=== PATIENT | male | born 1945 | race Hispanic/Latino ===

== ENCOUNTER 2017-10-02 08:19 | Emergency (ER) | payer BC, OTHER ==
[2017-10-02] MEDS ORDERED: Ketorolac Tromethamine 30 MG/ML VIAL ONE (09:09)
[2017-10-02] MEDS ORDERED: Diazepam 5 MG TAB ONE (09:09)
--- NOTE | 2017-10-02 10:47 | RAD ---
CERVICAL SPINE 4 VIEWS: Date: 10/02/17 PROVIDED CLINICAL HISTORY: Neck pain for 1 month. FINDINGS: There is slight anterolisthesis of C3 on C4 and C4 on C5. Disc space narrowing and end plate degenera tive changes are seen at C5-6 and C6-7. No evidence for fracture. No prevertebral soft tissue swellin g apparent. The visualized lung apices appear clear. IMPRESSION: Cervical degenerative change. POS: [facility]
== END 2017-10-02 10:30 | disposition home or self-care (01) ==
LOC: ERS 08:19
DX: M50.30 Other cervical disc degeneration, unspecified cervical region (principal); E78.00 Pure hypercholesterolemia, unspecified; E11.9 Type 2 diabetes mellitus without complications
CPT/HCPCS: 72040; 96372; J1885

== ENCOUNTER 2018-03-20 10:55 | Emergency (ER) | payer MEDICARE, OTHER ==
[2018-03-20] MEDS ORDERED: Meclizine HCl 25 MG TAB ONE (11:30)
[2018-03-20 11:46] LABS: #Eosinphils 0.1 thou/uL (0.0-0.7); #Lymphocytes 1.6 thou/uL (1.20-3.40); #Monocytes 0.6 thou/uL (0.11-0.59); #Neutrophils 4.3 thou/uL (1.40-6.50); %Basophils 0.7 % (0.0-1.0); %Eosinophils 1.8 % (0.0-10.0); %Lymphocytes 24.3 % (21.0-51.0); %Monocytes 8.6 % (0.0-10.0); %Neutrophils 64.5 % (42.0-75.0); Mean Corpuscular HGB CONC 31.5 g/dL (32.0-36.0); Mean Corpuscular Hemoglobin 25.4 pg (27.0-31.0); Mean Corpuscular Volume 80.7 fL (78.0-98.0); Platelet Count 218 thou/uL (130-400); RBC Distribution Width 16.5 % (11.5-14.5); Red Blood Cell (RBC) Count 5.52 mill/uL (4.70-6.10); White Blood Cell (WBC) Count 6.6 thou/uL (4.8-10.8)
[2018-03-20 11:57] LABS: ALT (SGPT) 15 U/L (8-55); AST (SGOT) 21 U/L (5-34); Albumin 4.4 g/dL (3.4-4.8); Alkaline Phosphatase 134 U/L (40-150); Anion Gap 15 mmol/L (10-20); BUN (Urea Nitrogen) 21 mg/dL (8.4-25.7); Bilirubin, Total 0.4 mg/dL (0.2-1.2); CK (CPK) 53 U/L (30-200); Calc. Creatinine Clearance 0 mL/min (70-130); Calcium 10.1 mg/dL (7.8-10.44); Carbon Dioxide 22 mmol/L (23-31); Chloride 103 mmol/L (98-107); Estimated GFR-MDRD 50; Globulin 4.6 g/dL (2.4-3.5); Glucose 87 mg/dL (80-115); Lipase 52 U/L (8-78); Potassium 4.2 mmol/L (3.5-5.1); Sodium 136 mmol/L (136-145)
[2018-03-20 12:43] LABS: Bilirubin Negative (Negative); Blood, Urine Small (Negative); Clarity CLEAR (Clear); Glucose, Urine (Dipstick) Negative (Negative); Leukocyte Negative (Negative); Nitrite Negative (Negative); Protein, Urine (Dipstick) 100 mg/dL (Neg-Trace); Specific Gravity, Urine 1.017 (1.002-1.036)
[2018-03-20 12:45] LABS: Bacteria/HPF None Seen HPF (None Seen); Pathc Cast-AUWi Flag 1.59 (0-2.49); Squamous Epithelial 0-3 HPF (0-3); WBC/HPF 0-3 HPF (0-3)
[2018-03-20 12:59] LABS: Hyaline Casts/LPF 0-3 HYALINE CAST LPF (0-3 Hyaline)
--- NOTE | 2018-03-20 13:17 | RAD ---
CHEST 1 VIEW: HISTORY: Altered mental status. COMPARISON: 03/11/2016. FINDINGS: Cardiac silhouette is magnified by projection. Pulmonary vasculature is unremarkable. Mediastinum i s midline. No confluent airspace consolidation or evidence of pneumothorax. IMPRESSION: No active cardiopulmonary abnormalities are demonstrated. POS: [facility]
--- NOTE | 2018-03-20 13:22 | CT ---
NONCONTRAST CT HEAD: DATE: 03/20/2018. HISTORY: Altered mental status. COMPARISON: 03/11/2009. FINDINGS: There is no evidence of an acute cortical infarction, hemorrhage, mass effect, or midline shift. A f ew subtle low-density areas are seen in the periventricular white matter which are nonspecific but li oliverio reflective of mild chronic small-vessel ischemic changes. There is mild cerebral volume loss. The ventricular system is normal in size, shape, and position. Visualized paranasal sinuses and mast oid air cells are clear. No other interval change from the prior exam. IMPRESSION: No acute intracranial abnormalities demonstrated. POS: [facility]
== END 2018-03-20 13:25 | disposition home or self-care (01) ==
LOC: ERS 10:55
DX: E86.0 Dehydration (principal); E78.00 Pure hypercholesterolemia, unspecified; E11.9 Type 2 diabetes mellitus without complications; Z79.899 Other long term (current) drug therapy
CPT/HCPCS: 36415; 70450; 71045; 80053; 81003; 81015; 82140; 82550; 83690; 83880; 84484; 85025; 87040; 93005; 96360

== ENCOUNTER 2018-09-05 19:06 | Inpatient (IN) | payer MEDICARE, OTHER ==
[2018-09-05] MEDS ORDERED: Fentanyl 100 MCG/2 ML VIAL ONE ×2 (19:23→20:43)
[2018-09-05] MEDS ORDERED: Ondansetron PF 4 MG/2 ML Vial ONE ×2 (19:23→20:43)
[2018-09-05 19:39] LABS: #Basophils 0.1 thou/uL (0.0-0.2); #Eosinphils 0.1 thou/uL (0.0-0.7); #Lymphocytes 2.4 thou/uL (1.20-3.40); #Neutrophils 11.4 thou/uL (1.40-6.50); %Basophils 0.5 % (0.0-1.0); %Eosinophils 0.9 % (0.0-10.0); %Monocytes 6.6 % (0.0-10.0); Hemoglobin 15.1 g/dL (14.0-18.0); Mean Corpuscular Hemoglobin 28.6 pg (27.0-31.0); Mean Corpuscular Volume 86.5 fL (78.0-98.0); Mean Platelet Volume 7.1 fL (7.4-10.4); Platelet Count 314 thou/uL (130-400); RBC Distribution Width 12.8 % (11.5-14.5); Red Blood Cell (RBC) Count 5.28 mill/uL (4.70-6.10)
[2018-09-05 19:44] LABS: INR-International Normal Ratio 1.1; PTT 32.5 SEC (22.9-36.1); Prothrombin Time 14.2 SEC (12.0-14.7)
[2018-09-05 20:01] LABS: ALT (SGPT) 40 U/L (8-55); AST (SGOT) 56 U/L (5-34); Albumin 4.6 g/dL (3.4-4.8); Alkaline Phosphatase 105 U/L (40-150); Anion Gap 19 mmol/L (10-20); BUN (Urea Nitrogen) 39 mg/dL (8.4-25.7); Bilirubin, Total 2.3 mg/dL (0.2-1.2); Calc. Creatinine Clearance 0 mL/min (70-130); Calcium 10.2 mg/dL (7.8-10.44); Carbon Dioxide 18 mmol/L (23-31); Chloride 99 mmol/L (98-107); Estimated GFR-MDRD 26; Globulin 4.1 g/dL (2.4-3.5); Glucose 251 mg/dL (83-110); Magnesium 2.1 mg/dL (1.6-2.6); Potassium 3.7 mmol/L (3.5-5.1); Protein, Total 8.7 g/dL (5.8-8.1); Sodium 132 mmol/L (136-145)
[2018-09-05 21:00] LABS: Bilirubin Negative (Negative); Blood, Urine Negative (Negative); Clarity CLEAR (Clear); Glucose, Urine (Dipstick) 250 mg/dL (Negative); Leukocyte Negative (Negative); Nitrite Negative (Negative); Protein, Urine (Dipstick) 30 mg/dL (Neg-Trace); Specific Gravity, Urine 1.012 (1.002-1.036)
[2018-09-05 21:02] LABS: Bacteria/HPF None Seen HPF (None Seen); Hyaline Casts/LPF 4-6 HYALINE CAST LPF (0-3 Hyaline); Pathc Cast-AUWi Flag 0.81 (0-2.49); RBC/HPF 0-3 HPF (0-3); Squamous Epithelial None Seen HPF (0-3); WBC/HPF 0-3 HPF (0-3)
[2018-09-05 21:05] LABS: Lipase Greater than 8000 U/L (8-78)
[2018-09-05] MEDS ORDERED: Promethazine HCl 25 MG/ML VIAL ONE (22:21)
--- NOTE | 2018-09-05 22:25 | ULT ---
GALLBLADDER ULTRASOUND: HISTORY: Right upper quadrant pain. FINDINGS: Real-time imaging of the right upper quadrant shows some echogenic material that does not shadow with in the gallbladder consistent with some sludge. It is equivocal as to whether there may be some tiny stones associated with the sludge. The common duct is 6 mm. Visualized liver parenchyma shows no f ocal abnormalities. It measures 18.3 cm in length. Pancreas is obscured. The right kidney is normal in size and not obstructed. IMPRESSION: Sludge within the gallbladder. On some of the images, there appears to be some shadowing associated with some smaller echogenic foci within the gallbladder potentially tiny stones, although not definit mark. The common duct is upper limits of normal at 6 mm. POS: [facility]
[2018-09-05] MEDS ORDERED: Ondansetron ODT 4 MG TAB SL PRN (23:20)
[2018-09-05] MEDS ORDERED: Ondansetron PF 4 MG/2 ML Vial IVP PRN (23:20)
[2018-09-05] MEDS ORDERED: Acetaminophen 325 MG TAB PO PRN (23:36)
[2018-09-05] MEDS ORDERED: Senokot S 8.6-50 MG TAB PO PRN (23:36)
[2018-09-05] MEDS ORDERED: Dextrose 5% in Water 1,000 ML IV PRN (23:39)
[2018-09-05] MEDS ORDERED: Dextrose 50% Abboject 50 ML SYRINGE SLOW IVP PRN (23:39)
[2018-09-05] MEDS ORDERED: oxyCODONE 5 MG TAB PO PRN (23:44)
[2018-09-05] MEDS: Sodium Chloride 0.9% 1,000 ML IV SCH (23:59)
[2018-09-06] MEDS ORDERED: Promethazine HCl 25 MG/ML VIAL IVPB PRN (00:37)
[2018-09-06] MEDS ORDERED: hydrALAZINE 20 MG/ML VIAL SLOW IVP PRN (00:57)
[2018-09-06] MEDS: Ondansetron PF 4 MG/2 ML Vial IVP PRN ×3 (01:16→14:59)
[2018-09-06] MEDS ORDERED: Fentanyl 100 MCG/2 ML VIAL SLOW IVP PRN (01:17)
[2018-09-06] MEDS ORDERED: Fentanyl 100 MCG/2 ML VIAL SLOW IVP SCH (03:00)
--- NOTE | 2018-09-06 03:36 | HP ---
CHIEF COMPLAINT: Nausea, vomiting, abdominal pain. HISTORY OF PRESENT ILLNESS: The patient is a 73-year-old male with a past medical history of diabetes, recent diagnosis of metastatic renal carcinoma, currently on therapy and hypertension, who presents to the hospital with complaints of nausea, vomiting, abdominal pain x1 day. The patient's family states that they went to [facility] today for imaging and also some blood work since his renal function has been worsening. The patient's family stated that while on the way back from the [facility], the patient started having significant amounts of nausea, vomiting, and abdominal pain. Denies any diarrhea. Denies any fevers or chills. At this time, the patient was brought into the hospital for further evaluation. The patient's family stated that no new medications have been started except for the Opdivo that was started about 2 or 3 months ago. The patient normally takes Tylenol for p.r.n. pain. PAST MEDICAL HISTORY: As of the following; 1. History of diabetes. 2. High cholesterol. 3. Hypertension. 4. Renal carcinoma with metastatic tumor to the bone. PAST SURGICAL HISTORY: 1. Right knee surgery. 2. Colon surgery. 3. Appendectomy. FAMILY HISTORY: No history of heart disease, cancers, or strokes. SOCIAL HISTORY: The patient drinks socially. Denies any drug use, any cigarette smoking. He is a full code. Lives with his family. ALLERGIES: HE IS ALLERGIC TO HYDROCODONE AND TRAMADOL, STATES THAT HE GETS A STRANGE REACTION IN WHICH HE HAS GENERALIZED WEAKNESS. MEDICATIONS: 1. He takes Tylenol 500 mg every 8 hours p.r.n. 2. Glimepiride 5 mg b.i.d. 3. Lisinopril-hydrochlorothiazide 20-12.5 one daily. 4. Meclizine 25 mg q.6 hours p.r.n. 5. Zofran 4 mg q.6 hours p.r.n. PHYSICAL EXAMINATION: VITAL SIGNS: Are as of the following; temperature of 98.3, pulse 97, respirations 20, oxygen saturation 98% on room air, blood pressure 186/100. GENERAL: He is awake, alert, and oriented x3. Does not appear in distress. HEENT: Normocephalic, atraumatic. No lymphadenopathy noted. Pupils are equal and reactive to light. CV: S1 and S2 present. No murmurs, rubs, or gallops. LUNGS: Clear to auscultation. No rhonchi or wheezes noted. ABDOMEN: Obese. Bowel sounds are present x2. Significant pain upon palpation around epigastric area. The patient's abdomen appears to have some edema around his abdominal area. EXTREMITIES: Mild +1 pitting edema to bilateral lower extremities. Pedal pulses are present x2. NEUROVASCULAR: No focal deficits noted. SKIN: No cuts, lesions, or bruises noted. MUSCULOSKELETAL: He does have pain on his left shoulder. LABORATORY RESULTS: WBCs of 15.0, hemoglobin of 15.1, hematocrit of 45.6, platelets of 314. Chemistry; sodium of 132, potassium of 3.7, BUN of 13, creatinine of 2.47, his glucose is 251. His total bilirubin is 2.3, and AST is 56. His lipase was greater than 8000. The patient did have a right upper quadrant abdominal ultrasound which indicated sludge within the gallbladder and also some potential tiny stones. The common bile duct was normal at 6 mm. ASSESSMENT AND PLAN: The patient is a very pleasant 73-year-old male who presents to the hospital with complaints of abdominal pain, nausea and vomiting. 1. Acute pancreatitis. We will start the patient on some gentle hydration. We will also keep the patient n.p.o. GI has been consulted. The patient does have significant sludge in the gallbladder. There is a possibility that, that could be causing the patient to have acute pancreatitis. Not sure if Opdivo has a possible potential of causing pancreatitis also. It does, however, do elevate the serum lipase level. I will consider getting a CT of abdomen and pelvis in the morning for further evaluation. 2. Acute kidney injury on chronic kidney disease. The patient's family did mention that his creatinine has been worsening and there was some concern that the Opdivo could be causing this and if so, the patient was supposed to start prednisone and that has been indicated up to date. However, I will consult Oncology for further evaluation on that. I will hold his hydrochlorothiazide and I will hold his lisinopril. However, I believe this patient might require some diuretics since he does have some significant swelling in his lower extremities and also his abdominal area. 3. Elevated total bilirubin. This could be secondary to his underlying acute processes. We will continue to monitor and if required, the patient may require surgical evaluation. 4. Diabetes. We will continue to check before meals and at bedtime blood sugars and also we will put the patient on sliding scale. 5. Deep venous thrombosis prophylaxis. We will put the patient on some Lovenox or heparin subcu. Job ID: [id number]
[2018-09-06] MEDS: Promethazine HCl 12.5 MG in Sodium Chloride 0.9% 50 ML IVPB PRN ×2 (04:15→12:12)
[2018-09-06] MEDS: Levothyroxine Sodium 125 MCG TAB PO SCH ×2 (04:19→07:39)
[2018-09-06] MEDS: Fentanyl 100 MCG/2 ML VIAL SLOW IVP PRN ×8 (05:23→22:50)
[2018-09-06 05:50] LABS: #Lymphocytes 0.7 thou/uL (1.20-3.40); #Monocytes 0.5 thou/uL (0.11-0.59); #Neutrophils 7.2 thou/uL (1.40-6.50); %Basophils 0.2 % (0.0-1.0); %Eosinophils 0.1 % (0.0-10.0); %Lymphocytes 8.3 % (21.0-51.0); %Monocytes 6.2 % (0.0-10.0); %Neutrophils 85.3 % (42.0-75.0); Hemoglobin 15.4 g/dL (14.0-18.0); Mean Corpuscular HGB CONC 32.4 g/dL (32.0-36.0); Mean Corpuscular Hemoglobin 28.2 pg (27.0-31.0); Mean Corpuscular Volume 87.2 fL (78.0-98.0); Mean Platelet Volume 7.6 fL (7.4-10.4); Platelet Count 252 thou/uL (130-400); Red Blood Cell (RBC) Count 5.45 mill/uL (4.70-6.10); White Blood Cell (WBC) Count 8.5 thou/uL (4.8-10.8)
[2018-09-06] MEDS: HumaLOG 300 UNITS/3 ML VIAL SC PRN (05:55)
[2018-09-06 06:13] LABS: ALT (SGPT) 63 U/L (8-55); AST (SGOT) 74 U/L (5-34); Alkaline Phosphatase 110 U/L (40-150); Anion Gap 13 mmol/L (10-20); BUN (Urea Nitrogen) 39 mg/dL (8.4-25.7); Bilirubin, Total 3.3 mg/dL (0.2-1.2); Calc. Creatinine Clearance 42 mL/min (70-130); Calcium 9.2 mg/dL (7.8-10.44); Carbon Dioxide 19 mmol/L (23-31); Cardiac Risk 8.5 (Less than 4.5); Chloride 105 mmol/L (98-107); Cholesterol 281 mg/dl (< 200 Desired); Estimated GFR-MDRD 29; Globulin 3.7 g/dL (2.4-3.5); Glucose 270 mg/dL (83-110); HDL Cholesterol 33 mg/dL (>60 Neg Risk); LDL Cholesterol, Calculated 215 mg/dL; Potassium 4.4 mmol/L (3.5-5.1); Protein, Total 7.7 g/dL (5.8-8.1); Sodium 133 mmol/L (136-145); Triglycerides 163 mg/dL (Less than 150)
[2018-09-06] MEDS ORDERED: Artificial Tears 18 DROP/0.9 ML EA EYE PRN (07:25)
[2018-09-06] MEDS ORDERED: Sodium Chloride 0.65% Nasal 44 ML BOT EA NARE PRN (07:25)
[2018-09-06] MEDS ORDERED: Cepastat Lozenges 1 LOZ PO PRN (07:25)
[2018-09-06] MEDS: Heparin 5,000 UNITS/ML VIAL SC SCH ×3 (07:37→19:55)
[2018-09-06] MEDS: Sodium Chloride 0.9% 1,000 ML IV SCH ×3 (07:38→21:05)
--- NOTE | 2018-09-06 10:39 | PDOC.PN ---
- Subjective Encounter Start Date: 09/06/18 Encounter Start Time: 10:00 -: old records requested/rev Patient seen and examined. No new complaints. No overnight events last night he was not bale to rest well due to abdominal pain, this morning he is resting - Objective Resuscitation Status - Order Detail: 09/05/18 23:36 Resuscitation Status Routine Resuscitation Status: FULL: Full Resuscitation MAR Reviewed: Yes Vital Signs & Weight: Vital Signs (12 hours) Temp Pulse Resp BP BP Pulse Ox 09/06/18 07:54 98.2 F 98 20 163/84 H 93 L 09/06/18 05:55 109 H 168/100 H 09/06/18 05:00 98.1 F 108 H 18 177/102 H 95 09/06/18 02:00 185/92 H 09/06/18 01:25 97 185/92 H 09/05/18 23:15 98 09/05/18 23:10 98.3 F 97 20 186/100 H 98 Weight Weight 211 lb 4.8 oz I&O: 09/05/18 09/06/18 09/07/18 06:59 06:59 06:59 Intake Total 886.75 Output Total 550 Balance 336.75 Result Diagrams: 09/06/18 05:05 09/06/18 05:05 Additional Labs: Accuchecks 09/06/18 09/06/18 05:07 01:21 POC Glucose 237 H 252 H Radiology Reviewed by me: Yes Phys Exam - Physical Examination Constitutional: NAD HEENT: PERRLA, moist MMs, sclera anicteric Neck: no JVD, supple Respiratory: no wheezing, no rales, no rhonchi Cardiovascular: RRR, no significant murmur, no rub Gastrointestinal: soft, no distention, positive bowel sounds tenderness Musculoskeletal: no edema, pulses present Neurological: non-focal, normal sensation, moves all 4 limbs Lymphatic: no nodes Psychiatric: normal affect, A&O x 3 Skin: no rash, normal turgor Dx/Plan (1) Abnormal LFTs Code(s): R94.5 - ABNORMAL RESULTS OF LIVER FUNCTION STUDIES Status: Acute (2) Acute pancreatitis Code(s): K85.90 - ACUTE PANCREATITIS WITHOUT NECROSIS OR INFECTION, UNSP Status: Acute (3) Acute worsening of stage 3 chronic kidney disease Code(s): N18.3 - CHRONIC KIDNEY DISEASE, STAGE 3 (MODERATE) Status: Acute (4) Dyslipidemia Code(s): E78.5 - HYPERLIPIDEMIA, UNSPECIFIED Status: Chronic (5) Hypertension Code(s): I10 - ESSENTIAL (PRIMARY) HYPERTENSION Status: Chronic (6) Hypothyroidism Code(s): E03.9 - HYPOTHYROIDISM, UNSPECIFIED Status: Chronic (7) Metastatic renal cell carcinoma to bone Code(s): C79.51 - SECONDARY MALIGNANT NEOPLASM OF BONE; C64.9 - MALIGNANT NEOPLASM OF UNSP KIDNEY, EXCEPT RENAL PELVIS Status: Chronic (8) Obesity (BMI 30.0-34.9) Code(s): E66.9 - OBESITY, UNSPECIFIED Status: Chronic - Plan cont current plan of care, plan discussed w/ family, incentive spirometry * oncology and GI consulted * US abdomen report noted, unsure gall bladder sludge responsible for pancreatitis, will ask GI * medication reviewed as below * symptomatic treatment * discussed with family bedside. * currently NPO, pain control with fentanyl, will monitor daily labs Review of Systems - Review of Systems Eyes: negative: Pain, Vision Change, Conjunctivae Inflammation, Eyelid Inflammation, Redness, Other ENT: negative: Ear Pain, Ear Discharge, Nose Pain, Nose Discharge, Nose Congestion, Mouth Pain, Mouth Swelling, Throat Pain, Throat Swelling, Other Respiratory: negative: Cough, Dry, Shortness of Breath, Hemoptysis, SOB with Excertion, Pleuritic Pain, Sputum, Wheezing Cardiovascular: negative: chest pain, palpitations, orthopnea, paroxysmal nocturnal dyspnea, edema, light headedness, other Gastrointestinal: Nausea, Vomiting, Abdominal Pain. negative: Diarrhea, Constipation, Melena, Hematochezia, Other Genitourinary: negative: Dysuria, Frequency, Incontinence, Hematuria, Retention , Other Musculoskeletal: negative: Neck Pain, Shoulder Pain, Arm Pain, Back Pain, Hand Pain, Leg Pain, Foot Pain, Other Skin: negative: Rash, Lesions, Rancho, Bruising, Other - Medications/Allergies Allergies/Adverse Reactions: Allergies Allergy/AdvReac Type Severity Reaction Status Date / Time hydrocodone AdvReac Severe Verified 09/05/18 23:19 morphine AdvReac Severe Verified 09/05/18 23:19 tramadol AdvReac Intermediate Verified 09/05/18 23:19 Medications: Current Medications Acetaminophen (Tylenol) 650 mg PO Q4H PRN PRN Reason: Headache/Fever/Mild Pain (1-3) Artificial Tears (Tears Naturale) 2 drop EA EYE PRN PRN PRN Reason: Dry Eyes Dextrose/Water (Dextrose 50%) 25 gm SLOW IVP PRN PRN PRN Reason: Hypoglycemia Fentanyl (Sublimaze) 75 mcg SLOW IVP Q2H PRN PRN Reason: Moderate Pain (4-6) Last Admin: 09/06/18 09:51 Dose: 75 mcg Glucagon (Glucagon) 1 mg IM PRN PRN PRN Reason: Hypoglycemia Heparin Sodium (Porcine) (Heparin) 5,000 units SC TID [facility] Last Admin: 09/06/18 07:37 Dose: 5,000 units Hydralazine HCl (Apresoline) 5 mg SLOW IVP Q6H PRN PRN Reason: SBP Greater Than 170 Last Admin: 09/06/18 01:25 Dose: 5 mg Sodium Chloride (Normal Saline 0.9%) 1,000 mls @ 150 mls/hr IV .Q6H40M [facility] Last Admin: 09/06/18 07:38 Dose: 1,000 mls Dextrose/Water (D5w) 1,000 mls @ 0 mls/hr IV .Q0M PRN PRN Reason: Hypoglycemia Promethazine HCl 12.5 mg/ (Sodium Chloride) 50.5 mls @ 202 mls/hr IVPB Q6H PRN PRN Reason: Nausea Last Admin: 09/06/18 04:15 Dose: 50.5 mls Insulin Human Lispro (Humalog) 0 units SC .MILD SLIDING SCALE PRN PRN Reason: Mild Correctional Scale Last Admin: 09/06/18 05:55 Dose: 3 unit Labetalol HCl (Normodyne) 10 mg SLOW IVP Q4H PRN PRN Reason: SBP GREATER THAN 160 Levothyroxine Sodium (Synthroid) 125 mcg PO 0600 [facility] Last Admin: 09/06/18 07:39 Dose: 125 mcg Ondansetron HCl (Zofran) 4 mg IVP Q6H PRN PRN Reason: Nausea/Vomiting Last Admin: 09/06/18 07:35 Dose: 4 mg Senna/Docusate Sodium (Senokot S) 2 tab PO BID PRN PRN Reason: Constipation Sodium Chloride (Flush - Normal Saline) 10 ml IVF Q12HR [facility] Last Admin: 09/06/18 07:39 Dose: 10 ml Sodium Chloride (Flush - Normal Saline) 10 ml IVF PRN PRN PRN Reason: Saline Flush Last Admin: 09/05/18 23:59 Dose: 10 ml Sodium Chloride (Weber Nasal [place] 0.65%) 0 ml EA NARE QIDPRN PRN PRN Reason: Nasal Congestion Throat Lozenges (Cepastat Lozenges) 1 andrzej PO Q2H PRN PRN Reason: Sore Throat
[2018-09-06] MEDS ORDERED: Acetaminophen 1,000 MG in Premix Bag 1 BAG IVPB SCH (17:15)
--- NOTE | 2018-09-06 17:35 | CON ---
DATE OF CONSULTATION: REASON FOR CONSULT: Renal cell carcinoma. HISTORY OF PRESENT ILLNESS: Mr. 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 He has metastasis to the bones including his left shoulder. He also has chronic renal insufficiency. He has been getting Opdivo for several months. His creatinine prior to initiation of immunotherapy was 1.3. Over the course of several months, it was gradually increased to 1.9. He has seen Dr. Patrick and was referred back to the commodities requirements analyst at [facility] [place]. He was seen yesterday in [place] by the commodities requirements analyst and some blood pressure medication changes were made. The patient was to begin high-dose steroids for immunosuppression. 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 On the way home, the patient began to have significant nausea, right upper quadrant pain, and vomiting. He went directly to the emergency room yesterday and lab showed a lipase greater than 8000. His bilirubin was 2.3 and AST was 56. His creatinine was 2.47. He was admitted for acute pancreatitis. He underwent an abdominal ultrasound, which showed some sludge in the gallbladder. The common bile duct was 6 mm. GI and Oncology were consulted for assistance. The patient has been receiving IV fluids and fentanyl pain medications. He denies any pain at this time. He is mildly sedated and sleepy. No further vomiting. No diarrhea or constipation. PAST MEDICAL HISTORY: 1. Stage 4 renal cell carcinoma. 2. Diabetes mellitus 2. 3. Hypertension. 4. History of colon cancer in 1998. PAST SURGICAL HISTORY: 1. Colon resection. 2. Appendectomy. 3. Knee replacement. 4. Colonoscopy in 2007. ALLERGIES: TO HYDROCODONE AND TRAMADOL. HOME MEDICATIONS: 1. Glimepiride 4 mg b.i.d. 2. Levothyroxine 125 mcg daily. 3. Oxycodone p.r.n. 4. Amlodipine 10 mg daily. FAMILY HISTORY: Mother had breast cancer. Father had lung cancer with history of smoking and sister had breast cancer. SOCIAL HISTORY: , one child. Lives with his mother, who is present with his sisters. No alcohol, tobacco, or illicit drug use. REVIEW OF SYSTEMS: A 10-point review of systems is negative except for noted in HPI. PHYSICAL EXAMINATION: VITAL SIGNS: Temperature is 98.4, pulse is 102, respiratory rate is 18, BP is 179/83, and he is 95% on room air. GENERAL: This is a well-developed, well-nourished male, in mild distress. HEENT: Normocephalic and atraumatic. Pupils are equal and reactive to light. NECK: Supple. CV: Regular rate and rhythm. He has tachycardia. LUNGS: Clear anterior. ABDOMEN: Distended, mildly tender to palpation. Bowel sounds are positive. EXTREMITIES: No clubbing, cyanosis, or edema. SKIN: No rash. HEMATOLOGIC: No petechiae or purpura. NEUROLOGIC: Nonfocal. PERTINENT LABS AND X-RAYS: Current WBCs are 8.5, hemoglobin 15.4, hematocrit 47.5, platelet count is 252,000, 85% neutrophils, and 8% lymphocytes. PT is 14.2, INR is 1.1, and PTT is 32.5. Sodium is 133, potassium is 4.4, chloride is 105, CO2 is 19, BUN is 39, creatinine is 2.21, calcium is 9.2, total bilirubin is 3.3, AST is 74 , ALT is 63, alkaline phosphatase is 110, serum total protein is 7.7, albumin is 4.0, globulin is 8.5, and lipase is greater than 8000. TSH is 1.4264. Urine is negative for bacteria. Radiology per HPI. ASSESSMENT: 1. Stage 4 renal cell carcinoma on immunotherapy. 2. Acute pancreatitis. 3. Acute on chronic kidney disease. 4. Gallbladder sludge. 5. Diabetes. 6. Hyperbilirubinemia. DISCUSSION: The patient was felt to have immune-mediated acute kidney injury and was to start prednisone 1 mg/kg. However, he now has acute pancreatitis. It is unclear if this is immune-mediated versus the gallbladder sludge. I did discuss the patient with Dr. Collazo, who is planning an MRCP to closely look at the common bile duct. Will start solumedrol and Protonix. MRCP tomorrow and further recommendations will be based on those results. Thank you for the consult. We will follow along. Job ID: [id number] [facility]
[2018-09-06] MEDS: Labetalol HCl 100 MG/20 ML VIAL SLOW IVP PRN (17:44)
--- NOTE | 2018-09-06 17:52 | RAD ---
EXAM: CHEST ONE VIEW HISTORY: Shortness of breath COMPARISON: 03/20/2018 FINDINGS: Cardiac silhouette and bronchovascular markings are accentuated by the shallow depth of inspiration a nd portable technique of the study. The lungs are clear. The osseous structures are intact. IMPRESSION: No acute cardiopulmonary process.
--- NOTE | 2018-09-06 18:04 | CON ---
DATE OF CONSULTATION: 09/06/2018 REASON FOR CONSULTATION: Pancreatitis. HISTORY OF PRESENT ILLNESS: Andrea Loo is a 73-year-old man with a history of metastatic renal cell carcinoma to the bone. He has been undergoing chemotherapy with Opdivo. He has no prior history of pancreatic or gallbladder disease. Yesterday, he had a normal followup at [facility], had a renal ultrasound. Evidently, plans were made to discontinue the Opdivo due to tenuous renal function and get him started on steroids. On the way back from [place] yesterday, he had a very acute onset of epigastric pain and nausea and then multiple episodes of emesis. The epigastric pain became quite severe and prompted his presentation here last night. He was found to have lipase elevation of over 8000 as well as mild LFT elevation with total bilirubin 2.3. He had an ultrasound and this demonstrates sludge and small stones in the gallbladder with a common bile duct measuring 6 mm, which is the upper limit of normal. He was admitted and has been receiving good supportive care for pancreatitis with IV fluids and n.p.o. status as well as pain control. His creatinine trended down slightly yesterday. Today, LFTs bumped a little with total bilirubin going up to 3.3. He has some mild tachycardia, but has been otherwise hemodynamically stable. REVIEW OF SYSTEMS: Full review of systems including constitutional; head, eyes, ears, nose, throat; GI; ; cardiovascular; respiratory; musculoskeletal; neurologic systems is negative except as noted in the HPI. PAST MEDICAL HISTORY: 1. Renal cell carcinoma, metastatic to bone. 2. Diabetes. 3. Hypertension. 4. Hyperlipidemia. 5. Knee surgery. 6. Appendectomy. ALLERGIES: HYDROCODONE AND TRAMADOL. OUTPATIENT MEDICATIONS: Opdivo, glimepiride, lisinopril/hydrochlorothiazide, Tylenol p.r.n., meclizine, Zofran p.r.n. FAMILY HISTORY: Negative for malignancy. SOCIAL HISTORY: Alcohol use is social. No smoking. No drug use. PHYSICAL EXAMINATION: VITAL SIGNS: Temperature 98.4, pulse 102, blood pressure 179/83, 95% oxygen saturation on room air. GENERAL: A 73-year-old man appearing chronically ill, lying in bed, in mild to moderate distress from ongoing abdominal pain. MENTAL: He is alert and oriented. He can answer directed questions, but is not real forthcoming with details of his history, secondary to pain. SKIN: No jaundice. No rashes were palpable. EYES: No scleral icterus. Extraocular movements intact. ENT: Mucous membranes moist. No oral lesions. LYMPH: No submandibular or supraclavicular lymphadenopathy. Thyroid nontender to palpation. HEART: Regular. Borderline tachycardia. LUNGS: Clear to auscultation bilaterally. ABDOMEN: Obese, nondistended. Bowel sounds are hypoactive, but present. The abdomen is soft, tender to palpation in the epigastrium. No guarding or rebound tenderness. EXTREMITIES: No peripheral edema. VESSELS: Radial pulses 2+ bilaterally. NEURO: Cranial nerves 2 through 12 intact bilaterally. No focal deficits. LABORATORY STUDIES: WBC 8.5, hemoglobin 15.4, hematocrit 47.5, platelets 252. BUN 39, creatinine 2.21. INR 1.1. Total bilirubin up to 3.3 from 2.3 yesterday, alkaline phosphatase 110, AST 74, ALT 63, albumin 4.0, lipase greater than 8000. IMAGING STUDIES: Abdominal ultrasound performed yesterday demonstrated sludge in the gallbladder and some possible small stones. The common bile duct is 6 mm, which is upper limit of normal range. ASSESSMENT/PLAN: 1. Acute pancreatitis, first episode. 2. Elevated LFTs. 3. Biliary sludge in the gallbladder. 4. Metastatic renal cell carcinoma. The acuity of the patient's presentation in association with an acute bump in the LFTs, is all most suggestive of acute biliary pancreatitis. He has sludge and small stones within the gallbladder. I do feel this probably represents biliary pancreatitis rather than being directly related to his malignancy or medications, none of which are particularly new. What is more doubtful as is whether the patient has choledocholithiasis or retained sludge or stone in the common bile duct. This measures only 6 mm on ultrasound. He does have some up-trend in the total bilirubin from yesterday until today. At this point, I would consider him to be at intermediate probability of choledocholithiasis. I would not perform ERCP without further noninvasive imaging. I will order MRCP for better assessment of the common bile duct. Trend the LFTs tomorrow. If LFTs continue to rise and the MRCP is unable to rule out choledocholithiasis, then we would consider ERCP at that point. If the common bile duct is demonstrably clear and LFTs trending down, then that would signify that he likely passed a stone or sludge already. 5. In the meantime, continue with supportive measures for pancreatitis. The downtrending creatinine from admission until today is reassuring. Continue with IV fluids and n.p.o. status and pain control. Await Oncology recommendations as well. 6. GI will follow along. We will follow MRCP report and laboratory studies tomorrow. Job ID: [id number]
[2018-09-06] MEDS ORDERED: Diltiazem 125 MG in Sodium Chloride 0.9% 100 ML IVPB SCH (22:30)
--- NOTE | 2018-09-06 22:40 | PDOC.EVN ---
Event Note - Event Note Event Note: Called by nursing; patient went into a flutter in the 130s; given tachypnea and risk factors, would also consider PE. Will repeat CXR, and obtain a d dimer; consider VQ scan in am. Cardizem gtt for rate control. Procalcitonin and Mg++ level also ordered.
--- NOTE | 2018-09-06 23:00 | RAD ---
XR Chest 1 View Portable HISTORY: Shortness of breath COMPARISON: None. FINDINGS: Heart size appears slightly enlarged. Subsegmental atelectasis is seen in the left base. No signs of failure. IMPRESSION: Subsegmental atelectatic change within the left lung base
[2018-09-07 01:08] LABS: Lactic Acid 2.2 mmol/L (0.5-2.2)
[2018-09-07] MEDS: Fentanyl 100 MCG/2 ML VIAL SLOW IVP PRN ×5 (03:54→17:30)
[2018-09-07] MEDS: Sodium Chloride 0.9% 1,000 ML IV SCH ×3 (03:54→14:53)
[2018-09-07] MEDS: Piperacillin/Tazobactam 4.5 GM in Sodium Chloride 0.9% 100 ML IVPB SCH ×2 (03:55→14:51)
[2018-09-07 05:45] LABS: ALT (SGPT) 61 U/L (8-55); AST (SGOT) 53 U/L (5-34); Albumin 3.5 g/dL (3.4-4.8); Alkaline Phosphatase 105 U/L (40-150); Anion Gap 18 mmol/L (10-20); BUN (Urea Nitrogen) 37 mg/dL (8.4-25.7); Bilirubin, Total 5.7 mg/dL (0.2-1.2); Calc. Creatinine Clearance 40 mL/min (70-130); Calcium 8.1 mg/dL (7.8-10.44); Carbon Dioxide 16 mmol/L (23-31); Chloride 109 mmol/L (98-107); Estimated GFR-MDRD 28; Globulin 3.5 g/dL (2.4-3.5); Glucose 83 mg/dL (83-110); Lipase 976 U/L (8-78); Potassium 4.6 mmol/L (3.5-5.1); Sodium 138 mmol/L (136-145)
[2018-09-07 05:54] LABS: Band 15 % (5-11); Hemoglobin 16.1 g/dL (14.0-18.0); Lymphocytes 8 % (21-51); MDiff Complete? YES; Mean Corpuscular HGB CONC 32.4 g/dL (32.0-36.0); Mean Corpuscular Hemoglobin 28.5 pg (27.0-31.0); Monocytes 6 % (0-10); Neutrophil 71 % (42-75); Platelet Count 250 thou/uL (130-400); Platelet Morphology Comment Appears Adequate; RBC Distribution Width 13.3 % (11.5-14.5); Red Blood Cell (RBC) Count 5.64 mill/uL (4.70-6.10); White Blood Cell (WBC) Count 18.4 thou/uL (4.8-10.8)
[2018-09-07] MEDS ORDERED: methylPREDNISolone Sod Succ 40 MG VIAL IVP SCH ×2 (09:00→14:00)
[2018-09-07] MEDS: Heparin 5,000 UNITS/ML VIAL SC SCH ×2 (09:46→14:51)
[2018-09-07] MEDS: Pantoprazole 40 MG VIAL IVP SCH (09:47)
--- NOTE | 2018-09-07 10:35 | MRI ---
MRI ABDOMEN WITH AND WITHOUT CONTRAST: HISTORY: Elevated LFTs, pancreatitis. Evaluate for common bile duct stone or sludge COMPARISON: Ultrasound 09/05/2018. TECHNIQUE: Multiplanar, multisequence MRI of the abdomen performed without intravenous contrast. Three-D render ing provided for MRCP. FINDINGS: There is a small left pleural effusion. Trace right pleural fluid. Mild ascites. There is peripanc reatic edema. Evaluation for necrosis is limited. There is perihepatic ascites. Mild third spacing of fluid. Gallbladder is mildly distended. There is cholelithiasis. No intrahepatic or extrahepatic biliary d ilatation. Likely interosseous hemangioma T1 vertebra. IMPRESSION: 1. Evidence of pancreatitis with peripancreatic edema as well as extensive third spacing of fluid an d perihepatic ascites. 2. Reactive pleural effusions. 3. Cholelithiasis without choledocholithiasis. No intrahepatic or extrahepatic biliary dilatation. POS: [facility]
[2018-09-07 10:49] LABS: Actual Bicarbonate (HCO3a) 15.4 mEq/L (22-28); Base Excess (BEa) -8.4 mEq/L (-2.0 to +3.0); CO2 Tension 28.3 mmHg (35.0-45.0); Calcium, Ionized 1.02 mmol/L (1.12-1.30); Carboxyhemoglobin (COHb) 1.6 gm% (0.0-3.0); O2 Tension (PaO2) 78.9 mmHg (> 70.0); Potassium - ABG Lab 4.07 mmol/L (3.70-5.30); pH, Arterial 7.36 (7.35-7.45)
[2018-09-07 10:51] LABS: ALV-art Gradient 85.365 (0-20); Puncture Site RRA
--- NOTE | 2018-09-07 11:22 | PDOC.PN ---
- Subjective Encounter Start Date: 09/07/18 Encounter Start Time: 07:15 -: old records requested/rev this morning pt has tachypnea, he is saturating OK, he does not have pleuritic chest pain or cough, yesterday evening he was tachycardic so we transferred to [facility], his chest xray was fine and EKG showed tachycardia last night he became more short of breath, so antibiotics started and for atrial flutter/tachycardia, cardizem drip started this morning he had MRCP family bedside - Objective Resuscitation Status - Order Detail: 09/05/18 23:36 Resuscitation Status Routine Resuscitation Status: FULL: Full Resuscitation MAR Reviewed: Yes Vital Signs & Weight: Vital Signs (12 hours) Temp Pulse Resp BP Pulse Ox 09/07/18 09:46 97 09/07/18 07:33 98.2 F 104 H 32 H 146/75 H 97 09/07/18 04:12 98.8 F 124 H 23 H 151/86 H 93 L Weight Weight 212 lb 6.4 oz I&O: 09/06/18 09/07/18 09/08/18 06:59 06:59 06:59 Intake Total 886.75 1638 Output Total 550 550 Balance 336.75 1088 Result Diagrams: 09/07/18 04:45 09/07/18 04:45 Additional Labs: Accuchecks 09/07/18 09/07/18 09/06/18 10:57 05:50 21:00 POC Glucose 130 H 128 H 112 H 09/06/18 09/06/18 16:44 11:47 POC Glucose 141 H 175 H Radiology Reviewed by me: Yes (MRCP and chest xray reviewed) EKG Reviewed by me: Yes (tachycardia) Phys Exam - Physical Examination Constitutional: NAD mild respi distress HEENT: PERRLA, sclera anicteric Neck: no JVD, supple Respiratory: no wheezing, no rhonchi reduced air entry at base Cardiovascular: RRR, no significant murmur, no rub tachycardia Gastrointestinal: soft, positive bowel sounds epigastric tenderness, mild distension Musculoskeletal: no edema, pulses present Neurological: non-focal, normal sensation Lymphatic: no nodes Psychiatric: normal affect, A&O x 3 Skin: no rash, normal turgor Dx/Plan (1) Acute pancreatitis Code(s): K85.90 - ACUTE PANCREATITIS WITHOUT NECROSIS OR INFECTION, UNSP Status: Acute (2) Acute worsening of stage 3 chronic kidney disease Code(s): N18.3 - CHRONIC KIDNEY DISEASE, STAGE 3 (MODERATE) Status: Acute (3) Abnormal LFTs Code(s): R94.5 - ABNORMAL RESULTS OF LIVER FUNCTION STUDIES Status: Acute (4) Dyslipidemia Code(s): E78.5 - HYPERLIPIDEMIA, UNSPECIFIED Status: Chronic (5) Hypertension Code(s): I10 - ESSENTIAL (PRIMARY) HYPERTENSION Status: Chronic (6) Hypothyroidism Code(s): E03.9 - HYPOTHYROIDISM, UNSPECIFIED Status: Chronic (7) Metastatic renal cell carcinoma to bone Code(s): C79.51 - SECONDARY MALIGNANT NEOPLASM OF BONE; C64.9 - MALIGNANT NEOPLASM OF UNSP KIDNEY, EXCEPT RENAL PELVIS Status: Chronic (8) Obesity (BMI 30.0-34.9) Code(s): E66.9 - OBESITY, UNSPECIFIED Status: Chronic (9) Atrial flutter Code(s): I48.92 - UNSPECIFIED ATRIAL FLUTTER Status: Acute Comment: vs atrial tachycardia - Plan cont current plan of care, plan discussed w/ family, continue antibiotics, respiratory therapy * GI recommendation noted and appreciated, based on MRCP will decide if ERCP needed or not * Oncology recommendation noted and started on solumedrol * for his respi distress and elevated D-dimer, will get VQ scan to rule out PE but clinically less likely, his dyspnea most likey related with inflammatory process. his chest xray is OK. * will get ABG * will closely monitor him * I spoke with patient's family and informed about condition and plan * will keep NPO for now Review of Systems - Review of Systems ENT: negative: Ear Pain, Ear Discharge, Nose Pain, Nose Discharge, Nose Congestion, Mouth Pain, Mouth Swelling, Throat Pain, Throat Swelling, Other Respiratory: Shortness of Breath. negative: Cough, Dry, Hemoptysis, SOB with Excertion, Pleuritic Pain, Sputum, Wheezing Cardiovascular: negative: chest pain, palpitations, orthopnea, paroxysmal nocturnal dyspnea, edema, light headedness, other Gastrointestinal: Abdominal Pain. negative: Nausea, Vomiting, Diarrhea, Constipation, Melena, Hematochezia, Other Genitourinary: negative: Dysuria, Frequency, Incontinence, Hematuria, Retention , Other Musculoskeletal: negative: Neck Pain, Shoulder Pain, Arm Pain, Back Pain, Hand Pain, Leg Pain, Foot Pain, Other Skin: negative: Rash, Lesions, [place], Bruising, Other - Medications/Allergies Allergies/Adverse Reactions: Allergies Allergy/AdvReac Type Severity Reaction Status Date / Time hydrocodone AdvReac Severe Verified 09/05/18 23:19 morphine AdvReac Severe Verified 09/05/18 23:19 tramadol AdvReac Intermediate Verified 09/05/18 23:19 Medications: Current Medications Acetaminophen (Tylenol) 650 mg PO Q4H PRN PRN Reason: Headache/Fever/Mild Pain (1-3) Artificial Tears (Tears Naturale) 2 drop EA EYE PRN PRN PRN Reason: Dry Eyes Dextrose/Water (Dextrose 50%) 25 gm SLOW IVP PRN PRN PRN Reason: Hypoglycemia Fentanyl (Sublimaze) 75 mcg SLOW IVP Q2H PRN PRN Reason: Moderate Pain (4-6) Last Admin: 09/07/18 08:29 Dose: 75 mcg Glucagon (Glucagon) 1 mg IM PRN PRN PRN Reason: Hypoglycemia Heparin Sodium (Porcine) (Heparin) 5,000 units SC TID [facility] Last Admin: 09/07/18 09:46 Dose: 5,000 units Sodium Chloride (Normal Saline 0.9%) 1,000 mls @ 150 mls/hr IV .Q6H40M [facility] Last Admin: 09/07/18 09:46 Dose: Not Given Dextrose/Water (D5w) 1,000 mls @ 0 mls/hr IV .Q0M PRN PRN Reason: Hypoglycemia Promethazine HCl 12.5 mg/ (Sodium Chloride) 50.5 mls @ 202 mls/hr IVPB Q6H PRN PRN Reason: Nausea Last Admin: 09/06/18 12:12 Dose: 50.5 mls Diltiazem HCl 125 mg/ Sodium (Chloride) 125 mls @ 5 mls/hr IVPB INF [facility]; Protocol Last Admin: 09/06/18 22:52 Dose: 125 mls Piperacillin Sod/Tazobactam (Sod 4.5 gm/ Sodium Chloride) 100 mls @ 200 mls/hr IVPB Q8HR [facility] Last Admin: 09/07/18 03:55 Dose: 100 mls Insulin Human Lispro (Humalog) 0 units SC .MILD SLIDING SCALE PRN PRN Reason: Mild Correctional Scale Last Admin: 09/06/18 05:55 Dose: 3 unit Labetalol HCl (Normodyne) 10 mg SLOW IVP Q4H PRN PRN Reason: SBP GREATER THAN 160 Last Admin: 09/06/18 17:44 Dose: 10 mg Levothyroxine Sodium (Synthroid) 125 mcg PO 0600 [facility] Last Admin: 09/06/18 07:39 Dose: 125 mcg Methylprednisolone Sodium Succinate (Solu-Medrol) 40 mg IVP BID [facility] Last Admin: 09/07/18 09:47 Dose: 40 mg Ondansetron HCl (Zofran) 4 mg IVP Q6H PRN PRN Reason: Nausea/Vomiting Last Admin: 09/06/18 14:59 Dose: 4 mg Pantoprazole Sodium (Protonix) 40 mg IVP DAILY [facility] Last Admin: 09/07/18 09:47 Dose: 40 mg Senna/Docusate Sodium (Senokot S) 2 tab PO BID PRN PRN Reason: Constipation Sodium Chloride (Flush - Normal Saline) 10 ml IVF Q12HR [facility] Last Admin: 09/07/18 09:47 Dose: 10 ml Sodium Chloride (Flush - Normal Saline) 10 ml IVF PRN PRN PRN Reason: Saline Flush Last Admin: 09/05/18 23:59 Dose: 10 ml Sodium Chloride ([place] Nasal [place] 0.65%) 0 ml EA NARE QIDPRN PRN PRN Reason: Nasal Congestion Throat Lozenges (Cepastat Lozenges) 1 andrzej PO Q2H PRN PRN Reason: Sore Throat
--- NOTE | 2018-09-07 13:23 | NM ---
VQ SCAN: HISTORY: Shortness of breath TECHNIQUE: A ventilation/perfusion scan was performed using 18.6 mCi xenon-133 by inhalation for the ventilation study followed by the intravenous administration of 5.7 mCi technetium 99m-MAA for the perfusion scan. CORRELATION: Chest radiograph from previous evening. FINDINGS: Fairly homogeneous is noted in the tracer distribution to the lung solares bilaterally on ventilation and perfusion scans. No mismatched pleural-based, wedge-shaped, segmental or subsegmental perfusion defects are identified . IMPRESSION: Very low probability for pulmonary embolism.
--- NOTE | 2018-09-07 14:06 | PDOC.EVN ---
Event Note - Event Note Event Note: patient re evaluated bedside, pt still breathing in 30-35,he is tachycardic, subjectively pt feels OK, he has less abdominal pain, spoke with GI and per him no plan for any procedure but will need to continue conservative treatment, ABG and V/Q scan result adn MRI result conveyed to patient and family bedside. Examined patient bedside. patient will need close monitoring in CCU, Dr. Narayan is already aware of patient, I have addressed code status with patient and he is full code. will monitor labs and re evaluate.
--- NOTE | 2018-09-07 14:16 | PRG ---
DATE OF SERVICE: 09/07/2018 SUBJECTIVE: Mr. Loo became tachycardic and tachypneic overnight. He had essentially clear chest x-ray and EKG. He went down for V/Q scan earlier today and the result is pending on that. Currently, he feels less short of breath. He says his abdominal pain has improved somewhat, though he is still requiring pain medications. He has not passed any gas, no vomiting. MRCP demonstrated no evidence of choledocholithiasis, but he has significant peripancreatic edema. OBJECTIVE: VITAL SIGNS: Temperature 98.2, pulse 103, blood pressure 144/73, and 97% oxygen saturation on 2 L nasal cannula. GENERAL: Ill-appearing, 73-year-old man, tachypneic. No wheezing. HEART: Regular, tachycardia. LUNGS: Bibasilar crackles. Mild tachypnea. No wheezing. ABDOMEN: Bowel sounds are hypoactive. The abdomen is nondistended, soft. Some tenderness to palpation in the epigastrium and midabdomen. No guarding or rebound tenderness. EXTREMITIES: No peripheral edema. LABORATORY STUDIES: WBC went up to 18.4, hemoglobin to 16.1, hematocrit trended up slightly to 49.7, and platelets 250. D-dimer was elevated at 6.27. Sodium 138; potassium 4.6; BUN 37; creatinine 2.29, essentially stable from yesterday; glucose 130. Total bilirubin continued to climb, now up to 5.7 today. AST 53, ALT 61, alkaline phosphatase 105. Lipase declined down to 976. IMAGING STUDIES: MRCP was performed earlier today. This demonstrates peripancreatic edema and third spacing of fluid with perihepatic ascites, reactive pleural effusions. There is cholelithiasis in the gallbladder and mild gallbladder distention, but there is no intrahepatic or extrahepatic biliary dilation. No evidence of choledocholithiasis. ASSESSMENT AND PLAN: 1. Acute pancreatitis, severe, first episode. 2. Cholelithiasis without choledocholithiasis. 3. Elevated LFTs, with bilirubin trending up. I had a long discussion with Dr. Higginbotham and the patient's family today with regard to the etiology of his pancreatitis, I still feel that biliary pancreatitis is probably most likely. The MRCP shows no evidence of any current common bile duct stone or sludge, and so I will not be planning on any ERCP. I would like to see the bilirubin start trending down, so this obviously needs to continue to be monitored daily. There is a possibility that the pancreatitis maybe a side effect of the Opdivo, and so Dr. Higginbotham has discontinued that medication and started him on steroids, with which I agree. I would consider this pancreatitis episode to be severe, given the development of peripancreatic edema as well as the interval slight increase in hematocrit over the past couple of days. Recommend being as aggressive with the IV fluids as is possible, though obviously with his tenuous renal function and possibility for development of pulmonary edema, finding a good balance maybe difficult. GI will continue to follow along. Trend liver tests tomorrow. Please call anytime with questions or concerns. Job ID: [id number]
[2018-09-07] MEDS ORDERED: Sodium Bicarb 50 MEQ/50 ML VIAL ONE ×3 (17:52→22:53)
--- NOTE | 2018-09-07 17:53 | CON ---
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 This gentleman has been in the hospital after he developed pancreatitis, yesterday evening, he had a rapid heart rate, it was felt to be atrial flutter. However, my opinion appears to be sinus tachycardia, most likely associated with his pain and some volume overload due to the fluid he has been given for his pancreatitis and I do not see indication of atrial flutter, but we were consulted for possible atrial flutter, I do not see any. At this time, the cardiac status otherwise appears to be relatively stable. He does have some tachypnea. He has been transferred to the CCU and his respiratory rate is anywhere between 35 to 44 breaths per minute, blood pressure is 150/80, heart rate is 96 and shows a sinus rhythm, and O2 saturations 99% to 100%. He denies any chest pain. He continues to have some abdominal pain, but is somewhat improved of what he had when he arrived. His renal function is abnormal with a creatinine of 2.47. Bilirubin also elevated at 2.3 and AST was 56. He has been treated by chemotherapy here at the oncologist's office and has been seen also at [facility]. He has been given OPDIVO, he has been on this for several months, but from a cardiac standpoint, he has had no acute problems that I am aware of. He has been seen in our office back in July of 2017 prior to undergoing surgical procedure; at that time, he did complain of some claudication of the lower extremities, but was not found to have any significant stenosis except in the down and below the knee and the tibioperoneal trunk. He has a history of hypertension and this is under relatively good control. At times, it is somewhat high, but this most likely is associated with his pain. He also has some diabetes. He had a stress test, I believe, which was unremarkable. This was performed in the office. We will try to find those results, but I do believe it was within normal limits. At this time, he is denying any chest pain. He is somewhat short of breath. PAST MEDICAL HISTORY: Significant for type 2 diabetes, hypertension, stage IV renal cell carcinoma. He has had colon cancer in 1998. He has had a colon resection. He has had knee replacements and appendectomy. He has had a colonoscopy. ALLERGIES: HE IS ALLERGIC TO TRAMADOL AND HYDROCODONE. MEDICATIONS: At home included; levothyroxine, oxycodone, amlodipine, and glimepiride. FAMILY HISTORY: Positive for cancer in both of his parents. Father had lung cancer and mother had breast cancer. Also, had a sister with breast cancer. SOCIAL HISTORY: He has one child, who is alive and lives with his mother. He has no alcohol or tobacco abuse. He is apparently. REVIEW OF SYSTEMS: Mainly complains of abdominal pain and some shortness of breath. PHYSICAL EXAMINATION: GENERAL: Reveals a middle-aged gentleman, who appears to be in some mild distress due to abdominal discomfort and some shortness of breath. His blood pressure is noted 150/80, heart rate 96 and regular, respiratory rate is about 40 at this time, and O2 saturation 100%, and he is afebrile. HEENT: Shows head to be normocephalic and atraumatic. Carotid pulses are present. I did not hear any bruits. CHEST: His chest is actually clear to auscultation, did not hear any rales, rhonchi, or wheezing. CARDIOVASCULAR: Reveals a regular rate and rhythm at this time. There were no gross murmurs, heaves, thrills, bruits, or rubs. ABDOMEN: Slightly distended; did not hear any bowel sounds. He does have tenderness. Cannot palpate masses due to tenderness. EXTREMITIES: Showed no clubbing, cyanosis, or edema at this time. Pedal pulses are somewhat decreased, but are present. NEUROLOGIC: The patient appears to be intact. SKIN: Warm and dry at this time. LABORATORY DATA: WBC is 18.4, hemoglobin is 16.1, and platelet count 250,000. He does have a somewhat left shift, 15 bands were noted. Chemistry shows sodium of 138, chloride was 109, potassium was 4.6, BUN was 37 with a creatinine of 2.29. Blood sugar was 130. AST was 53 and ALT 61. His lipase was 976, previously when he arrived on admission it was greater than 8000. He has been seen by the oncologist as well as by GI and at this time, he appears to be otherwise stable. Chest x-ray did show some small pleural effusions. There is no evidence of pulmonary embolus, but it was felt to be a low probability for PE. His CT of the abdomen did show what appears to be pancreatitis with peripancreatic edema and some third spacing. IMPRESSION: 1. Renal cell carcinoma. He has been on chemotherapy. Now, he has developed perhaps even the metastasis, but is uncertain. 2. History of pancreatitis which is acute. He has been followed by GI. This will be dealt by the carbonation equipment tender, hope he will have improvement, but this obviously is a great situation with this patient if he does not have significant improvement over short period of time. 3. Tachycardia, most likely associated with his pain and the pancreatitis. I do not see any flutter at this time. He has tachycardia, which appears to be sinus. I would suggest we stop the diltiazem at this time. Should he develop flutter, then we can be able to begin at that time, but at this time, he appears to be stable from a cardiac standpoint. 4. His tachypnea which is most likely associated with the volume associated with the third spacing. 5. Hypertension, this is under relatively good control at this time. We will continue his medications. If necessary, can start low dose of beta ismael which would help the tachycardia as well as hypertension if necessary. We will be more than happy to continue to follow the patient with you, but at this time, he from a cardiac standpoint appears to be relatively stable. His other problems include diabetes which will be dealt by the primary care service as well as the hypercholesterolemia, which will be dealt by the primary care service. Job ID: [id number]
[2018-09-07] MEDS ORDERED: Sodium Bicarb 50 MEQ/50 ML Abboject 8.4% SYRINGE IVP SCH (18:00)
[2018-09-07] MEDS ORDERED: Sodium Bicarbonate 150 MEQ in Dextrose 5% in Water 1,000 ML IV SCH (18:00)
[2018-09-07] MEDS ORDERED: Sodium Bicarb 50 MEQ/50 ML VIAL IVP SCH (18:00)
[2018-09-07] MEDS ORDERED: Dextrose 5% in Water 1,000 ML IV SCH (18:00)
[2018-09-07] MEDS ORDERED: Lorazepam 2 MG/ML VIAL ONE ×2 (20:32→22:40)
[2018-09-07] MEDS ORDERED: Haloperidol Lactate 5 MG/ML VIAL ONE ×2 (20:33→22:40)
[2018-09-07] MEDS ORDERED: Haloperidol Lactate 5 MG/ML VIAL SLOW IVP SCH (20:45)
[2018-09-07] MEDS ORDERED: Lorazepam 2 MG/ML VIAL SLOW IVP SCH (20:45)
[2018-09-07] MEDS ORDERED: HumaLOG 300 UNITS/3 ML VIAL ONE (23:34)
[2018-09-08] MEDS ORDERED: Fentanyl 100 MCG/2 ML VIAL ONE (04:10)
[2018-09-08] MEDS ORDERED: Lorazepam 2 MG/ML VIAL ONE (06:10)
[2018-09-08] MEDS ORDERED: Piperacillin/Tazobactam 4.5 GM VIAL ONE (06:56)
[2018-09-08] MEDS ORDERED: Sodium Chloride 0.9% 100 ML ONE (06:56)
[2018-09-08] MEDS: Piperacillin/Tazobactam 4.5 GM in Sodium Chloride 0.9% 100 ML IVPB SCH ×3 (08:38→20:59)
[2018-09-08] MEDS: methylPREDNISolone Sod Succ/PF 125 MG/2 ML VIAL IVP SCH ×3 (08:39→20:57)
[2018-09-08] MEDS: Heparin 5,000 UNITS/ML VIAL SC SCH ×4 (08:39→20:58)
[2018-09-08] MEDS: Sodium Chloride 0.9% 1,000 ML IV SCH (08:40)
[2018-09-08] MEDS ORDERED: Haloperidol Lactate 5 MG/ML VIAL SLOW IVP PRN (09:09)
[2018-09-08] MEDS: Pantoprazole 40 MG VIAL IVP SCH (09:26)
[2018-09-08] MEDS: Sodium Bicarbonate 150 MEQ in Dextrose 5% in Water 1,000 ML IV SCH ×2 (10:02→19:24)
[2018-09-08] MEDS: HumaLOG 300 UNITS/3 ML VIAL SC PRN ×3 (10:02→21:11)
[2018-09-08 10:05] LABS: Hemoglobin 13.4 g/dL (14.0-18.0); Mean Corpuscular HGB CONC 33.5 g/dL (32.0-36.0); Mean Corpuscular Hemoglobin 29.4 pg (27.0-31.0); Mean Corpuscular Volume 87.7 fL (78.0-98.0); Red Blood Cell (RBC) Count 4.56 mill/uL (4.70-6.10); White Blood Cell (WBC) Count 13.3 thou/uL (4.8-10.8)
[2018-09-08 10:06] LABS: #Lymphocytes 0.9 thou/uL (1.20-3.40); #Monocytes 0.7 thou/uL (0.11-0.59); #Neutrophils 11.7 thou/uL (1.40-6.50); %Basophils 0.1 % (0.0-1.0); %Eosinophils 0.1 % (0.0-10.0); %Lymphocytes 6.4 % (21.0-51.0); %Monocytes 5.1 % (0.0-10.0); %Neutrophils 88.3 % (42.0-75.0); Mean Platelet Volume 7.8 fL (7.4-10.4); Platelet Count 204 thou/uL (130-400); RBC Distribution Width 13.1 % (11.5-14.5)
[2018-09-08] MEDS ORDERED: Potassium Phosphate 15 MMOL in Sodium Chloride 0.9% 250 ML 250 ML IVPB SCH (11:00)
--- NOTE | 2018-09-08 11:16 | RAD ---
CHEST ONE VIEW: HISTORY: Respiratory distress. COMPARISON: Radiograph from two days prior. FINDINGS: The lungs are hypoinflated with vascular crowding. No pneumothorax. No definite focal air space con solidation. There is atelectasis in the left lung base. IMPRESSION: Similar examination of the chest. POS: [facility]
--- NOTE | 2018-09-08 11:51 | PDOC.CTH ---
Cardiology Progress Note - Subjective The pt seen and examined. No overnight events. No cardiac complaints. He is on Bipap now. - Objective Vital Signs Temp Pulse Ox 09/08/18 08:00 98.5 F 100 Weight 212 lb 6.4 oz 09/07/18 09/08/18 09/09/18 06:59 06:59 06:59 Intake Total 1638 1514 Output Total 550 305 320 Balance 1088 1209 -320 - Physical Examination General/Neuro: alert & oriented x3 Neck: no JVD present Lungs: other: (diminished at bases) Heart: RRR Abdomen: soft Extremities: other: (No edema) - Telemetry Telemetry Rhythm: SR - Labs Result Diagrams: 09/08/18 04:15 09/08/18 09:46 - Assessment/Plan 1. Atrial Tachycardia - remains in SR; cont. to monitor on tele 2. Elevated D-dimer - the pt will have VQ scan 3. Acute pancreatitis - 4. Stage IV renal cell carcinoma - 5. HTN - stable 6. DM type 2 - 7. DERRICK on CKD stage 3 - 8. Dyslipidemia - 9. Hypothyroidism - MAR reviewed Pt. seen and eval. by me.i agree with the a/P by the PHOTO TUBE ASSEMBLER. He is feeling better. Chest clear anteriorly. RRR. He is on BiPAP. No edema. Tender abd. No arrhythmias noted. Cardiac status is stable. I will sign off. If any cardiac issues please consult again. I will be out next week but one of my partners carlie be available. [email or web address] Review of Systems - Review of Systems Constitutional: reports: no symptoms reported EENTM: reports: no symptoms reported Respiratory: reports: no symptoms reported Cardiac (ROS): reports: no symptoms reported ABD/GI: reports: no symptoms reported : reports: no symptoms reported Musculoskeletal: reports: no symptoms reported
--- NOTE | 2018-09-08 13:38 | PDOC.PN ---
- Subjective Encounter Start Date: 09/08/18 Encounter Start Time: 10:00 -: old records requested/rev last night pt was combative, required restraint, he is on bipap, he is calm this morning, he feels better today - Objective Resuscitation Status - Order Detail: 09/05/18 23:36 Resuscitation Status Routine Resuscitation Status: FULL: Full Resuscitation MAR Reviewed: Yes Vital Signs & Weight: Vital Signs (12 hours) Temp Pulse Resp Pulse Ox 09/08/18 12:32 81 26 H 99 09/08/18 12:00 98.8 F 09/08/18 08:00 98.5 F 100 Weight Weight 212 lb 6.4 oz Most Recent Monitor Data Heart Rate from ECG 81 NIBP 145/78 NIBP BP-Mean 91 Respiration from ECG 25 SpO2 98 I&O: 09/07/18 09/08/18 09/09/18 06:59 06:59 06:59 Intake Total 1638 1514 Output Total 550 305 580 Balance 1088 1209 -580 Result Diagrams: 09/08/18 04:15 09/07/18 04:45 Additional Labs: Accuchecks 09/08/18 09/08/18 09/07/18 10:03 04:03 21:43 POC Glucose 237 H 269 H 207 H 09/07/18 18:43 POC Glucose 151 H Radiology Reviewed by me: Yes EKG Reviewed by me: Yes (nsr) Phys Exam - Physical Examination Constitutional: NAD HEENT: PERRLA, moist MMs, sclera anicteric Neck: no JVD, supple Respiratory: no wheezing, no rales, no rhonchi Cardiovascular: RRR, no significant murmur, no rub Gastrointestinal: soft, no distention, positive bowel sounds mild tenderness Musculoskeletal: no edema, pulses present Neurological: non-focal, normal sensation, moves all 4 limbs Lymphatic: no nodes Psychiatric: normal affect, A&O x 3 Skin: no rash, normal turgor Dx/Plan (1) Acute pancreatitis Code(s): K85.90 - ACUTE PANCREATITIS WITHOUT NECROSIS OR INFECTION, UNSP Status: Acute Comment: suspecting from immunotherapy (2) Acute worsening of stage 3 chronic kidney disease Code(s): N18.3 - CHRONIC KIDNEY DISEASE, STAGE 3 (MODERATE) Status: Acute (3) Abnormal LFTs Code(s): R94.5 - ABNORMAL RESULTS OF LIVER FUNCTION STUDIES Status: Acute (4) Dyslipidemia Code(s): E78.5 - HYPERLIPIDEMIA, UNSPECIFIED Status: Chronic (5) Hypertension Code(s): I10 - ESSENTIAL (PRIMARY) HYPERTENSION Status: Chronic (6) Hypothyroidism Code(s): E03.9 - HYPOTHYROIDISM, UNSPECIFIED Status: Chronic (7) Metastatic renal cell carcinoma to bone Code(s): C79.51 - SECONDARY MALIGNANT NEOPLASM OF BONE; C64.9 - MALIGNANT NEOPLASM OF UNSP KIDNEY, EXCEPT RENAL PELVIS Status: Chronic (8) Obesity (BMI 30.0-34.9) Code(s): E66.9 - OBESITY, UNSPECIFIED Status: Chronic (9) Hypophosphatemia Code(s): E83.39 - OTHER DISORDERS OF PHOSPHORUS METABOLISM Status: Acute (10) Acute metabolic encephalopathy Code(s): G93.41 - METABOLIC ENCEPHALOPATHY Status: Acute (11) Acute respiratory distress Code(s): R06.03 - ACUTE RESPIRATORY DISTRESS Status: Acute (12) SIRS (systemic inflammatory response syndrome) Code(s): R65.10 - SIRS OF NON-INFECTIOUS ORIGIN W/O ACUTE ORGAN DYSFUNCTION Status: Acute - Plan cont current plan of care, plan discussed w/ family, continue antibiotics, respiratory therapy * seems like with IV solumderol pt is improving * bipap as needed * will start clear liquid when GI OK * continue conservative treatment * replace potassium phosphate * spoke with family and updated condition and plan * medication reviewed as below * symptomatic treatment. Review of Systems - Review of Systems Constitutional: negative: fever, chills, sweats, weakness, malaise, other Respiratory: Shortness of Breath, SOB with Excertion. negative: Cough, Dry, Hemoptysis, Pleuritic Pain, Sputum, Wheezing Cardiovascular: negative: chest pain, palpitations, orthopnea, paroxysmal nocturnal dyspnea, edema, light headedness, other Gastrointestinal: Nausea, Abdominal Pain. negative: Vomiting, Diarrhea, Constipation, Melena, Hematochezia, Other Genitourinary: negative: Dysuria, Frequency, Incontinence, Hematuria, Retention , Other Musculoskeletal: negative: Neck Pain, Shoulder Pain, Arm Pain, Back Pain, Hand Pain, Leg Pain, Foot Pain, Other Skin: negative: Rash, Lesions, Rancho, Bruising, Other - Medications/Allergies Allergies/Adverse Reactions: Allergies Allergy/AdvReac Type Severity Reaction Status Date / Time hydrocodone AdvReac Severe Verified 09/05/18 23:19 morphine AdvReac Severe Verified 09/05/18 23:19 tramadol AdvReac Intermediate Verified 09/05/18 23:19 Medications: Current Medications Acetaminophen (Tylenol) 650 mg PO Q4H PRN PRN Reason: Headache/Fever/Mild Pain (1-3) Artificial Tears (Tears Naturale) 2 drop EA EYE PRN PRN PRN Reason: Dry Eyes Dextrose/Water (Dextrose 50%) 25 gm SLOW IVP PRN PRN PRN Reason: Hypoglycemia Fentanyl (Sublimaze) 75 mcg SLOW IVP Q2H PRN PRN Reason: Moderate Pain (4-6) Last Admin: 09/07/18 17:30 Dose: 75 mcg Glucagon (Glucagon) 1 mg IM PRN PRN PRN Reason: Hypoglycemia Haloperidol Lactate (Haldol) 10 mg SLOW IVP Q2H PRN PRN Reason: Agitation Heparin Sodium (Porcine) (Heparin) 5,000 units SC TID [facility] Last Admin: 09/08/18 09:26 Dose: 5,000 units Dextrose/Water (D5w) 1,000 mls @ 0 mls/hr IV .Q0M PRN PRN Reason: Hypoglycemia Promethazine HCl 12.5 mg/ (Sodium Chloride) 50.5 mls @ 202 mls/hr IVPB Q6H PRN PRN Reason: Nausea Last Admin: 09/06/18 12:12 Dose: 50.5 mls Diltiazem HCl 125 mg/ Sodium (Chloride) 125 mls @ 5 mls/hr IVPB INF [facility]; Protocol Last Admin: 09/06/18 22:52 Dose: 125 mls Piperacillin Sod/Tazobactam (Sod 4.5 gm/ Sodium Chloride) 100 mls @ 200 mls/hr IVPB Q8HR [facility] Last Admin: 09/08/18 08:38 Dose: Not Given Sodium Bicarbonate 150 meq/ (Dextrose/Water) 1,150 mls @ 150 mls/hr IV .Q7H40M [facility] Last Admin: 09/08/18 10:02 Dose: 1,150 mls Potassium Phosphate 15 mmol/ (Sodium Chloride) 255 mls @ 63.75 mls/hr IVPB ONE [facility] Stop: 09/08/18 15:00 Last Admin: 09/08/18 11:55 Dose: 255 mls Insulin Human Lispro (Humalog) 0 units SC .MILD SLIDING SCALE PRN PRN Reason: Mild Correctional Scale Last Admin: 09/08/18 10:02 Dose: 3 unit Labetalol HCl (Normodyne) 10 mg SLOW IVP Q4H PRN PRN Reason: SBP GREATER THAN 160 Last Admin: 09/06/18 17:44 Dose: 10 mg Levothyroxine Sodium (Synthroid) 125 mcg PO 0600 [facility] Last Admin: 09/06/18 07:39 Dose: 125 mcg Lorazepam (Ativan) 0.5 mg SLOW IVP Q2H PRN PRN Reason: Anxiety/Agitation Methylprednisolone Sodium Succinate (Solu-Medrol) 80 mg IVP BID [facility] Last Admin: 09/08/18 09:26 Dose: 80 mg Ondansetron HCl (Zofran) 4 mg IVP Q6H PRN PRN Reason: Nausea/Vomiting Last Admin: 09/06/18 14:59 Dose: 4 mg Pantoprazole Sodium (Protonix) 40 mg IVP DAILY [facility] Last Admin: 09/08/18 09:26 Dose: 40 mg Senna/Docusate Sodium (Senokot S) 2 tab PO BID PRN PRN Reason: Constipation Sodium Chloride (Flush - Normal Saline) 10 ml IVF Q12HR [facility] Last Admin: 09/08/18 09:29 Dose: 10 ml Sodium Chloride (Flush - Normal Saline) 10 ml IVF PRN PRN PRN Reason: Saline Flush Last Admin: 09/05/18 23:59 Dose: 10 ml Sodium Chloride ([place] Nasal [place] 0.65%) 0 ml EA NARE QIDPRN PRN PRN Reason: Nasal Congestion Throat Lozenges (Cepastat Lozenges) 1 andrzej PO Q2H PRN PRN Reason: Sore Throat
[2018-09-08 14:33] LABS: ALT (SGPT) 32 U/L (8-55); AST (SGOT) 15 U/L (5-34); Albumin 3.1 g/dL (3.4-4.8); Alkaline Phosphatase 64 U/L (40-150); Anion Gap 15 mmol/L (10-20); BUN (Urea Nitrogen) 41 mg/dL (8.4-25.7); Bilirubin, Total 2.6 mg/dL (0.2-1.2); CRP (Inflammatory) 29.25 mg/dL (= or < 0.5); Calc. Creatinine Clearance 43 mL/min (70-130); Calcium 7.1 mg/dL (7.8-10.44); Carbon Dioxide 25 mmol/L (23-31); Chloride 107 mmol/L (98-107); Estimated GFR-MDRD 31; Globulin 3.3 g/dL (2.4-3.5); Glucose 288 mg/dL (83-110); Lipase 168 U/L (8-78); Magnesium 1.7 mg/dL (1.6-2.6); Potassium 3.6 mmol/L (3.5-5.1); Protein, Total 6.4 g/dL (5.8-8.1); Sodium 143 mmol/L (136-145)
[2018-09-08 14:37] LABS: Phosphorus 1.4 mg/dL (2.3-4.7)
--- NOTE | 2018-09-08 15:50 | PRG ---
DATE OF SERVICE: 09/08/2018 SUBJECTIVE: Andrea Loo says he is feeling better today. He had BiPAP on this morning. He is less encephalopathic. He did receive more Ativan and some fentanyl last night after I left the hospital. This calmed him down considerably. OBJECTIVE: VITAL SIGNS: Blood pressure this morning is 155/88, heart rate 86, respiratory rate is 26, oximetry is 100%. LUNGS: Clear. HEART: Regular rhythm. ABDOMEN: Soft. Still distended. EXTREMITIES: Without clubbing, cyanosis, or edema. LABORATORY DATA: Lipase has not been repeated. It was 976 yesterday. White count 13.3, hemoglobin 13.4, platelets 204. Electrolytes are not repeated. IMPRESSION: 1. Pancreatitis. ? mediated by immunotherapy. 2. Respiratory muscle insufficiency, significantly improved with BiPAP. 3. Deconditioning. 4. Obesity. 5. Diabetes. 6. Metastatic renal cell carcinoma. 7. Metabolic acidosis secondary to pancreatitis. 8. [id number] kidney disease with intravascular volume depletion on presentation. We will follow the other physicians caring for him. The patient appears to be stabilizing. Job ID: [id number]
--- NOTE | 2018-09-08 16:13 | PQF ---
OPAL DEJESUS JR, WAI CONNOR MD [id number] CLINICAL DOCUMENTATION IMPROVEMENT CLARIFICATION FORM: ICD-10 Updated PLEASE DO AN ADDENDUM TO THE PROGRESS NOTE WITH ANY DOCUMENTATION UPDATES OR ADDITIONS AND CARRY THROUGH TO DC SUMMARY. THANK YOU. DATE: 09/08/18 ATTN: DR. LEÓN Please exercise your independent, professional judgment in responding to the clarification form. Clinical indicators are provided on the bottom of this form for your review. Please check appropriate box(es): [ ] Sepsis due to: (Pna, UTI, gangrenous gall bladder, etc.) [ ] Severe sepsis with acute organ dysfunction of: (Examples: respiratory failure, encephalopathy, acute kidney failure, other) [ ] Septic Shock [ ] Localized infection without sepsis [ x ] Other diagnosis _SIRS criteria due to acute pancreatitis with acute organ dysfunction, no evidence of sepsis [ ] Unable to determine In addition, please specify: Present on Admission (POA): [ x ] Yes [ ] No [ ] Unable to determine For continuity of documentation, please document condition throughout progress notes and discharge summary. Thank You. CLINICAL INDICATORS - SIGNS / SYMPTOMS / LABS 09/07 PN (MIKA) THIS MORNING PT HAS TACHYPNEA YESTERDAY EVENING HE WAS TACHYCARDIC SO WE TRANSFERRED TO [facility], LAST NIGHT HE BECAME MORE SHORT OF BREATH , SO ANTIBIOTICS STARTED AND FOR ATRIAL FLUTTER/TACHYCARDIA, CARDIZEM DRIP STARTED. 09/07 WBC 18.4, RESP RATE 23,32, 26, 34, 31, PULSE 124, 104, 103, 138 09/08 PN (MIKA) LAST NIGHT PT WAS COMBATIVE, REQUIRED RESTRAINT, HE IS ON BIPAP. DX/PLAN: SYSTEMIC INFLAMMATORY RESPONSE SYNDROME, ACUTE RISK: [facility] METASTATIC RENAL CARCINOMA ([facility]) IMMUNOCOMPROMISED PATIENT ([facility] CONSULT) CKD 3 ([facility] CONSULT) TREATMENTS: TRANSFER TO ICU (09/07-PRESENT) ZOSYN IV STARTED (09/07-PRESENT) SERIAL LABS THANK YOU! JACKELYN (This form is maintained as a part of the permanent medical record) 2014 [employer] All Rights Reserved [email or web address] [email or web address] [phone] MTDD
[2018-09-08] MEDS: Fentanyl 100 MCG/2 ML VIAL SLOW IVP PRN ×2 (16:30→20:49)
--- NOTE | 2018-09-08 17:11 | CON ---
DATE OF CONSULTATION: 09/07/2018 HISTORY OF PRESENT ILLNESS: Mr. Loo is a pleasant gentleman, who has moved in the critical care unit for tachypnea. He has been diagnosed with pancreatitis, which is felt to be possibly related to his immunotherapy. He had a ventilation perfusion study showing no embolic disease earlier in the day. He had no infiltrates on his chest x-ray. PAST MEDICAL HISTORY: Remarkable for; 1. Diabetes. 2. Lipid disorder. 3. Hypertension. 4. Metastatic renal cell carcinoma. 5. History of knee surgery. 6. Colon surgery. 7. Appendectomy. SOCIAL HISTORY: He is nonsmoker, nondrinker, and nondrug user. FAMILY HISTORY: Negative for lung disease in early age. ALLERGIES: HE REPORTS HYDROCODONE AND TRAMADOL INTOLERANCE. MEDICATIONS: Prior to admission, he is on; 1. Glimepiride. 2. Lisinopril/hydrochlorothiazide. 3. Meclizine. 4. Zofran. PHYSICAL EXAMINATION: VITAL SIGNS: When he arrived in the unit; heart rate was 138, respiratory rate is in the 30s, and blood pressures in the 120s. GENERAL: He is able to converse in short sentences. HEENT: Pupils are equal. Sclerae are anicteric. NECK: Supple. LUNGS: Clear. HEART: Regular rhythm. Distant S1 and S2. No murmurs heard. ABDOMEN: Soft. It was distended. It was tender in his epigastrium. LABORATORY DATA: White count 18.4, hemoglobin 16.1, and platelets 250. Sodium 138, potassium 4.6, chloride 109, bicarb 16, BUN 37, and creatinine 2.29. Blood gas, 10:30 in the morning; pH of 7.36, CO2 of 28, and pO2 of 78. Chest x-ray is clear. V/Q scan is unremarkable. IMPRESSION AND PLAN: Tachypnea secondary to an acid-base disorder associated with his pancreatitis, recommended bilevel positive airway pressure. I met with family and answered all their questions. He was checked on again multiple times into the early evening. He was comfortable on bilevel positive airway pressure. Later in the evening, he became encephalopathic and required Haldol plus a 0.5 mg of Ativan to calm him down. TIME SPENT: Critical care time total of 90 minutes involved with multiple exams associated with his BiPAP. Job ID: [id number]
--- NOTE | 2018-09-08 21:06 | PRG ---
DATE OF SERVICE: 09/08/2018 SUBJECTIVE: Mr. Loo was transferred to the ICU for BiPAP last night. He had some transient confusion and sundowning last night as well, that is better today. He tells me that he is feeling a bit better. His abdominal pain is lessened. No nausea or vomiting. He has been tolerating some ice chips. Lipase and LFTs have all declined after steroids were started yesterday. OBJECTIVE: VITAL SIGNS: Temperature 98.3, blood pressure 161/80, pulse 81, 100% oxygen saturation on BiPAP. GENERAL: Critically ill, on BiPAP, but alert and oriented. HEART: Regular rate and rhythm. LUNGS: Bibasilar crackles. ABDOMEN: Bowel sounds are hypoactive, but present. The abdomen is soft with some mild tenderness to palpation in the epigastrium. EXTREMITIES: No peripheral edema. LABORATORY STUDIES: WBC down to 13.3, hemoglobin 13.4, platelets 204. Sodium 143, potassium 3.6, BUN 41, creatinine 2.13, which is stable from yesterday. Total bilirubin is down to 2.6, alkaline phosphatase 64, AST down to 15, ALT 32, CRP is elevated to 29.25, albumin 3.1, lipase fell down to 168. ASSESSMENT AND PLAN: 1. Acute pancreatitis, severe, first episode. 2. Elevated LFTs, now declining. I am pleased with the clinical improvement in the patient's pancreatitis over the past day along with drop in the LFTs and lipase levels. Still unclear whether this represented biliary pancreatitis or possibly medication-induced pancreatitis secondary to the Opdivo. Continue with the steroids per Oncology recommendations. No plan for any endoscopic retrograde cholangiopancreatography. If the patient is continuing to improve tomorrow, consider advancing diet to clear liquid diet. Continue to trend the LFTs. 3. Respiratory acidosis. The patient has had improvement on BiPAP. Job ID: [id number]
[2018-09-08] MEDS: Levothyroxine Sodium 125 MCG TAB PO SCH (21:52)
[2018-09-08] MEDS: Lorazepam 2 MG/ML VIAL SLOW IVP PRN (23:04)
[2018-09-09] MEDS: HumaLOG 300 UNITS/3 ML VIAL SC PRN ×3 (00:52→13:55)
[2018-09-09] MEDS: Labetalol HCl 100 MG/20 ML VIAL SLOW IVP PRN ×3 (01:14→20:14)
[2018-09-09] MEDS: Sodium Bicarbonate 150 MEQ in Dextrose 5% in Water 1,000 ML IV SCH ×2 (02:50→19:36)
[2018-09-09] MEDS: Piperacillin/Tazobactam 4.5 GM in Sodium Chloride 0.9% 100 ML IVPB SCH ×3 (06:08→22:10)
[2018-09-09] MEDS: Levothyroxine Sodium 125 MCG TAB PO SCH (06:08)
[2018-09-09 06:44] LABS: Hemoglobin 12.3 g/dL (14.0-18.0); Mean Corpuscular HGB CONC 31.3 g/dL (32.0-36.0); Mean Corpuscular Hemoglobin 27.8 pg (27.0-31.0); Mean Corpuscular Volume 88.9 fL (78.0-98.0); Mean Platelet Volume 7.9 fL (7.4-10.4); Platelet Count 208 thou/uL (130-400); RBC Distribution Width 12.9 % (11.5-14.5); Red Blood Cell (RBC) Count 4.41 mill/uL (4.70-6.10); White Blood Cell (WBC) Count 9.9 thou/uL (4.8-10.8)
[2018-09-09 07:05] LABS: Anion Gap 15 mmol/L (10-20); BUN (Urea Nitrogen) 40 mg/dL (8.4-25.7); Calc. Creatinine Clearance 47 mL/min (70-130); Calcium 6.7 mg/dL (7.8-10.44); Carbon Dioxide 30 mmol/L (23-31); Chloride 104 mmol/L (98-107); Estimated GFR-MDRD 34; Glucose 273 mg/dL (83-110); Phosphorus 2.1 mg/dL (2.3-4.7); Potassium 3.5 mmol/L (3.5-5.1); Sodium 145 mmol/L (136-145)
[2018-09-09 07:06] LABS: Band 7 % (5-11); Lymphocytes 7 % (21-51); MDiff Complete? YES; Monocytes 6 % (0-10); Neutrophil 80 % (42-75)
[2018-09-09] MEDS ORDERED: Calcium Gluconate 4.6 MEQ in Sodium Chloride 0.9% 100 ML IVPB ONE (09:00)
[2018-09-09] MEDS: Heparin 5,000 UNITS/ML VIAL SC SCH ×3 (09:44→20:16)
[2018-09-09] MEDS: methylPREDNISolone Sod Succ/PF 125 MG/2 ML VIAL IVP SCH ×2 (09:44→20:16)
[2018-09-09] MEDS: Pantoprazole 40 MG VIAL IVP SCH (09:45)
[2018-09-09] MEDS: Lorazepam 2 MG/ML VIAL SLOW IVP PRN (10:08)
[2018-09-09 10:55] LABS: Actual Bicarbonate (HCO3a) 31.3 mEq/L (22-28); Base Excess (BEa) 7.7 mEq/L (-2.0 to +3.0); CO2 Tension 40.1 mmHg (35.0-45.0); Calcium, Ionized 0.86 mmol/L (1.12-1.30); Carboxyhemoglobin (COHb) 0.8 gm% (0.0-3.0); Hemoglobin (Hb) 12.8 g/dL (14.0-18.0); O2 Tension (PaO2) 75.2 mmHg (> 70.0); Potassium - ABG Lab 3.26 mmol/L (3.70-5.30); pH, Arterial 7.51 (7.35-7.45)
[2018-09-09 10:56] LABS: ALV-art Gradient 159.875 (0-20); Puncture Site LRA
--- NOTE | 2018-09-09 10:58 | RAD ---
CHEST 1 VIEW PORTABLE: HISTORY: Wheezing, pancreatitis. COMPARISON: 09/08/2018. FINDINGS: Poor inspiratory effort with bilateral vascular congestion and some interstitial changes. Minimal pl eural and parenchymal opacity changes in the left base, stable. No new process. IMPRESSION: Stable vascular congestion and pleural and parenchymal opacity changes in the left base. POS: C
--- NOTE | 2018-09-09 11:33 | PRG ---
DATE OF SERVICE: 09/09/2018 SUBJECTIVE: Mr. Loo was wheezing this morning when BiPAP was taken off, so he was put back on BiPAP. Chest radiograph does not show pulmonary edema as I expected. He has never had asthma or history of obstructive lung disease. OBJECTIVE: VITAL SIGNS: His heart rate in the 60s, respiratory rate in the 20s , and blood pressure 160/97. HEENT: He is no longer encephalopathic. LUNGS: Clear. HEART: Regular rhythm. ABDOMEN: Distended. LABORATORY DATA: White count 9.9, hemoglobin 12.3, and platelets 208. Sodium 145, potassium 3.5, chloride 104, bicarb 30, BUN 40, and creatinine 1.97. Creatinine was 2.47 on admission. IMPRESSION: 1. Pancreatitis. 2. Bronchospasm? Secondary to extravascular fluid. I have recommended a dose of Lasix and continue with BiPAP until his symptoms improve. 3. Acute on chronic kidney disease, improving. His intake and output coming in today were positive 1292. He is up 4 L approximately since he is admitted to the hospital. 4. Diabetes, probably can decrease his steroid dosing tomorrow. 5. History of hypertension. 6. Metastatic renal cell carcinoma, currently receiving immunotherapy. 7. Pancreatitis is believed to possibly be related to the immunotherapy. We will continue supportive care. Critical care time is 35 minutes. Job ID: [id number] MTDD
--- NOTE | 2018-09-09 12:34 | PDOC.PN ---
- Subjective Encounter Start Date: 09/09/18 Encounter Start Time: 10:45 pt is wheezing, he is off bipap, intermittently drops saturation, his pain is better, - Objective Resuscitation Status - Order Detail: 09/05/18 23:36 Resuscitation Status Routine Resuscitation Status: FULL: Full Resuscitation MAR Reviewed: Yes Vital Signs & Weight: Vital Signs (12 hours) Temp Pulse Resp BP Pulse Ox 09/09/18 10:31 69 31 H 100 09/09/18 10:29 78 37 H 09/09/18 07:38 98 09/09/18 06:28 92 L 09/09/18 04:50 78 09/09/18 03:00 98.4 F 09/09/18 01:58 78 32 H 98 09/09/18 01:14 79 162/79 H Weight Admit Weight 212 lb Weight 212 lb 6.4 oz Most Recent Monitor Data Heart Rate from ECG 78 NIBP 160/97 NIBP BP-Mean 118 Respiration from ECG 38 SpO2 100 I&O: 09/08/18 09/09/18 09/10/18 06:59 06:59 06:59 Intake Total 1514 3752 Output Total 305 2460 120 Balance 1209 1292 -120 Result Diagrams: 09/09/18 06:16 09/09/18 06:16 Additional Labs: Accuchecks 09/09/18 09/09/18 09/08/18 06:09 00:48 21:10 POC Glucose 239 H 273 H 269 H 09/08/18 16:11 POC Glucose 257 H Radiology Reviewed by me: Yes (chest xray reviewed) EKG Reviewed by me: Yes (nsr) Phys Exam - Physical Examination Constitutional: NAD HEENT: PERRLA, moist MMs, sclera anicteric Neck: no JVD, supple Respiratory: no rales, wheezing present Cardiovascular: RRR, no significant murmur, no rub Gastrointestinal: soft, no distention, positive bowel sounds Musculoskeletal: no edema, pulses present Neurological: non-focal, normal sensation Lymphatic: no nodes Psychiatric: normal affect, A&O x 3 Skin: no rash, normal turgor Dx/Plan (1) Acute pancreatitis Code(s): K85.90 - ACUTE PANCREATITIS WITHOUT NECROSIS OR INFECTION, UNSP Status: Acute Comment: suspecting from immunotherapy (2) Acute worsening of stage 3 chronic kidney disease Code(s): N18.3 - CHRONIC KIDNEY DISEASE, STAGE 3 (MODERATE) Status: Acute (3) Abnormal LFTs Code(s): R94.5 - ABNORMAL RESULTS OF LIVER FUNCTION STUDIES Status: Acute (4) Dyslipidemia Code(s): E78.5 - HYPERLIPIDEMIA, UNSPECIFIED Status: Chronic (5) Hypertension Code(s): I10 - ESSENTIAL (PRIMARY) HYPERTENSION Status: Chronic (6) Hypothyroidism Code(s): E03.9 - HYPOTHYROIDISM, UNSPECIFIED Status: Chronic (7) Metastatic renal cell carcinoma to bone Code(s): C79.51 - SECONDARY MALIGNANT NEOPLASM OF BONE; C64.9 - MALIGNANT NEOPLASM OF UNSP KIDNEY, EXCEPT RENAL PELVIS Status: Chronic (8) Obesity (BMI 30.0-34.9) Code(s): E66.9 - OBESITY, UNSPECIFIED Status: Chronic (9) Hypophosphatemia Code(s): E83.39 - OTHER DISORDERS OF PHOSPHORUS METABOLISM Status: Acute (10) Acute metabolic encephalopathy Code(s): G93.41 - METABOLIC ENCEPHALOPATHY Status: Acute (11) Acute respiratory distress Code(s): R06.03 - ACUTE RESPIRATORY DISTRESS Status: Acute (12) SIRS (systemic inflammatory response syndrome) Code(s): R65.10 - SIRS OF NON-INFECTIOUS ORIGIN W/O ACUTE ORGAN DYSFUNCTION Status: Acute Comment: due to pancreatitis, no sepsis (13) Acute respiratory failure with hypoxia Code(s): J96.01 - ACUTE RESPIRATORY FAILURE WITH HYPOXIA Status: Acute (14) Hypocalcemia Code(s): E83.51 - HYPOCALCEMIA Status: Acute - Plan cont current plan of care, plan discussed w/ family, respiratory therapy * replace calcium gluconate * lasix given for positive fluid balance * bipap as needed * medication reviewed as below * symptomatic treatment * will closely monitor * updated plan of care with family. Review of Systems - Review of Systems ENT: negative: Ear Pain, Ear Discharge, Nose Pain, Nose Discharge, Nose Congestion, Mouth Pain, Mouth Swelling, Throat Pain, Throat Swelling, Other Respiratory: Shortness of Breath, Wheezing. negative: Cough, Dry, Hemoptysis, SOB with Excertion, Pleuritic Pain, Sputum Cardiovascular: negative: chest pain, palpitations, orthopnea, paroxysmal nocturnal dyspnea, edema, light headedness, other Gastrointestinal: Abdominal Pain. negative: Nausea, Vomiting, Diarrhea, Constipation, Melena, Hematochezia, Other Genitourinary: negative: Dysuria, Frequency, Incontinence, Hematuria, Retention , Other Musculoskeletal: negative: Neck Pain, Shoulder Pain, Arm Pain, Back Pain, Hand Pain, Leg Pain, Foot Pain, Other Skin: negative: Rash, Lesions, Rancho, Bruising, Other - Medications/Allergies Allergies/Adverse Reactions: Allergies Allergy/AdvReac Type Severity Reaction Status Date / Time hydrocodone AdvReac Severe Verified 09/05/18 23:19 morphine AdvReac Severe Verified 09/05/18 23:19 tramadol AdvReac Intermediate Verified 09/05/18 23:19 Medications: Current Medications Acetaminophen (Tylenol) 650 mg PO Q4H PRN PRN Reason: Headache/Fever/Mild Pain (1-3) Albuterol/Ipratropium (Duoneb) 3 ml NEB [id number] PRN PRN Reason: Dyspnea Last Admin: 09/09/18 10:29 Dose: 3 ml Artificial Tears (Tears Naturale) 2 drop EA EYE PRN PRN PRN Reason: Dry Eyes Dextrose/Water (Dextrose 50%) 25 gm SLOW IVP PRN PRN PRN Reason: Hypoglycemia Fentanyl (Sublimaze) 75 mcg SLOW IVP Q2H PRN PRN Reason: Moderate Pain (4-6) Last Admin: 09/08/18 20:49 Dose: 75 mcg Furosemide (Lasix) 80 mg SLOW IVP DAILY [facility] Glucagon (Glucagon) 1 mg IM PRN PRN PRN Reason: Hypoglycemia Haloperidol Lactate (Haldol) 10 mg SLOW IVP Q2H PRN PRN Reason: Agitation Last Admin: 09/09/18 10:08 Dose: 10 mg Heparin Sodium (Porcine) (Heparin) 5,000 units SC TID [facility] Last Admin: 09/09/18 09:44 Dose: 5,000 units Promethazine HCl 12.5 mg/ (Sodium Chloride) 50.5 mls @ 202 mls/hr IVPB Q6H PRN PRN Reason: Nausea Last Admin: 09/06/18 12:12 Dose: 50.5 mls Diltiazem HCl 125 mg/ Sodium (Chloride) 125 mls @ 5 mls/hr IVPB INF [facility]; Protocol Last Admin: 09/06/18 22:52 Dose: 125 mls Piperacillin Sod/Tazobactam (Sod 4.5 gm/ Sodium Chloride) 100 mls @ 200 mls/hr IVPB Q8HR [facility] Last Admin: 09/09/18 06:08 Dose: 100 mls Sodium Bicarbonate 150 meq/ (Dextrose/Water) 1,150 mls @ 150 mls/hr IV .Q7H40M [facility] Last Admin: 09/09/18 02:50 Dose: 1,150 mls Sodium Chloride (1/2 Normal Saline) 1,000 mls @ 50 mls/hr IV .Q20H [facility] Insulin Human Lispro (Humalog) 0 units SC .MILD SLIDING SCALE PRN PRN Reason: Mild Correctional Scale Last Admin: 09/09/18 06:10 Dose: 3 unit Labetalol HCl (Normodyne) 10 mg SLOW IVP Q4H PRN PRN Reason: SBP GREATER THAN 160 Last Admin: 09/09/18 04:50 Dose: 10 mg Levothyroxine Sodium (Synthroid) 125 mcg PO 0600 [facility] Last Admin: 09/09/18 06:08 Dose: 125 mcg Lorazepam (Ativan) 0.5 mg SLOW IVP Q2H PRN PRN Reason: Anxiety/Agitation Last Admin: 09/09/18 10:08 Dose: 0.5 mg Methylprednisolone Sodium Succinate (Solu-Medrol) 80 mg IVP BID [facility] Last Admin: 09/09/18 09:44 Dose: 80 mg Ondansetron HCl (Zofran) 4 mg IVP Q6H PRN PRN Reason: Nausea/Vomiting Last Admin: 09/06/18 14:59 Dose: 4 mg Pantoprazole Sodium (Protonix) 40 mg IVP DAILY [facility] Last Admin: 09/09/18 09:45 Dose: 40 mg Senna/Docusate Sodium (Senokot S) 2 tab PO BID PRN PRN Reason: Constipation Sodium Chloride (Flush - Normal Saline) 10 ml IVF Q12HR [facility] Last Admin: 09/09/18 09:45 Dose: 10 ml Sodium Chloride (Flush - Normal Saline) 10 ml IVF PRN PRN PRN Reason: Saline Flush Last Admin: 09/05/18 23:59 Dose: 10 ml Sodium Chloride ([place] Nasal [place] 0.65%) 0 ml EA NARE QIDPRN PRN PRN Reason: Nasal Congestion Throat Lozenges (Cepastat Lozenges) 1 andrzej PO Q2H PRN PRN Reason: Sore Throat
[2018-09-09] MEDS ORDERED: Furosemide 100 MG/10 ML VIAL SLOW IVP SCH (13:00)
[2018-09-09] MEDS: Sodium Chloride 0.45% 1,000 ML IV SCH (13:14)
[2018-09-09] MEDS ORDERED: Potassium Phosphate 15 MMOL in Sodium Chloride 0.9% 250 ML 250 ML IVPB ONE (14:45)
[2018-09-09] MEDS ORDERED: Potassium Phosphate 15 MMOL in Sodium Chloride 0.9% 250 ML 250 ML IVPB SCH (14:45)
--- NOTE | 2018-09-09 15:31 | PRG ---
DATE OF SERVICE: 09/09/2018 SUBJECTIVE: Mr. Loo has had to remain on BiPAP due to continued wheezing when he is taken off it. He says that his abdominal discomfort is much improved. He is not having any nausea. He has had no vomiting. OBJECTIVE: VITAL SIGNS: Blood pressure 176/89, pulse 70, 98% oxygen saturation on BiPAP, temperature 98.4. GENERAL: Critically ill, on BiPAP, but alert and oriented. HEART: Regular rate and rhythm. LUNGS: Bilateral BiPAP sounds. ABDOMEN: Bowel sounds are present. Soft. Minimal tenderness to palpation throughout. No guarding or rebound tenderness. EXTREMITIES: No peripheral edema. LABORATORY STUDIES: Sodium 145, potassium 3.5, BUN 40, creatinine down to 1.97, glucose 229. WBC down to 9.9, hemoglobin 12.3, platelets 208. ASSESSMENT/PLAN: 1. Acute pancreatitis, clinically improving. 2. Elevated liver function tests, on the decline now. The patient has had significant improvement clinically in his pancreatitis. We will try to advance cautiously to a clear liquid diet this evening and see how he does. He continues on steroids due to suspicion of medication-induced pancreatitis from the Opdivo. Check LFTs with morning labs. GI can continue to follow along. Please call anytime with questions or concerns. Dr. Joshi is covering for GI this weekend. Job ID: [id number]
[2018-09-09] MEDS: Fentanyl 100 MCG/2 ML VIAL SLOW IVP PRN (21:12)
[2018-09-10] MEDS: HumaLOG 300 UNITS/3 ML VIAL SC PRN ×5 (00:01→21:33)
[2018-09-10] MEDS: Lorazepam 2 MG/ML VIAL SLOW IVP PRN (00:28)
[2018-09-10] MEDS: Labetalol HCl 100 MG/20 ML VIAL SLOW IVP PRN (00:28)
[2018-09-10] MEDS: Fentanyl 100 MCG/2 ML VIAL SLOW IVP PRN ×2 (02:18→21:27)
[2018-09-10] MEDS: Piperacillin/Tazobactam 4.5 GM in Sodium Chloride 0.9% 100 ML IVPB SCH ×3 (05:09→21:31)
[2018-09-10] MEDS: Levothyroxine Sodium 125 MCG TAB PO SCH (05:09)
[2018-09-10 07:15] LABS: ALT (SGPT) 23 U/L (8-55); AST (SGOT) 17 U/L (5-34); Albumin 3.1 g/dL (3.4-4.8); Alkaline Phosphatase 87 U/L (40-150); Anion Gap 16 mmol/L (10-20); BUN (Urea Nitrogen) 49 mg/dL (8.4-25.7); Bilirubin, Total 1.5 mg/dL (0.2-1.2); Calc. Creatinine Clearance 42 mL/min (70-130); Calcium 6.8 mg/dL (7.8-10.44); Carbon Dioxide 28 mmol/L (23-31); Chloride 104 mmol/L (98-107); Estimated GFR-MDRD 30; Globulin 3.8 g/dL (2.4-3.5); Glucose 209 mg/dL (83-110); Potassium 3.7 mmol/L (3.5-5.1); Protein, Total 6.9 g/dL (5.8-8.1); Sodium 144 mmol/L (136-145)
[2018-09-10] MEDS ORDERED: Calcium Gluc 4.6 MEQ/10 ML (100 MG/ML) SLOW IVP ONE (08:38)
[2018-09-10] MEDS: methylPREDNISolone Sod Succ/PF 125 MG/2 ML VIAL IVP SCH ×2 (09:11→21:32)
[2018-09-10] MEDS: Heparin 5,000 UNITS/ML VIAL SC SCH ×3 (09:12→21:31)
[2018-09-10] MEDS: Pantoprazole 40 MG VIAL IVP SCH (09:12)
[2018-09-10] MEDS: Furosemide 100 MG/10 ML VIAL SLOW IVP SCH (09:13)
--- NOTE | 2018-09-10 09:34 | PRG ---
DATE OF SERVICE: 09/10/2018 SERVICE: Pulmonary Medicine. INTERVAL HISTORY: The patient is doing really well from respiratory standpoint. He is breathing much more comfortably. He continues to remain a little bit labored. He is wheezing, but it is improved. Denies any current fevers, chills, cough, or sputum production. PHYSICAL EXAMINATION: VITAL SIGNS: Afebrile, pulse 65, blood pressure 172/83, respirations 28, and saturation 94% on 3 L nasal cannula. GENERAL: The patient is awake and alert, in no apparent distress. LUNGS: Decent air entry. Crackles and wheezing are both present. No prolonged expiratory phase is appreciated. HEART: Normal rate. Regular. ABDOMEN: Soft. Tender to palpation throughout. It is a little bit distended. Bowel sounds are hypoactive. : Rivero catheter in place. NEUROLOGIC: Grossly nonfocal. LABORATORY DATA: WBC 9.9, hemoglobin 12.3, and platelets 208,000. Neutrophil count is 80% on top of 7% bands. Creatinine 2.2 and gently uptrending and BUN 49. Basic metabolic profile is otherwise unremarkable. Calcium 6.8. Total bilirubin 1.5, and downtrending. IMAGING: Chest x-ray demonstrates stable vascular congestion, pleural-parenchymal opacities in the left base. ASSESSMENT: 1. Acute hypoxic respiratory failure. 2. Acute pancreatitis. 3. Acute kidney injury on chronic kidney disease. 4. Type 2 diabetes mellitus. 5. Metastatic renal cell carcinoma. DISCUSSION AND PLAN: I will continue to diurese the patient through time. I will continue nebulized medications, antibiotics, and steroids. My suspicion is that his respiratory failure is volume-mediated. He will need to remain in the ICU. We will continue to intermittently give him BiPAP. Calcium will be replaced, and we will mobilize the patient through time. Job ID: [id number]
[2018-09-10] MEDS ORDERED: Calcium Gluconate 4.6 MEQ in Sodium Chloride 0.9% 100 ML IVPB SCH (10:00)
--- NOTE | 2018-09-10 11:39 | PDOC.PN ---
- Subjective Encounter Start Date: 09/10/18 Encounter Start Time: 10:00 this morning pt is off bipap, he has wheezing, no fever, no abdominal pain or vomiting, on clear liquid diet tolerated well, - Objective Resuscitation Status - Order Detail: 09/05/18 23:36 Resuscitation Status Routine Resuscitation Status: FULL: Full Resuscitation MAR Reviewed: Yes Vital Signs & Weight: Vital Signs (12 hours) Temp Pulse Resp BP Pulse Ox 09/10/18 08:00 98.6 F 09/10/18 07:12 90 L 09/10/18 04:00 96 09/10/18 03:13 66 19 97 09/10/18 03:12 97 09/10/18 03:00 98.5 F 09/10/18 00:28 72 167/89 H 09/10/18 00:00 98.1 F 96 Weight Admit Weight 212 lb Weight 212 lb 6.4 oz Most Recent Monitor Data Heart Rate from ECG 65 NIBP 172/83 NIBP BP-Mean 112 Respiration from ECG 28 SpO2 94 I&O: 09/09/18 09/10/18 09/11/18 06:59 06:59 06:59 Intake Total 3752 2903 Output Total 2460 3990 260 Balance 1292 -1087 -260 Result Diagrams: 09/09/18 06:16 09/10/18 06:26 Additional Labs: Accuchecks 09/10/18 09/10/18 09/09/18 05:16 00:02 17:52 POC Glucose 196 H 175 H 209 H 09/09/18 13:46 POC Glucose 229 H EKG Reviewed by me: Yes (nsr) Phys Exam - Physical Examination Constitutional: NAD HEENT: PERRLA, moist MMs, sclera anicteric Neck: no JVD, supple Respiratory: no rales, wheezing present Cardiovascular: RRR, no significant murmur, no rub Gastrointestinal: soft, no distention, positive bowel sounds Musculoskeletal: no edema, pulses present Neurological: non-focal, normal sensation Lymphatic: no nodes Psychiatric: normal affect, A&O x 3 Skin: no rash, normal turgor Dx/Plan (1) Acute pancreatitis Code(s): K85.90 - ACUTE PANCREATITIS WITHOUT NECROSIS OR INFECTION, UNSP Status: Acute Comment: suspecting from immunotherapy (2) Acute metabolic encephalopathy Code(s): G93.41 - METABOLIC ENCEPHALOPATHY Status: Acute (3) Acute respiratory failure with hypoxia Code(s): J96.01 - ACUTE RESPIRATORY FAILURE WITH HYPOXIA Status: Acute (4) SIRS (systemic inflammatory response syndrome) Code(s): R65.10 - SIRS OF NON-INFECTIOUS ORIGIN W/O ACUTE ORGAN DYSFUNCTION Status: Acute Comment: due to pancreatitis, no sepsis (5) Hypocalcemia Code(s): E83.51 - HYPOCALCEMIA Status: Acute (6) Acute worsening of stage 3 chronic kidney disease Code(s): N18.3 - CHRONIC KIDNEY DISEASE, STAGE 3 (MODERATE) Status: Acute (7) Abnormal LFTs Code(s): R94.5 - ABNORMAL RESULTS OF LIVER FUNCTION STUDIES Status: Acute (8) Dyslipidemia Code(s): E78.5 - HYPERLIPIDEMIA, UNSPECIFIED Status: Chronic (9) Hypertension Code(s): I10 - ESSENTIAL (PRIMARY) HYPERTENSION Status: Chronic (10) Hypothyroidism Code(s): E03.9 - HYPOTHYROIDISM, UNSPECIFIED Status: Chronic (11) Metastatic renal cell carcinoma to bone Code(s): C79.51 - SECONDARY MALIGNANT NEOPLASM OF BONE; C64.9 - MALIGNANT NEOPLASM OF UNSP KIDNEY, EXCEPT RENAL PELVIS Status: Chronic (12) Obesity (BMI 30.0-34.9) Code(s): E66.9 - OBESITY, UNSPECIFIED Status: Chronic (13) Hypophosphatemia Code(s): E83.39 - OTHER DISORDERS OF PHOSPHORUS METABOLISM Status: Acute - Plan cont current plan of care, plan discussed w/ family, continue antibiotics, respiratory therapy, incentive spirometry * today will reduce solumderol 40 mg iv bid * continue bipap as tolerated * medication reviewed as below * symptomatic treatment * discussed with family bedside * will monitor in CCU. * continue zosyn empirically Review of Systems - Review of Systems Constitutional: weakness, malaise. negative: fever, chills, sweats, other Respiratory: Shortness of Breath, SOB with Excertion. negative: Cough, Dry, Hemoptysis, Pleuritic Pain, Sputum, Wheezing Cardiovascular: negative: chest pain, palpitations, orthopnea, paroxysmal nocturnal dyspnea, edema, light headedness, other Gastrointestinal: negative: Nausea, Vomiting, Abdominal Pain, Diarrhea, Constipation, Melena, Hematochezia, Other Genitourinary: negative: Dysuria, Frequency, Incontinence, Hematuria, Retention , Other Musculoskeletal: negative: Neck Pain, Shoulder Pain, Arm Pain, Back Pain, Hand Pain, Leg Pain, Foot Pain, Other Skin: negative: Rash, Lesions, Rancho, Bruising, Other - Medications/Allergies Allergies/Adverse Reactions: Allergies Allergy/AdvReac Type Severity Reaction Status Date / Time hydrocodone AdvReac Severe Verified 09/05/18 23:19 morphine AdvReac Severe Verified 09/05/18 23:19 tramadol AdvReac Intermediate Verified 09/05/18 23:19 Medications: Current Medications Acetaminophen (Tylenol) 650 mg PO Q4H PRN PRN Reason: Headache/Fever/Mild Pain (1-3) Last Admin: 09/10/18 09:27 Dose: 650 mg Albuterol/Ipratropium (Duoneb) 3 ml NEB [id number] PRN PRN Reason: Dyspnea Last Admin: 09/09/18 10:29 Dose: 3 ml Albuterol/Ipratropium (Duoneb) 3 ml NEB [id number] CARLA Artificial Tears (Tears Naturale) 2 drop EA EYE PRN PRN PRN Reason: Dry Eyes Dextrose/Water (Dextrose 50%) 25 gm SLOW IVP PRN PRN PRN Reason: Hypoglycemia Fentanyl (Sublimaze) 75 mcg SLOW IVP Q2H PRN PRN Reason: Moderate Pain (4-6) Last Admin: 09/10/18 02:18 Dose: 75 mcg Furosemide (Lasix) 80 mg SLOW IVP DAILY [facility] Last Admin: 09/10/18 09:13 Dose: 80 mg Glucagon (Glucagon) 1 mg IM PRN PRN PRN Reason: Hypoglycemia Haloperidol Lactate (Haldol) 10 mg SLOW IVP Q2H PRN PRN Reason: Agitation Last Admin: 09/09/18 10:08 Dose: 10 mg Heparin Sodium (Porcine) (Heparin) 5,000 units SC TID CARLA Last Admin: 09/10/18 09:12 Dose: 5,000 units Hydralazine HCl (Apresoline) 20 mg SLOW IVP Q15M PRN PRN Reason: SBP Greater Than 180 Promethazine HCl 12.5 mg/ (Sodium Chloride) 50.5 mls @ 202 mls/hr IVPB Q6H PRN PRN Reason: Nausea Last Admin: 09/06/18 12:12 Dose: 50.5 mls Piperacillin Sod/Tazobactam (Sod 4.5 gm/ Sodium Chloride) 100 mls @ 200 mls/hr IVPB Q8HR [facility] Last Admin: 09/10/18 05:09 Dose: 100 mls Calcium Gluconate 4.6 meq/ (Sodium Chloride) 110 mls @ 220 mls/hr IVPB NOW [facility] Stop: 09/10/18 12:00 Last Admin: 09/10/18 11:00 Dose: 110 mls Insulin Human Lispro (Humalog) 0 units SC .MILD SLIDING SCALE PRN PRN Reason: Mild Correctional Scale Last Admin: 09/10/18 05:14 Dose: 2 unit Labetalol HCl (Normodyne) 10 mg SLOW IVP Q4H PRN PRN Reason: SBP GREATER THAN 160 Last Admin: 09/10/18 00:28 Dose: 10 mg Levothyroxine Sodium (Synthroid) 125 mcg PO 0600 [facility] Last Admin: 09/10/18 05:09 Dose: 125 mcg Lorazepam (Ativan) 0.5 mg SLOW IVP Q2H PRN PRN Reason: Anxiety/Agitation Last Admin: 09/10/18 00:28 Dose: 0.5 mg Methylprednisolone Sodium Succinate (Solu-Medrol) 40 mg IVP BID [facility] Ondansetron HCl (Zofran) 4 mg IVP Q6H PRN PRN Reason: Nausea/Vomiting Last Admin: 09/06/18 14:59 Dose: 4 mg Pantoprazole Sodium (Protonix) 40 mg IVP DAILY [facility] Last Admin: 09/10/18 09:12 Dose: 40 mg Senna/Docusate Sodium (Senokot S) 2 tab PO BID PRN PRN Reason: Constipation Sodium Chloride (Flush - Normal Saline) 10 ml IVF Q12HR [facility] Last Admin: 09/10/18 09:13 Dose: 10 ml Sodium Chloride (Flush - Normal Saline) 10 ml IVF PRN PRN PRN Reason: Saline Flush Last Admin: 09/05/18 23:59 Dose: 10 ml Sodium Chloride ([place] Nasal [place] 0.65%) 0 ml EA NARE QIDPRN PRN PRN Reason: Nasal Congestion Throat Lozenges (Cepastat Lozenges) 1 andrzej PO Q2H PRN PRN Reason: Sore Throat
[2018-09-10] MEDS: hydrALAZINE 20 MG/ML VIAL SLOW IVP PRN (14:13)
[2018-09-10] MEDS: Sodium Chloride 0.45% 1,000 ML IV SCH (19:26)
[2018-09-11] MEDS: hydrALAZINE 20 MG/ML VIAL SLOW IVP PRN ×3 (00:03→11:51)
[2018-09-11] MEDS: Labetalol HCl 100 MG/20 ML VIAL SLOW IVP PRN (00:56)
[2018-09-11 04:11] LABS: ALT (SGPT) 24 U/L (8-55); AST (SGOT) 16 U/L (5-34); Albumin 3.4 g/dL (3.4-4.8); Alkaline Phosphatase 100 U/L (40-150); Anion Gap 19 mmol/L (10-20); BUN (Urea Nitrogen) 55 mg/dL (8.4-25.7); Bilirubin, Direct 1.1 mg/dL (0.1-0.3); Bilirubin, Total 1.8 mg/dL (0.2-1.2); Calc. Creatinine Clearance 42 mL/min (70-130); Calcium 7.2 mg/dL (7.8-10.44); Carbon Dioxide 25 mmol/L (23-31); Chloride 102 mmol/L (98-107); Estimated GFR-MDRD 30; Glucose 236 mg/dL (83-110); Magnesium 1.8 mg/dL (1.6-2.6); Potassium 3.4 mmol/L (3.5-5.1); Protein, Total 6.9 g/dL (5.8-8.1); Sodium 143 mmol/L (136-145)
[2018-09-11 04:20] LABS: Lipase 24 U/L (8-78); Phosphorus 3.1 mg/dL (2.3-4.7)
[2018-09-11] MEDS: HumaLOG 300 UNITS/3 ML VIAL SC PRN ×3 (05:55→21:05)
[2018-09-11] MEDS: Piperacillin/Tazobactam 4.5 GM in Sodium Chloride 0.9% 100 ML IVPB SCH (05:56)
[2018-09-11] MEDS: Levothyroxine Sodium 125 MCG TAB PO SCH (05:56)
[2018-09-11] MEDS: Furosemide 100 MG/10 ML VIAL SLOW IVP SCH ×2 (08:58→10:24)
[2018-09-11] MEDS: Pantoprazole 40 MG VIAL IVP SCH (09:00)
[2018-09-11] MEDS: methylPREDNISolone Sod Succ/PF 125 MG/2 ML VIAL IVP SCH ×2 (09:00→20:39)
[2018-09-11] MEDS ORDERED: Calcium Gluc 4.6 MEQ/10 ML (100 MG/ML) SLOW IVP ONE (09:07)
[2018-09-11] MEDS: Heparin 5,000 UNITS/ML VIAL SC SCH ×3 (09:27→20:35)
--- NOTE | 2018-09-11 09:31 | PRG ---
DATE OF SERVICE: SERVICE: Pulmonary Medicine. INTERVAL HISTORY: The patient is doing fine from respiratory standpoint. Breathing comfortably. There has been no change to his condition. His breathing is much improved however. He refused using BiPAP last night, because he felt like he just simply did not need it. There were no significant overnight events. PHYSICAL EXAMINATION: VITAL SIGNS: Currently afebrile with a T-max 99.1. Pulse 85, blood pressure 153/82, respirations 28, saturation 93% on 3 L nasal cannula. GENERAL: The patient is awake and alert, in no apparent distress. LUNGS: Decent air entry. There is a little bit of a prolonged expiratory phase and minimal wheezing. No crackles or rhonchi appreciated. There are some dependent crackles present. HEART: Normal rate, regular. ABDOMEN: Soft, nontender, nondistended. Bowel sounds are positive. MUSCULOSKELETAL: No cyanosis or clubbing. There is trace to 1+ pitting in the bilateral lower extremities. NEUROLOGIC: Grossly nonfocal. LABORATORY DATA: WBC 9.9 and downtrending, hemoglobin 12.3, platelets 208,000. INR 1.1. Creatinine 2.2 and stable, BUN is gently up trending to 55. Potassium 3.4, calcium 7.2. Total bilirubin 1.8 and gently up-trending. Lipase 24. Blood sugar ranges from 208 to 236. ASSESSMENT: 1. Acute hypoxic respiratory failure. 2. Acute pancreatitis, possibly drug-induced. 3. Acute kidney injury on chronic kidney disease. 4. Type 2 diabetes mellitus. 5. Metastatic renal cell carcinoma. DISCUSSION AND PLAN: We will continue diuresing the patient gently. He is out of respiratory failure and so we can back off on how aggressive we are being. Potassium will be replaced cautiously. We will give additional dose of calcium. Lipase has returned to normal and so I am doubtful there is ongoing inflammatory changes of the pancreas. We will continue our efforts at mobilizing the patient with physical therapy as well as walking program. I have encouraged the patient to get out of bed with breakfast, lunch, and dinner. I will advance his diet cautiously. Job ID: [id number]
[2018-09-11] MEDS ORDERED: Potassium Chloride 20 MEQ TAB PO SCH (10:00)
--- NOTE | 2018-09-11 11:30 | PDOC.PN ---
- Subjective Encounter Start Date: 09/11/18 Encounter Start Time: 09:20 Patient seen and examined. No new complaints. No overnight events pt is doing better today, he did not require bipap, he is seated in chair - Objective Resuscitation Status - Order Detail: 09/05/18 23:36 Resuscitation Status Routine Resuscitation Status: FULL: Full Resuscitation MAR Reviewed: Yes Vital Signs & Weight: Vital Signs (12 hours) Temp Pulse Resp BP Pulse Ox 09/11/18 08:00 99.1 F 09/11/18 07:35 93 L 09/11/18 07:34 87 16 09/11/18 04:00 98.7 F 93 L 09/11/18 02:32 66 180/88 H 09/11/18 01:00 83 33 H 99 09/11/18 00:56 66 185/86 H 09/11/18 00:03 66 185/86 H 09/11/18 00:00 98.4 F 95 09/10/18 23:55 93 L Weight Admit Weight 212 lb Weight 3.407 oz Most Recent Monitor Data Heart Rate from ECG 79 NIBP 163/85 NIBP BP-Mean 111 Respiration from ECG 32 SpO2 96 I&O: 09/10/18 09/11/18 09/12/18 06:59 06:59 06:59 Intake Total 2903 930 Output Total 2799 4855 675 [facility]1087 -3925 -675 Result Diagrams: 09/09/18 06:16 09/11/18 03:12 Additional Labs: Accuchecks 09/11/18 09/10/18 09/10/18 05:56 21:28 18:40 POC Glucose 216 H 208 H 236 H 09/10/18 13:09 POC Glucose 187 H EKG Reviewed by me: Yes (nsr) Phys Exam - Physical Examination Constitutional: NAD HEENT: PERRLA, moist MMs, sclera anicteric Neck: no JVD, supple Respiratory: no wheezing, no rales, no rhonchi Cardiovascular: RRR, no significant murmur, no rub Gastrointestinal: soft, non-tender, no distention, positive bowel sounds Musculoskeletal: no edema, pulses present Neurological: non-focal, normal sensation Lymphatic: no nodes Psychiatric: normal affect, A&O x 3 Skin: no rash, normal turgor Dx/Plan (1) Acute pancreatitis Code(s): K85.90 - ACUTE PANCREATITIS WITHOUT NECROSIS OR INFECTION, UNSP Status: Acute Comment: suspecting from immunotherapy (2) Acute metabolic encephalopathy Code(s): G93.41 - METABOLIC ENCEPHALOPATHY Status: Acute (3) Acute respiratory failure with hypoxia Code(s): J96.01 - ACUTE RESPIRATORY FAILURE WITH HYPOXIA Status: Acute (4) SIRS (systemic inflammatory response syndrome) Code(s): R65.10 - SIRS OF NON-INFECTIOUS ORIGIN W/O ACUTE ORGAN DYSFUNCTION Status: Acute Comment: due to pancreatitis, no sepsis (5) Hypocalcemia Code(s): E83.51 - HYPOCALCEMIA Status: Acute (6) Acute worsening of stage 3 chronic kidney disease Code(s): N18.3 - CHRONIC KIDNEY DISEASE, STAGE 3 (MODERATE) Status: Acute (7) Abnormal LFTs Code(s): R94.5 - ABNORMAL RESULTS OF LIVER FUNCTION STUDIES Status: Acute (8) Dyslipidemia Code(s): E78.5 - HYPERLIPIDEMIA, UNSPECIFIED Status: Chronic (9) Hypertension Code(s): I10 - ESSENTIAL (PRIMARY) HYPERTENSION Status: Chronic (10) Hypothyroidism Code(s): E03.9 - HYPOTHYROIDISM, UNSPECIFIED Status: Chronic (11) Metastatic renal cell carcinoma to bone Code(s): C79.51 - SECONDARY MALIGNANT NEOPLASM OF BONE; C64.9 - MALIGNANT NEOPLASM OF UNSP KIDNEY, EXCEPT RENAL PELVIS Status: Chronic (12) Obesity (BMI 30.0-34.9) Code(s): E66.9 - OBESITY, UNSPECIFIED Status: Chronic (13) Hypophosphatemia Code(s): E83.39 - OTHER DISORDERS OF PHOSPHORUS METABOLISM Status: Acute - Plan cont current plan of care, plan discussed w/ family, PT/OT, sr. social media & mobile manager, incentive spirometry * medication reviewed as below * symptomatic treatment * discussed with family * pt is doing well * now if pulmonary ok, then will transfer out of ccu * advance diet as tolerated * pain controlled * DC zosyn * dc IVF. Review of Systems - Review of Systems ENT: negative: Ear Pain, Ear Discharge, Nose Pain, Nose Discharge, Nose Congestion, Mouth Pain, Mouth Swelling, Throat Pain, Throat Swelling, Other Respiratory: Shortness of Breath, SOB with Excertion. negative: Cough, Dry, Hemoptysis, Pleuritic Pain, Sputum, Wheezing Cardiovascular: negative: chest pain, palpitations, orthopnea, paroxysmal nocturnal dyspnea, edema, light headedness, other Gastrointestinal: negative: Nausea, Vomiting, Abdominal Pain, Diarrhea, Constipation, Melena, Hematochezia, Other Genitourinary: negative: Dysuria, Frequency, Incontinence, Hematuria, Retention , Other Musculoskeletal: negative: Neck Pain, Shoulder Pain, Arm Pain, Back Pain, Hand Pain, Leg Pain, Foot Pain, Other Skin: negative: Rash, Lesions, Rancho, Bruising, Other - Medications/Allergies Allergies/Adverse Reactions: Allergies Allergy/AdvReac Type Severity Reaction Status Date / Time hydrocodone AdvReac Severe Verified 09/05/18 23:19 morphine AdvReac Severe Verified 09/05/18 23:19 tramadol AdvReac Intermediate Verified 09/05/18 23:19 Medications: Current Medications Acetaminophen (Tylenol) 650 mg PO Q4H PRN PRN Reason: Headache/Fever/Mild Pain (1-3) Last Admin: 09/10/18 09:27 Dose: 650 mg Albuterol/Ipratropium (Duoneb) 3 ml NEB [id number] PRN PRN Reason: Dyspnea Last Admin: 09/09/18 10:29 Dose: 3 ml Albuterol/Ipratropium (Duoneb) 3 ml NEB [id number] CARLA Last Admin: 09/11/18 07:34 Dose: 3 ml Artificial Tears (Tears Naturale) 2 drop EA EYE PRN PRN PRN Reason: Dry Eyes Dextrose/Water (Dextrose 50%) 25 gm SLOW IVP PRN PRN PRN Reason: Hypoglycemia Furosemide (Lasix) 60 mg SLOW IVP DAILY [facility] Last Admin: 09/11/18 10:24 Dose: Not Given Glucagon (Glucagon) 1 mg IM PRN PRN PRN Reason: Hypoglycemia Heparin Sodium (Porcine) (Heparin) 5,000 units SC TID [facility] Last Admin: 09/11/18 09:27 Dose: 5,000 units Hydralazine HCl (Apresoline) 20 mg SLOW IVP Q15M PRN PRN Reason: SBP Greater Than 180 Last Admin: 09/11/18 02:32 Dose: 20 mg Promethazine HCl 12.5 mg/ (Sodium Chloride) 50.5 mls @ 202 mls/hr IVPB Q6H PRN PRN Reason: Nausea Last Admin: 09/06/18 12:12 Dose: 50.5 mls Magnesium Sulfate 1 gm/ Sodium (Chloride) 102 mls @ 100 mls/hr IVPB 1000 [facility] Stop: 09/11/18 12:00 Last Admin: 09/11/18 10:23 Dose: 102 mls Calcium Gluconate 4.6 meq/ (Sodium Chloride) 60 mls @ 240 mls/hr IVPB 1000 [facility] Stop: 09/11/18 12:00 Last Admin: 09/11/18 10:23 Dose: 60 mls Insulin Human Lispro (Humalog) 0 units SC .MILD SLIDING SCALE PRN PRN Reason: Mild Correctional Scale Last Admin: 09/11/18 05:55 Dose: 3 unit Labetalol HCl (Normodyne) 10 mg SLOW IVP Q4H PRN PRN Reason: SBP GREATER THAN 160 Last Admin: 09/11/18 00:56 Dose: 10 mg Levothyroxine Sodium (Synthroid) 125 mcg PO 0600 [facility] Last Admin: 09/11/18 05:56 Dose: 125 mcg Methylprednisolone Sodium Succinate (Solu-Medrol) 40 mg IVP BID [facility] Last Admin: 09/11/18 09:00 Dose: 40 mg Ondansetron HCl (Zofran) 4 mg IVP Q6H PRN PRN Reason: Nausea/Vomiting Last Admin: 09/06/18 14:59 Dose: 4 mg Pantoprazole Sodium (Protonix) 40 mg IVP DAILY [facility] Last Admin: 09/11/18 09:00 Dose: 40 mg Potassium Chloride (K-Dur) 20 meq PO 1000 [facility] Stop: 09/11/18 12:00 Senna/Docusate Sodium (Senokot S) 2 tab PO BID PRN PRN Reason: Constipation Sodium Chloride (Flush - Normal Saline) 10 ml IVF Q12HR [facility] Last Admin: 09/11/18 09:28 Dose: 10 ml Sodium Chloride (Flush - Normal Saline) 10 ml IVF PRN PRN PRN Reason: Saline Flush Last Admin: 09/05/18 23:59 Dose: 10 ml Sodium Chloride ([place] Nasal [place] 0.65%) 0 ml EA NARE QIDPRN PRN PRN Reason: Nasal Congestion Throat Lozenges (Cepastat Lozenges) 1 andrzej PO Q2H PRN PRN Reason: Sore Throat
--- NOTE | 2018-09-11 16:24 | PRG ---
DATE OF SERVICE: 09/10/2018 SUBJECTIVE: Mr. Loo is in the ICU. He states his abdominal pain is better. He has been started on liquid diet. He is short of breath and that has been the main issue we kept him in the ICU. MEDICATIONS: Reviewed. Continued on, 1. Lasix 80 mg daily. 2. Heparin subcu t.i.d. 3. Ativan. 4. Solu-Medrol 80 mg IV b.i.d. 5. Zofran . 6. Zosyn. 7. Phenergan p.r.n. OBJECTIVE: VITAL SIGNS: on 3 L nasal cannula, blood pressure 171/92. GENERAL: Upper airway breath sounds, little bit short of breath. LUNGS: Decreased breath sounds at bases. HEART: Regular rate and rhythm. ABDOMEN: Soft, protuberant, but nontender. Bowel sounds are scant. EXTREMITIES: Reveal trace edema. LABORATORY DATA: White count 9, hemoglobin 12.3, and platelets 208. Creatinine is 2.2, up from 1.97 yesterday, it was 2.47 on admission; BUN is 49; bilirubin is 1.5, down from 2.3 on admission; 2.6 on the . AST and ALT are normal, down from 63 and 75 respectively. Alkaline phosphatase is normal. Lipase was down to 168 on 09/08. ASSESSMENT: 1. Pancreatitis on admission, resolving he did have gallstones, but has never had any symptoms of biliary colic in the past. It was felt that possibly this is all related to Opdivo. He has had marked improvement in that. 2. History of renal cell carcinoma, on immunotherapy as noted above, recently followed at [facility] just before this admission appointment. 3. Acute hypoxic respiratory failure, possibly related to volume resuscitation or possibly even the Opdivo. He is diuresing slowly and is going to remain in the ICU, which I think is reasonable based on his respiratory status and body habitus. 4. Metastatic renal cell carcinoma. 5. Type 2 diabetes. PLAN: 1. Respiratory plan per Pulmonary. 2. Continue moderate diuresis. 3. Agree with full liquid diet. We will recheck labs tomorrow. Job ID: [id number]
--- NOTE | 2018-09-11 16:50 | PRG ---
DATE OF SERVICE: 09/11/2018 SUBJECTIVE: Mr. Loo is moved out of the ICU. He is feeling better. He is breathing better. He has been tolerating a clear liquid diet. His appetite is coming around but is back to normal. Dr. Sheikh advance him to full liquids today. MEDICATIONS: His Lasix has been continued at 60 once daily, continues to be on steroids, and Protonix 40 mg once a day. OBJECTIVE: VITAL SIGNS: Temperature is 98.7, blood pressure 150/82, and pulse 80s. GENERAL: He looks much better. He looks more comfortable. He is breathing more comfortably. LUNGS: Clear. HEART: Regular rate and rhythm. ABDOMEN: Soft and nontender. EXTREMITIES: Reveal trace edema. LABORATORY DATA: CBC not repeated. Lipase today is 23. Bilirubin 1.8. AST and ALT of 16 and 24, and alkaline phosphatase 100. ASSESSMENT: 1. Recent pancreatitis. There was question whether this was biliary related or related to the Opdivo. I think it is related to the Opdivo. He expressed he never had any symptoms of biliary colic in the past and he had associated respiratory issues and hepatitis. In any event, he is improving, any kind of recurrent abdominal pain, would have low threshold to consider cholecystectomy. 2. Metastatic renal cell carcinoma. 3. Acute hypoxic respiratory failure, improved. 4. Acute on chronic kidney disease, improved. PLAN: Agree with advancing diet to full liquids today and if tolerates that low-fat tomorrow. Job ID: [id number]
[2018-09-12] MEDS: Levothyroxine Sodium 125 MCG TAB PO SCH (06:31)
[2018-09-12] MEDS: HumaLOG 300 UNITS/3 ML VIAL SC PRN ×4 (06:31→20:17)
[2018-09-12 06:58] LABS: Anion Gap 17 mmol/L (10-20); BUN (Urea Nitrogen) 55 mg/dL (8.4-25.7); Calc. Creatinine Clearance 0 mL/min (70-130); Calcium 7.1 mg/dL (7.8-10.44); Carbon Dioxide 27 mmol/L (23-31); Chloride 99 mmol/L (98-107); Estimated GFR-MDRD 30; Glucose 283 mg/dL (83-110); Potassium 3.3 mmol/L (3.5-5.1); Sodium 140 mmol/L (136-145)
[2018-09-12 07:25] LABS: Hemoglobin 14.6 g/dL (14.0-18.0); Mean Corpuscular HGB CONC 31.2 g/dL (32.0-36.0); Mean Corpuscular Hemoglobin 27.5 pg (27.0-31.0); Mean Corpuscular Volume 88.3 fL (78.0-98.0); Platelet Count 227 thou/uL (130-400); Red Blood Cell (RBC) Count 5.31 mill/uL (4.70-6.10); White Blood Cell (WBC) Count 12.4 thou/uL (4.8-10.8)
[2018-09-12 07:31] LABS: ALT (SGPT) 22 U/L (8-55); AST (SGOT) 15 U/L (5-34); Albumin 3.4 g/dL (3.4-4.8); Alkaline Phosphatase 92 U/L (40-150); Anion Gap 17 mmol/L (10-20); BUN (Urea Nitrogen) 55 mg/dL (8.4-25.7); Bilirubin, Total 1.9 mg/dL (0.2-1.2); CRP (Inflammatory) 5.33 mg/dL (= or < 0.5); Calc. Creatinine Clearance 0 mL/min (70-130); Calcium 7.2 mg/dL (7.8-10.44); Carbon Dioxide 27 mmol/L (23-31); Chloride 98 mmol/L (98-107); Estimated GFR-MDRD 30; Globulin 3.3 g/dL (2.4-3.5); Glucose 279 mg/dL (83-110); Lipase 39 U/L (8-78); Potassium 3.2 mmol/L (3.5-5.1); Protein, Total 6.7 g/dL (5.8-8.1); Sodium 139 mmol/L (136-145)
[2018-09-12 07:44] LABS: #Monocytes 0.4 thou/uL (0.11-0.59); #Neutrophils 10.9 thou/uL (1.40-6.50); %Basophils 0.1 % (0.0-1.0); %Eosinophils 0.1 % (0.0-10.0); %Lymphocytes 8.4 % (21.0-51.0); %Monocytes 3.6 % (0.0-10.0); %Neutrophils 87.9 % (42.0-75.0); MDiff Complete? YES; Platelet Morphology Comment Appears Adequate; Polychromasia SLIGHT = 2-3 cells (100X) (0-2/hpf)
[2018-09-12] MEDS ORDERED: methylPREDNISolone Sod Succ 40 MG VIAL IVP SCH (09:00)
[2018-09-12] MEDS: Glimepiride 4 MG TAB PO SCH ×2 (09:23→16:38)
[2018-09-12] MEDS: Furosemide 100 MG/10 ML VIAL SLOW IVP SCH (09:24)
[2018-09-12] MEDS: Heparin 5,000 UNITS/ML VIAL SC SCH ×3 (09:25→20:16)
[2018-09-12] MEDS: Amlodipine 10 MG TAB PO SCH (09:25)
[2018-09-12] MEDS: Pantoprazole 40 MG VIAL IVP SCH (09:25)
[2018-09-12] MEDS: Carvedilol 6.25 MG TAB PO SCH ×2 (09:25→16:38)
[2018-09-12] MEDS ORDERED: Potassium Chloride 20 MEQ TAB PO SCH (09:30)
--- NOTE | 2018-09-12 12:51 | PRG ---
DATE OF SERVICE: 09/12/2018 SUBJECTIVE: No complaints. He is oriented x3. He is in no distress. OBJECTIVE: VITAL SIGNS: He is afebrile. Heart rate in the 80s to low 90s, blood pressure 165/84, oximetry high 90s on 2 L cannula. LUNGS: Clear. HEART: Regular rhythm. ABDOMEN: Soft. IMPRESSION: 1. Pancreatitis?, related to immunotherapy. 2. Bronchospasm associated with volume overload, improved after Lasix was given. 3. Metastatic renal cell carcinoma. 4. Acute hypoxic respiratory failure, requiring BiPAP, clinically stable. PLAN: We will continue supportive care. Job ID: [id number]
--- NOTE | 2018-09-12 14:08 | PRG ---
DATE OF SERVICE: 09/12/2018 SUBJECTIVE: Mr. Loo is feeling well. He is eating. He has no pain. His shortness of breath is markedly improved. OBJECTIVE: VITAL SIGNS: Temperature 97.5, pulse 85, and blood pressure 96/67. LUNGS: Clear. HEART: Regular rate and rhythm without clicks or murmurs. ABDOMEN: Soft and nontender. EXTREMITIES: Reveal less edema. LABORATORY DATA: White count is 12.5, hemoglobin 14.6, and platelet count 227. Sodium 139, potassium 3.2, BUN and creatinine are 55 and 2.18. Bilirubin is 1.9. AST and ALT are 15 and 22. ASSESSMENT: 1. Gallstones, asymptomatic in the past. No history of biliary colic. 2. Pancreatitis. This is in conjunction with some respiratory issues and some renal issues. I think, most likely it was a reaction to his. 3. Opdivo. 4. Bronchospasm and acute hypoxic respiratory failure, improved. 5. Metastatic renal cell cancer. PLAN: At this point in time, with no prior biliary colic, I would not recommend a cholecystectomy. We will talk with Dr. Narayan and his oncologist. Job ID: [id number]
[2018-09-12] MEDS: predniSONE 20 MG TAB PO SCH (17:28)
--- NOTE | 2018-09-12 21:49 | PDOC.PN ---
- Subjective Encounter Start Date: 09/12/18 Encounter Start Time: 09:45 pt is on room air, he is doing well, he has no abdominal pain, tolerating current diet - Objective Resuscitation Status - Order Detail: 09/05/18 23:36 Resuscitation Status Routine Resuscitation Status: FULL: Full Resuscitation MAR Reviewed: Yes Vital Signs & Weight: Vital Signs (12 hours) Temp Pulse Resp BP BP BP Pulse Ox 09/12/18 20:00 97.4 F L 80 18 108/70 96 09/12/18 18:21 86 16 97 09/12/18 16:38 113/71 09/12/18 16:30 98.5 F 89 16 113/71 94 L 09/12/18 13:18 85 16 98 09/12/18 11:30 97.5 F L 82 16 96/67 Weight Admit Weight 212 lb Weight 3.407 oz Most Recent Monitor Data Heart Rate from ECG 69 NIBP 164/84 NIBP BP-Mean 110 Respiration from ECG 20 SpO2 93 I&O: 09/11/18 09/12/18 09/13/18 06:59 06:59 06:59 Intake Total 790 493 0208 Output Total 4855 1825 Balance -3925 -1585 1570 Result Diagrams: 09/12/18 06:58 09/12/18 06:58 Additional Labs: Accuchecks 09/12/18 09/12/18 09/12/18 20:02 16:44 11:37 POC Glucose 220 H 268 H 247 H 09/12/18 04:43 POC Glucose 260 H Phys Exam - Physical Examination Constitutional: NAD HEENT: PERRLA, moist MMs, sclera anicteric Neck: no JVD, supple Respiratory: no wheezing, no rales, no rhonchi Cardiovascular: RRR, no significant murmur Gastrointestinal: soft, non-tender, no distention Musculoskeletal: no edema, pulses present Neurological: non-focal, normal sensation, moves all 4 limbs Lymphatic: no nodes Psychiatric: normal affect, A&O x 3 Skin: no rash, normal turgor Dx/Plan (1) Acute pancreatitis Code(s): K85.90 - ACUTE PANCREATITIS WITHOUT NECROSIS OR INFECTION, UNSP Status: Acute Comment: suspecting from immunotherapy (2) Acute metabolic encephalopathy Code(s): G93.41 - METABOLIC ENCEPHALOPATHY Status: Acute (3) Acute respiratory failure with hypoxia Code(s): J96.01 - ACUTE RESPIRATORY FAILURE WITH HYPOXIA Status: Acute (4) SIRS (systemic inflammatory response syndrome) Code(s): R65.10 - SIRS OF NON-INFECTIOUS ORIGIN W/O ACUTE ORGAN DYSFUNCTION Status: Acute Comment: due to pancreatitis, no sepsis (5) Hypocalcemia Code(s): E83.51 - HYPOCALCEMIA Status: Acute (6) Acute worsening of stage 3 chronic kidney disease Code(s): N18.3 - CHRONIC KIDNEY DISEASE, STAGE 3 (MODERATE) Status: Acute (7) Abnormal LFTs Code(s): R94.5 - ABNORMAL RESULTS OF LIVER FUNCTION STUDIES Status: Acute (8) Dyslipidemia Code(s): E78.5 - HYPERLIPIDEMIA, UNSPECIFIED Status: Chronic (9) Hypertension Code(s): I10 - ESSENTIAL (PRIMARY) HYPERTENSION Status: Chronic (10) Hypothyroidism Code(s): E03.9 - HYPOTHYROIDISM, UNSPECIFIED Status: Chronic (11) Metastatic renal cell carcinoma to bone Code(s): C79.51 - SECONDARY MALIGNANT NEOPLASM OF BONE; C64.9 - MALIGNANT NEOPLASM OF UNSP KIDNEY, EXCEPT RENAL PELVIS Status: Chronic (12) Obesity (BMI 30.0-34.9) Code(s): E66.9 - OBESITY, UNSPECIFIED Status: Chronic (13) Hypophosphatemia Code(s): E83.39 - OTHER DISORDERS OF PHOSPHORUS METABOLISM Status: Acute - Plan cont current plan of care, PT/OT, case management social worker * today solumedrol changed to po prednisone * today will advance to low fat diet * continue PT and decide if he will need rehab placement * medication reviewed as below * symptomatic treatment. * start his diabetic meds * amlodipine and coreg started for hypertension Review of Systems - Review of Systems ENT: negative: Ear Pain, Ear Discharge, Nose Pain, Nose Discharge, Nose Congestion, Mouth Pain, Mouth Swelling, Throat Pain, Throat Swelling, Other Respiratory: negative: Cough, Dry, Shortness of Breath, Hemoptysis, SOB with Excertion, Pleuritic Pain, Sputum, Wheezing Cardiovascular: negative: chest pain, palpitations, orthopnea, paroxysmal nocturnal dyspnea, edema, light headedness, other Gastrointestinal: negative: Nausea, Vomiting, Abdominal Pain, Diarrhea, Constipation, Melena, Hematochezia, Other Genitourinary: negative: Dysuria, Frequency, Incontinence, Hematuria, Retention , Other Musculoskeletal: negative: Neck Pain, Shoulder Pain, Arm Pain, Back Pain, Hand Pain, Leg Pain, Foot Pain, Other - Medications/Allergies Allergies/Adverse Reactions: Allergies Allergy/AdvReac Type Severity Reaction Status Date / Time hydrocodone AdvReac Severe Verified 09/05/18 23:19 morphine AdvReac Severe Verified 09/05/18 23:19 tramadol AdvReac Intermediate Verified 09/05/18 23:19 Medications: Current Medications Acetaminophen (Tylenol) 650 mg PO Q4H PRN PRN Reason: Headache/Fever/Mild Pain (1-3) Last Admin: 09/10/18 09:27 Dose: 650 mg Albuterol/Ipratropium (Duoneb) 3 ml NEB [id number] PRN PRN Reason: Dyspnea Last Admin: 09/09/18 10:29 Dose: 3 ml Albuterol/Ipratropium (Duoneb) 3 ml NEB [id number] [facility] Last Admin: 09/12/18 18:21 Dose: 3 ml Amlodipine Besylate (Norvasc) 10 mg PO DAILY [facility] Last Admin: 09/12/18 09:25 Dose: 10 mg Artificial Tears (Tears Naturale) 2 drop EA EYE PRN PRN PRN Reason: Dry Eyes Carvedilol (Coreg) 6.25 mg PO BID-[facility] Last Admin: 09/12/18 16:38 Dose: 6.25 mg Dextrose/Water (Dextrose 50%) 25 gm SLOW IVP PRN PRN PRN Reason: Hypoglycemia Furosemide (Lasix) 60 mg SLOW IVP DAILY [facility] Last Admin: 09/12/18 09:24 Dose: 60 mg Glimepiride (Amaryl) 4 mg PO BID-[facility] Last Admin: 09/12/18 16:38 Dose: 4 mg Glucagon (Glucagon) 1 mg IM PRN PRN PRN Reason: Hypoglycemia Heparin Sodium (Porcine) (Heparin) 5,000 units SC TID [facility] Last Admin: 09/12/18 20:16 Dose: 5,000 units Hydralazine HCl (Apresoline) 20 mg SLOW IVP Q15M PRN PRN Reason: SBP Greater Than 180 Last Admin: 09/11/18 11:51 Dose: 20 mg Promethazine HCl 12.5 mg/ (Sodium Chloride) 50.5 mls @ 202 mls/hr IVPB Q6H PRN PRN Reason: Nausea Last Admin: 09/06/18 12:12 Dose: 50.5 mls Insulin Human Lispro (Humalog) 0 units SC .MILD SLIDING SCALE PRN PRN Reason: Mild Correctional Scale Last Admin: 09/12/18 20:17 Dose: 3 unit Labetalol HCl (Normodyne) 10 mg SLOW IVP Q4H PRN PRN Reason: SBP GREATER THAN 160 Last Admin: 09/11/18 00:56 Dose: 10 mg Levothyroxine Sodium (Synthroid) 125 mcg PO 0600 [facility] Last Admin: 09/12/18 06:31 Dose: 125 mcg Ondansetron HCl (Zofran) 4 mg IVP Q6H PRN PRN Reason: Nausea/Vomiting Last Admin: 09/06/18 14:59 Dose: 4 mg Pantoprazole Sodium (Protonix) 40 mg IVP DAILY [facility] Last Admin: 09/12/18 09:25 Dose: 40 mg Prednisone (Prednisone) 40 mg PO BID-[facility] Last Admin: 09/12/18 17:28 Dose: 40 mg Senna/Docusate Sodium (Senokot S) 2 tab PO BID PRN PRN Reason: Constipation Sodium Chloride (Flush - Normal Saline) 10 ml IVF Q12HR [facility] Last Admin: 09/12/18 20:20 Dose: 10 ml Sodium Chloride (Flush - Normal Saline) 10 ml IVF PRN PRN PRN Reason: Saline Flush Last Admin: 09/05/18 23:59 Dose: 10 ml Sodium Chloride ([place] Nasal [place] 0.65%) 0 ml EA NARE QIDPRN PRN PRN Reason: Nasal Congestion Throat Lozenges (Cepastat Lozenges) 1 andrzej PO Q2H PRN PRN Reason: Sore Throat
[2018-09-13] MEDS: Levothyroxine Sodium 125 MCG TAB PO SCH (05:16)
[2018-09-13] MEDS: HumaLOG 300 UNITS/3 ML VIAL SC PRN ×4 (05:17→20:23)
[2018-09-13] MEDS: predniSONE 20 MG TAB PO SCH ×2 (08:18→16:17)
[2018-09-13] MEDS: Amlodipine 10 MG TAB PO SCH (08:18)
[2018-09-13] MEDS: Carvedilol 6.25 MG TAB PO SCH ×2 (08:19→16:17)
[2018-09-13] MEDS: Heparin 5,000 UNITS/ML VIAL SC SCH ×3 (08:19→20:24)
[2018-09-13] MEDS: Pantoprazole 40 MG VIAL IVP SCH (08:19)
[2018-09-13] MEDS: Glimepiride 4 MG TAB PO SCH ×2 (08:19→16:17)
[2018-09-13] MEDS: Furosemide 100 MG/10 ML VIAL SLOW IVP SCH (09:25)
--- NOTE | 2018-09-13 11:19 | DIS ---
DATE OF ADMISSION: 09/05/2018 DATE OF DISCHARGE: 09/13/2018 PRIMARY CARE PHYSICIAN: Dr. Madison Yates. DISCHARGE DISPOSITION: Rehab. PRIMARY DISCHARGE DIAGNOSES: 1. Acute pancreatitis due to immunotherapy. 2. Abnormal liver function test due to pancreatitis. 3. Acute metabolic encephalopathy. 4. Acute respiratory failure with hypoxia. 5. Acute on chronic kidney failure, baseline chronic kidney disease, stage 3. 6. Hypocalcemia. 7. Hypophosphatemia. 8. Systemic inflammatory response syndrome criteria due to noninfectious etiology secondary to acute pancreatitis without sepsis. SECONDARY DISCHARGE DIAGNOSES: 1. Metastatic renal cell carcinoma. 2. Obesity. 3. Hypothyroidism. 4. Hypertension. 5. Dyslipidemia. 6. Diabetes, type 2. 7. Chronic kidney disease, stage 3. PRIMARY PROCEDURE/OPERATION: None. RADIOLOGICAL INVESTIGATION: Abdomen ultrasound on admission showed sludge within the gallbladder. MRI abdomen showed cholelithiasis without any biliary dilatation. Ventilation perfusion scan negative for any pulmonary embolism. Chest x-ray showed atelectasis. DIAGNOSTIC STUDIES: Significant labs; WBC 12.4, hemoglobin 14.6, and platelets 227. INR 1.1. D-dimer 6.27. Sodium 139, potassium 3.2, BUN 55, creatinine 2.18, calcium 7.2, AST 15, ALT 22, alkaline phosphatase 92, CRP 5.33, albumin 3.4, and lipase 39. Urinalysis unremarkable. DISCHARGE MEDICATIONS: 1. Amlodipine 10 mg p.o. daily. 2. Coreg 6.25 mg p.o. b.i.d. 3. Lasix 40 mg p.o. daily. 4. Glimepiride 4 mg p.o. b.i.d. 5. Synthroid 125 mcg p.o. daily. 6. Protonix 40 mg p.o. daily. 7. Prednisone 40 mg p.o. b.i.d. for 3 days, then 20 mg p.o. b.i.d. for 3 days, then 20 mg daily for 3 days, and then stop. 8. The patient will continue oxycodone 5 mg q.4 hourly p.r.n. for pain. 9. Tylenol 500 mg q.4 hourly p.r.n. for pain. CONTRAINDICATION: None. CODE STATUS: Full code. INPATIENT SWEATBAND SHAPER: Pulmonary group was consulted for respiratory failure. Oncology group was following for metastatic renal cell carcinoma. Quality Control Analyst team was following for acute pancreatitis. Cardiology group was consulted for suspected atrial flutter. CODE STATUS: Full code. DISCHARGE PLAN: Posthospital, the patient is planned for discharge to inpatient rehabilitation, and subsequently, the patient will follow up with Dr. Higginbotham, his oncologist, and primary care physician. HOSPITAL COURSE: This is a 73-year-old male, who has underlying history of metastatic renal cell carcinoma and he was receiving immunotherapy with Opdivo. The patient was admitted for acute pancreatitis. He was having acute abdominal pain, abdominal distention, nausea, and vomiting. Initially, he was admitted to medical floor and he was treated conservatively with n.p.o., pain control with narcotics, IV fluid. Gastroenterology team was consulted. We did abdominal ultrasound, which showed gallbladder sludge. There was no biliary dilatation. GI recommended to do MRCP, which was done, which was consistent with cholelithiasis, but without biliary dilatation. This patient did not require an ERCP. We suspected his pancreatitis was related with immunotherapy for metastatic renal cell carcinoma, that medication was discontinued, and we treated that medication side effects with steroid. With steroid therapy, the patient had gradual improvement. The patient was tachypneic and tachycardic and that is why we transferred him to tele, and subsequently, the patient required transfer to ICU for his respiratory distress. His respiratory distress was treated with BiPAP. He also had acute on chronic kidney failure that required fluid. With fluid resuscitation, the patient developed low volume overload status and that required Lasix therapy. We also ruled out thromboembolic disorder with ventilation perfusion scan. During the entire hospital course, the patient was followed by Gastroenterology team, Cardiology team, Oncology team, and Pulmonary group. Cardiology team was consulted because the patient had tachycardia and there was concern of atrial flutter, but Cardiology recommended that it was sinus tachycardia. The patient was also given a few days of empiric antibiotic therapy, which was discontinued upon improvement. The patient's pancreatitis was significantly improving. His tachycardia resolved. His tachypnea resolved. He was on room air. He was transferred to medical floor, where we continued physical therapy. He has physical deconditioning and that is why family members requesting rehab placement. With the help of continuous pillowcase cutter, we are trying to arrange rehabilitation. We are waiting for bed availability. At this point, the patient is medically stable for discharge to rehab. He will continue above-mentioned medication. While in hospital, we discontinued lisinopril with hydrochlorothiazide, and instead, we started amlodipine and Coreg. He was given tapering doses of prednisone upon discharge. I have seen and examined the patient at bedside today. Plan of care discussed with the family member. REVIEW OF SYSTEMS: All review of systems reviewed with him and negative. PHYSICAL EXAMINATION: VITAL SIGNS: Currently, temperature 98.0, pulse 81, blood pressure 148/94, and saturation 93% on room air. GENERAL: The patient is currently alert, awake, no acute distress. HEENT: Head, normocephalic and atraumatic. LUNGS: Clear to auscultation without any rhonchi or rales. CARDIAC: S1 and S2 regular without any murmur. ABDOMEN: Soft and benign. EXTREMITIES: No edema. NEUROLOGIC: Nonfocal examination. Overall, the patient is medically stable for discharge. Paperwork for discharge done and discharge medication reconciliation done. Job ID: [id number]
--- NOTE | 2018-09-13 11:35 | PDOC.PN ---
- Subjective Encounter Start Date: 09/13/18 Encounter Start Time: 07:30 Patient seen and examined. No new complaints. No overnight events - Objective Resuscitation Status - Order Detail: 09/05/18 23:36 Resuscitation Status Routine Resuscitation Status: FULL: Full Resuscitation MAR Reviewed: Yes Vital Signs & Weight: Vital Signs (12 hours) Temp Pulse Resp BP BP BP Pulse Ox 09/13/18 11:20 98.2 F 93 16 122/74 09/13/18 08:19 148/94 H 09/13/18 08:18 81 148/94 H 09/13/18 08:15 18 93 L 09/13/18 07:46 98.0 F 81 16 148/94 H 09/13/18 07:22 71 16 94 L 09/13/18 04:01 97.9 F 71 18 149/75 H 94 L 09/13/18 00:34 79 16 96 09/13/18 00:00 97.7 F 74 18 139/75 93 L Weight Admit Weight 212 lb Weight 3.407 oz Most Recent Monitor Data Heart Rate from ECG 69 NIBP 164/84 NIBP BP-Mean 110 Respiration from ECG 20 SpO2 93 I&O: 09/12/18 09/13/18 09/14/18 06:59 06:59 06:59 Intake Total 240 1570 Output Total 1825 Balance -1585 1570 Result Diagrams: 09/12/18 06:58 09/12/18 06:58 Additional Labs: Accuchecks 09/13/18 09/12/18 09/12/18 04:15 20:02 16:44 POC Glucose 205 H 220 H 268 H 09/12/18 11:37 POC Glucose 247 H Phys Exam - Physical Examination Constitutional: NAD HEENT: PERRLA, moist MMs, sclera anicteric Neck: no JVD, supple Respiratory: no wheezing, no rales, no rhonchi Cardiovascular: RRR, no significant murmur, no rub Gastrointestinal: soft, non-tender, no distention, positive bowel sounds Musculoskeletal: no edema, pulses present Neurological: non-focal, normal sensation, moves all 4 limbs Lymphatic: no nodes Psychiatric: normal affect, A&O x 3 Skin: no rash, normal turgor Dx/Plan (1) Acute pancreatitis Code(s): K85.90 - ACUTE PANCREATITIS WITHOUT NECROSIS OR INFECTION, UNSP Status: Acute Comment: suspecting from immunotherapy (2) Acute metabolic encephalopathy Code(s): G93.41 - METABOLIC ENCEPHALOPATHY Status: Acute (3) Acute respiratory failure with hypoxia Code(s): J96.01 - ACUTE RESPIRATORY FAILURE WITH HYPOXIA Status: Acute (4) SIRS (systemic inflammatory response syndrome) Code(s): R65.10 - SIRS OF NON-INFECTIOUS ORIGIN W/O ACUTE ORGAN DYSFUNCTION Status: Acute Comment: due to pancreatitis, no sepsis (5) Hypocalcemia Code(s): E83.51 - HYPOCALCEMIA Status: Acute (6) Acute worsening of stage 3 chronic kidney disease Code(s): N18.3 - CHRONIC KIDNEY DISEASE, STAGE 3 (MODERATE) Status: Acute (7) Abnormal LFTs Code(s): R94.5 - ABNORMAL RESULTS OF LIVER FUNCTION STUDIES Status: Acute (8) Dyslipidemia Code(s): E78.5 - HYPERLIPIDEMIA, UNSPECIFIED Status: Chronic (9) Hypertension Code(s): I10 - ESSENTIAL (PRIMARY) HYPERTENSION Status: Chronic (10) Hypothyroidism Code(s): E03.9 - HYPOTHYROIDISM, UNSPECIFIED Status: Chronic (11) Metastatic renal cell carcinoma to bone Code(s): C79.51 - SECONDARY MALIGNANT NEOPLASM OF BONE; C64.9 - MALIGNANT NEOPLASM OF UNSP KIDNEY, EXCEPT RENAL PELVIS Status: Chronic (12) Obesity (BMI 30.0-34.9) Code(s): E66.9 - OBESITY, UNSPECIFIED Status: Chronic (13) Hypophosphatemia Code(s): E83.39 - OTHER DISORDERS OF PHOSPHORUS METABOLISM Status: Acute - Plan cont current plan of care, plan discussed w/ family, PT/OT, manager social media * medication reviewed as below * symptomatic treatment * see discharge leola. Review of Systems - Review of Systems ENT: negative: Ear Pain, Ear Discharge, Nose Pain, Nose Discharge, Nose Congestion, Mouth Pain, Mouth Swelling, Throat Pain, Throat Swelling, Other Respiratory: negative: Cough, Dry, Shortness of Breath, Hemoptysis, SOB with Excertion, Pleuritic Pain, Sputum, Wheezing Cardiovascular: negative: chest pain, palpitations, orthopnea, paroxysmal nocturnal dyspnea, edema, light headedness, other Gastrointestinal: negative: Nausea, Vomiting, Abdominal Pain, Diarrhea, Constipation, Melena, Hematochezia, Other Genitourinary: negative: Dysuria, Frequency, Incontinence, Hematuria, Retention , Other Musculoskeletal: negative: Neck Pain, Shoulder Pain, Arm Pain, Back Pain, Hand Pain, Leg Pain, Foot Pain, Other - Medications/Allergies Allergies/Adverse Reactions: Allergies Allergy/AdvReac Type Severity Reaction Status Date / Time hydrocodone AdvReac Severe Verified 09/05/18 23:19 morphine AdvReac Severe Verified 09/05/18 23:19 tramadol AdvReac Intermediate Verified 09/05/18 23:19 Medications: Current Medications Acetaminophen (Tylenol) 650 mg PO Q4H PRN PRN Reason: Headache/Fever/Mild Pain (1-3) Last Admin: 09/10/18 09:27 Dose: 650 mg Albuterol/Ipratropium (Duoneb) 3 ml NEB [id number] PRN PRN Reason: Dyspnea Last Admin: 09/09/18 10:29 Dose: 3 ml Albuterol/Ipratropium (Duoneb) 3 ml NEB [id number] [facility] Last Admin: 09/13/18 07:22 Dose: 3 ml Amlodipine Besylate (Norvasc) 10 mg PO DAILY [facility] Last Admin: 09/13/18 08:18 Dose: 10 mg Artificial Tears (Tears Naturale) 2 drop EA EYE PRN PRN PRN Reason: Dry Eyes Carvedilol (Coreg) 6.25 mg PO BID-[facility] Last Admin: 09/13/18 08:19 Dose: 6.25 mg Dextrose/Water (Dextrose 50%) 25 gm SLOW IVP PRN PRN PRN Reason: Hypoglycemia Furosemide (Lasix) 60 mg SLOW IVP DAILY [facility] Last Admin: 09/13/18 09:25 Dose: 60 mg Glimepiride (Amaryl) 4 mg PO BID-[facility] Last Admin: 09/13/18 08:19 Dose: 4 mg Glucagon (Glucagon) 1 mg IM PRN PRN PRN Reason: Hypoglycemia Heparin Sodium (Porcine) (Heparin) 5,000 units SC TID [facility] Last Admin: 09/13/18 08:19 Dose: 5,000 units Hydralazine HCl (Apresoline) 20 mg SLOW IVP Q15M PRN PRN Reason: SBP Greater Than 180 Last Admin: 09/11/18 11:51 Dose: 20 mg Promethazine HCl 12.5 mg/ (Sodium Chloride) 50.5 mls @ 202 mls/hr IVPB Q6H PRN PRN Reason: Nausea Last Admin: 09/06/18 12:12 Dose: 50.5 mls Insulin Human Lispro (Humalog) 0 units SC .MILD SLIDING SCALE PRN PRN Reason: Mild Correctional Scale Last Admin: 09/13/18 05:17 Dose: 3 unit Labetalol HCl (Normodyne) 10 mg SLOW IVP Q4H PRN PRN Reason: SBP GREATER THAN 160 Last Admin: 09/11/18 00:56 Dose: 10 mg Levothyroxine Sodium (Synthroid) 125 mcg PO 0600 [facility] Last Admin: 09/13/18 05:16 Dose: 125 mcg Ondansetron HCl (Zofran) 4 mg IVP Q6H PRN PRN Reason: Nausea/Vomiting Last Admin: 09/06/18 14:59 Dose: 4 mg Pantoprazole Sodium (Protonix) 40 mg IVP DAILY [facility] Last Admin: 09/13/18 08:19 Dose: 40 mg Prednisone (Prednisone) 40 mg PO BID-[facility] Last Admin: 09/13/18 08:18 Dose: 40 mg Senna/Docusate Sodium (Senokot S) 2 tab PO BID PRN PRN Reason: Constipation Sodium Chloride (Flush - Normal Saline) 10 ml IVF Q12HR [facility] Last Admin: 09/13/18 08:19 Dose: 10 ml Sodium Chloride (Flush - Normal Saline) 10 ml IVF PRN PRN PRN Reason: Saline Flush Last Admin: 09/05/18 23:59 Dose: 10 ml Sodium Chloride ([place] Nasal [place] 0.65%) 0 ml EA NARE QIDPRN PRN PRN Reason: Nasal Congestion Throat Lozenges (Cepastat Lozenges) 1 andrzej PO Q2H PRN PRN Reason: Sore Throat
--- NOTE | 2018-09-13 14:19 | PRG ---
DATE OF SERVICE: 09/13/2018 SUBJECTIVE: Andrea Loo is sitting up in a chair. He says he felt good. I have emphasized the importance of him increasing his exercise once he gets home and builds up his strength for future treatment possibilities. OBJECTIVE: GENERAL: He is in no distress. VITAL SIGNS: Stable. LUNGS: Clear. HEART: Regular rhythm. ABDOMEN: Soft and nontender. He has had a bowel movement. EXTREMITIES: Without edema. IMPRESSION: Pancreatitis, felt to be secondary to immunotherapy. PLAN: Discharge for followup by the oncologist. Job ID: [id number]
[2018-09-13 16:35] VITALS: BMI 32.0
[2018-09-14] MEDS: Levothyroxine Sodium 125 MCG TAB PO SCH (05:19)
[2018-09-14] MEDS: HumaLOG 300 UNITS/3 ML VIAL SC PRN ×2 (06:06→12:17)
[2018-09-14] MEDS ORDERED: Clopidogrel Bisulfate 75 MG TAB ONE (08:23)
[2018-09-14] MEDS: Furosemide 100 MG/10 ML VIAL SLOW IVP SCH (08:47)
[2018-09-14] MEDS: Carvedilol 6.25 MG TAB PO SCH (08:47)
[2018-09-14] MEDS: Glimepiride 4 MG TAB PO SCH (08:47)
[2018-09-14] MEDS: Amlodipine 10 MG TAB PO SCH (08:47)
[2018-09-14] MEDS: predniSONE 20 MG TAB PO SCH (08:47)
[2018-09-14] MEDS: Pantoprazole 40 MG VIAL IVP SCH (08:48)
[2018-09-14] MEDS: Heparin 5,000 UNITS/ML VIAL SC SCH (08:48)
--- NOTE | 2018-09-14 11:04 | PDOC.PN ---
- Subjective Encounter Start Date: 09/14/18 Encounter Start Time: 09:20 Patient seen and examined. No new complaints. No overnight events - Objective Resuscitation Status - Order Detail: 09/05/18 23:36 Resuscitation Status Routine Resuscitation Status: FULL: Full Resuscitation MAR Reviewed: Yes Vital Signs & Weight: Vital Signs (12 hours) Temp Pulse Resp BP BP BP Pulse Ox 09/14/18 08:47 68 163/80 H 09/14/18 08:45 14 94 L 09/14/18 07:15 98 F 64 18 163/80 H 100 09/14/18 07:10 68 16 92 L 09/14/18 05:42 97.8 F 67 18 157/79 H 93 L 09/14/18 01:14 97.8 F 67 18 122/65 93 L 09/14/18 01:01 67 12 93 L Weight Admit Weight 212 lb Weight 211 lb 4.8 oz Most Recent Monitor Data Heart Rate from ECG 69 NIBP 164/84 NIBP BP-Mean 110 Respiration from ECG 20 SpO2 93 I&O: 09/13/18 09/14/18 09/15/18 06:59 06:59 06:59 Intake Total 1570 720 Balance 1570 720 Result Diagrams: 09/12/18 06:58 09/12/18 06:58 Additional Labs: Accuchecks 09/14/18 09/13/18 09/13/18 05:43 19:54 16:00 POC Glucose 231 H 226 H 266 H 09/13/18 11:21 POC Glucose 220 H Phys Exam - Physical Examination Constitutional: NAD HEENT: PERRLA, moist MMs, sclera anicteric Neck: no JVD, supple Respiratory: no wheezing, no rales, no rhonchi Cardiovascular: RRR, no significant murmur, no rub Gastrointestinal: soft, non-tender, no distention, positive bowel sounds Musculoskeletal: no edema, pulses present Neurological: non-focal, normal sensation, moves all 4 limbs Lymphatic: no nodes Psychiatric: normal affect, A&O x 3 Skin: no rash, normal turgor Dx/Plan (1) Acute pancreatitis Code(s): K85.90 - ACUTE PANCREATITIS WITHOUT NECROSIS OR INFECTION, UNSP Status: Acute Comment: suspecting from immunotherapy (2) Acute metabolic encephalopathy Code(s): G93.41 - METABOLIC ENCEPHALOPATHY Status: Acute (3) Acute respiratory failure with hypoxia Code(s): J96.01 - ACUTE RESPIRATORY FAILURE WITH HYPOXIA Status: Acute (4) SIRS (systemic inflammatory response syndrome) Code(s): R65.10 - SIRS OF NON-INFECTIOUS ORIGIN W/O ACUTE ORGAN DYSFUNCTION Status: Acute Comment: due to pancreatitis, no sepsis (5) Hypocalcemia Code(s): E83.51 - HYPOCALCEMIA Status: Acute (6) Acute worsening of stage 3 chronic kidney disease Code(s): N18.3 - CHRONIC KIDNEY DISEASE, STAGE 3 (MODERATE) Status: Acute (7) Abnormal LFTs Code(s): R94.5 - ABNORMAL RESULTS OF LIVER FUNCTION STUDIES Status: Acute (8) Dyslipidemia Code(s): E78.5 - HYPERLIPIDEMIA, UNSPECIFIED Status: Chronic (9) Hypertension Code(s): I10 - ESSENTIAL (PRIMARY) HYPERTENSION Status: Chronic (10) Hypothyroidism Code(s): E03.9 - HYPOTHYROIDISM, UNSPECIFIED Status: Chronic (11) Metastatic 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 Review of Systems - Review of Systems ENT: negative: Ear Pain, Ear Discharge, Nose Pain, Nose Discharge, Nose Congestion, Mouth Pain, Mouth Swelling, Throat Pain, Throat Swelling, Other Respiratory: negative: Cough, Dry, Shortness of Breath, Hemoptysis, SOB with Excertion, Pleuritic Pain, Sputum, Wheezing Cardiovascular: negative: chest pain, palpitations, orthopnea, paroxysmal nocturnal dyspnea, edema, light headedness, other Gastrointestinal: negative: Nausea, Vomiting, Abdominal Pain, Diarrhea, Constipation, Melena, Hematochezia, Other Genitourinary: negative: Dysuria, Frequency, Incontinence, Hematuria, Retention , Other Musculoskeletal: negative: Neck Pain, Shoulder Pain, Arm Pain, Back Pain, Hand Pain, Leg Pain, Foot Pain, Other - Medications/Allergies Allergies/Adverse Reactions: Allergies Allergy/AdvReac Type Severity Reaction Status Date / Time hydrocodone AdvReac Severe Verified 09/05/18 23:19 morphine AdvReac Severe Verified 09/05/18 23:19 tramadol AdvReac Intermediate Verified 09/05/18 23:19 Medications: Current Medications Acetaminophen (Tylenol) 650 mg PO Q4H PRN PRN Reason: Headache/Fever/Mild Pain (1-3) Last Admin: 09/10/18 09:27 Dose: 650 mg Albuterol/Ipratropium (Duoneb) 3 ml NEB [id number] PRN PRN Reason: Dyspnea Last Admin: 09/09/18 10:29 Dose: 3 ml Albuterol/Ipratropium (Duoneb) 3 ml NEB [id number] [facility] Last Admin: 09/14/18 07:10 Dose: 3 ml Amlodipine Besylate (Norvasc) 10 mg PO DAILY [facility] Last Admin: 09/14/18 08:47 Dose: 10 mg Artificial Tears (Tears Naturale) 2 drop EA EYE PRN PRN PRN Reason: Dry Eyes Carvedilol (Coreg) 6.25 mg PO BID-[facility] Last Admin: 09/14/18 08:47 Dose: 6.25 mg Dextrose/Water (Dextrose 50%) 25 gm SLOW IVP PRN PRN PRN Reason: Hypoglycemia Furosemide (Lasix) 60 mg SLOW IVP DAILY [facility] Last Admin: 09/14/18 08:47 Dose: 60 mg Glimepiride (Amaryl) 4 mg PO BID-[facility] Last Admin: 09/14/18 08:47 Dose: 4 mg Glucagon (Glucagon) 1 mg IM PRN PRN PRN Reason: Hypoglycemia Heparin Sodium (Porcine) (Heparin) 5,000 units SC TID [facility] Last Admin: 09/14/18 08:48 Dose: 5,000 units Hydralazine HCl (Apresoline) 20 mg SLOW IVP Q15M PRN PRN Reason: SBP Greater Than 180 Last Admin: 09/11/18 11:51 Dose: 20 mg Promethazine HCl 12.5 mg/ (Sodium Chloride) 50.5 mls @ 202 mls/hr IVPB Q6H PRN PRN Reason: Nausea Last Admin: 09/06/18 12:12 Dose: 50.5 mls Insulin Human Lispro (Humalog) 0 units SC .MILD SLIDING SCALE PRN PRN Reason: Mild Correctional Scale Last Admin: 09/14/18 06:06 Dose: 3 unit Labetalol HCl (Normodyne) 10 mg SLOW IVP Q4H PRN PRN Reason: SBP GREATER THAN 160 Last Admin: 09/11/18 00:56 Dose: 10 mg Levothyroxine Sodium (Synthroid) 125 mcg PO 0600 [facility] Last Admin: 09/14/18 05:19 Dose: 125 mcg Ondansetron HCl (Zofran) 4 mg IVP Q6H PRN PRN Reason: Nausea/Vomiting Last Admin: 09/06/18 14:59 Dose: 4 mg Pantoprazole Sodium (Protonix) 40 mg IVP DAILY [facility] Last Admin: 09/14/18 08:48 Dose: 40 mg Prednisone (Prednisone) 40 mg PO BID-WM [facility] Last Admin: 09/14/18 08:47 Dose: 40 mg Senna/Docusate Sodium (Senokot S) 2 tab PO BID PRN PRN Reason: Constipation Sodium Chloride (Flush - Normal Saline) 10 ml IVF Q12HR [facility] Last Admin: 09/14/18 08:48 Dose: 10 ml Sodium Chloride (Flush - Normal Saline) 10 ml IVF PRN PRN PRN Reason: Saline Flush Last Admin: 09/05/18 23:59 Dose: 10 ml Sodium Chloride ([place] Nasal [place] 0.65%) 0 ml EA NARE QIDPRN PRN PRN Reason: Nasal Congestion Throat Lozenges (Cepastat Lozenges) 1 andrzej PO Q2H PRN PRN Reason: Sore Throat
--- NOTE | 2018-09-14 12:55 | DIS ---
DATE OF ADMISSION: 09/05/2018 DATE OF DISCHARGE: 09/14/2018 ADDENDUM: Please see my discharge summary dictated yesterday. This patient was waiting for rehab bed availability, there was no bed available yesterday and that is why, he stayed in hospital. Today, rehab has bed available and the patient will be discharged to rehab. Please see my progress note from today for further details. The patient is medically stable. Job ID: [id number]
[2018-09-14 13:24] VITALS: BP 143/75; TEMP 97.9
--- NOTE | 2018-09-14 15:27 | PRG ---
DATE OF SERVICE: 09/14/2018 SUBJECTIVE: Mr. Loo has no complaints today. He is doing well. OBJECTIVE: VITAL SIGNS: His vital signs are stable overnight. LUNGS: Clear. HEART: Regular rhythm. ABDOMEN: Nontender. IMPRESSION AND PLAN: Pancreatitis likely immunotherapy mediated. He is tentatively scheduled to go to rehab today and will follow up with the oncologist. Job ID: [id number]
== END 2018-09-14 13:44 | DRG 438 ==
LOC: ERS 19:06 → T4-B 23:12 → 2NO 09-06 18:46 → CCU 09-07 14:27 → T4-B 09-11 15:38
PROVIDERS: ADMIT Internal Medicine; ATTEND Internal Medicine
PROC: 5A09457 Assistance with Respiratory Ventilation, 24-96 Consecutive Hours, Continuous Positive Airway Pressure (ICD-10-PCS; principal; 2018-09-08)
DX: K85.30 Drug induced acute pancreatitis without necrosis or infection (principal); R65.11 Systemic inflammatory response syndrome (SIRS) of non-infectious origin with acute organ dysfunction; G93.41 Metabolic encephalopathy; J96.01 Acute respiratory failure with hypoxia; C64.9 Malignant neoplasm of unspecified kidney, except renal pelvis; C79.51 Secondary malignant neoplasm of bone; N17.9 Acute kidney failure, unspecified; E87.2 Acidosis; E78.00 Pure hypercholesterolemia, unspecified; E11.22 Type 2 diabetes mellitus with diabetic chronic kidney disease; I12.9 Hypertensive chronic kidney disease with stage 1 through stage 4 chronic kidney disease, or unspecified chronic kidney disease; N18.3 Chronic kidney disease, stage 3 (moderate); E03.9 Hypothyroidism, unspecified; E66.9 Obesity, unspecified; T45.1X5A Adverse effect of antineoplastic and immunosuppressive drugs, initial encounter; E86.9 Volume depletion, unspecified; E83.39 Other disorders of phosphorus metabolism; K80.20 Calculus of gallbladder without cholecystitis without obstruction; Z90.49 Acquired absence of other specified parts of digestive tract; Z88.5 Allergy status to narcotic agent; Z79.899 Other long term (current) drug therapy; Z79.4 Long term (current) use of insulin; Z85.038 Personal history of other malignant neoplasm of large intestine; Z68.32 Body mass index [BMI] 32.0-32.9, adult; E83.51 Hypocalcemia; R00.0 Tachycardia, unspecified; J98.01 Acute bronchospasm
CPT/HCPCS: 36415; 36416; 71045; 74181; 76705; 78582; 80048; 80053; 80061; 80076; 81003; 81015; 82805; 83605; 83690; 83735; 84100; 84145; 84443; 85025; 85379; 85610; 85730; 86140; 93005; 93010; 94640; 94660; 96361; 96365; 96375; 96376; A9540; A9558; C9113; J0131; J0360; J1610; J1630; J1644; J1940; J2060; J2405; J2543; J2550; J2920; J2930; J3010; J3475; J3490; J7050; J7070; J7512; J7620

== ENCOUNTER 2018-09-22 11:43 | Inpatient (IN) | payer MEDICARE, OTHER ==
[~2018-09-22 11:43] MED LIST: Heparin 1,000 UNITS/ML VIAL ONE
[2018-09-22 14:42] VITALS: BMI 32.2
[2018-09-22] MEDS: Sodium Chloride 0.9% 1,000 ML IV SCH (14:57)
[2018-09-22] MEDS: Acetaminophen 1,000 MG in Premix Bag 1 BAG IVPB PRN (14:58)
[2018-09-22] MEDS ORDERED: Dextrose 50% Abboject 50 ML SYRINGE IVP PRN (15:41)
[2018-09-22] MEDS ORDERED: Insulin Regular 300 UNITS/3 ML VIAL SC PRN (15:41)
[2018-09-22] MEDS ORDERED: Dextrose 5% in Water 1,000 ML IV PRN (15:41)
[2018-09-22] MEDS ORDERED: Polyethylene Glycol 3350 17 GM Packet PO PRN (15:44)
[2018-09-22] MEDS: Carvedilol 6.25 MG TAB PO SCH (17:53)
[2018-09-22] MEDS: Pantoprazole 40 MG VIAL IVP SCH (21:40)
--- NOTE | 2018-09-22 22:04 | CON ---
DATE OF CONSULTATION: 09/22/2018 CONSULTING PHYSICIAN: Magdy Joshi MD REASON FOR CONSULTATION: Abdominal pain, cholelithiasis, recent pancreatitis. HISTORY OF PRESENT ILLNESS: The patient is a pleasant 73-year-old male. He was admitted to the hospital on September 05 with an episode of pancreatitis. He has a history of metastatic renal cell carcinoma diagnosed in December 2018. He has been treated for this with Opdivo. When he was admitted in mid August, he had developed an episode of severe abdominal pain and was found to have pancreatitis. His initial lipase level was greater than 8000. His pancreatitis resolved in a typical appropriate fashion. He was also noted to have hyperbilirubinemia with a bilirubin level of 5.7 that also normalized spontaneously. Imaging studies revealed gallbladder sludge and small gallstones. His duct was felt to be of normal caliber. There was concern that perhaps his pancreatitis was related to his Opdivo and given his recent oncologic issues, it was decided against attempting to treat his gallbladder is the source of his pancreatitis. He was hospitalized here until September 14, at which point, he was transferred to the rehabilitation facility. Unfortunately, he continued to have some abdominal pain. Recent laboratory studies revealed that his lipase had gone back up from 39 on September 12 to 110 on September 19. Over the past three days, it has normalized once again. His bilirubin level did not elevate with this episode of pancreatic inflammation. The patient does note continued intermittent epigastric and right upper quadrant abdominal pain. Gallbladder ultrasound was obtained yesterday, revealed a distended gallbladder with gallstones, bile duct was felt to be of normal size at 3 mm. There was an indeterminate hypoechoic region in the left abdomen that was difficult to discern on the ultrasound and CT scan was recommended. PAST MEDICAL HISTORY: 1. Renal cell carcinoma, metastatic to bone. 2. Diabetes. 3. Hypertension. 4. Hyperlipidemia. PAST SURGICAL HISTORY: 1. History of surgery for colon cancer. 2. Knee replacement surgery. 3. Appendectomy. 4. Cataract surgery. OUTPATIENT MEDICATIONS: 1. Opdivo. 2. Glimepiride. 3. Lisinopril hydrochlorothiazide. ALLERGIES: HYDROCODONE AND TRAMADOL (WHICH MAKE HIM CRAZY). PRIMARY CARE PHYSICIAN: Madison Yates MD ONCOLOGIST: Ansley Higginbotham MD PERSONAL AND SOCIAL HISTORY: He is (after 50 years of marriage). He has one son. He lives in [place]. He is retired from the [employer]. He does not smoke. Drinks alcohol rarely. Two of his sisters are present at bedside. REVIEW OF SYSTEMS: Ten system review is otherwise negative. FAMILY HISTORY: Noncontributory. PHYSICAL EXAMINATION: VITAL SIGNS: Temperature 97.4, pulse 57, blood pressure 114/70. GENERAL: He is a well-developed, well-nourished, pleasant male, resting in bed, in no acute distress. He is alert and oriented x3. HEAD, EYES, EARS, NOSE, AND THROAT: Unremarkable. NECK: Supple without mass or tenderness. LUNGS: Clear to auscultation throughout. CARDIAC: Regular rate and rhythm without murmur. ABDOMEN: Protuberant. It is soft and nontender. There is currently no right upper quadrant epigastric tenderness. He has a fullness within his abdomen that may be consistent with ascites. EXTREMITIES: Unremarkable. LABORATORY DATA: Laboratory studies currently show mild electrolyte abnormalities with chloride being a little high at 114. His BUN and creatinine were slightly elevated at 41 and 1.6. Glucose is elevated at 191. Bilirubin is normal at 0.7. All liver function tests are normal. His albumin is low at 2.6 and his lipase is normal at 40. ASSESSMENT: The patient has some degree of continued pain. Whether this is related to ongoing pancreatitis or post pancreatic inflammatory change or perhaps related to his gallbladder. Either way, there is a reasonable chance that his gallbladder and gallstones contributing to his pancreatitis or he may simply have pain related to his gallbladder. Either way, cholecystectomy is an appropriate operation and this is what I would recommend for him. I would like to get a CT scan of his abdomen to evaluate for ascites and make sure there are no unexpected intraabdominal findings. This will be ordered this evening. Since his creatinine is a little elevated, I will obtain his CT scan without IV contrast, but I would like oral contrast and then we will tentatively plan for laparoscopic cholecystectomy and intraoperative cholangiogram for tomorrow. I have discussed this in detail with the patient and his sisters. They understand and agree to proceed in this fashion. Job ID: [id number]
--- NOTE | 2018-09-22 23:54 | CT ---
Exam: Abdomen CT without contrast Pelvic CT without contrast HISTORY: metastatic renal cancer. Evaluate for cholecystitis versus pancreatitis. COMPARISON: none FINDINGS: Abdomen CT: Bilateral pleural effusions. Consolidation in both lower lobes, left greater than right m ay be due to atelectasis, pneumonia or aspiration. Heart is enlarged. No significant pericardial fluid. Nonaneurysmal aorta Hyperdensity in the gallbladder may represent sludge and stones. Small amount of pericholecystic flui d, along with fluid in Morison's pouch. Limited evaluation of the solid organs by the lack of IV contrast. Grossly the liver, spleen and adrenal glands are unremarkable There is peripancreatic fluid with subtle stranding of the peripancreatic mesentery. Fluid tracks irene ng the lesser curvature the stomach. Fluid may be reactive to pancreatitis versus post pancreatic pseudocyst. Gastric mucosa, duodenum and multiple normal caliber small bowel loops are identified. Proximal small bowel loops are slightly prominent. Distal small bowel loops are decompressed. Ileocecal junction is normal. Scattered fecal material in a nondistended, nondilated colon. Symmetric perinephric fat stranding, nonspecific. Bilaterally no hydronephrosis or lithiasis. Bilater al ureters have normal caliber. No hydroureter, periureteral fat stranding or fibrosis Pelvis CT: There is anastomosis involving the sigmoid colon. Bilateral fat-containing inguinal hernia s are noted. Unremarkable urinary bladder. No pelvic mass, nephropathy free air or fluid Focal defect involving the central portion of the L2 vertebral body with attenuation coefficient of 7 7 Hounsfield units. Possibility of a metastatic lesion measuring 1.9 x 1.9 cm. IMPRESSION: 1. Inflammatory changes around the pancreas, worrisome for pancreatitis. Loculated fluid may be secon demetria to pancreatitis. Pseudocysts cannot be excluded. 2. Hyperdensity within the lumen of the gallbladder suggesting small stones and sludge. 3. Slightly prominent proximal small bowel loops. Findings are nonspecific. Correlate clinically for ileus versus a developing bowel obstruction. 4. Bilateral pleural effusions with lower lobe consolidation. 5. Lesion involving the L2 vertebral body as described above. The possibility of metastatic deposit c annot be excluded. Further evaluation with lumbar spine MRI is recommended.
--- NOTE | 2018-09-23 00:37 | HP ---
HISTORY OF PRESENT ILLNESS: Mr. Loo is admitted from [facility] for abdominal pain and abnormal gallbladder on ultrasound, suspected biliary colic, possible cholecystitis. I was called by Dr. Sethi, his rehab doctor today as over the past several days, Mr. Loo has had upper abdominal pain requiring Dilaudid for pain control. He had nausea and then had an ultrasound that showed thickened gallbladder wall and distention concerning for cholecystitis. He had recently been at this hospital for pancreatitis that was possibly biliary versus related to his Oncology medicine, Opdivo. During that admission, he was found to have gallstones and a mildly elevated liver enzymes, which probably went back to normal. He had no evidence of choledocholithiasis at that time. Ultimately, he was discharged to rehab on 09/14 after coming in on the with a diagnosis of acute pancreatitis due to immunotherapy, abnormal liver enzymes due to immunotherapy, acute respiratory failure related to hydration versus immunotherapy. However, in all of this there is a possibility that this was a biliary pancreatitis as well. He did go to rehab at that time with a white count of 12, hemoglobin 14, platelet count is 220. AST and ALT were 15 and 22. Lipase was 39 and CRP was still elevated at 3.55. He went on a prednisone taper 40 b.i.d. for 3 days, 20 b.i.d. for 3 days, and then 20 mg daily for 3 days and will stop. He is on the last phase of that taper. On his initial presentation, he did have elevated bilirubin of 2.3 as high as 5.7 and it came down. Over the past couple of days, the patient relates to me that after he began eating more, he began to have attacks of pain very similar to the pancreatitis he had when he was first admitted here. It was bandlike in the upper abdomen. We made him n.p.o., started him on IV fluids. His liver function tests stayed within normal limits, it did not bump. His lipase went to 110 on the first and it was 88 on the second, 48 yesterday, and 40 today. It was as high as 8000 on his initial admission and it had been 39 and was discharged on 09/12. Likewise, his white count went up to 22,000 from 15,000 on the 1st, 22,000 on the 2nd, and then today it was 13,600. He had been given Dilaudid there and IV fluids, but today they were starting him back on some clear liquids. An ultrasound was obtained while he was there at the rehab yesterday that showed cholelithiasis, gallbladder distention, and gallbladder wall thickening, also some abdominal ascites is present and a hypoechoic region in the left abdomen; next, adjacent to the liver, traversing the pancreas, it was felt to be possible developing pseudocyst. Presently, the patient is without pain, without nausea. MEDICATIONS: Prior to transfer; 1. Prednisone 20 mg a day. 2. Protonix. 3. Oxycodone. 4. Levothyroxine. 5. Glimepiride. 6. Carvedilol. 7. Amlodipine. 8. Acetaminophen. 9. Insulin. PAST MEDICAL HISTORY: Metastatic renal cell cancer for which he is on Opdivo, diabetes, hypertension, hyperlipidemia, knee surgery, appendectomy, obstructive sleep apnea. PAST SURGICAL HISTORY: Colon resection, appendectomy, knee replacement, colonoscopy 2007, history of colon cancer in 1998. SOCIAL HISTORY: The patient drinks socially alcohol, but not very much and does not smoke. Lives with family. His and daughter are at the bedside today. FAMILY HISTORY: Negative for lung disease or strokes. ALLERGIES: HYDROCODONE, TRAMADOL, WHICH GIVES HIM A STRANGE REACTION WHICH HE HAS WEAKNESS FROM. REVIEW OF SYSTEMS: Negative for shortness of breath or dyspnea on exertion. He feels his breathing has actually been better since discharge. No diarrhea, melena, or hematochezia. PHYSICAL EXAMINATION: VITAL SIGNS: Temperature is 97.2, pulse 57, blood pressure 127/70. GENERAL: He is nonicteric. LUNGS: Clear. HEART: Regular rate and rhythm without clicks or murmurs. ABDOMEN: Soft and nontender. No palpable hepatosplenomegaly. ABDOMEN: Protuberant, slightly tight, but there is no rebound or guarding. EXTREMITIES: Revealed trace edema in the left leg. He has PlexiPulses on. LUNGS: Clear. SKIN: Without rash or lesions. LABORATORY STUDIES: As per HPI. ASSESSMENT: 1. Recurrent upper abdominal pain. This could be on the basis of [id number] cholecystitis with a distended gallbladder and thickened gallbladder wall and no gallstones or it could be related to development of pancreatic ascites or complications of pseudocyst development in his pancreas with severe pancreatitis recently. 2. Recent pancreatitis. It is unclear if it was related to his Opdivo or 2 gallstones with his recurrent pain with eating when he was at rehab and the way the gallbladder looks there may be a biliary component to this. 3. Metastatic renal cell cancer. RECOMMENDATIONS: Judicious hydration, clear liquids, n.p.o. after midnight. We will consult General Surgery for possible cholecystectomy. We will talk with Dr. Lawson about possibly imaging and he will decide when he sees about doing that. His creatinine is up a bit, but we could get a noncontrast CT, just to get a lay of the land as it appears he may have some ascites on his ultrasound. We will start him on insulin sliding scale, levothyroxine, Levaquin, amlodipine, carvedilol, Tylenol p.r.n. for pain, Protonix, normal saline at 75 an hour. Job ID: [id number]
[2018-09-23] MEDS: Acetaminophen 1,000 MG in Premix Bag 1 BAG IVPB PRN (02:16)
[2018-09-23] MEDS: Fentanyl 100 MCG/2 ML VIAL SLOW IVP PRN ×6 (03:30→22:13)
[2018-09-23] MEDS: Sodium Chloride 0.9% 1,000 ML IV SCH ×3 (04:16→19:05)
[2018-09-23 05:24] LABS: #Eosinphils 0.1 thou/uL (0.0-0.7); #Lymphocytes 1.5 thou/uL (1.20-3.40); #Monocytes 0.3 thou/uL (0.11-0.59); #Neutrophils 9.4 thou/uL (1.40-6.50); %Basophils 0.3 % (0.0-1.0); %Eosinophils 0.9 % (0.0-10.0); %Lymphocytes 13.2 % (21.0-51.0); %Monocytes 2.8 % (0.0-10.0); %Neutrophils 82.8 % (42.0-75.0); Mean Corpuscular HGB CONC 31.2 g/dL (32.0-36.0); Mean Corpuscular Hemoglobin 28.4 pg (27.0-31.0); Mean Corpuscular Volume 91.1 fL (78.0-98.0); Mean Platelet Volume 7.6 fL (7.4-10.4); Platelet Count 236 thou/uL (130-400); Red Blood Cell (RBC) Count 4.22 mill/uL (4.70-6.10); White Blood Cell (WBC) Count 11.3 thou/uL (4.8-10.8)
[2018-09-23] MEDS: Levothyroxine Sodium 125 MCG TAB PO SCH (05:36)
[2018-09-23 05:52] LABS: ALT (SGPT) 10 U/L (8-55); AST (SGOT) 9 U/L (5-34); Albumin 2.4 g/dL (3.4-4.8); Alkaline Phosphatase 78 U/L (40-150); Anion Gap 9 mmol/L (10-20); BUN (Urea Nitrogen) 35 mg/dL (8.4-25.7); Bilirubin, Total 0.6 mg/dL (0.2-1.2); Calc. Creatinine Clearance 70 mL/min (70-130); Calcium 7.5 mg/dL (7.8-10.44); Carbon Dioxide 22 mmol/L (23-31); Chloride 111 mmol/L (98-107); Estimated GFR-MDRD 53; Globulin 2.2 g/dL (2.4-3.5); Glucose 151 mg/dL (83-110); Lipase 55 U/L (8-78); Potassium 4.3 mmol/L (3.5-5.1); Protein, Total 4.6 g/dL (5.8-8.1); Sodium 138 mmol/L (136-145)
[2018-09-23] MEDS: Pantoprazole 40 MG VIAL IVP SCH ×2 (08:16→21:06)
[2018-09-23] MEDS: Carvedilol 6.25 MG TAB PO SCH ×2 (08:17→16:55)
[2018-09-23] MEDS: Amlodipine 10 MG TAB PO SCH (08:28)
[2018-09-23] MEDS ORDERED: hydrALAZINE 20 MG/ML VIAL SLOW IVP PRN (12:01)
--- NOTE | 2018-09-23 12:35 | CON ---
DATE OF CONSULTATION: PRIMARY CARE PHYSICIAN: Dr. Yates. ATTENDING PHYSICIAN: Dr. Joshi. REASON FOR ADMISSION: Recurrent abdominal pain. REASON FOR CONSULTATION: Aid in medical management. HISTORY OF PRESENT ILLNESS: Mr. Loo is a very pleasant 73-year-old gentleman, who has a history of metastatic renal cell carcinoma, who is currently undergoing treatment. He also has a history of diabetes mellitus and hypertension. He was recently admitted to our facility on September 05, 2018. He was admitted with acute pancreatitis as well as metabolic encephalopathy with confusion. At that time, it was felt that the pancreatitis was the result of the immunotherapy for the renal cell carcinoma. He also had acute respiratory failure and was on BiPAP and was seen by both Pulmonology and Cardiology as well. Since then, he is improved and was sent to inpatient rehab. While in rehab, he began having recurrence of abdominal pain, which was fairly severe. He said it was 8 to 9/10. He was also noted to have leukocytosis as well and an MRI demonstrated evidence of pancreatitis. For this reason, he was sent back to our facility under the care of Dr. Joshi for acute pancreatitis as well as gallbladder disease. We have been asked to see the patient in consultation with regard to his medical management. Currently, he does have some abdominal pain, but says it is controlled with the IV pain medication. He denies any chest pain or shortness of breath. No PND. No orthopnea, and his sister is at the bedside and says that his breathing "is much better now on this admission." REVIEW OF SYSTEMS: With regard to the review of systems, all systems were reviewed and are negative except for that mentioned in the history of present illness. PAST MEDICAL HISTORY: Significant for metastatic renal cell carcinoma, diabetes mellitus type 2, hypertension, hyperlipidemia, and chronic low back pain. PAST SURGICAL HISTORY: He has had an appendectomy and a right total knee replacement as well as colonoscopy. FAMILY HISTORY: Significant for lung disease. His father had lung cancer as well as heart disease. ALLERGIES: MORE ACTUAL INTOLERANCE THAN ALLERGIES. HYDROCODONE CAUSES HIM TO HAVE VISUAL HALLUCINATIONS WELL TRAMADOL, BUT HE SAYS HE IS ABLE TO TAKE OXYCODONE. SOCIAL HISTORY: He is and he has three children, both of his daughters can act as surrogate medical decision makers. His daughter, Liana Lozoya is currently at the bedside and then Jessy Martinez is also surrogate decision maker. MEDICATIONS: Include: 1. He is on a prednisone taper. 2. Protonix 40 mg daily. 3. Carvedilol 6.25 mg twice daily. 4. Norvasc 10 mg daily. 5. Oxycodone extended release 5 mg q.4 hours as needed. 6. Levothyroxine 125 mcg p.o. daily. 7. Amaryl 4 mg twice daily. PHYSICAL EXAMINATION: GENERAL: He is alert and oriented. He appears to be in no acute distress. VITAL SIGNS: Blood pressure was 118/76, heart rate 64, respiratory rate of 18, temperature is 97.8, and O2 saturation is 95% on room air. HEENT: Pupils are equal, round, and reactive to light. Extraocular muscles are intact. Sclerae are anicteric. Throat, there is no erythema. No exudates. NECK: No adenopathy. No bruits. LUNGS: Clear to auscultation. There is no wheezing. No rales. No rhonchi. CARDIOVASCULAR: He has a normal S1 and S2. I did not appreciate an S3 or S4. No murmurs, clicks, or rubs. ABDOMEN: Obese and soft. He does have some mid epigastric to upper abdominal tenderness across both sides of the abdomen. There was no rebound, no guarding. However, it was tympanic to percussion and slightly distended. EXTREMITIES: He has some calf edema, is 1+ and it is pitting. No calf tenderness however. No joint effusions. NEUROLOGIC: Cranial nerves are intact. Muscle strength is 5/5. SKIN AND INTEGUMENT: There is no significant skin changes or rash. LABORATORY DATA: White blood cell count 11.3, hemoglobin 12, hematocrit is 38.5, and platelet count is 236. Sodium 138, potassium 4.3, chloride is 111, CO2 is 22, BUN of 35, creatinine 1.32, glucose is 151. ASSESSMENT: 1. This is a pleasant 73-year-old gentleman, who is being admitted by Gastroenterology for recurrent pancreatitis as well as cholelithiasis. Currently, the patient is being evaluated by both GI as well as General Surgery for possible cholecystectomy. However, it is my understanding that they plan to hold off on surgery until the pancreatitis improves. Further management will be deferred to General Surgery as well as GI. In the interim, we will help to manage his diabetes. Currently, he is n.p.o. we will continue with the sliding scale as already been ordered and once he is allowed to eat, we may restart his home medications. 2. Hypertension. Currently, he is allowed to take his blood pressure medications with sips of water. We will continue this as well as p.r.n. hydralazine as needed. 3. He will be placed on DVT and GI prophylaxis. 4. Renal cell carcinoma. Treatment of this will be deferred until the acute illness has resolved and if and when that time becomes necessary, a consult could be placed to his oncologist. Otherwise, we will be happy to follow along with you with this very nice gentleman. Job ID: [id number]
--- NOTE | 2018-09-23 14:08 | PRG ---
DATE OF SERVICE: 09/23/2018 SUBJECTIVE: Mr. Loo is resting in bed. He still complains of intermittent upper abdominal pain. He believes the pain may be worse when he eats. I had a CT scan performed last night without IV contrast (because of his diminished renal function). He has substantial enlargement of the pancreas and surrounding tissues. They were fluid collections around the pancreas and perhaps extending from them. This may be an evolving pseudocyst. The stomach is pushed up against the anterior abdominal wall by the pancreas. The whole area appears to be encroaching over the area of the gallbladder. There is no ascites. OBJECTIVE: VITAL SIGNS: On examination, he is afebrile, pulse 65, blood pressure 150/84. LUNGS: Clear to auscultation. ABDOMEN: Obese and soft with tenderness superiorly. LABORATORY DATA: Lipase remains normal at 55. All liver function tests are normal. His albumin is a little low at 2.4. His creatinine is 1.3, which is down for him. ASSESSMENT: The patient with what appears to be fairly severe changes of pancreatic inflammation relative to his pancreatitis. I think this will make a cholecystectomy difficult to impossible to perform laparoscopically and could require conversion to an open surgery. Given the appearance of his pancreas, I suspect this is the source of all of his current discomfort and it is likely not related to his gallbladder. In order to allow this to resolve, it is possible that he will require intravenous nutrition to allow for ongoing pancreatic rest. I will speak with Dr. Joshi regarding his thoughts about this. For now, however, recommend against proceeding with his laparoscopic cholecystectomy. Job ID: [id number]
--- NOTE | 2018-09-23 17:29 | PRG ---
DATE OF SERVICE: 09/23/2018 SUBJECTIVE: Mr. Loo states he ate a little bit of Jell-O and did okay without abdominal pain. OBJECTIVE: VITAL SIGNS: Temperature is 97.8, pulse 60, and blood pressure 128/69. ABDOMEN: Soft, nontender. LABORATORY DATA: White count 11.3, hemoglobin 12, and platelet count 236. Liver function tests normal. Bilirubin 0.6, lipase 55. IMAGING: CT scan shows a significant fluid collection of the pancreas, some fat stranding of the pancreas still. Stones and sludge were noted. Slightly prominent small bowel loops noted. Metastatic bone lesions are noted. ASSESSMENT: 1. Metastatic renal cancer. 2. Recurrent abdominal pain, likely related to his pancreatitis. There is ongoing inflammation, but no elevation of lipase at this time. He also does have a distended gallbladder on ultrasound and thickened gallbladder wall, but this may be related to the peripancreatic fluid. He may ultimately need a cholecystectomy. I have talked to Dr. Lawson. After evaluating scan, he wanted to hold on and wait before proceeding with that. PLAN: We will see how he can do with liquid diet. If he continues to have pain, we are going to need to get a TPN. Job ID: [id number]
--- NOTE | 2018-09-23 18:15 | SPC ---
PICC placement Ultrasound-guided venous access: (Peripherally inserted central catheter) DATE: 09/23/2018 HISTORY: 73-year-old male with acute pancreatitis who requires total parenteral nutrition (TPN). TECHNIQUE: Catheter caliber: 5 [place] Catheter trim length:36 cm Catheter lumen number:double Catheter tip location:superior vena cava Vein accessed:right basilic Signed, informed consent was obtained. A tourniquet was applied at the proximal aspect of the arm. Th e arm was prepped and draped in the usual sterile fashion. A 25-gauge needle was used to applied buffered lidocaine superficially. The vein was punctured with a 21-gauge micropuncture needle under u ltrasound guidance. A 0.018 inch guidewire was advanced through the micropuncture needle and into the vein. Under fluoroscopic guidance, the guidewire was advanced to the superior vena cava. The PICC was flushed and trimmed to the appropriate length. The micropuncture needle was exchanged over the guidewire for a 5 [place] peel-away dilator sheath. The dilator was exchanged over the guidewire for t he PICC, which was then further advanced under fluoroscopy. The sheath and guidewire were removed. The PICC was flushed again and secured in place at the arm after adjustment of tip position. The mary ent tolerated the procedure well. There was no complication. IMPRESSION: Successful placement of PICC (peripherally inserted central catheter).
[2018-09-23] MEDS: Enoxaparin Sodium 40 MG/0.4 ML SYRINGE SC SCH (21:05)
[2018-09-24] MEDS: Fentanyl 100 MCG/2 ML VIAL SLOW IVP PRN ×8 (00:41→23:35)
[2018-09-24] MEDS: Levothyroxine Sodium 125 MCG TAB PO SCH (05:26)
[2018-09-24 05:53] LABS: #Eosinphils 0.1 thou/uL (0.0-0.7); #Lymphocytes 1.1 thou/uL (1.20-3.40); #Monocytes 0.3 thou/uL (0.11-0.59); %Basophils 0.3 % (0.0-1.0); %Eosinophils 1.6 % (0.0-10.0); %Lymphocytes 14.4 % (21.0-51.0); %Monocytes 4.1 % (0.0-10.0); %Neutrophils 79.7 % (42.0-75.0); Hemoglobin 11.7 g/dL (14.0-18.0); Mean Corpuscular HGB CONC 31.9 g/dL (32.0-36.0); Mean Corpuscular Volume 90.8 fL (78.0-98.0); Mean Platelet Volume 7.5 fL (7.4-10.4); Platelet Count 187 thou/uL (130-400); RBC Distribution Width 12.9 % (11.5-14.5); Red Blood Cell (RBC) Count 4.02 mill/uL (4.70-6.10); White Blood Cell (WBC) Count 7.5 thou/uL (4.8-10.8)
[2018-09-24 06:11] LABS: Anion Gap 9 mmol/L (10-20); BUN (Urea Nitrogen) 23 mg/dL (8.4-25.7); Calc. Creatinine Clearance 73 mL/min (70-130); Calcium 7.2 mg/dL (7.8-10.44); Carbon Dioxide 22 mmol/L (23-31); Chloride 110 mmol/L (98-107); Estimated GFR-MDRD 56; Glucose 98 mg/dL (83-110); Lipase 72 U/L (8-78); Potassium 4.3 mmol/L (3.5-5.1); Sodium 137 mmol/L (136-145)
[2018-09-24 06:12] LABS: ALT (SGPT) 11 U/L (8-55); AST (SGOT) 15 U/L (5-34); Albumin 2.4 g/dL (3.4-4.8); Alkaline Phosphatase 91 U/L (40-150); Bilirubin, Direct 0.4 mg/dL (0.1-0.3); Bilirubin, Total 0.8 mg/dL (0.2-1.2); Protein, Total 4.5 g/dL (5.8-8.1)
[2018-09-24] MEDS: Amlodipine 10 MG TAB PO SCH ×2 (08:33→08:34)
[2018-09-24] MEDS: Carvedilol 6.25 MG TAB PO SCH ×2 (08:34→16:48)
[2018-09-24] MEDS: Sodium Chloride 0.9% 1,000 ML IV SCH (08:34)
[2018-09-24] MEDS: Pantoprazole 40 MG VIAL IVP SCH ×2 (08:34→19:31)
[2018-09-24] MEDS: Insulin Regular 300 UNITS/3 ML VIAL SC PRN ×2 (11:21→16:48)
[2018-09-24] MEDS: Calcium Carbonate 500 MG ChewTAB PO PRN ×2 (11:21→23:35)
--- NOTE | 2018-09-24 12:43 | PRG ---
DATE OF SERVICE: 09/24/2018 This is a cross coverage note for Dr. Magdy Joshi. SUBJECTIVE: Mr. Andrea Loo is a 73-year-old Latin-F[place] male with pancreatitis, biliary sludge. He also has metastatic renal cell carcinoma. Apparently, he was on chemotherapy before and felt the medication cause pancreatitis. The patient had continued abdominal pain. On a scale of 1 to 10, the pain is 7 to 8. He is tolerating a clear liquid diet. The clear liquid diet does not make the pain worse. There is no nausea, no vomiting. He has stool yesterday. He has central line placement for possible TPN. The dietary input is very awaiting comfortable. PHYSICAL EXAMINATION: GENERAL: He appears comfortable. VITAL SIGNS: Afebrile, pulse is 63, and blood pressure 156/83. HEENT: Conjunctivae clear. CARDIOVASCULAR SYSTEM AND LUNGS: Within normal limits. ABDOMEN: Soft. Abdomen is minimally tender over right upper quadrant epigastric area. There is no rebound or guarding. Active bowel sounds. LABORATORY DATA: From today CBC; WBC 7500, hemoglobin 11.7, hematocrit 36.5, MCV 90.8, platelet count , polymorphs 79, lymphocytes 14. Chemistry panel; sodium 137, potassium 4.3, chloride 110, bicarb 22, BUN is 23, creatinine is 1.27, glucose is 98, calcium 7.2. Bilirubin 0.8. Liver function tests normal. Albumin 2.4. CLINICAL IMPRESSION: 1. Biliary pancreatitis. He is still symptomatic. Although, he has no nausea or vomiting. He still has abdominal pain. 2. Metastatic renal cell carcinoma. 3. History of colon cancer, more than 20 years of surgery. RECOMMENDATIONS: 1. Continue clear liquid diet. 2. Continue analgesics. 3. TPN as per dietary recommendations. Job ID: [id number]
[2018-09-24] MEDS ORDERED: Multivitamins, Adult 10 ML, Multitrace-5 5 ML in D15W-AA 5% with Lytes 2,000 ML, Fat Em... IV SCH (14:00)
--- NOTE | 2018-09-24 14:15 | PDOC.PN ---
- Subjective Encounter Start Date: 09/24/18 Encounter Start Time: 11:30 Subjective: pt up in bed complains of pain to his abdomen area - Objective Vital Signs & Weight: Vital Signs (12 hours) Temp Pulse Resp BP BP BP Pulse Ox 09/24/18 11:05 98.1 F 63 20 156/83 H 95 09/24/18 08:34 69 159/82 H 97 09/24/18 08:33 69 159/82 H 09/24/18 07:35 97.4 F L 69 22 H 159/82 H 97 09/24/18 04:00 98.0 F 61 18 162/82 H 96 Weight Weight 212 lb I&O: 09/23/18 09/24/18 09/25/18 06:59 06:59 06:59 Intake Total 1860 1275 Balance 1860 1275 Result Diagrams: 09/24/18 05:37 09/24/18 05:37 Additional Labs: Accuchecks 09/24/18 09/24/18 09/23/18 11:09 05:54 21:01 POC Glucose 158 H 79 127 H 09/23/18 15:38 POC Glucose 136 H Phys Exam - Physical Examination Neck: no nodes, no JVD, supple, full ROM Respiratory: no wheezing, no rales, no rhonchi, wheezing present, clear to auscultation bilateral Cardiovascular: RRR, no significant murmur, no rub, gallop, irregular Gastrointestinal: soft, positive bowel sounds mild tenderness on palpation Dx/Plan (1) Acute pancreatitis Code(s): K85.90 - ACUTE PANCREATITIS WITHOUT NECROSIS OR INFECTION, UNSP Status: Acute Comment: suspecting from immunotherapy (2) Hypertension Code(s): I10 - ESSENTIAL (PRIMARY) HYPERTENSION Status: Chronic (3) Hypothyroidism Code(s): E03.9 - HYPOTHYROIDISM, UNSPECIFIED Status: Chronic (4) Metastatic renal cell carcinoma to bone Code(s): C79.51 - SECONDARY MALIGNANT NEOPLASM OF BONE; C64.9 - MALIGNANT NEOPLASM OF UNSP KIDNEY, EXCEPT RENAL PELVIS Status: Chronic (5) Cholelithiasis Code(s): K80.20 - CALCULUS OF GALLBLADDER W/O CHOLECYSTITIS W/O OBSTRUCTION Status: Acute - Plan pt on cl liquid, is supppose to be started on TPN -: no surgery for now -: will continue his home bp meds -: he is on prednisone and states that it was for his pancreas -: will hold and monitor for no. will continue abx * . Review of Systems - Review of Systems Respiratory: negative: Cough, Dry, Shortness of Breath, Hemoptysis, SOB with Excertion, Pleuritic Pain, Sputum, Wheezing Cardiovascular: negative: chest pain, palpitations, orthopnea, paroxysmal nocturnal dyspnea, edema, light headedness, other Gastrointestinal: Abdominal Pain - Medications/Allergies Allergies/Adverse Reactions: Allergies Allergy/AdvReac Type Severity Reaction Status Date / Time hydrocodone AdvReac Severe Verified 09/05/18 23:19 morphine AdvReac Severe Verified 09/05/18 23:19 tramadol AdvReac Intermediate Verified 09/05/18 23:19 Medications: Current Medications Amlodipine Besylate (Norvasc) 10 mg PO DAILY [facility] Last Admin: 09/24/18 08:34 Dose: 10 mg Calcium Carbonate (Tums) 1,000 mg PO DAILYPRN PRN PRN Reason: Heartburn or Indigestion Last Admin: 09/24/18 11:21 Dose: 1,000 mg Carvedilol (Coreg) 6.25 mg PO 0800,1700 [facility] Last Admin: 09/24/18 08:34 Dose: 6.25 mg Dextrose/Water (Dextrose 50%) 25 gm IVP PRN PRN PRN Reason: HYPOGLYCEMIA PROTOCOL Enoxaparin Sodium (Lovenox) 40 mg SC 2100 [facility] Last Admin: 09/23/18 21:05 Dose: 40 mg Famotidine (Pepcid) 20 mg PO BID [facility] Fentanyl (Sublimaze) 25 mcg SLOW IVP Q2H PRN PRN Reason: Severe Pain (7-10) Last Admin: 09/24/18 11:30 Dose: 25 mcg Glucagon (Glucagon) 1 mg IM PRN PRN PRN Reason: HYPOGLYCEMIA PROTOCOL Hydralazine HCl (Apresoline) 10 mg SLOW IVP Q4H PRN PRN Reason: SBP > 180 and HR < 70 Levofloxacin 500 mg/ Device 100 mls @ 100 mls/hr IVPB Q24HR [facility] Last Admin: 09/24/18 13:17 Dose: 100 mls Dextrose/Water (D5w) 1,000 mls @ 0 mls/hr IV INF PRN PRN Reason: HYPOGLYCEMIA PROTOCOL Multivitamins 10 ml/ Chromium/Copper/Manganese/Seleni/Zn 5 ml/ Amino Acids/ Electrolytes/Fat Emulsion Intravenous 2,265 mls @ 94.375 mls/hr IV 1400 [facility] Stop: 09/25/18 13:59 Sodium Acetate 40 meq/Multivitamins 10 ml/ Chromium/Copper/Manganese/Seleni/Zn 5 ml/ Insulin Human Regular 20 units/ Amino Acids/Electrolytes/ Fat Emulsion Intravenous 2,285.2 mls @ 95.217 mls/hr IV 1400 [facility] Insulin Human Regular (Humulin R) 0 units SC .MILD SLIDING PRN; Protocol PRN Reason: MILD SLIDING SCALE Last Admin: 09/24/18 11:21 Dose: 2 unit Insulin Human Regular (Humulin R) 0 units SC .BEDTIME SLIDING SC PRN; Protocol PRN Reason: BEDTIME SLIDING SCALE Levothyroxine Sodium (Synthroid) 125 mcg PO 0600 [facility] Last Admin: 09/24/18 05:26 Dose: 125 mcg Ondansetron HCl (Zofran) 4 mg IVP Q6H PRN PRN Reason: Nausea/Vomiting Pantoprazole Sodium (Protonix) 40 mg IVP BID [facility] Last Admin: 09/24/18 08:34 Dose: 40 mg Polyethylene Glycol (Miralax) 17 gm PO PRN PRN PRN Reason: Constipation Sodium Chloride (Flush - Normal Saline) 10 ml IVF Q12HR [facility] Last Admin: 09/24/18 08:34 Dose: 10 ml Sodium Chloride (Flush - Normal Saline) 10 ml IVF PRN PRN PRN Reason: Saline Flush
--- NOTE | 2018-09-24 15:09 | PRG ---
DATE OF SERVICE: 09/24/2018 SUBJECTIVE: Mr. Loo remains in his bed on the surgical floor. He notes minimal discomfort. He is on a clear liquid diet. A PICC line was placed for initiation of TPN. On examination, his abdomen is soft. He has fullness in the upper abdomen. Bowel sounds are present and normoactive. LABORATORY DATA: His white blood cell count has dropped back down to normal at 7.5 with a hemoglobin of 11.7. Chemistry profile reveals minimal electrolyte irregularities. Liver function tests are entirely normal, and lipase is normal as well. ASSESSMENT: The patient with likely gallstone pancreatitis. Although, he is a good candidate for laparoscopic cholecystectomy, in regard to treatment of this, the extensive inflammatory response of the pancreas has made surgery difficult and potentially complicated, and I therefore recommended deferring the surgery. TPN will be initiated today with minimal oral intake to allow his pancreatic inflammation to resolve. Additionally, the patient was complaining of fairly severe abdominal pain associated with eating and is hopeful that eliminating significant oral intake will help control his pain better. Job ID: [id number]
[2018-09-24] MEDS: SODIUM ACETATE IV SCH (15:26)
[2018-09-24] MEDS: MULTITRACE IV SCH (15:26)
[2018-09-24] MEDS: [UNRECOGNIZED DRUG - OTHER] IV SCH (15:26)
[2018-09-24] MEDS: MULTIVITAMINS IV SCH (15:26)
[2018-09-24] MEDS ORDERED: Carvedilol 6.25 MG TAB PO SCH (17:00)
[2018-09-24] MEDS: Enoxaparin Sodium 40 MG/0.4 ML SYRINGE SC SCH (19:31)
[2018-09-24] MEDS: Famotidine 20 MG TAB PO SCH (19:31)
[2018-09-24] MEDS ORDERED: Acetaminophen 1,000 MG in Premix Bag 1 BAG IVPB SCH (22:30)
[2018-09-25] MEDS: Fentanyl 100 MCG/2 ML VIAL SLOW IVP PRN ×8 (01:35→23:24)
[2018-09-25] MEDS: Levothyroxine Sodium 125 MCG TAB PO SCH (05:38)
[2018-09-25] MEDS: Acetaminophen 1,000 MG in Premix Bag 1 BAG IVPB SCH ×3 (05:38→17:52)
[2018-09-25] MEDS: Insulin Regular 300 UNITS/3 ML VIAL SC PRN ×4 (05:45→20:48)
[2018-09-25 06:43] LABS: Anion Gap 6 mmol/L (10-20); BUN (Urea Nitrogen) 22 mg/dL (8.4-25.7); Calc. Creatinine Clearance 74 mL/min (70-130); Calcium 7.5 mg/dL (7.8-10.44); Carbon Dioxide 24 mmol/L (23-31); Chloride 108 mmol/L (98-107); Estimated GFR-MDRD 57; Glucose 152 mg/dL (83-110); Magnesium 1.7 mg/dL (1.6-2.6); Phosphorus 2.6 mg/dL (2.3-4.7); Potassium 4.1 mmol/L (3.5-5.1); Sodium 134 mmol/L (136-145)
[2018-09-25] MEDS: Amlodipine 10 MG TAB PO SCH (08:34)
[2018-09-25] MEDS: Carvedilol 6.25 MG TAB PO SCH ×2 (08:34→16:18)
[2018-09-25] MEDS: Famotidine 20 MG TAB PO SCH ×2 (08:35→19:33)
[2018-09-25] MEDS: Pantoprazole 40 MG VIAL IVP SCH ×2 (08:36→19:34)
[2018-09-25] MEDS ORDERED: Levothyroxine Sodium 125 MCG TAB PO SCH (09:00)
[2018-09-25] MEDS ORDERED: Amlodipine 10 MG TAB PO SCH (09:00)
[2018-09-25] MEDS: Ondansetron PF 4 MG/2 ML Vial IVP PRN (11:59)
--- NOTE | 2018-09-25 13:59 | PDOC.PN ---
- Subjective Encounter Start Date: 09/25/18 Encounter Start Time: 09:45 Subjective: pt up in bed no complains - Objective Vital Signs & Weight: Vital Signs (12 hours) Temp Pulse Resp BP BP Pulse Ox 09/25/18 11:36 97.8 F 62 18 128/72 97 09/25/18 08:34 67 129/70 09/25/18 07:50 97 09/25/18 07:49 97.9 F 62 18 137/70 97 09/25/18 03:58 98 F 63 18 124/66 96 Weight Admit Weight 212 lb Weight 212 lb I&O: 09/24/18 09/25/18 09/26/18 06:59 06:59 06:59 Intake Total 1275 1165 Balance 1275 1165 Result Diagrams: 09/24/18 05:37 09/25/18 06:11 Additional Labs: Accuchecks 09/25/18 09/25/18 09/24/18 11:56 05:47 20:56 POC Glucose 209 H 169 H 109 09/24/18 16:07 POC Glucose 156 H Phys Exam - Physical Examination Neck: no nodes, no JVD, supple, full ROM Respiratory: no wheezing, no rales, no rhonchi, wheezing present, clear to auscultation bilateral Cardiovascular: RRR, no significant murmur, no rub, gallop, irregular Gastrointestinal: soft, non-tender, no distention, positive bowel sounds Dx/Plan (1) Acute pancreatitis Code(s): K85.90 - ACUTE PANCREATITIS WITHOUT NECROSIS OR INFECTION, UNSP Status: Acute Comment: suspecting from immunotherapy (2) Hypertension Code(s): I10 - ESSENTIAL (PRIMARY) HYPERTENSION Status: Chronic (3) Hypothyroidism Code(s): E03.9 - HYPOTHYROIDISM, UNSPECIFIED Status: Chronic (4) Metastatic renal cell carcinoma to bone Code(s): C79.51 - SECONDARY MALIGNANT NEOPLASM OF BONE; C64.9 - MALIGNANT NEOPLASM OF UNSP KIDNEY, EXCEPT RENAL PELVIS Status: Chronic (5) Cholelithiasis Code(s): K80.20 - CALCULUS OF GALLBLADDER W/O CHOLECYSTITIS W/O OBSTRUCTION Status: Acute - Plan pt complains of some nausea and abdomen pain -: will continue tpn, for now. He is npo and needs to since he is -: having more abdomen pain when he eats. Normally in acute -: pancreatitis [place] tube is used instead of TPN. -: pt was on optivo which is stopped * . Review of Systems - Review of Systems Respiratory: negative: Cough, Dry, Shortness of Breath, Hemoptysis, SOB with Excertion, Pleuritic Pain, Sputum, Wheezing Cardiovascular: negative: chest pain, palpitations, orthopnea, paroxysmal nocturnal dyspnea, edema, light headedness, other Gastrointestinal: Nausea, Abdominal Pain. negative: Vomiting, Diarrhea, Constipation, Melena, Hematochezia, Other - Medications/Allergies Allergies/Adverse Reactions: Allergies Allergy/AdvReac Type Severity Reaction Status Date / Time hydrocodone AdvReac Severe Verified 09/05/18 23:19 morphine AdvReac Severe Verified 09/05/18 23:19 tramadol AdvReac Intermediate Verified 09/05/18 23:19 Medications: Current Medications Amlodipine Besylate (Norvasc) 10 mg PO DAILY [facility] Last Admin: 09/25/18 08:34 Dose: 10 mg Calcium Carbonate (Tums) 1,000 mg PO DAILYPRN PRN PRN Reason: Heartburn or Indigestion Last Admin: 09/24/18 23:35 Dose: 1,000 mg Carvedilol (Coreg) 6.25 mg PO 0800,1700 [facility] Last Admin: 09/25/18 08:34 Dose: 6.25 mg Dextrose/Water (Dextrose 50%) 25 gm IVP PRN PRN PRN Reason: HYPOGLYCEMIA PROTOCOL Enoxaparin Sodium (Lovenox) 40 mg SC 2100 [facility] Last Admin: 09/24/18 19:31 Dose: 40 mg Famotidine (Pepcid) 20 mg PO BID [facility] Last Admin: 09/25/18 08:35 Dose: 20 mg Fentanyl (Sublimaze) 25 mcg SLOW IVP Q2H PRN PRN Reason: Severe Pain (7-10) Last Admin: 09/25/18 09:28 Dose: 25 mcg Glucagon (Glucagon) 1 mg IM PRN PRN PRN Reason: HYPOGLYCEMIA PROTOCOL Hydralazine HCl (Apresoline) 10 mg SLOW IVP Q4H PRN PRN Reason: SBP > 180 and HR < 70 Levofloxacin 500 mg/ Device 100 mls @ 100 mls/hr IVPB Q24HR [facility] Last Admin: 09/25/18 13:16 Dose: 100 mls Dextrose/Water (D5w) 1,000 mls @ 0 mls/hr IV INF PRN PRN Reason: HYPOGLYCEMIA PROTOCOL Sodium Acetate 40 meq/Multivitamins 10 ml/ Chromium/Copper/Manganese/Seleni/Zn 5 ml/ Insulin Human Regular 20 units/ Amino Acids/Electrolytes/ Fat Emulsion Intravenous 2,285.2 mls @ 95.217 mls/hr IV 1400 [facility] Last Admin: 09/24/18 15:26 Dose: 2,285.2 mls Acetaminophen 1,000 mg/ Device 100 mls @ 400 mls/hr IVPB Q6HR [facility] Stop: 09/25/18 18:14 Last Admin: 09/25/18 11:59 Dose: 100 mls Insulin Human Regular (Humulin R) 0 units SC .MILD SLIDING PRN; Protocol PRN Reason: MILD SLIDING SCALE Last Admin: 09/25/18 12:29 Dose: 3 unit Insulin Human Regular (Humulin R) 0 units SC .BEDTIME SLIDING SC PRN; Protocol PRN Reason: BEDTIME SLIDING SCALE Levothyroxine Sodium (Synthroid) 125 mcg PO 0600 [facility] Last Admin: 09/25/18 05:38 Dose: 125 mcg Ondansetron HCl (Zofran) 4 mg IVP Q6H PRN PRN Reason: Nausea/Vomiting Last Admin: 09/25/18 11:59 Dose: 4 mg Pantoprazole Sodium (Protonix) 40 mg IVP BID [facility] Last Admin: 09/25/18 08:36 Dose: 40 mg Polyethylene Glycol (Miralax) 17 gm PO PRN PRN PRN Reason: Constipation Sodium Chloride (Flush - Normal Saline) 10 ml IVF Q12HR [facility] Last Admin: 09/25/18 08:37 Dose: 10 ml Sodium Chloride (Flush - Normal Saline) 10 ml IVF PRN PRN PRN Reason: Saline Flush
[2018-09-25] MEDS: MULTIVITAMINS IV SCH (14:21)
[2018-09-25] MEDS: MULTITRACE IV SCH (14:21)
[2018-09-25] MEDS: [UNRECOGNIZED DRUG - OTHER] IV SCH (14:21)
[2018-09-25] MEDS: SODIUM ACETATE IV SCH (14:21)
--- NOTE | 2018-09-25 17:42 | PRG ---
DATE OF SERVICE: 09/25/2018 SUBJECTIVE: Mr. Loo remains on the surgical floor. He was admitted on September 22 in regard to persistent upper abdominal pain. Imaging studies revealed an enlarged pancreas with substantial surrounding inflammation and fluid collections consistent with changes from pancreatitis. Mr. Loo continues to complain of some pain. He has continued to require fentanyl. He had been on clear liquids and TPN. Dr. Gonzalez changed him to n.p.o. diet, ostensibly to help with his ongoing pain. Mr. Loo tells me that he has been ambulating. He has been voiding well. PHYSICAL EXAMINATION: VITAL SIGNS: He is afebrile. Pulse is 64, blood pressure 127/66. LUNGS: Clear to auscultation. ABDOMEN: Soft, but obese. He has some tenderness to palpation in the upper abdomen. There is no definite palpable mass. LABORATORY DATA: His chemistry panel from today reveals that his electrolytes are more or less normal. A slight elevation of his blood sugar between 150 and 200. His phosphorus and magnesium are normal. ASSESSMENT: The patient with fairly severe pancreatitis as evidenced on his CT scan. This is the presumed cause of his ongoing abdominal pain. He was accordingly placed on TPN in order to avoid dietary irritation of his pancreas. Continue with current course for now. At some point in the future, he will still require laparoscopic cholecystectomy. Job ID: [id number]
[2018-09-25] MEDS: Enoxaparin Sodium 40 MG/0.4 ML SYRINGE SC SCH (19:33)
[2018-09-26] MEDS: Calcium Carbonate 500 MG ChewTAB PO PRN (01:07)
[2018-09-26] MEDS: Fentanyl 100 MCG/2 ML VIAL SLOW IVP PRN ×5 (01:08→10:55)
[2018-09-26] MEDS: Levothyroxine Sodium 125 MCG TAB PO SCH (05:06)
[2018-09-26] MEDS: Insulin Regular 300 UNITS/3 ML VIAL SC PRN ×3 (05:20→16:58)
[2018-09-26] MEDS: Pantoprazole 40 MG VIAL IVP SCH ×2 (08:10→21:02)
[2018-09-26] MEDS: Carvedilol 6.25 MG TAB PO SCH ×2 (08:10→16:58)
[2018-09-26] MEDS: Famotidine 20 MG TAB PO SCH ×2 (08:11→21:02)
[2018-09-26] MEDS: Amlodipine 10 MG TAB PO SCH (08:11)
[2018-09-26 09:11] LABS: ALT (SGPT) 12 U/L (8-55); AST (SGOT) 8 U/L (5-34); Albumin 2.6 g/dL (3.4-4.8); Alkaline Phosphatase 99 U/L (40-150); Bilirubin, Direct 0.3 mg/dL (0.1-0.3); Bilirubin, Total 0.5 mg/dL (0.2-1.2)
--- NOTE | 2018-09-26 11:12 | PRG ---
DATE OF SERVICE: 09/25/2018 SUBJECTIVE: Mr. Andrea Loo is a 73-year-old [place] male with pancreatitis, felt to be biliary in etiology. The patient has been on a clear liquid diet. Given the clear liquid diet, abdominal pain. No nausea or vomiting. He is passing flatus and also he is having small stools. He was started on TPN yesterday. The pain intensity has not much changed instead of being on clear liquid diet. PHYSICAL EXAMINATION: GENERAL: He appears very comfortable, in no distress. VITAL SIGNS: Afebrile. Pulse is 62, blood pressure 137/70. HEENT: Conjunctivae clear. CARDIOVASCULAR: First and second heart sounds heard. LUNGS: Clear to auscultation. ABDOMEN: Soft, firm. Abdomen is tender over the right upper quadrant epigastric area and periumbilical area. There is no rebound or guarding. He has more active bowel sounds. LABORATORY DATA: From today, sodium is 134, potassium 4.1, chloride 108, bicarb 24, BUN is 6, creatinine is 1.24, glucose 152, calcium 7.5, phosphorus 2.6, and magnesium 1.7. RECOMMENDATIONS: 1. Continue TPN. 2. Follow up labs. 3. Consider n.p.o. because of persistent abdominal pain. I did talk to the patient about the above and he is in agreement. how his clinical condition changes. Job ID: [id number]
[2018-09-26] MEDS ORDERED: Furosemide 40 MG/4 ML VIAL SLOW IVP SCH (12:30)
[2018-09-26] MEDS: Ondansetron PF 4 MG/2 ML Vial IVP PRN (14:24)
[2018-09-26] MEDS: MULTITRACE IV SCH (14:25)
[2018-09-26] MEDS: [UNRECOGNIZED DRUG - OTHER] IV SCH (14:25)
[2018-09-26] MEDS: MULTIVITAMINS IV SCH (14:25)
[2018-09-26] MEDS: SODIUM ACETATE IV SCH (14:25)
--- NOTE | 2018-09-26 14:28 | PDOC.PN ---
- Subjective Encounter Start Date: 09/26/18 Encounter Start Time: 14:45 Subjective: pt up in chair going for walk - Objective Vital Signs & Weight: Vital Signs (12 hours) Temp Pulse Resp BP BP Pulse Ox 09/26/18 12:19 98 F 65 18 142/67 H 99 09/26/18 08:11 74 159/74 H 09/26/18 08:10 159/74 H 09/26/18 08:00 98 09/26/18 07:37 97.9 F 74 20 159/74 H 98 09/26/18 04:13 97.7 F 65 16 123/71 96 Weight Admit Weight 212 lb Weight 212 lb I&O: 09/25/18 09/26/18 09/27/18 06:59 06:59 06:59 Intake Total 1165 1550 Balance 1165 1550 Result Diagrams: 09/24/18 05:37 09/25/18 06:11 Additional Labs: Accuchecks 09/26/18 09/26/18 09/26/18 12:21 11:46 05:17 POC Glucose 205 H 211 H 184 H 09/25/18 09/25/18 20:44 15:11 POC Glucose 171 H 166 H Phys Exam - Physical Examination Neck: no nodes, no JVD, supple, full ROM Respiratory: no wheezing, no rales, no rhonchi, wheezing present, clear to auscultation bilateral Cardiovascular: RRR, no significant murmur, no rub, gallop, irregular Gastrointestinal: soft, non-tender, no distention, positive bowel sounds Musculoskeletal: edema present Dx/Plan (1) Acute pancreatitis Code(s): K85.90 - ACUTE PANCREATITIS WITHOUT NECROSIS OR INFECTION, UNSP Status: Acute Comment: suspecting from immunotherapy (2) Hypertension Code(s): I10 - ESSENTIAL (PRIMARY) HYPERTENSION Status: Chronic (3) Hypothyroidism Code(s): E03.9 - HYPOTHYROIDISM, UNSPECIFIED Status: Chronic (4) Metastatic renal cell carcinoma to bone Code(s): C79.51 - SECONDARY MALIGNANT NEOPLASM OF BONE; C64.9 - MALIGNANT NEOPLASM OF UNSP KIDNEY, EXCEPT RENAL PELVIS Status: Chronic (5) Cholelithiasis Code(s): K80.20 - CALCULUS OF GALLBLADDER W/O CHOLECYSTITIS W/O OBSTRUCTION Status: Acute - Plan will give pt lasix -: lfts normal, pt still nauseated and has abd pain -: He has significant anasarca which could also be causing him -: to have abdomen pain. -: will continue to hold prednisone * . Review of Systems - Review of Systems Respiratory: negative: Cough, Dry, Shortness of Breath, Hemoptysis, SOB with Excertion, Pleuritic Pain, Sputum, Wheezing Cardiovascular: negative: chest pain, palpitations, orthopnea, paroxysmal nocturnal dyspnea, edema, light headedness, other Gastrointestinal: negative: Nausea, Vomiting, Abdominal Pain, Diarrhea, Constipation, Melena, Hematochezia, Other - Medications/Allergies Allergies/Adverse Reactions: Allergies Allergy/AdvReac Type Severity Reaction Status Date / Time hydrocodone AdvReac Severe Verified 09/05/18 23:19 morphine AdvReac Severe Verified 09/05/18 23:19 tramadol AdvReac Intermediate Verified 09/05/18 23:19 Medications: Current Medications Amlodipine Besylate (Norvasc) 10 mg PO DAILY [facility] Last Admin: 09/26/18 08:11 Dose: 10 mg Calcium Carbonate (Tums) 1,000 mg PO DAILYPRN PRN PRN Reason: Heartburn or Indigestion Last Admin: 09/26/18 01:07 Dose: 1,000 mg Carvedilol (Coreg) 6.25 mg PO 0800,1700 [facility] Last Admin: 09/26/18 08:10 Dose: 6.25 mg Dextrose/Water (Dextrose 50%) 25 gm IVP PRN PRN PRN Reason: HYPOGLYCEMIA PROTOCOL Enoxaparin Sodium (Lovenox) 40 mg SC 2100 [facility] Last Admin: 09/25/18 19:33 Dose: 40 mg Famotidine (Pepcid) 20 mg PO BID [facility] Last Admin: 09/26/18 08:11 Dose: 20 mg Fentanyl (Sublimaze) 25 mcg SLOW IVP Q2H PRN PRN Reason: Severe Pain (7-10) Last Admin: 09/26/18 10:55 Dose: 25 mcg Furosemide (Lasix) 40 mg SLOW IVP ONE [facility] Stop: 09/26/18 15:00 Last Admin: 09/26/18 13:03 Dose: 40 mg Glucagon (Glucagon) 1 mg IM PRN PRN PRN Reason: HYPOGLYCEMIA PROTOCOL Hydralazine HCl (Apresoline) 10 mg SLOW IVP Q4H PRN PRN Reason: SBP > 180 and HR < 70 Levofloxacin 500 mg/ Device 100 mls @ 100 mls/hr IVPB Q24HR [facility] Last Admin: 09/26/18 13:03 Dose: 100 mls Dextrose/Water (D5w) 1,000 mls @ 0 mls/hr IV INF PRN PRN Reason: HYPOGLYCEMIA PROTOCOL Sodium Acetate 40 meq/Multivitamins 10 ml/ Chromium/Copper/Manganese/Seleni/Zn 5 ml/ Insulin Human Regular 20 units/ Amino Acids/Electrolytes/ Fat Emulsion Intravenous 2,285.2 mls @ 95.217 mls/hr IV 1400 [facility] Last Admin: 09/26/18 14:25 Dose: 2,285.2 mls Insulin Human Regular (Humulin R) 0 units SC .MILD SLIDING PRN; Protocol PRN Reason: MILD SLIDING SCALE Last Admin: 09/26/18 11:49 Dose: 3 unit Insulin Human Regular (Humulin R) 0 units SC .BEDTIME SLIDING SC PRN; Protocol PRN Reason: BEDTIME SLIDING SCALE Levothyroxine Sodium (Synthroid) 125 mcg PO 0600 [facility] Last Admin: 09/26/18 05:06 Dose: 125 mcg Ondansetron HCl (Zofran) 4 mg IVP Q6H PRN PRN Reason: Nausea/Vomiting Last Admin: 09/26/18 14:24 Dose: 4 mg Pantoprazole Sodium (Protonix) 40 mg IVP BID [facility] Last Admin: 09/26/18 08:10 Dose: 40 mg Polyethylene Glycol (Miralax) 17 gm PO PRN PRN PRN Reason: Constipation Sodium Chloride (Flush - Normal Saline) 10 ml IVF Q12HR [facility] Last Admin: 09/26/18 08:12 Dose: 10 ml Sodium Chloride (Flush - Normal Saline) 10 ml IVF PRN PRN PRN Reason: Saline Flush Last Admin: 09/26/18 14:25 Dose: 10 ml
[2018-09-26] MEDS ORDERED: Ketorolac Tromethamine 30 MG/ML VIAL IVP PRN (14:47)
--- NOTE | 2018-09-26 15:36 | PRG ---
DATE OF SERVICE: 09/26/2018 SUBJECTIVE: Mr. Loo has been hospitalized over here since September 22. He has what I presume is gallstone pancreatitis, but he has significant pancreatic inflammation with peripancreatic fluid collections. He was transferred over here because of ongoing pain. Consideration was given to a cholecystectomy. I recommended against this due to the severity of the pancreatic inflammation that is ongoing. He described severe pain and was placed on fentanyl when he arrived over here. He continues taking this a lot of the time every 2 hours, stating that he has 8 to 9/10 for pain. He never actually looks like he is in any discomfort. He ambulates quite well in the halls. He is thirsty, although he has been n.p.o. for the past day or two. His vital signs are normal and his abdominal exam aside from distention does not seem to elicit any evidence of pancreatitis or significant tenderness. He is also not having bowel movements currently. OBJECTIVE: VITAL SIGNS: On examination, he is afebrile. Pulse is 65, blood pressure 142/67. LUNGS: Clear to auscultation. ABDOMEN: Distended. He appears edematous both in his abdomen, his arms, and his legs. LABORATORY DATA: He has not had a CBC performed in the last couple of days, but it was normal 2 days ago. His liver function tests are normal except his albumin is low at 2.6. ASSESSMENT: The patient has resolving pancreatitis. He does not appear to have any acute ongoing inflammation, but has residual effects of his episode of pancreatitis. I would still not recommend cholecystectomy at this time. I think that we are doing him a disservice by giving him access to regular narcotics. I will therefore discontinue his fentanyl. His creatinine level is almost normalized. I will start low-dose Toradol to use as necessary for perceived discomfort. I encouraged him to continue ambulating. I will resume his clear liquid diet. We will continue his TPN. I will check his labs tomorrow to see if there is TPN adjustment as necessary. Job ID: [id number]
[2018-09-26] MEDS: Mag-Al 1200 mg/1200 mg/30 ML UDCUP PO PRN ×2 (17:30→21:14)
--- NOTE | 2018-09-26 19:05 | PRG ---
DATE OF SERVICE: 09/26/2018 SUBJECTIVE: Mr. Loo is doing better. He has still been requiring fentanyl, but Dr. Lawson has recommended trying to taper this off quickly. He does not appear to be in any pain. Still states his abdominal pain is greater than 5/10 most of the time, but there has been no nausea or vomiting. He has been tolerating some clear liquids today. He has been passing gas. His last bowel movement was a couple of days ago. He has remained hemodynamically stable. OBJECTIVE: VITAL SIGNS: Temperature 97.4, blood pressure 153/74, pulse 74, and 99% oxygen saturation on room air. GENERAL: Sitting up, appearing comfortable in the chair. HEART: Regular rate and rhythm. LUNGS: Clear to auscultation bilaterally. ABDOMEN: Mild distention. Bowel sounds are hypoactive, but present. Soft. Some tenderness to palpation in the upper abdomen, but no guarding or rebound tenderness. EXTREMITIES: No peripheral edema. LABORATORY STUDIES: WBC 7.5, hemoglobin 11.7, platelets 187. Total bilirubin 0.5, alkaline phosphatase 99, AST 8, ALT 12, glucose 186. Lipase is down to 72 when last checked on 09/24/2018. ASSESSMENT AND PLAN: 1. Recent severe acute pancreatitis, now clinically resolving. 2. Peripancreatic fluid collection, sequela of recent episode of pancreatitis. 3. Biliary sludge. 4. Persistent upper abdominal pain. The patient has had normalization of lipase and LFTs as well as stabilization of hemodynamics status and other lab parameters. It would appear that his episode of pancreatitis is resolving, at least the active inflammation. I suspect he does continue to have peripancreatic fluid collections. I agree with Dr. Lawson that now is the time to try backing off the narcotics as much as possible. He continues on TPN for now, but is advanced to clear liquid diet today. Appreciate the assistance of Dr. Lawson as well as the primary team. 5. His episode of pancreatitis likely was biliary in origin. Dr. Lawson is not planning on any urgent cholecystectomy at this time given the degree of peripancreatic inflammation. Timing of surgery, if any, will be left to the discretion of the Surgical Service. Please call anytime with questions or concerns. Job ID: [id number]
[2018-09-26] MEDS ORDERED: predniSONE 50 MG TAB PO SCH (21:00)
[2018-09-26] MEDS: predniSONE 50 MG TAB PO SCH (21:02)
[2018-09-26] MEDS: Zolpidem Tartrate 5 MG TAB PO PRN ×2 (21:03→23:51)
[2018-09-26] MEDS: Enoxaparin Sodium 40 MG/0.4 ML SYRINGE SC SCH (21:03)
--- NOTE | 2018-09-26 23:48 | CON ---
DATE OF CONSULTATION: REASON FOR CONSULT: Renal cell carcinoma. HISTORY OF PRESENT ILLNESS: Mr. 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 He has been undergoing treatment with Opdivo immunotherapy. He was seen at [facility] on September 05 and diagnosed with immune-mediated nephritis. On his way home from [place] , he began to have severe right upper quadrant abdominal pain and presented to our emergency room. He had a lipase greater than 8000 and was admitted for pancreatitis. His creatinine was elevated at 2.47. He was started on high-dose steroids. He was eventually discharged to rehab on September 14. Unfortunately, his steroids were weaned abruptly over the next week. He began to eat early last week and have severe abdominal discomfort on September 22. He presented to the emergency room for further evaluation. His abdominal and pelvis CT showed once again inflammatory changes around the pancreas. There was loculated fluid and there was a hyperdensity within the gallbladder suggesting stones and sludge. He was seen by Dr. Lawson and surgery has been deferred secondary to pancreatic inflammation. He has been started on TPN. His pain has been controlled with IV medications. PAST MEDICAL HISTORY: 1. Stage IV renal cell carcinoma with bone mets. 2. Diabetes mellitus 2. 3. Hypertension. 4. History of colon cancer in 1998. 5. Acute pancreatitis in August 2018. 6. 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 PAST SURGICAL HISTORY: 1. Colon resection. 2. Appendectomy. 3. Knee replacement. 4. Colonoscopy. ALLERGIES: TO HYDROCODONE, MORPHINE, AND TRAMADOL. CURRENT MEDICATIONS: 1. Norvasc 10 mg daily. 2. Coreg 6.25 mg p.o. b.i.d. 3. Lovenox 40 mg daily. 4. Pepcid 20 mg b.i.d. 5. Lasix 20 mg daily. 6. Insulin. 7. Toradol 15 mg IV p.r.n. 8. Levaquin 500 mg daily. 9. Synthroid 125 mcg daily. 10. Protonix 40 mg IV b.i.d. 11. MiraLAX daily. 12. TPN. FAMILY HISTORY: Noncontributory. SOCIAL HISTORY: He is , one child. Lives with his sisters. REVIEW OF SYSTEMS: Positive for right upper quadrant abdominal pain and left shoulder pain and low back pain. PHYSICAL EXAMINATION: VITAL SIGNS: Temperature is 97.4, pulse is 74, respiratory rate 18, BP is 153/ 74, and saturating 99% on room air. GENERAL: Well-developed, well-nourished male, in no acute distress. HEENT: Normocephalic, atraumatic. Pupils are equal and reactive to light. NECK: Supple. CV: Regular rate and rhythm. LUNGS: Clear. ABDOMEN: Distended. Tender in his right upper quadrant. EXTREMITIES: 2+ bilateral lower extremity edema. SKIN: No rash. HEMATOLOGICAL: No petechiae or purpura. NEUROLOGICAL: Nonfocal. PSYCH: He is alert, oriented, and appropriate. PERTINENT LABS AND X-RAYS: Current WBCs are 7.5, hemoglobin 11.7, hematocrit 36.5, platelet count is 187, 80% neutrophils, and 14% lymphocytes. Sodium 134, potassium 4.1, chloride 108, CO2 is 24, BUN is 22, creatinine 1.24, calcium is 7.5, phosphorus 2.6, magnesium 1.7, bilirubin 0.5, AST 0.3, ALT is 12, and alk phos is 99. Serum total protein is 5, albumin 2.6, and lipase 72. ASSESSMENT: 1. Stage IV renal cell carcinoma. 2. Acute pancreatitis, immune-mediated versus gallstone. 3. Immune-mediated nephritis, improved with steroids. DISCUSSION: Patient's steroids will be resumed. Typical treatment for immune mediated side effects from Opdivo steroids for a duration of 4 to 6 weeks. He will begin steroids today. I agree with Dr. Lawson' recommendation to wait on surgery until his inflammation has improved. Case has been discussed with Dr. Higginbotham, who will follow and see the patient. Thank you for the consult. Job ID: [id number] [facility]
[2018-09-27] MEDS: Levothyroxine Sodium 125 MCG TAB PO SCH (06:02)
[2018-09-27] MEDS: Insulin Regular 300 UNITS/3 ML VIAL SC PRN ×3 (06:02→16:29)
[2018-09-27] MEDS: Mag-Al 1200 mg/1200 mg/30 ML UDCUP PO PRN ×3 (06:26→21:24)
[2018-09-27 07:01] LABS: ALT (SGPT) 10 U/L (8-55); AST (SGOT) 7 U/L (5-34); Albumin 2.5 g/dL (3.4-4.8); Alkaline Phosphatase 104 U/L (40-150); Anion Gap 12 mmol/L (10-20); BUN (Urea Nitrogen) 31 mg/dL (8.4-25.7); Bilirubin, Total 0.6 mg/dL (0.2-1.2); Calc. Creatinine Clearance 60 mL/min (70-130); Calcium 7.8 mg/dL (7.8-10.44); Carbon Dioxide 23 mmol/L (23-31); Chloride 103 mmol/L (98-107); Estimated GFR-MDRD 45; Globulin 2.3 g/dL (2.4-3.5); Glucose 332 mg/dL (83-110); Potassium 4.9 mmol/L (3.5-5.1); Protein, Total 4.8 g/dL (5.8-8.1); Sodium 133 mmol/L (136-145)
[2018-09-27] MEDS: Carvedilol 6.25 MG TAB PO SCH ×2 (08:55→17:00)
[2018-09-27] MEDS: Furosemide 20 MG TAB PO SCH (08:56)
[2018-09-27] MEDS: Amlodipine 10 MG TAB PO SCH (08:56)
[2018-09-27] MEDS: Famotidine 20 MG TAB PO SCH ×2 (08:56→21:24)
[2018-09-27] MEDS: Polyethylene Glycol 3350 17 GM Packet PO SCH (08:57)
[2018-09-27] MEDS: Pantoprazole 40 MG VIAL IVP SCH ×2 (08:57→21:24)
[2018-09-27] MEDS: predniSONE 50 MG TAB PO SCH ×2 (08:57→21:24)
[2018-09-27 09:21] LABS: #Lymphocytes 0.6 thou/uL (1.20-3.40); #Monocytes 0.1 thou/uL (0.11-0.59); %Basophils 0.3 % (0.0-1.0); %Eosinophils 0.2 % (0.0-10.0); %Lymphocytes 16.3 % (21.0-51.0); %Monocytes 3.1 % (0.0-10.0); %Neutrophils 80.1 % (42.0-75.0); Hemoglobin 11.4 g/dL (14.0-18.0); Mean Corpuscular HGB CONC 31.6 g/dL (32.0-36.0); Mean Corpuscular Hemoglobin 28.1 pg (27.0-31.0); Mean Corpuscular Volume 88.9 fL (78.0-98.0); Mean Platelet Volume 8.4 fL (7.4-10.4); Platelet Count 116 thou/uL (130-400); Platelet Morphology Comment Appears Decreased; RBC Distribution Width 12.7 % (11.5-14.5); Red Blood Cell (RBC) Count 4.05 mill/uL (4.70-6.10); White Blood Cell (WBC) Count 3.8 thou/uL (4.8-10.8)
--- NOTE | 2018-09-27 12:42 | PRG ---
DATE OF SERVICE: 09/27/2018 SUBJECTIVE: Mr. Loo remains in his bed on the surgical floor. He has no new complaints. I discontinued his fentanyl yesterday and he had what he describes as a better night. He is having some problems with sleeping and I believe sleeping pill has been ordered for him. Yesterday, he was started on prednisone by Dr. Higginbothma to hopefully treat the reactive pancreatitis that she believes is related to his chemotherapy. He is tolerating his clear liquid diet and ambulating regularly and remains on TPN. OBJECTIVE: VITAL SIGNS: On examination, he is afebrile. Vital signs entirely normal. LUNGS: Clear to auscultation. ABDOMEN: Obese and not really focally tender. LABORATORY DATA: His electrolytes were unremarkable. BUN and creatinine are slightly elevated at 31 and 1.5. His blood sugars remaining elevated over 300 today. His liver function tests are normal. Albumin is low at 2.5 and prealbumin is low at 11. ASSESSMENT AND PLAN: In summary, he is overall doing well. Hopefully, the prednisone will lead to improvement in regard to his pancreatitis and allow him to be able to resume a diet, at which time we can discontinue his TPN. I am not planning to do any surgery in regard to his gallbladder until all current problems are resolved (which I imagine will be weeks to maybe months). Job ID: [id number]
--- NOTE | 2018-09-27 13:43 | PRG ---
DATE OF SERVICE: 09/27/2018 SUBJECTIVE: Mr. Loo is feeling pretty well. His fentanyl was discontinued yesterday and he actually got pretty good sleep last night. He is on clear liquids today and tolerating them okay, though he does endorse some ongoing nausea, but no vomiting. He has been having bowel sounds and passing gas, though no bowel movement yet. He has remained hemodynamically stable. OBJECTIVE: VITAL SIGNS: Temperature 97.8, pulse 66, blood pressure 127/72, 97% oxygen saturation on room air. GENERAL: No acute distress. HEART: Regular rate and rhythm. LUNGS: Clear to auscultation bilaterally. ABDOMEN: Distended, tympanitic to percussion. Bowel sounds are present. Soft. Some tenderness to palpation in the epigastrium. No guarding or rebound tenderness. EXTREMITIES: No peripheral edema. LABORATORY STUDIES: WBC down to 3.8, hemoglobin 11.4, platelets 116. Sodium 133, potassium 4.9, BUN 31, creatinine 1.54, glucose 333. LFTs all remain normal with total bilirubin 0.6, alkaline phosphatase 104, AST 7, and ALT 10, pre-albumin 11.0. ASSESSMENT/PLAN: 1. Recent severe acute pancreatitis, now clinically improved. 2. Jennie-pancreatic fluid collection, sequela of recent episode of pancreatitis. 3. Biliary sludge. 4. Metastatic renal cell cancer, recently on Opdivo. Dr. Higginbotham has recommended resuming steroids, which I think is reasonable. Dr. Lawson is not planning on any cholecystectomy anytime soon. That being said, the patient has had good clinical improvement from his pancreatitis. He is tolerating clear liquids today. I would stick with clear liquids today. Hopefully in the next few days, diet can be further advanced. No other recommendations from a GI perspective at this time. Job ID: [id number]
[2018-09-27] MEDS ORDERED: MULTIVITAMINS IV SCH (14:00)
[2018-09-27] MEDS ORDERED: [UNRECOGNIZED DRUG - OTHER] IV SCH (14:00)
[2018-09-27] MEDS ORDERED: MULTITRACE IV SCH (14:00)
[2018-09-27] MEDS ORDERED: SODIUM ACETATE IV SCH (14:00)
--- NOTE | 2018-09-27 14:39 | PDOC.PN ---
- Subjective Encounter Start Date: 09/27/18 Encounter Start Time: 11:30 Subjective: pt up in chair feels better - Objective Vital Signs & Weight: Vital Signs (12 hours) Temp Pulse Resp BP BP Pulse Ox 09/27/18 11:09 97.8 F 66 16 127/72 97 09/27/18 08:56 71 139/76 09/27/18 08:55 139/76 09/27/18 08:00 95 09/27/18 07:58 98.3 F 71 18 139/76 95 09/27/18 03:35 98.1 F 72 16 129/72 96 Weight Admit Weight 212 lb Weight 212 lb I&O: 09/26/18 09/27/18 09/28/18 06:59 06:59 06:59 Intake Total 1550 2532.4 Output Total 750 Balance 1550 1782.4 Result Diagrams: 09/27/18 05:15 09/27/18 05:15 Additional Labs: Accuchecks 09/27/18 09/27/18 09/26/18 10:42 05:26 20:38 POC Glucose 333 H 337 H 178 H 09/26/18 16:20 POC Glucose 186 H Phys Exam - Physical Examination Respiratory: no wheezing, no rales, no rhonchi, clear to auscultation bilateral Cardiovascular: RRR, no significant murmur, no rub, gallop, irregular Gastrointestinal: soft, no distention, positive bowel sounds Musculoskeletal: edema present Dx/Plan (1) Acute pancreatitis Code(s): K85.90 - ACUTE PANCREATITIS WITHOUT NECROSIS OR INFECTION, UNSP Status: Acute Comment: suspecting from immunotherapy (2) Hypertension Code(s): I10 - ESSENTIAL (PRIMARY) HYPERTENSION Status: Chronic (3) Hypothyroidism Code(s): E03.9 - HYPOTHYROIDISM, UNSPECIFIED Status: Chronic (4) Metastatic renal cell carcinoma to bone Code(s): C79.51 - SECONDARY MALIGNANT NEOPLASM OF BONE; C64.9 - MALIGNANT NEOPLASM OF UNSP KIDNEY, EXCEPT RENAL PELVIS Status: Chronic (5) Cholelithiasis Code(s): K80.20 - CALCULUS OF GALLBLADDER W/O CHOLECYSTITIS W/O OBSTRUCTION Status: Acute - Plan will check labs in am. pt feels better today -: will add lantus and humalog. elevatd blood sugar due to steroids * . Review of Systems - Review of Systems Respiratory: negative: Cough, Dry, Shortness of Breath, Hemoptysis, SOB with Excertion, Pleuritic Pain, Sputum, Wheezing Cardiovascular: negative: chest pain, palpitations, orthopnea, paroxysmal nocturnal dyspnea, edema, light headedness, other - Medications/Allergies Allergies/Adverse Reactions: Allergies Allergy/AdvReac Type Severity Reaction Status Date / Time hydrocodone AdvReac Severe Verified 09/05/18 23:19 morphine AdvReac Severe Verified 09/05/18 23:19 tramadol AdvReac Intermediate Verified 09/05/18 23:19 Medications: Current Medications Al Hydroxide/Mg Hydroxide (Maalox) 30 ml PO Q4H PRN PRN Reason: Heartburn or Indigestion Last Admin: 09/27/18 13:16 Dose: 30 ml Amlodipine Besylate (Norvasc) 10 mg PO DAILY [facility] Last Admin: 09/27/18 08:56 Dose: 10 mg Calcium Carbonate (Tums) 1,000 mg PO DAILYPRN PRN PRN Reason: Heartburn or Indigestion Last Admin: 09/26/18 01:07 Dose: 1,000 mg Carvedilol (Coreg) 6.25 mg PO 0800,1700 [facility] Last Admin: 09/27/18 08:55 Dose: 6.25 mg Dextrose/Water (Dextrose 50%) 25 gm IVP PRN PRN PRN Reason: HYPOGLYCEMIA PROTOCOL Enoxaparin Sodium (Lovenox) 40 mg SC 2100 [facility] Last Admin: 09/26/18 21:03 Dose: 40 mg Famotidine (Pepcid) 20 mg PO BID [facility] Last Admin: 09/27/18 08:56 Dose: 20 mg Furosemide (Lasix) 20 mg PO DAILY [facility] Last Admin: 09/27/18 08:56 Dose: 20 mg Glucagon (Glucagon) 1 mg IM PRN PRN PRN Reason: HYPOGLYCEMIA PROTOCOL Hydralazine HCl (Apresoline) 10 mg SLOW IVP Q4H PRN PRN Reason: SBP > 180 and HR < 70 Levofloxacin 500 mg/ Device 100 mls @ 100 mls/hr IVPB Q24HR [facility] Last Admin: 09/27/18 13:06 Dose: 100 mls Dextrose/Water (D5w) 1,000 mls @ 0 mls/hr IV INF PRN PRN Reason: HYPOGLYCEMIA PROTOCOL Sodium Acetate 40 meq/Multivitamins 10 ml/ Chromium/Copper/Manganese/Seleni/Zn 5 ml/ Insulin Human Regular 30 units/ Amino Acids/Electrolytes/ Fat Emulsion Intravenous 2,285.3 mls @ 95.217 mls/hr IV 1400 [facility] Insulin Glargine 8 units/ (Miscellaneous Medication) 0.08 mls @ 0 mls/hr SC HS CARLA Insulin Human Lispro (Humalog) 8 units SC TID-WM [facility] Insulin Human Regular (Humulin R) 0 units SC .MILD SLIDING PRN; Protocol PRN Reason: MILD SLIDING SCALE Last Admin: 09/27/18 11:08 Dose: 5 unit Insulin Human Regular (Humulin R) 0 units SC .BEDTIME SLIDING SC PRN; Protocol PRN Reason: BEDTIME SLIDING SCALE Levothyroxine Sodium (Synthroid) 125 mcg PO 0600 [facility] Last Admin: 09/27/18 06:02 Dose: 125 mcg Lorazepam (Ativan) 0.5 mg PO Q6H PRN PRN Reason: Anxiety Ondansetron HCl (Zofran) 4 mg IVP Q6H PRN PRN Reason: Nausea/Vomiting Last Admin: 09/26/18 14:24 Dose: 4 mg Pantoprazole Sodium (Protonix) 40 mg IVP BID [facility] Last Admin: 09/27/18 08:57 Dose: 40 mg Polyethylene Glycol (Miralax) 17 gm PO DAILY [facility] Last Admin: 09/27/18 08:57 Dose: 17 gm Prednisone (Prednisone) 50 mg PO BID [facility] Last Admin: 09/27/18 08:57 Dose: 50 mg Sodium Chloride (Flush - Normal Saline) 10 ml IVF Q12HR [facility] Last Admin: 09/27/18 08:57 Dose: 10 ml Sodium Chloride (Flush - Normal Saline) 10 ml IVF PRN PRN PRN Reason: Saline Flush Last Admin: 09/27/18 13:07 Dose: 10 ml Zolpidem Tartrate (Ambien) 5 mg PO HS PRN PRN Reason: Insomnia Last Admin: 09/26/18 23:51 Dose: 5 mg
[2018-09-27] MEDS ORDERED: HumaLOG 300 UNITS/3 ML VIAL SC SCH (17:00)
[2018-09-27] MEDS: Enoxaparin Sodium 40 MG/0.4 ML SYRINGE SC SCH (21:24)
[2018-09-27] MEDS: Zolpidem Tartrate 5 MG TAB PO PRN (21:24)
[2018-09-27] MEDS: Insulin Glargine 8 UNITS in Pre-Filled Syringe SC SCH (21:25)
[2018-09-28] MEDS: Mag-Al 1200 mg/1200 mg/30 ML UDCUP PO PRN ×5 (03:05→23:55)
[2018-09-28] MEDS: Levothyroxine Sodium 125 MCG TAB PO SCH (05:37)
[2018-09-28] MEDS: Lorazepam 1 MG TAB PO PRN ×2 (05:53→17:12)
[2018-09-28] MEDS: Insulin Regular 300 UNITS/3 ML VIAL SC PRN (06:13)
[2018-09-28 06:24] LABS: Anion Gap 10 mmol/L (10-20); BUN (Urea Nitrogen) 36 mg/dL (8.4-25.7); Calc. Creatinine Clearance 62 mL/min (70-130); Calcium 8.4 mg/dL (7.8-10.44); Carbon Dioxide 25 mmol/L (23-31); Chloride 104 mmol/L (98-107); Estimated GFR-MDRD 46; Glucose 314 mg/dL (83-110); Potassium 4.9 mmol/L (3.5-5.1); Sodium 134 mmol/L (136-145)
[2018-09-28] MEDS ORDERED: Insulin Glargine 10 UNITS in Pre-Filled Syringe 1 EACH SC SCH (09:00)
[2018-09-28] MEDS ORDERED: Furosemide 40 MG/4 ML VIAL SLOW IVP SCH ×2 (09:00→13:00)
[2018-09-28] MEDS: Furosemide 20 MG TAB PO SCH (09:29)
[2018-09-28] MEDS: Famotidine 20 MG TAB PO SCH ×2 (09:29→20:32)
[2018-09-28] MEDS: Carvedilol 6.25 MG TAB PO SCH ×2 (09:29→17:13)
[2018-09-28] MEDS: Amlodipine 10 MG TAB PO SCH (09:29)
[2018-09-28] MEDS: Pantoprazole 40 MG VIAL IVP SCH ×2 (09:31→20:33)
[2018-09-28] MEDS: Polyethylene Glycol 3350 17 GM Packet PO SCH (09:32)
[2018-09-28] MEDS: predniSONE 50 MG TAB PO SCH ×2 (09:36→20:33)
--- NOTE | 2018-09-28 12:07 | PRG ---
DATE OF SERVICE: 09/28/2018 SUBJECTIVE: Mr. Loo says he is feeling a bit better. He has been tolerating his clear liquid diet. Minimal nausea. No vomiting. He has been passing gas. He will take some Mylanta p.r.n. and this seems to help with indigestion. He is eager to advance to a full liquid diet later today. OBJECTIVE: VITAL SIGNS: Temperature is 97.8, pulse 68, blood pressure 120/69, 97% oxygen saturation on room air. GENERAL: No acute distress. HEART: Regular rate and rhythm. LUNGS: Clear to auscultation bilaterally. ABDOMEN: Bowel sounds present. Soft and nontender to palpation. EXTREMITIES: No peripheral edema. ASSESSMENT: 1. Recent severe acute pancreatitis, now clinically resolving. 2. Peripancreatic fluid collection, sequela of recent episode of pancreatitis. 3. Biliary sludge. PLAN: Agree with the plan to advance his diet to full liquid diet this afternoon and see how he does with this. He remains on TPN in the meantime until it is clear that diet can be advanced. No further recommendations from a GI perspective at this time. Job ID: [id number]
[2018-09-28] MEDS: HumaLOG 300 UNITS/3 ML VIAL SC SCH ×2 (12:45→17:36)
[2018-09-28] MEDS ORDERED: [UNRECOGNIZED DRUG - OTHER] IV SCH (14:00)
[2018-09-28] MEDS ORDERED: SODIUM ACETATE IV SCH (14:00)
[2018-09-28] MEDS ORDERED: SODIUM CHLORIDE IV SCH (14:00)
[2018-09-28] MEDS ORDERED: MULTIVITAMINS IV SCH (14:00)
[2018-09-28] MEDS: Zolpidem Tartrate 5 MG TAB PO PRN ×2 (20:32→23:47)
[2018-09-28] MEDS: Enoxaparin Sodium 40 MG/0.4 ML SYRINGE SC SCH (20:32)
[2018-09-28] MEDS: Insulin Glargine 8 UNITS in Pre-Filled Syringe SC SCH (20:58)
--- NOTE | 2018-09-28 23:41 | PRG ---
DATE OF SERVICE: 09/28/2018 SUBJECTIVE: Mr. Loo is hospital day #7 following his readmission for pancreatitis. His pancreatitis is suspected to be related to his previous chemotherapy regimen. He has accordingly been restarted on steroids per his oncologist. His narcotics were stopped a couple of days ago. He tells me he feels a little better each day and is sleeping better at night. He notes diminished abdominal pain. OBJECTIVE: VITAL SIGNS: On examination, he is afebrile. Vital signs are within normal limits. LUNGS: Clear to auscultation. ABDOMEN: Benign. LABORATORY DATA: Basic metabolic panel was obtained revealing mild elevation of BUN and creatinine. His glucose levels have been quite high since his steroids have been restarted and were in the 300s to 400s today. ASSESSMENT: The patient appears to be improving in regard to the resolution of his pancreatic inflammation. I will try to reinitiate a full liquid diet and see if he tolerates this. He will be left on TPN in the interim until we can be sure he is taking adequate calories. I will increase the insulin in his TPN in light of his elevated blood sugars. Job ID: [id number]
[2018-09-29] MEDS: Levothyroxine Sodium 125 MCG TAB PO SCH (05:30)
[2018-09-29] MEDS: HumaLOG 300 UNITS/3 ML VIAL SC PRN ×3 (05:32→21:39)
[2018-09-29] MEDS: Mag-Al 1200 mg/1200 mg/30 ML UDCUP PO PRN ×4 (05:47→19:50)
--- NOTE | 2018-09-29 07:47 | PDOC.PN ---
- Subjective Encounter Start Date: 09/28/18 Encounter Start Time: 14:00 Subjective: pt up in chair feels well - Objective Vital Signs & Weight: Vital Signs (12 hours) Temp Pulse Resp BP BP Pulse Ox 09/29/18 04:00 98.1 F 65 16 105/59 L 96 09/28/18 23:51 97.4 F L 64 20 123/64 95 09/28/18 20:50 97.3 F L 68 16 113/67 96 Weight Admit Weight 212 lb Weight 212 lb I&O: 09/28/18 09/29/18 09/30/18 06:59 06:59 06:59 Intake Total 2660 Output Total 550 Balance 2110 Result Diagrams: 09/27/18 05:15 09/28/18 05:41 Additional Labs: Accuchecks 09/29/18 09/28/18 09/28/18 05:34 23:57 20:33 POC Glucose 310 H 275 H 242 H 09/28/18 09/28/18 16:12 11:21 POC Glucose 312 H 353 H Phys Exam - Physical Examination Neck: no nodes, no JVD, supple, full ROM Respiratory: no wheezing, no rales, no rhonchi, wheezing present, clear to auscultation bilateral Cardiovascular: RRR, no significant murmur, no rub, gallop, irregular Gastrointestinal: soft, non-tender, no distention, positive bowel sounds Musculoskeletal: edema present Dx/Plan (1) Acute pancreatitis Code(s): K85.90 - ACUTE PANCREATITIS WITHOUT NECROSIS OR INFECTION, UNSP Status: Acute Comment: suspecting from immunotherapy vs gallbladder. on steroids (2) Hypertension Code(s): I10 - ESSENTIAL (PRIMARY) HYPERTENSION Status: Chronic (3) Hypothyroidism Code(s): E03.9 - HYPOTHYROIDISM, UNSPECIFIED Status: Chronic (4) Metastatic renal cell carcinoma to bone Code(s): C79.51 - SECONDARY MALIGNANT NEOPLASM OF BONE; C64.9 - MALIGNANT NEOPLASM OF UNSP KIDNEY, EXCEPT RENAL PELVIS Status: Chronic (5) Cholelithiasis Code(s): K80.20 - CALCULUS OF GALLBLADDER W/O CHOLECYSTITIS W/O OBSTRUCTION Status: Acute - Plan tpn insulin increased, will continue aggressive tx with insulin -: he is on steroids. will also give him one dose of iv lasix -: He is improving. vitals stable. will check cmp in am * . Review of Systems - Review of Systems Respiratory: negative: Cough, Dry, Shortness of Breath, Hemoptysis, SOB with Excertion, Pleuritic Pain, Sputum, Wheezing Cardiovascular: negative: chest pain, palpitations, orthopnea, paroxysmal nocturnal dyspnea, edema, light headedness, other - Medications/Allergies Allergies/Adverse Reactions: Allergies Allergy/AdvReac Type Severity Reaction Status Date / Time hydrocodone AdvReac Severe Verified 09/05/18 23:19 morphine AdvReac Severe Verified 09/05/18 23:19 tramadol AdvReac Intermediate Verified 09/05/18 23:19 Medications: Current Medications Al Hydroxide/Mg Hydroxide (Maalox) 30 ml PO Q4H PRN PRN Reason: Heartburn or Indigestion Last Admin: 09/29/18 05:47 Dose: 30 ml Amlodipine Besylate (Norvasc) 10 mg PO DAILY [facility] Last Admin: 09/28/18 09:29 Dose: 10 mg Calcium Carbonate (Tums) 1,000 mg PO DAILYPRN PRN PRN Reason: Heartburn or Indigestion Last Admin: 09/26/18 01:07 Dose: 1,000 mg Carvedilol (Coreg) 6.25 mg PO 0800,1700 [facility] Last Admin: 09/28/18 17:13 Dose: 6.25 mg Dextrose/Water (Dextrose 50%) 25 gm IVP PRN PRN PRN Reason: HYPOGLYCEMIA PROTOCOL Enoxaparin Sodium (Lovenox) 40 mg SC 2100 [facility] Last Admin: 09/28/18 20:32 Dose: 40 mg Famotidine (Pepcid) 20 mg PO BID [facility] Last Admin: 09/28/18 20:32 Dose: 20 mg Furosemide (Lasix) 20 mg PO DAILY [facility] Last Admin: 09/28/18 09:29 Dose: 20 mg Glucagon (Glucagon) 1 mg IM PRN PRN PRN Reason: HYPOGLYCEMIA PROTOCOL Hydralazine HCl (Apresoline) 10 mg SLOW IVP Q4H PRN PRN Reason: SBP > 180 and HR < 70 Levofloxacin 500 mg/ Device 100 mls @ 100 mls/hr IVPB Q24HR [facility] Last Admin: 09/28/18 14:40 Dose: 100 mls Dextrose/Water (D5w) 1,000 mls @ 0 mls/hr IV INF PRN PRN Reason: HYPOGLYCEMIA PROTOCOL Insulin Glargine 8 units/ (Miscellaneous Medication) 0.08 mls @ 0 mls/hr SC HS [facility] Last Admin: 09/28/18 20:58 Dose: 0.08 mls Sodium Acetate 40 meq/ Sodium Chloride 20 meq/ Multivitamins 10 ml/ Chromium/ Copper/Manganese/Seleni/Zn 5 ml/Insulin Human Regular 50 units / Amino Acids/ Electrolytes/Fat Emulsion Intravenous 2,290.5 mls @ 95.438 mls/hr IV 1400 [facility] Last Admin: 09/28/18 14:33 Dose: 2,290.5 mls Insulin Human Lispro (Humalog) 10 units SC TID-WM [facility] Last Admin: 09/28/18 17:36 Dose: 10 unit Insulin Human Lispro (Humalog) 0 units SC .AGGRESSIVE SLIDING PRN PRN Reason: Aggressive Correctional Scale Last Admin: 09/29/18 05:32 Dose: 11 unit Insulin Human Lispro (Humalog) 0 units SC .BEDTIME SLIDING SC PRN PRN Reason: Bedtime Correctional Scale Last Admin: 09/29/18 00:00 Dose: 3 unit Insulin Human Lispro (Humalog) 8 units SC TID-[facility] Levothyroxine Sodium (Synthroid) 125 mcg PO 0600 [facility] Last Admin: 09/29/18 05:30 Dose: 125 mcg Lorazepam (Ativan) 0.5 mg PO Q6H PRN PRN Reason: Anxiety Last Admin: 09/28/18 17:12 Dose: 0.5 mg Ondansetron HCl (Zofran) 4 mg IVP Q6H PRN PRN Reason: Nausea/Vomiting Last Admin: 09/26/18 14:24 Dose: 4 mg Pantoprazole Sodium (Protonix) 40 mg IVP BID [facility] Last Admin: 09/28/18 20:33 Dose: 40 mg Polyethylene Glycol (Miralax) 17 gm PO DAILY [facility] Last Admin: 09/28/18 09:32 Dose: 17 gm Prednisone (Prednisone) 50 mg PO BID [facility] Last Admin: 09/28/18 20:33 Dose: 50 mg Sodium Chloride (Flush - Normal Saline) 10 ml IVF Q12HR [facility] Last Admin: 09/28/18 21:11 Dose: 10 ml Sodium Chloride (Flush - Normal Saline) 10 ml IVF PRN PRN PRN Reason: Saline Flush Last Admin: 09/27/18 13:07 Dose: 10 ml Zolpidem Tartrate (Ambien) 5 mg PO HS PRN PRN Reason: Insomnia Last Admin: 09/28/18 23:47 Dose: 5 mg
[2018-09-29] MEDS ORDERED: MULTIVITAMINS IV SCH (09:23)
[2018-09-29] MEDS ORDERED: SODIUM CHLORIDE IV SCH (09:23)
[2018-09-29] MEDS ORDERED: [UNRECOGNIZED DRUG - OTHER] IV SCH (09:23)
[2018-09-29] MEDS ORDERED: SODIUM ACETATE IV SCH (09:23)
[2018-09-29] MEDS: Amlodipine 10 MG TAB PO SCH (09:24)
[2018-09-29] MEDS: Famotidine 20 MG TAB PO SCH ×2 (09:24→20:41)
[2018-09-29] MEDS: Furosemide 20 MG TAB PO SCH (09:24)
[2018-09-29] MEDS: Carvedilol 6.25 MG TAB PO SCH ×2 (09:24→17:27)
[2018-09-29] MEDS: Pantoprazole 40 MG VIAL IVP SCH ×2 (09:25→20:37)
[2018-09-29] MEDS: predniSONE 50 MG TAB PO SCH (09:25)
[2018-09-29] MEDS: Polyethylene Glycol 3350 17 GM Packet PO SCH (09:25)
[2018-09-29 09:31] LABS: ALT (SGPT) 13 U/L (8-55); AST (SGOT) 8 U/L (5-34); Albumin 2.5 g/dL (3.4-4.8); Alkaline Phosphatase 92 U/L (40-150); Anion Gap 8 mmol/L (10-20); BUN (Urea Nitrogen) 38 mg/dL (8.4-25.7); Bilirubin, Total 0.4 mg/dL (0.2-1.2); Calc. Creatinine Clearance 58 mL/min (70-130); Calcium 8.3 mg/dL (7.8-10.44); Carbon Dioxide 27 mmol/L (23-31); Chloride 102 mmol/L (98-107); Estimated GFR-MDRD 43; Globulin 2.4 g/dL (2.4-3.5); Glucose 320 mg/dL (83-110); Potassium 4.4 mmol/L (3.5-5.1); Protein, Total 4.9 g/dL (5.8-8.1); Sodium 133 mmol/L (136-145)
--- NOTE | 2018-09-29 10:52 | PRG ---
DATE OF SERVICE: 09/29/2018 SUBJECTIVE: Mr. Loo is hospital day #8 following his readmission for aggravation of his pancreatitis. He has been on TPN for the past few days. He was advanced to full liquid diet yesterday. He tells me tolerated this well. He has had no increase in pain, no vomiting. He believes that his "puffiness" maybe improved. He is still feeling better day by day. PHYSICAL EXAMINATION: VITAL SIGNS: He is afebrile. Pulse is 63, blood pressure is 117/66. LUNGS: Clear to auscultation. ABDOMEN: Benign. LABORATORY DATA: His comprehensive metabolic panel reveals some minor electrolyte abnormalities. Glucose level is still high at 320. Liver function tests are normal. Albumin is low at 2.5. ASSESSMENT AND PLAN: He appears to be doing well. It does not seem to have any recurrence of his pancreatitis with advancing his diet. Today, I will therefore advance him up to a regular diabetic diet. I will wean his TPN down to 40 mL/h until this current bag expires, at which point I will discontinue his TPN. If he is tolerating his solid food and his laboratory studies tomorrow still continue to look normal, I think he will be fine for discharge home tomorrow. Job ID: [id number]
[2018-09-29] MEDS: HumaLOG 300 UNITS/3 ML VIAL SC SCH ×6 (11:13→18:20)
[2018-09-29] MEDS: Calcium Carbonate 500 MG ChewTAB PO PRN (14:29)
--- NOTE | 2018-09-29 17:16 | PRG ---
DATE OF SERVICE: 09/29/2018 SUBJECTIVE: Mr. Loo is doing quite well. He has advanced to a regular diet. He says he ate some meatloaf, potatoes, and green beans as well as fruit cocktail earlier today. He did not have any abdominal pain or nausea with this. He had a good bowel movement earlier today. He is feeling more energetic. He is hoping to be able to be discharged home. OBJECTIVE: VITAL SIGNS: Temperature 97.8, pulse 65, blood pressure 104/60, and 95% oxygen saturation on room air. GENERAL: No acute distress. HEART: Regular rate and rhythm. LUNGS: Clear to auscultation bilaterally. ABDOMEN: Bowel sounds are present. Soft. Nontender to palpation. No guarding or rebound tenderness. EXTREMITIES: No peripheral edema. LABORATORY STUDIES: Glucose 269, sodium 133, potassium 4.4, BUN 38, creatinine 1.60. LFTs all remain normal with total bilirubin 0.4, alkaline phosphatase 92, AST 8, ALT 13. ASSESSMENT AND PLAN: 1. Recent severe acute pancreatitis, now clinically resolved. 2. Peripancreatic fluid collection, sequela of recent episode of pancreatitis. 3. Biliary sludge. 4. Metastatic renal cell cancer, recently on Opdivo, now discontinued. Clinically, Mr. Loo's acute pancreatitis has resolved. He has been able to advance his diet back to a regular diabetic diet. TPN has been discontinued today. Anticipate he could probably be discharged home tomorrow if still tolerating solid food and otherwise stable. I will plan to see him back in the GI clinic in about a month, or sooner if needed. Oncology Disease Service has recommended continuing the steroids. Job ID: [id number]
[2018-09-29] MEDS: Lorazepam 1 MG TAB PO PRN (17:27)
[2018-09-29] MEDS: predniSONE 20 MG TAB PO SCH (17:27)
[2018-09-29] MEDS: Enoxaparin Sodium 40 MG/0.4 ML SYRINGE SC SCH (20:42)
[2018-09-29] MEDS: Zolpidem Tartrate 5 MG TAB PO PRN (20:50)
[2018-09-29] MEDS: Insulin Glargine 8 UNITS in Pre-Filled Syringe SC SCH (21:38)
[2018-09-30] MEDS: Mag-Al 1200 mg/1200 mg/30 ML UDCUP PO PRN ×2 (02:41→09:20)
[2018-09-30] MEDS: Levothyroxine Sodium 125 MCG TAB PO SCH (05:16)
[2018-09-30] MEDS: HumaLOG 300 UNITS/3 ML VIAL SC PRN (05:32)
[2018-09-30 05:36] LABS: #Lymphocytes 0.9 thou/uL (1.20-3.40); #Monocytes 0.3 thou/uL (0.11-0.59); #Neutrophils 3.5 thou/uL (1.40-6.50); %Basophils 0.6 % (0.0-1.0); %Eosinophils 0.2 % (0.0-10.0); %Lymphocytes 19.1 % (21.0-51.0); %Monocytes 5.6 % (0.0-10.0); %Neutrophils 74.6 % (42.0-75.0); Hemoglobin 10.4 g/dL (14.0-18.0); Mean Corpuscular HGB CONC 31.3 g/dL (32.0-36.0); Mean Corpuscular Volume 89.2 fL (78.0-98.0); Mean Platelet Volume 8.2 fL (7.4-10.4); Platelet Count 147 thou/uL (130-400); RBC Distribution Width 12.6 % (11.5-14.5); Red Blood Cell (RBC) Count 3.72 mill/uL (4.70-6.10); White Blood Cell (WBC) Count 4.7 thou/uL (4.8-10.8)
[2018-09-30 05:59] LABS: ALT (SGPT) 22 U/L (8-55); AST (SGOT) 16 U/L (5-34); Albumin 2.5 g/dL (3.4-4.8); Alkaline Phosphatase 102 U/L (40-150); Anion Gap 10 mmol/L (10-20); BUN (Urea Nitrogen) 40 mg/dL (8.4-25.7); Bilirubin, Total 0.6 mg/dL (0.2-1.2); Calc. Creatinine Clearance 58 mL/min (70-130); Calcium 8.1 mg/dL (7.8-10.44); Carbon Dioxide 27 mmol/L (23-31); Chloride 100 mmol/L (98-107); Estimated GFR-MDRD 43; Globulin 2.1 g/dL (2.4-3.5); Glucose 271 mg/dL (83-110); Lipase 13 U/L (8-78); Potassium 4.7 mmol/L (3.5-5.1); Protein, Total 4.6 g/dL (5.8-8.1); Sodium 132 mmol/L (136-145)
[2018-09-30] MEDS ORDERED: HumaLOG 300 UNITS/3 ML VIAL SC PRN (07:47)
[2018-09-30] MEDS: Pantoprazole 40 MG VIAL IVP SCH (08:54)
[2018-09-30] MEDS: Famotidine 20 MG TAB PO SCH (08:54)
[2018-09-30] MEDS: Polyethylene Glycol 3350 17 GM Packet PO SCH ×2 (08:54→09:08)
[2018-09-30] MEDS: predniSONE 20 MG TAB PO SCH (08:55)
[2018-09-30] MEDS: Carvedilol 6.25 MG TAB PO SCH (08:56)
[2018-09-30] MEDS: Amlodipine 10 MG TAB PO SCH (08:57)
[2018-09-30] MEDS: Furosemide 20 MG TAB PO SCH (08:58)
[2018-09-30] MEDS ORDERED: Insulin Glargine 20 UNITS in Pre-Filled Syringe 1 EACH SC SCH (09:00)
[2018-09-30 11:46] VITALS: BP 142/71; TEMP 97.8
--- NOTE | 2018-10-01 04:12 | PDOC.PN ---
- Subjective Encounter Start Date: 09/29/18 Encounter Start Time: 12:15 Subjective: pt's blood sugars are still very high - Objective Vital Signs & Weight: Weight Admit Weight 212 lb Weight 212 lb I&O: 09/29/18 09/30/18 10/01/18 06:59 06:59 06:59 Intake Total 480 Balance 480 Result Diagrams: 09/30/18 05:23 09/30/18 05:23 Additional Labs: Accuchecks 09/30/18 09/30/18 11:24 05:24 POC Glucose 219 H 254 H Phys Exam - Physical Examination Neck: no nodes, no JVD, supple, full ROM Respiratory: no wheezing, no rales, no rhonchi, wheezing present, clear to auscultation bilateral Cardiovascular: RRR, no significant murmur, no rub, gallop, irregular Dx/Plan (1) Acute pancreatitis Code(s): K85.90 - ACUTE PANCREATITIS WITHOUT NECROSIS OR INFECTION, UNSP Status: Acute Comment: suspecting from immunotherapy vs gallbladder. on steroids (2) Hypertension Code(s): I10 - ESSENTIAL (PRIMARY) HYPERTENSION Status: Chronic (3) Hypothyroidism Code(s): E03.9 - HYPOTHYROIDISM, UNSPECIFIED Status: Chronic (4) Metastatic renal cell carcinoma to bone Code(s): C79.51 - SECONDARY MALIGNANT NEOPLASM OF BONE; C64.9 - MALIGNANT NEOPLASM OF UNSP KIDNEY, EXCEPT RENAL PELVIS Status: Chronic (5) Cholelithiasis Code(s): K80.20 - CALCULUS OF GALLBLADDER W/O CHOLECYSTITIS W/O OBSTRUCTION Status: Acute - Plan will continue long acting and short acting insulin. -: pt on tPn and will be started on diet to see if her does well -: continue steroids * . Review of Systems - Review of Systems Respiratory: negative: Cough, Dry, Shortness of Breath, Hemoptysis, SOB with Excertion, Pleuritic Pain, Sputum, Wheezing Cardiovascular: negative: chest pain, palpitations, orthopnea, paroxysmal nocturnal dyspnea, edema, light headedness, other Gastrointestinal: negative: Nausea, Vomiting, Abdominal Pain, Diarrhea, Constipation, Melena, Hematochezia, Other - Medications/Allergies Allergies/Adverse Reactions: Allergies Allergy/AdvReac Type Severity Reaction Status Date / Time hydrocodone AdvReac Severe Verified 09/05/18 23:19 morphine AdvReac Severe Verified 09/05/18 23:19 tramadol AdvReac Intermediate Verified 09/05/18 23:19
--- NOTE | 2018-10-01 16:50 | DIS ---
DATE OF ADMISSION: 09/22/2018 DATE OF DISCHARGE: 09/30/2018 DISCHARGE DISPOSITION: Home. PRIMARY DISCHARGE DIAGNOSES: Severe pancreatitis with pseudocyst, resolving. 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 SECONDARY DISCHARGE DIAGNOSES: Diabetes mellitus type 2, chronic anemia, history of renal cancer with metastasis to bone, hypothyroidism, hypertension. PROCEDURES DONE DURING HOSPITALIZATION: CT of the abdomen and pelvis without contrast done on the day of admission showed inflammatory changes around the pancreas, worrisome for pancreatitis. There is loculated fluid, which may be secondary to pancreatitis. Pseudocyst could not be excluded. Hyperdensity within the lumen of the gallbladder suggesting small stones and sludge. Slightly prominent proximal small bowel loops. Findings were nonspecific, correlate for ileus versus a developing bowel obstruction. Bilateral pleural effusions with lower lobe consolidation lesion involving L2 vertebra. The possibility of metastatic deposit cannot be excluded. He had a PICC line placed on 09/23/2018 by Interventional Radiology. H and H on the day of discharge, 10 and 33, platelet count 147, MCV is 89, white count of 4.7. Discharge BUN creatinine is 40 and 1.5, serum bicarb 27, albumin is 2.5 on the day of discharge, had a lipase of 55 on the day of admission. INPATIENT CONSULT: Dr. Lawson for General surgery, Dr. Brendan Collazo for Gastroenterology. DISCHARGE MEDICATION: 1. Glimepiride 4 mg twice daily. 2. Glipizide 5 mg daily. 3. Oxycodone 5 mg p.o. q.4 hours hourly p.r.n. for pain. 4. Coreg 6.25 mg twice daily. 5. Lasix 40 mg daily. 6. Protonix 40 mg daily. 7. MiraLAX 17 g daily. 8. Prednisone as prescribed by Oncology for immune-mediated nephritis. DISCHARGE PLAN: The patient to follow up with Oncology as advised, Dr. Brendan Collazo in 2 weeks, Dr. Lawson in 2 to 3 weeks and primary care physician in 1 week. BRIEF COURSE DURING HOSPITALIZATION: The patient initially got admitted on the of this month with complaints of abdominal pain and abnormal gallbladder findings. He was admitted for acute pancreatitis with possible cholecystitis with stones. He was initially kept n.p.o. He was in fact started on TPN. He also has history of stage IV renal cancer and was on Opdivo. The patient developed DERRICK and was diagnosed with Opdivo-induced immune mediated nephritis and was placed on steroids for the same. He has had consultation with Dr. Lawson for General Surgery. The patient had anasarca and the plan is to wait for him to diuresis naturally with his kidney function, resolving. He was slowly weaned into solid food prior to discharge. He is on low-fat diet with 1800 kilocalorie. Due to prednisone the patient's diabetes is uncontrolled and he is on glimepiride and glipizide. The patient did not want to take any insulin and as he was scared of needles. Once the patient becomes euvolemic with resolving anasarca, he likely will need a cholecystectomy at some point. He has followup appointments to see Dr. Brendan Collazo in the clinic. Prior to discharge, he is ambulating and he is wanting to go home. He is planning to stay with his sister. He has been cleared by all the consultants for discharge. Please note, I have seen and examined the patient on the day of discharge. Job ID: [id number]
== END 2018-09-30 15:25 | disposition home or self-care (01) | DRG 439 ==
LOC: SURG A 12:40
PROVIDERS: ADMIT Internal Medicine Gastroenterology; ATTEND Internal Medicine Gastroenterology
PROC: 02HV33Z Insertion of Infusion Device into Superior Vena Cava, Percutaneous Approach (ICD-10-PCS; principal; 2018-09-23)
PROC: B518YZA Fluoroscopy of Superior Vena Cava using Other Contrast, Guidance (ICD-10-PCS; 2018-09-23)
DX: K85.10 Biliary acute pancreatitis without necrosis or infection (principal); C64.9 Malignant neoplasm of unspecified kidney, except renal pelvis; C79.51 Secondary malignant neoplasm of bone; K86.3 Pseudocyst of pancreas; N17.9 Acute kidney failure, unspecified; J90 Pleural effusion, not elsewhere classified; K81.1 Chronic cholecystitis; E11.9 Type 2 diabetes mellitus without complications; I10 Essential (primary) hypertension; E78.5 Hyperlipidemia, unspecified; G47.33 Obstructive sleep apnea (adult) (pediatric); Z96.659 Presence of unspecified artificial knee joint; T50.995A Adverse effect of other drugs, medicaments and biological substances, initial encounter; E03.9 Hypothyroidism, unspecified; K80.20 Calculus of gallbladder without cholecystitis without obstruction; N05.8 Unspecified nephritic syndrome with other morphologic changes; D64.9 Anemia, unspecified; R60.1 Generalized edema; Z85.038 Personal history of other malignant neoplasm of large intestine; Z90.49 Acquired absence of other specified parts of digestive tract; Z88.8 Allergy status to other drugs, medicaments and biological substances; Z92.21 Personal history of antineoplastic chemotherapy
CPT/HCPCS: 36415; 36416; 36569; 74176; 80048; 80053; 80076; 83690; 83735; 84100; 84134; 85025; C1751; C9113; J0131; J1644; J1650; J1815; J1940; J1956; J2405; J3010; J7512

== ENCOUNTER 2018-11-03 10:26 | Outpatient (CLI) | payer MEDICARE ==
--- NOTE | 2018-11-03 11:19 | ULT ---
ULTRASOUND DOPPLER DUPLEX VENOUS BILATERAL LOWER EXTREMITIES: DATE: 11/03/2018 HISTORY: Bilateral lower extremity edema in 73-year-old male with renal cell carcinoma with metastatic bone di sease. TECHNIQUE: Grayscale, color-flow, and spectral analysis, of major veins of bilateral lower extremities. FINDINGS: There is demonstration of blood flow with normal compressibility, of the bilateral common femoral, pr ofunda femoral, greater saphenous, femoral, and popliteal veins.. There is soft tissue edema throughout the bilateral lower extremities. Although blood flow is demonstrated in the bilateral post erior tibial veins, the severe soft tissue edema in the legs prevent compressibility. IMPRESSION: 1. No deep venous thrombosis of bilateral lower extremities identified. 2. Soft tissue edema throughout the bilateral lower extremities.
== END 2018-11-03 10:27 | disposition home or self-care (01) ==
LOC: ULT 10:26
PROVIDERS: ATTEND Internal Medicine Hematology & Oncology
DX: M79.605 Pain in left leg (principal); M79.604 Pain in right leg; R60.0 Localized edema
CPT/HCPCS: 93970

== ENCOUNTER 2018-12-27 08:00 | Outpatient (CLI) | payer MEDICARE ==
[2018-12-27] MEDS ORDERED: Iopamidol 370 76% 100 ML VIAL ONE (10:03)
[2018-12-27] MEDS ORDERED: Iopamidol 370 76% 50 ML VIAL FS ONE (10:03)
--- NOTE | 2018-12-27 12:18 | CT ---
CT ABDOMEN AND PELVIS WITH IV CONTRAST 12/27/2018 CLINICAL INFORMATION: Acute pancreatitis. Follow-up renal cancer. Patient is currently on chemotherapy. COMPARISON: Noncontrast CT abdomen and pelvis on 09/22/2018 Technique: Multiple contiguous axial CT images are obtained through the abdomen and pelvis with IV contrast. Cor onal reformatted images are provided. FINDINGS: Lower Chest: Mild dependent bibasilar atelectasis is present. No pleural effusion is identified. Vessels: Vascular calcifications are seen in the coronary arteries as well as involving the visualize d thoracic aorta, abdominal aorta, and iliac arteries with mild associated atherosclerotic plaque in the abdominal aorta. Abdomen: Portal vein:Patent Gallbladder: Within normal limits for CT imaging. Liver: within normal limits. Spleen: Increased in AP dimensions measuring 14 cm. Pancreas: Previously noted peripancreatic fluid on the prior study is more organized with 2 well-defi adam hypodense fluid attenuation collections seen involving the pancreas and peripancreatic region. Smaller collection in the region of the pancreatic head measures 7.4 cm x 5.5 cm with larger collecti on in the region of the body of the pancreas measuring 15.8 cm x 10.6 cm. An additional tiny collection is seen superior to this large collection. Findings are most likely related to pseudocyst formation, and the larger pseudocyst is multiloculated. The body the pancreas is not well delineated and is likely replaced by the large pseudocyst. Adrenals: within normal limits. Kidneys: A 1.5 cm hypodense lesion is seen in the superior pole of the right kidney which cannot be c haracterized as a simple cyst based on this exam. Bowel: There is mass effect on the stomach secondary to the very large pseudocyst which displaces the body and antrum of the stomach anteriorly. There is mild thickening of the posterior wall of the stomach. There is also mild mass effect on the duodenum secondary to the pseudocyst at the level of t he pancreatic head. Loops of small bowel are normal in caliber. Postsurgical changes rectosigmoid junction are noted with anastomosis seen in this region. Peritoneum: No ascites or free air. Mesentery and Retroperitoneum: No enlarged mesenteric or retroperitoneal lymph nodes. Abdominal Wall: Midline scarring is seen in an infraumbilical location. There is a very tiny fat-cont aining hernia in a supraumbilical location just to the right of midline. Pelvis: Reproductive Organs: No pelvic masses. Pelvis within normal limits. Bladder: Decompressed. Bones: Stable defect involving the central portion of the L2 vertebral body, but the exact etiology f or this finding is uncertain. Metastatic lesion as questioned on the prior study cannot be entirely excluded. There is adjacent sclerosis with the vertebral body. These findings are stable compared to the prior exam. No additional lytic or lytic osseous lesions are seen. Degenerative changes are seen in the lumbar spine as well as lower thoracic spine. IMPRESSION: 1. Findings which are thought to most likely be attributable to pseudocyst formation involving the pa ncreas with largest pseudocyst centered at the region of the body of the pancreas measuring 15.8 cm in maximal dimensions which does appear mildly loculated. This does result in anterior displacement o f the stomach with mild thickening involving the posterior wall of the stomach which may be related to inflammatory changes. 2. Difficult to characterize hypodense lesion superior pole right kidney. This cannot be characterize d as a simple cyst based on this exam. CT abdomen before and after IV contrast would be helpful for further evaluation and characterization. 3. Stable defect in the L2 vertebral body of uncertain etiology. This could be related to prior infec tion or a metastatic lesion or possibly treated metastatic lesion. This is unchanged compared to CT exam on 09/22/2018. MRI lumbar spine with and without IV contrast may be helpful for further evaluation .
== END 2018-12-27 08:01 | disposition home or self-care (01) ==
LOC: CT 08:00
PROVIDERS: ATTEND Specialist
DX: K85.10 Biliary acute pancreatitis without necrosis or infection (principal); N28.9 Disorder of kidney and ureter, unspecified
CPT/HCPCS: 36415; 74177; 80053; 85025; Q9967

== ENCOUNTER 2019-01-07 07:29 | Inpatient (IN) | payer MEDICARE ==
[2019-01-07 08:00] LABS: #Lymphocytes 0.4 thou/uL (1.20-3.40); #Monocytes 0.2 thou/uL (0.11-0.59); #Neutrophils 7.8 thou/uL (1.40-6.50); %Eosinophils 0.2 % (0.0-10.0); %Monocytes 2.7 % (0.0-10.0); %Neutrophils 92.2 % (42.0-75.0); Hemoglobin 13.1 g/dL (14.0-18.0); Mean Corpuscular HGB CONC 31.2 g/dL (32.0-36.0); Mean Corpuscular Hemoglobin 26.6 pg (27.0-31.0); Mean Corpuscular Volume 85.3 fL (78.0-98.0); Mean Platelet Volume 7.6 fL (7.4-10.4); Platelet Count 188 thou/uL (130-400); RBC Distribution Width 14.8 % (11.5-14.5); Red Blood Cell (RBC) Count 4.94 mill/uL (4.70-6.10); White Blood Cell (WBC) Count 8.5 thou/uL (4.8-10.8)
--- NOTE | 2019-01-07 08:08 | RAD ---
RADIOGRAPH CHEST 1 VIEW: DATE: 01/07/2019. HISTORY: 73-year-old male with cough. FINDINGS: The thoracic aorta is tortuous and ectatic. There is no evidence of airspace density, pulmonary edema , or pneumothorax. The lateral costophrenic angles are not effaced. IMPRESSION: 1) No acute pulmonary findings. 2) ectasia of thoracic aorta. Transcribed Date/Time: 01/07/2019 8:16 AM
[2019-01-07 08:21] LABS: ALT (SGPT) 31 U/L (8-55); AST (SGOT) 95 U/L (5-34); Albumin 3.6 g/dL (3.4-4.8); Alkaline Phosphatase 269 U/L (40-110); Anion Gap 16 mmol/L (10-20); BUN (Urea Nitrogen) 11 mg/dL (8.4-25.7); Bilirubin, Total 2.5 mg/dL (0.2-1.2); Calc. Creatinine Clearance 0 mL/min (70-130); Calcium 9.3 mg/dL (7.8-10.44); Carbon Dioxide 21 mmol/L (23-31); Chloride 102 mmol/L (98-107); Estimated GFR-MDRD 50; Globulin 3.5 g/dL (2.4-3.5); Glucose 236 mg/dL (83-110); Protein, Total 7.1 g/dL (5.8-8.1); Sodium 136 mmol/L (136-145)
[2019-01-07 08:24] LABS: Potassium 2.7 mmol/L (3.5-5.1)
[2019-01-07 08:40] LABS: Bacteria/HPF None Seen HPF (None Seen); Bilirubin Negative (Negative); Blood, Urine Trace (Negative); Clarity Clear (Clear); Glucose, Urine (Dipstick) >=1000 mg/dL (Negative); Leukocyte Negative Leu/uL (Negative); Nitrite Negative (Negative); Protein, Urine (Dipstick) 30 mg/dL (Neg-Trace); RBC/HPF 0-3 HPF (0-3); Squamous Epithelial 0-3 HPF (0-3); WBC/HPF 0-3 HPF (0-3)
[2019-01-07 08:50] LABS: Sperm/HPF 1+ HPF (None Seen)
--- NOTE | 2019-01-07 08:59 | CT ---
CT BRAIN NONCONTRAST: DATE: 01/07/2019 HISTORY: 73-year-old male with altered mental status. FINDINGS: There is no evidence of acute intra-axial or extra-axial hemorrhage. There is no midline shift or any other mass effect. There is no extra-axial fluid collection. There is no evidence of obstructive hydrocephalus. Calvarium is intact. There is diffuse brain parenchymal volume loss. IMPRESSION: 1) No acute intracranial findings. 2) involutional changes.
[2019-01-07] MEDS ORDERED: Heparin 1,000 UNITS/ML VIAL ONE (09:00)
--- NOTE | 2019-01-07 09:15 | CT ---
CT ANGIOGRAM THORAX WITH CONTRAST: (CTA pulmonary angiogram) DATE: 01/07/2019 HISTORY: 73-year-old male with hypoxia and tachycardia. TECHNIQUE: IV injection of iodinated contrast. Scan acquisition timing attempted to coincide with iodinated contrast bolus reaching maximal density in pulmonary arteries. 3-D MIP reconstructions. FINDINGS: No pulmonary thromboembolism identified in pulmonary trunk, left and right main pulmonary arteries, o r their proximal branches. Distal branches are more difficult to evaluate because of breathing motion artifact. Ectasia and tortuosity of thoracic aorta without aneurysm. No pleural effusion or pn eumothorax. Images somewhat degraded by patient breathing motion. No mediastinal or hilar lymphadenopathy. Lung volumes are low. Large pancreatic pseudocyst in upper abdomen. Splenomegaly. No pulmonary edema. No consolidation. No severe stenosis of trachea or bilateral mainstem bronchi. Heavy atherosclerotic calcification versus stent in LAD and LCx. No pericardial effusion. No moderate sized or large hiatal hernia.. IMPRESSION: 1) no central pulmonary thromboembolism. 2) large pancreatic pseudocyst. 3) ectasia and tortuosity of thoracic aorta with atherosclerosis. 4) coronary atherosclerosis due to calcified coronary lesion.
[2019-01-07] MEDS ORDERED: Vancomycin HCl 1.5 GM in Sodium Chloride 0.9% 250 ML 300 ML IVPB SCH (09:30)
--- NOTE | 2019-01-07 10:14 | ULT ---
ULTRASOUND ABDOMEN LIMITED: (RIGHT UPPER QUADRANT) DATE: 01/07/2019 HISTORY: 73-year-old male with nausea and vomiting. FINDINGS: At midline in the anterior superior peritoneal cavity, there is a large cystic mass. On today's CT, t he measurements are approximately 15.5 x 9 x 10 cm. It posteriorly displaces, distorts and obscures the pancreas, and anteriorly displaces and effaces the stomach. Common duct caliber is 2 mm. There are multiple tiny mobile gallstones a few millimeters in size each. Gallbladder has diffuse mur al thickening up to 7 mm, and intramural edema or pericholecystic small amount of fluid. However, the gallbladder is not distended, and there is no sonographic Valdez's sign. The mural edema and mura l thickening of the gallbladder could be due to acute cholecystitis, but could also be due to liver disease. Hepatic parenchymal echogenicity is normal. No intrahepatic biliary ductal dilation. No hydronephrosis of the right kidney. IMPRESSION: 1) large epigastric pancreatic pseudocyst. 2) cholelithiasis. 3) gallbladder mural thickening and mural edema, but no sonographic Valdez's sign and no excessive adis xiomara distention. If there is clinical concern for acute cholecystitis, consider nuclear medicine hepatobiliary scan.
--- NOTE | 2019-01-07 11:08 | CT ---
CT ABDOMEN AND PELVIS WITH IV CONTRAST: INDICATION: Abdominal pain. Recent diagnosis of pancreatitis and pancreatic pseudocyst. COMPARISON: Comparison is made to recent CT abdomen and pelvis 12/27/2018. FINDINGS: The liver and spleen appear stable. Mild intrahepatic biliary duct dilatation is again noted. Mild pericholecystic edema again seen, stable. Borderline splenomegaly was described previously. There are 2 large cystic lesions which appear to arise from the pancreas. These were described previ ously and are again seen. Both of these lesions are unchanged. The largest lesion measures up to 10 cm and the smaller lesion measures 5-7 cm. The indeterminate lesion in the right renal cortex was described previously and is stable. Mild britt nephric stranding is unchanged. Small bowel loops are normal caliber. The colon is unremarkable. Aorta is unremarkable with atheros clerotic change. No significant free fluid in the abdomen or pelvis, although there is mild mesenter ic edema. The lytic process involving the L2 vertebra has been previously described and is stable. IMPRESSION: The CT abdomen and pelvis findings are stable from 12/27/2018 exam. POS: [facility]
[2019-01-07 12:16] LABS: Lactic Acid 3.9 mmol/L (0.5-2.2)
[2019-01-07] MEDS ORDERED: ISOVUE-370 76%-LOCM 1 ML ONE (12:34)
[2019-01-07] MEDS ORDERED: Acetaminophen 325 MG TAB PO PRN (12:39)
[2019-01-07] MEDS ORDERED: Ondansetron PF 4 MG/2 ML Vial IVP PRN (12:44)
[2019-01-07] MEDS ORDERED: Dextrose 5% in Water 1,000 ML IV PRN (12:45)
[2019-01-07] MEDS ORDERED: HumaLOG 300 UNITS/3 ML VIAL SC PRN ×2 (12:45)
[2019-01-07] MEDS ORDERED: oxyCODONE 5 MG TAB PO PRN (12:50)
[2019-01-07] MEDS: Potassium Chloride 20 MEQ in Premix Bag 1 BAG IVPB SCH ×3 (14:03→16:36)
[2019-01-07] MEDS: Sodium Chloride 0.9% 1,000 ML IV SCH (14:23)
[2019-01-07] MEDS: Piperacillin/Tazobactam 3.375 GM in Sodium Chloride 0.9% 100 ML IVPB SCH (16:36)
[2019-01-07] MEDS: Vancomycin HCl 1 GM in Premix Bag 1 BAG IVPB SCH (20:34)
--- NOTE | 2019-01-07 20:42 | HP ---
CHIEF COMPLAINT: Abdominal pain. HISTORY OF PRESENT ILLNESS: This patient is a 73-year-old male with an unfortunately complicated history of pancreatitis. The patient was originally admitted here in August with pancreatitis. At that point, it was unclear if this was related to Opdivo or if it was related to some gallbladder disease. The patient was treated, sent home, and ended up coming back in early September again with similar issues that time the patient had a significant amount of peripancreatic inflammation. He required some TPN and bowel rest, and ultimately, was discharged again with the plan of getting some rehab, improving his general health and then coming back to consider having a cholecystectomy. The patient was supposed to follow up this week with Dr. Lawson to have that conversation; however, last night, he developed significant abdominal pain. He reports he ate a hamburger and a soft drink for dinner; about 2 a.m., developed significant abdominal pain. He got up, took some Mylanta and felt better, went back to bed. However, apparently around 5 a.m., he got up again having recurrence of abdominal pain, tried to go to the bathroom. He had significant diarrhea with incontinence. He had nausea and vomiting, and had some confusion, although this is according to his 2 sisters and son, who are present, and the patient does not seem to fully remember that episode. They also reported he was having some diaphoresis, chills, and some generalized weakness. He was brought to the emergency department where he was found to have a temperature of over 103 with rectal temp and now, he says he feels significantly improved. REVIEW OF SYSTEMS: The patient reports some peripheral edema and occasional vertigo and some intermittent shortness of breath as well. All other systems were reviewed, all pertinent positives and negatives noted in History of Present Illness. PAST MEDICAL HISTORY: Notable for metastatic renal cell carcinoma with a history of bone mets, reportedly in remission, but he continues on Opdivo; diabetes mellitus; hypertension; hyperlipidemia; history of colon cancer in 1998; hypothyroidism; and depression, medically treated. PAST SURGICAL HISTORY: Knee surgery, appendectomy, colon resection, and colonoscopy. FAMILY HISTORY: Father had lung cancer from smoking. Sister had breast cancer at 33 years of age. Mother had breast cancer at 20 years of age. SOCIAL HISTORY: The patient is a nonsmoker. Occasionally drinks a small amount socially. Denies drugs. He lives with his mother. He is a full code. His sister is his surrogate decision maker. ALLERGIES: HYDROCODONE AND TRAMADOL. HOME MEDICATIONS: 1. Tylenol p.r.n. 2. Glipizide 5 mg daily. 3. Protonix 40 mg daily. 4. Levothyroxine 125 mcg daily. 5. Escitalopram 20 mg daily. PHYSICAL EXAMINATION: VITAL SIGNS: Temperature currently 97.9, pulse 94, respirations 18, O2 saturation 96% on 2 L nasal cannula, and blood pressure was 156/79. In the ED, the patient 's initial vital signs were blood pressure of 171/77, pulse 110, temperature 103.5 rectal, and O2 saturation was 87% on room air. GENERAL APPEARANCE: The patient is awake and alert. He is pleasant and cooperative. He gives the early history pretty well, but again does not appear to remember the details of the late morning history. His speech is normal. HEENT: PERRL. He appears to have an extraocular lens implant in the left eye. He has no OP lesions. Dry oral mucosa. NECK: Supple and symmetric without lymphadenopathy, JVD, or bruits. HEART: Regular rate and rhythm without murmurs, gallops, or rubs. LUNGS: Clear to auscultation bilaterally with good chest wall expansion and air exchange. ABDOMEN: Soft, nontender, and nondistended. Normal bowel sounds. It is a bit hypertympanic to percussion over the central upper abdomen area. EXTREMITIES: Have 1+ pitting edema at the feet and ankles bilaterally. PSYCH: Again, the patient appears to be generally appropriate. Has normal conversation. His affect is generally normal. NEUROLOGIC: Moves all extremities spontaneously. Cognition is borderline, but appears to be generally normal. No major deficits. LABORATORY DATA: White count 8.5, hemoglobin 13.1, and platelets 188. Sodium 136, potassium 2.7, chloride 102, CO2 is 21, BUN 11, creatinine is 1.39, and glucose 236. Lactic acid 4.6, repeat 3.9; calcium 9.3; magnesium 1.7; total bilirubin is 2.5 ; AST is 95; ALT is 31; alkaline phosphatase 269; albumin 3.6; and lipase 220. Urinalysis shows significant glucose, trace ketones, trace blood, trace protein, urobilinogen is 2.0, red cells 0 to 3, white cells 0 to 3. Chest x-ray, ectatic aorta, otherwise negative. CT abdomen and pelvis shows being stable from 12/27/2018 with two large cystic lesions arising from the pancreas. The largest measures up to 10 cm and smaller is 5 to 7 cm lytic process involving L2 previously described as well. A CT brain that shows involutional changes, but nothing acute. CT chest, no central pulmonary embolism, large pancreatic pseudocyst, ectasia and tortuosity of the thoracic aorta with coronary atherosclerosis due to calcified coronary lesions. Abdominal ultrasound; large epigastric pancreatic pseudocyst with cholelithiasis. The gallbladder has mural wall thickening and mural edema, but no sonographic Valdez sign and no excessive luminal distention. IMPRESSION AND PLAN: 1. Abdominal pain associated with nausea, vomiting, diarrhea, and incontinence and 103.5 rectal temperature and some encephalopathy. The patient has a history of a questionable cholecystitis. He has not been well enough to have a cholecystectomy. At this point, he has received vancomycin and Zosyn today. We will continue with those. Surgery was consulted and we will follow. The patient has typically been followed by Dr. Lawson who told the family that he would consider cholecystectomy and potentially draining the pancreatic pseudocyst into the stomach as well. We will defer those decisions to Surgery. The patient does not have a significant white count. It is unclear if this is related to new issues with the pancreatic pseudocyst. 2. Pancreatic pseudocyst. This is an extremely large pseudocyst which appears to be putting some mass effect on the patient's stomach and the pancreatic area again as above, being followed by Dr. Lawson as an outpatient. We will defer to Surgery. 3. Possible cholecystitis as above, being followed by Surgery. We will continue to cover with antibiotics. 4. Acute metabolic encephalopathy, secondary to fever and systemic inflammatory response syndrome versus sepsis, appears to be resolved at this point. 5. Hypokalemia. The patient received IV repletion. We will continue to monitor. 6. Chronic kidney disease, stage 3. Creatinine appears to be at his stable baseline. 7. Lactic acidosis, again, due to the systemic inflammatory response syndrome, unclear if there truly is infection underlying this. We will continue to monitor. 8. Hypothyroidism. Continue with home levothyroxine. 9. Diabetes mellitus. Continue his p.o. glipizide with sliding scale insulin. 10. History of depression. Continue with escitalopram. 11. Disposition: The patient is full code. I had a long discussion with the patient's family regarding the complicated nature of this patient's disease. Unfortunately, his pancreatic pseudocyst can be very difficult to fully resolve and can be challenging from a surgical standpoint, but would defer those conversations to Surgery specifically. Job ID: [id number] MTDD
--- NOTE | 2019-01-07 22:58 | CON ---
DATE OF CONSULTATION: CHIEF COMPLAINT: Epigastric pain and nausea. HISTORY OF PRESENT ILLNESS: The patient is a 73-year-old male, who has a history of metastatic renal carcinoma, is undergoing immunotherapy and developed pancreatitis in August. He was in the ICU for at least 5 days. He got better, but then developed a pancreatic pseudocyst by September. This was measured over 10 cm. He was being followed by Dr. Lawson as an outpatient in anticipation of eventually doing a cyst gastrostomy and possible laparoscopic cholecystectomy as they also found small gallstones. He has been doing well until this morning at 2:00 a.m. He had sudden pain and indigestion associated with nausea and a small amount of vomiting. He has had diarrhea. He says now he feels fine. His pain is gone and he said that Mylanta made things better. PAST MEDICAL HISTORY: Hyperlipidemia, diabetes, renal cell carcinoma, and he also had a shoulder tumor. PAST SURGERIES: He has had knee surgery, colon surgery, and appendectomy. SOCIAL HISTORY: He is retired. Social alcohol. No tobacco. ALLERGIES: TO HYDROCODONE, MORPHINE AND TRAMADOL. PHYSICAL EXAMINATION: VITAL SIGNS: T-max was 100.3, is now afebrile; pulse 94; and blood pressure 156/71. GENERAL: Well-developed and well-nourished male, does not appear to be in any distress. HEENT: No obvious jaundice. LUNGS: Clear. HEART: Regular rate and rhythm. ABDOMEN: Soft. There is some distention, little bit of obesity. He is mildly tender across the epigastrium with some fullness in the left upper quadrant. EXTREMITIES: Unremarkable. LABORATORY DATA: His white count is 8.5, H and H are 13 and 42, and platelet count 188. Electrolytes; his potassium was low at 2.7. His glucose elevated at 236. His total bilirubin was 2.5, AST 95, alkaline phosphatase 269, lipase is 220. CT scan of the brain negative. Chest x-ray negative. CT angiogram, no pulmonary embolus. CT of the abdomen showed 2 large cystic areas in the pancreas 10 and 7 cm, stable in size since September. Ultrasound had a different measurements at 15.5 x 9 x 10 cm. Common bile duct was seen at 2 mm. There were several small gallstones, but no distention of the gallbladder. ASSESSMENT: Symptomatic cholelithiasis with symptomatic pancreatic pseudocyst, in no apparent distress at this time. PLAN: Bowel rest, IV fluids. We will also get GI to consult. We will need cystogastrostomy as well as laparoscopic cholecystectomy in the future. Job ID: [id number]
[2019-01-08] MEDS: Piperacillin/Tazobactam 3.375 GM in Sodium Chloride 0.9% 100 ML IVPB SCH ×5 (00:19→23:57)
--- NOTE | 2019-01-08 01:22 | CON ---
DATE OF CONSULTATION: 01/07/2019 REASON FOR CONSULTATION: Pancreatic pseudocyst, acute pancreatitis, possible choledocholithiasis. CONSULTING PROVIDERS: Dr. Trey Barnes and Dr. Brendan Cornejo. HISTORY OF PRESENT ILLNESS: The patient is a 73-year-old male with past medical history of renal cell carcinoma with metastatic disease, hyperlipidemia, diabetes, and pancreatitis in September 2018 presenting with complaints of abdominal pain. He states that he was in his usual state of health until yesterday after eating a hamburger from [employer]. That night he had an increase in right-sided abdominal pain characterized as a "indigestion" type pain, was nonradiating, lasted approximately 2 hours and spontaneously resolved. However, he did have recurrence of this of abdominal pain early the next morning that was associated with nausea and vomiting x1, a diarrhea episode x1, subjective chills and diaphoresis that was witnessed by both his sisters and his son. This was also associated with increased generalized weakness that concerned his relatives enough to bring him to the [facility] ER for further evaluation. While in the ER, he was evaluated and per chart review, found to have a temperature of over 103 (although a temperature of 100.3 is recorded in the chart). However, upon interview and evaluation today, the patient has had complete resolution of all the above symptoms and other than just feeling fatigued, is otherwise doing well. He currently denies any nausea, vomiting, fevers, chills, melena, hematemesis, hematochezia, dysphagia, odynophagia, abdominal pain, or constipation. Of note, the patient was diagnosed with pancreatitis in September 2018 with subsequent formation of 2 large pseudocysts. Upon evaluation during this admission, imaging shows that these pseudocysts are fairly stable in size. REVIEW OF SYSTEMS: A 10-category review of systems was obtained with all responses negative except for the pertinent positives as listed in HPI. PAST MEDICAL HISTORY: As per HPI. PAST SURGICAL HISTORY: Appendectomy, knee surgery, colonoscopy, and colon resection. FAMILY HISTORY: Denies any GI malignancies. SOCIAL HISTORY: Denies any tobacco or illicit drug use, but does drink approximately 1 to 2 beers every 2 to 3 weeks. OUTPATIENT MEDICATIONS: 1. Tylenol as needed. 2. Glipizide 5 mg daily. 3. Protonix 40 mg daily. 4. Levothyroxine 125 mcg daily. 5. Escitalopram 20 mg daily. ALLERGIES: HYDROCODONE. PHYSICAL EXAMINATION: VITAL SIGNS: Temperature 99.6, pulse 94, blood pressure 156/79, respiratory rate 18, saturating 97% on 2 L nasal cannula. GENERAL: The patient was lying in bed, in no acute distress. Alert and oriented x4, although thought processes were somewhat slowed. HEENT: Normocephalic, atraumatic. NECK: Supple. No JVD or scleral icterus noted. CARDIOVASCULAR: Regular rate and rhythm with no discernible murmurs, gallops, or rubs. RESPIRATORY: Clear to auscultation bilaterally with no discernible, wheezes or rales. ABDOMEN: Normoactive bowel sounds. Soft, nontender, nondistended. Despite deep palpation in the right upper quadrant. EXTREMITIES: Trace/1+ bilateral lower extremity edema extending to mid serrano. LABORATORY DATA: CBC with a white blood cell count of 8.5, hemoglobin 13.1, hematocrit 42.1, platelets 188. Chemistry with a sodium of 136, potassium 2.7, chloride 102, CO2 of 21, BUN 11, creatinine 1.39, glucose 236. AST 95, ALT 31, alkaline phosphatase 269, total bilirubin 2.5, lipase 220. IMAGING DATA: CT of the abdomen and pelvis obtained on January 07, 2019, showed mild intrahepatic dilatation as well as a mild amount of pericholecystic fluid. Two large cystic lesions arising from the pancreas measuring 10 cm and 5-7 cm were also seen. Mild perinephric stranding was unchanged as well as mild mesenteric edema. Abdominal ultrasound obtained on January 07, 2019, showed large cystic masses/pseudocyst displacing both the stomach and the pancreas. However, the common bile duct measured 2 mm and the gallbladder showed multiple tiny mobile gallstones with diffuse mural thickening of the gallbladder up to 7 mm in size with intramural edema and pericholecystic fluid. ASSESSMENT AND PLAN: The patient is a 73-year-old male with past medical history of renal cell carcinoma with metastatic disease, hyperlipidemia, diabetes, and prior bout of pancreatitis presenting with right-sided abdominal pain, diarrhea, and generalized weakness concerning for a biliary process. Right-sided abdominal pain. The patient is presenting with the acute onset of right upper quadrant and right flank abdominal pain characterized as a "indigestion" type pain that lasted for approximately 2 hours and resolved with the administration of Mylanta. It did recur and with the 2nd recurrence resulted in diarrhea, nausea, vomiting, and diaphoresis, but all these symptoms have not recurred. Upon evaluation in the ER, he does have a mild cholestatic type picture with predominance of alkaline phosphatase and total bilirubin as well as an elevated lipase of 220, which does technically meet criteria for acute pancreatitis. However, clinically the patient does not exhibit any pain at all both to light and deep palpation of the abdomen. His imaging is also somewhat confusing and that his right upper quadrant ultrasound shows findings more consistent with acute cholecystitis with normal common bile duct caliber of 2 mm. However, the CT scan shows mild intrahepatic dilatation, but does not specifically comment on the common bile duct itself. At this time, the clinical picture is confusing for the presence of a possible biliary pathology including choledocholithiasis. With the slightly elevated bilirubin and alkaline phosphatase as well as intrahepatic dilatation seen on CT, it is consistent with this diagnosis, but the right upper quadrant ultrasound shows a common bile duct caliber of 2 mm and is more consistent with acute cholecystitis, which could also generate a similar laboratory study profile. Given the fact that the patient is completely asymptomatic at this time, I am more inclined to monitor the patient with repeat labs in the morning. RECOMMENDATIONS: 1. We would repeat LFTs in the morning for further evaluation of possible choledocholithiasis or biliary pathology. 2. Continue to monitor the patient in the intermediate care bed for the time being for signs of worsening disease. 3. We would place the patient on a clear liquid diet for the time being in light of possible acute pancreatitis, which would be uncomplicated at this time. 4. Pain control per primary team. 5. We would continue with IV fluids as you are doing. 6. Pancreatic pseudocyst. The patient is presenting with a history of acute pancreatitis in September of 2018, with the formation of very large pancreatic pseudocyst at that time. The patient was being followed by Dr. Lawson as an outpatient with plans to do a laparoscopic cholecystectomy as well as what appears to be a cystogastrostomy of these larger pancreatic pseudocysts. Based on the imaging obtained during this admission, the pseudocysts are relatively unchanged in size with the likelihood of a malignant type process being extremely low, the propensity of pancreatic pseudocyst to be reabsorbed by the body is high, although with their unchanged size since September of this year, this may be less likely to do so in this case in which case either endoscopic drainage or surgical management is indicated, if generating symptoms or compressing critical structures. RECOMMENDATIONS: 1. We will continue to monitor the patient clinically for enlargement of these pancreatic pseudocysts. 2. We would defer to Dr. Lawson for drainage of these pancreatic pseudocysts. 3. We would recommend a low-fat diet to the patient in light of possible repeat occurrence of pancreatitis, which could then further contribute to pseudocyst formation. 4. We will continue to follow. Please call with any questions. Job ID: [id number]
[2019-01-08] MEDS: Sodium Chloride 0.9% 1,000 ML IV SCH ×2 (03:36→20:27)
[2019-01-08 04:27] LABS: #Basophils 0.1 thou/uL (0.0-0.2); #Eosinphils 0.1 thou/uL (0.0-0.7); #Lymphocytes 1.7 thou/uL (1.20-3.40); #Monocytes 0.7 thou/uL (0.11-0.59); #Neutrophils 9.1 thou/uL (1.40-6.50); %Basophils 0.5 % (0.0-1.0); %Eosinophils 0.7 % (0.0-10.0); %Lymphocytes 14.8 % (21.0-51.0); %Monocytes 5.6 % (0.0-10.0); %Neutrophils 78.3 % (42.0-75.0); Hemoglobin 11.4 g/dL (14.0-18.0); Mean Corpuscular HGB CONC 31.5 g/dL (32.0-36.0); Mean Corpuscular Hemoglobin 27.2 pg (27.0-31.0); Mean Corpuscular Volume 86.4 fL (78.0-98.0); Mean Platelet Volume 7.7 fL (7.4-10.4); Platelet Count 185 thou/uL (130-400); RBC Distribution Width 14.7 % (11.5-14.5); Red Blood Cell (RBC) Count 4.17 mill/uL (4.70-6.10); White Blood Cell (WBC) Count 11.6 thou/uL (4.8-10.8)
[2019-01-08 04:52] LABS: ALT (SGPT) 29 U/L (8-55); AST (SGOT) 49 U/L (5-34); Albumin 2.9 g/dL (3.4-4.8); Alkaline Phosphatase 194 U/L (40-110); Anion Gap 10 mmol/L (10-20); BUN (Urea Nitrogen) 14 mg/dL (8.4-25.7); Calc. Creatinine Clearance 63 mL/min (70-130); Calcium 8.1 mg/dL (7.8-10.44); Carbon Dioxide 22 mmol/L (23-31); Chloride 108 mmol/L (98-107); Estimated GFR-MDRD 58; Globulin 2.8 g/dL (2.4-3.5); Glucose 78 mg/dL (83-110); Potassium 3.3 mmol/L (3.5-5.1); Protein, Total 5.7 g/dL (5.8-8.1); Sodium 137 mmol/L (136-145)
[2019-01-08] MEDS: Levothyroxine Sodium 125 MCG TAB PO SCH (06:38)
[2019-01-08] MEDS: Pantoprazole 40 MG VIAL IVP SCH (09:30)
[2019-01-08] MEDS: Citalopram 20 MG TAB PO SCH (09:30)
[2019-01-08] MEDS: Vancomycin HCl 1 GM in Premix Bag 1 BAG IVPB SCH ×2 (09:31→20:23)
[2019-01-08] MEDS: Enoxaparin Sodium 40 MG/0.4 ML SYRINGE SC SCH (09:31)
--- NOTE | 2019-01-08 11:56 | PDOC.HOSPP ---
- Subjective Encounter Date: 01/08/19 Encounter Time: 11:54 Subjective: Doing well. No complaints. Tolerated clears well. - Objective Vital Signs & Weight: Vital Signs (12 hours) Temp Pulse Ox 01/08/19 11:11 98.0 F 01/08/19 07:49 97.6 F 01/08/19 07:48 97 01/08/19 03:49 97.6 F 01/08/19 00:00 98.4 F Weight Weight 178 lb 9.191 oz Most Recent Monitor Data Heart Rate from ECG 78 NIBP 118/68 NIBP BP-Mean 84 Respiration from ECG 27 SpO2 99 I&O: 01/07/19 01/08/19 01/09/19 06:59 06:59 06:59 Intake Total 1470 Output Total 850 Balance 620 Result Diagrams: 01/08/19 04:05 01/08/19 04:05 Additional Labs: Accuchecks 01/08/19 01/08/19 01/07/19 10:37 06:05 20:06 POC Glucose 122 H 76 103 01/07/19 16:03 POC Glucose 159 H Hospitalist ROS - Medication Medications: Active Medications Generic Name Dose Route Start Last Admin Trade Name Freq PRN Reason Stop Dose Admin Citalopram Hydrobromide 20 mg 01/08/19 09:00 01/08/19 09:30 Celexa PO 20 mg DAILY CARLA Administration Enoxaparin Sodium 40 mg 01/08/19 09:00 01/08/19 09:31 Lovenox SC 40 mg 0900 CARLA Administration Glipizide 5 mg 01/08/19 08:00 01/08/19 09:30 Glucotrol Xl PO 5 mg QAM-WM CARLA Administration Piperacillin Sod/Tazobactam 100 mls @ 200 mls/hr 01/07/19 18:00 01/08/19 06: 37 Sod 3.375 gm/ Sodium Chloride IVPB 100 mls Q6HR CARLA Administration Vancomycin HCl 1 gm/ Device 200 mls @ 200 mls/hr 01/07/19 21:00 01/08/19 09: 31 IVPB 200 mls Q12HR CARLA Administration Sodium Chloride 1,000 mls @ 75 mls/hr 01/07/19 12:45 01/08/19 03:36 Normal Saline 0.9% IV 1,000 mls .[id number] CARLA Administration Levothyroxine Sodium 125 mcg 01/08/19 06:00 01/08/19 06:38 Synthroid PO 125 mcg 0600 CARLA Administration Pantoprazole Sodium 40 mg 01/08/19 09:00 01/08/19 09:30 Protonix IVP 40 mg DAILY CARLA Administration Sodium Chloride 10 ml 01/07/19 21:00 01/08/19 09:31 Flush - Normal Saline IVF 10 ml Q12HR CARLA Administration - Exam General Appearance: NAD, awake alert ENT: normocephalic atraumatic, no oropharyngeal lesions, moist mucosa ENT - other findings: Significant dental plaque, but no inflammation Neck: supple, symmetric, no JVD, no thyromegaly, no lymphadenopathy, no carotid bruit Heart: RRR, no murmur, no gallops, no rubs, normal peripheral pulses Respiratory: CTAB, no wheezes, no rales, no ronchi, normal chest expansion, no tachypnea, normal percussion Gastrointestinal: soft, non-tender, non-distended, normal bowel sounds, no palpable masses, no hepatomegaly, no splenomegaly, no bruit Extremities: no cyanosis, no clubbing Extremities - other findings: Trace edema BLE Skin: normal turgor Skin - other findings: Superficial flaking skin of LE's. No inflam, lesions. Neurological: cranial nerve grossly intact, normal sensation to touch, no weakness, no focal deficits, no new deficit Musculoskeletal: normal tone Psychiatric: normal affect, normal behavior, A&O x 3 Hosp A/P (1) Sepsis Code(s): A41.9 - SEPSIS, UNSPECIFIED ORGANISM Status: Acute (2) Streptococcal bacteremia Code(s): R78.81 - BACTEREMIA; B95.5 - UNSP STREPTOCOCCUS THE CAUSE OF DISEASES CLASSD ELSWHR Status: Acute (3) Pancreatic pseudocyst Code(s): K86.3 - PSEUDOCYST OF PANCREAS Status: Acute (4) Cholecystitis Code(s): K81.9 - CHOLECYSTITIS, UNSPECIFIED Status: Acute (5) Acute metabolic encephalopathy Code(s): G93.41 - METABOLIC ENCEPHALOPATHY Status: Acute (6) Acute respiratory failure with hypoxia Code(s): J96.01 - ACUTE RESPIRATORY FAILURE WITH HYPOXIA Status: Acute (7) Dyslipidemia Code(s): E78.5 - HYPERLIPIDEMIA, UNSPECIFIED Status: Chronic (8) Hypertension Code(s): I10 - ESSENTIAL (PRIMARY) HYPERTENSION Status: Chronic (9) Hypothyroidism Code(s): E03.9 - HYPOTHYROIDISM, UNSPECIFIED Status: Chronic (10) Metastatic renal cell carcinoma to bone Code(s): C79.51 - SECONDARY MALIGNANT NEOPLASM OF BONE; C64.9 - MALIGNANT NEOPLASM OF UNSP KIDNEY, EXCEPT RENAL PELVIS Status: Chronic (11) Diabetes mellitus Code(s): E11.9 - TYPE 2 DIABETES MELLITUS WITHOUT COMPLICATIONS Status: Acute - Plan Doing much better overall. Now has strep bacteremia. May not be related to the pancreas, GB at all. Thorough exam reveals no source. Continue with V/Z IV. Consult ID. Echo. Clear liquids. GI, Gen Surg following. Blood sugars ok. PO potassium
[2019-01-08] MEDS ORDERED: Potassium Chloride 20 MEQ TAB PO SCH (12:00)
--- NOTE | 2019-01-08 13:44 | PRG ---
DATE OF SERVICE: 01/08/2019 SUBJECTIVE: The patient says he feels better. He is tolerating liquids. No nausea or vomiting. OBJECTIVE: VITAL SIGNS: His temperature is 98, pulse 78, and blood pressure 118/68. GENERAL: He looks better. ABDOMEN: Soft. Minimal tenderness. LABORATORY DATA: His white count is 11.6, H and H of 11 and 36, and platelet count 185. His total bili is 3. ASSESSMENT: Pancreatic pseudocyst with some elevation of his bilirubin. PLAN: GI evaluation. Evidently, he has some kind of a positive blood culture for Strep. The origin of which we are not clear of and so they are going to go ahead and continue treating with IV antibiotics. Dr. Lawson to see tomorrow. Job ID: [id number]
--- NOTE | 2019-01-08 15:19 | PRG ---
DATE OF SERVICE: 01/08/2019 REASON FOR CONSULTATION: Pancreatic pseudocyst, possible acute pancreatitis, and elevated LFTs. SUBJECTIVE: The patient states that he is doing well this morning with no acute events or problems overnight. He has been able to tolerate a clear liquid diet well with no episodes of nausea or vomiting. He states that he does have some mild right-sided abdominal pain, but otherwise states that it is getting better. Currently, denies any nausea, vomiting, fevers, chills, melena, hematemesis, or hematochezia. OBJECTIVE: VITAL SIGNS: Temperature 98, pulse 78, blood pressure 118/68, respiratory rate 27, and saturating 99% on room air. GENERAL: The patient is lying in bed, in no acute distress. Alert and oriented x4. CARDIOVASCULAR: Regular rate and rhythm. RESPIRATORY: Clear to auscultation bilaterally. ABDOMEN: Normoactive bowel sounds. Soft, nondistended, and mild tenderness to palpation in the right abdomen. EXTREMITIES: Trace/1+ bilateral lower extremity edema extending to mid serrano. LABORATORY DATA: CBC with a white blood cell count of 11.6, hemoglobin 11.4, hematocrit 36, and platelets 185. Chemistry with a sodium of 137, potassium 3.3, chloride 108, CO2 of 22, BUN 14, creatinine 1.23, glucose 78, AST 49, ALT 29, alkaline phosphatase 194, and total bilirubin 3. Microbiology, blood cultures x2 positive for gram-positive cocci with one blood culture showing a Streptococcus species. IMAGING DATA: No current GI imaging is available for review. ASSESSMENT AND PLAN: The patient is a 73-year-old male with past medical history of renal cell carcinoma with metastatic disease, hyperlipidemia, diabetes, and prior bout of pancreatitis, presenting with right-sided abdominal pain, diarrhea, and generalized weakness that has now resolved. Right-sided abdominal pain: The patient initially had a history of right upper quadrant and right flank abdominal pain characterized as an indigestion type pain, that lasted for 2 hours and resolve completely with Mylanta. He has since had mild recurrences, but otherwise has resolved upon my evaluation today. There was also some concern for possible choledocholithiasis, but given lack of abdominal pain and downtrending of his LFTs at this time, the likelihood of this is low rather if he is indeed growing out Streptococcus bacteremia, it could generate his abdominal pain and elevated LFTs. Currently, the patient is asymptomatic and while he does have an elevated lipase on admission, does not have any clinical symptoms associated with acute pancreatitis. Recommendations; 1. I would continue to monitor his LFTs to document downtrending of his bilirubin. 2. Agree with antibiotics for treatment of Streptococcus bacteremia. 3. Could advance the patient's diet as tolerated unless not indicated by other medical comorbidities. 4. Pain control per primary team. Pancreatic pseudocyst: The patient is presenting with a history of acute pancreatitis in September of 2018, with the formation of 2 very large pancreatic pseudocysts. However, at this time, these pseudocyst do not be compressing vital structures appeared to be contributing to his current clinical constellation of symptoms. The patient was seen by Dr. Lawson as an outpatient with plan is to do a laparoscopic cholecystectomy as well as what sounds like a cystogastrostomy for these larger pancreatic pseudocysts. Based on their stability in size, the likelihood of a malignant process is low with no current plans for intervention at this time. Recommendations; 1. We will continue to monitor the patient clinically for signs of worsening midepigastric abdominal pain consistent with acute pancreatitis. 2. When advancing the patient's diet, would not proceed no further than a low-fat diet given that a higher fat diet has a higher propensity to cause repeat inflammation. 3. Would defer to Dr. Lawson for drainage of these pancreatic pseudocyst at this time. We will continue to follow. Please call with any questions. Job ID: [id number]
--- NOTE | 2019-01-08 23:23 | CON ---
DATE OF CONSULTATION: 01/08/2019 REASON FOR CONSULTATION: Bacteremia. HISTORY OF PRESENT ILLNESS: A 73-year-old with history of metastatic renal cell cancer, which has been treated with combination of PD-1 checkpoint inhibitor for the past year up until August when he developed acute pancreatitis and it had to be discontinued. He also has type 2 diabetes and hypertension. When he developed pancreatitis, the etiology was felt to be either the PD-1 checkpoint inhibitor or gallbladder disease. The patient was noted to have a large pseudocyst in November of this year, but overall felt much better with remission having been documented in relationship to his renal cell cancer in all sites of previously noted involvement. Early Wednesday morning he developed chills, general malaise, some retching, but no vomiting. No headaches. No visual symptoms. Not much back pain. He did have some right upper quadrant abdominal pain, which has resolved. On arrival, he was found to have a temperature of 103 and initial findings included a BP of 170/70, pulse 110, temperature 103.5, and O2 saturation 87%. He was alert and oriented. Speech was normal. Lungs are clear. Abdomen is soft, nontender, distended and the heart exam showed no murmurs. Initial white cell count is 8.5, hemoglobin 13, and platelets 188 with 92% neutrophils. Sodium 136; creatinine 1.39, which is a bit higher than his baseline; and glucose 236. Lactic acid 4.6, AST 95, bilirubin 2.5, alkaline phosphatase 269, and lipase was 220. His previous lipase in August was 8000, had gone down to 13 and went up a bit to 237 in October, now is 220. Urinalysis was fairly unremarkable except for glycosuria. Two sets of blood cultures obtained on admission revealed gram-positive cocci identified as Streptococcus species. This sets were obtained about 30 minutes apart. The patient has received Zosyn and vancomycin. He is feeling better now. A 10-point review of systems now shows resolution of the abdominal pain, other areas are not remarkable. 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 Acute pancreatitis diagnosed in August, which was felt to be due to either the checkpoint inhibitor therapy or gallbladder disease. The gallbladder was not removed because of the pancreatitis. History of type 2 diabetes, hyperlipidemia, right knee replacement, and appendectomy. SOCIAL HISTORY: Drinks occasionally. No smoking history. ALLERGIES: HYDROCODONE, MORPHINE, AND TRAMADOL. FAMILY HISTORY: Noncontributory. CURRENT MEDICATIONS: Tylenol, Celexa, Lovenox, Glucotrol, glucagon, insulin, Synthroid, Zofran, and Protonix. PHYSICAL EXAMINATION: VITAL SIGNS: T-max 103 on arrival, now with the latest high temperature of 100.3 and now he has been afebrile since. Other vital signs are normal, slightly hypotensive. SKIN: Not remarkable. There is little bit hyperpigmentation in the left shoulder area. Peripheral IV access, right and left upper antecubital area and he is urinating in the urinal. No lymphadenopathy. Alopecia, male pattern. HEENT: Ocular movements conjugate. Pupils are equal. Conjunctivae are normal. Sclerae are normal. Oral cavity normal. Still numerous teeth in place with the expected gum disease. NECK: Supple. No jugular vein distention or carotid bruits. LUNGS: Symmetric. Clear breath sounds. S1 and S2. Diminished heart sounds. No obvious murmurs. No S3. ABDOMEN: Soft and distended. No ascites. No tenderness. No organomegaly. No question of bladder distention. EXTREMITIES: No joint inflammatory activity. Right TKR site appears normal. Pulses 1+ in dorsalis pedis. 1+ edema, lower extremities, symmetric. Moves extremities on command. NEUROLOGIC: Nonfocal. LABORATORY DATA: Followup labs; white cell count is up to 11.6, hemoglobin 11.4 , and platelets 185. IMAGING: CT angio with no PE, large pancreatic pseudocyst. There is an abdomen ultrasound from 01/07, multiple mobile gallstones, gallbladder diffuse mural thickening and intramural edema. A small amount of pericholecystic fluid. Brain CT was normal. ASSESSMENT: 1. Metastatic renal cell cancer, being previously treated with PD-1 checkpoint inhibitor therapy with apparent success thus far. 2. Acute pancreatitis diagnosed in August with a large pseudocyst. The pancreatitis has improved if not resolved, and the elevations in amylase now are quite marginal compared with what it was in August. He did have also gallbladder disease, which is still present and now he presents with some abdominal pain in the right side associated with a bacteremia with Streptococcus yet to be fully identified, susceptibility tested. DISCUSSION: Differential diagnosis includes cholecystitis with bacteremia from possible associated cholangitis or the acute cholecystitis process itself is more likely scenario. Endocarditis is not ruled out but less likely. His last echocardiogram done today showed minor findings. Other sites of involvement including lungs or other intraabdominal sites, bone and joint are not likely at this point in time. We will switch him to Rocephin 2 g daily and consider a HIDA scan. May need a FER depending on clinical progress. Liver abscess is not apparent. Job ID: [id number] MTDD
[2019-01-08] MEDS: Dextrose 50% Abboject 50 ML SYRINGE SLOW IVP PRN (23:53)
[2019-01-09] MEDS: Dextrose 50% Abboject 50 ML SYRINGE SLOW IVP PRN (03:44)
[2019-01-09] MEDS ORDERED: Dextrose 5 % And 0.9 % NaCl 1,000 ML IV SCH (03:45)
[2019-01-09] MEDS: Levothyroxine Sodium 125 MCG TAB PO SCH (05:24)
[2019-01-09] MEDS: Piperacillin/Tazobactam 3.375 GM in Sodium Chloride 0.9% 100 ML IVPB SCH ×3 (05:24→17:24)
[2019-01-09 06:26] LABS: #Basophils 0.1 thou/uL (0.0-0.2); #Eosinphils 0.3 thou/uL (0.0-0.7); #Lymphocytes 1.3 thou/uL (1.20-3.40); #Monocytes 0.3 thou/uL (0.11-0.59); #Neutrophils 4.2 thou/uL (1.40-6.50); %Basophils 0.8 % (0.0-1.0); %Eosinophils 4.9 % (0.0-10.0); %Lymphocytes 20.6 % (21.0-51.0); %Monocytes 4.9 % (0.0-10.0); %Neutrophils 68.8 % (42.0-75.0); Hemoglobin 11.1 g/dL (14.0-18.0); Mean Corpuscular HGB CONC 31.5 g/dL (32.0-36.0); Mean Corpuscular Hemoglobin 27.4 pg (27.0-31.0); Mean Platelet Volume 8.1 fL (7.4-10.4); Platelet Count 168 thou/uL (130-400); RBC Distribution Width 14.7 % (11.5-14.5); Red Blood Cell (RBC) Count 4.04 mill/uL (4.70-6.10); White Blood Cell (WBC) Count 6.1 thou/uL (4.8-10.8)
[2019-01-09 06:47] LABS: ALT (SGPT) 24 U/L (8-55); AST (SGOT) 29 U/L (5-34); Albumin 2.7 g/dL (3.4-4.8); Alkaline Phosphatase 164 U/L (40-110); Anion Gap 11 mmol/L (10-20); BUN (Urea Nitrogen) 12 mg/dL (8.4-25.7); Bilirubin, Total 1.2 mg/dL (0.2-1.2); Calc. Creatinine Clearance 61 mL/min (70-130); Calcium 7.8 mg/dL (7.8-10.44); Carbon Dioxide 20 mmol/L (23-31); Chloride 109 mmol/L (98-107); Estimated GFR-MDRD 54; Globulin 2.8 g/dL (2.4-3.5); Glucose 99 mg/dL (83-110); Potassium 3.5 mmol/L (3.5-5.1); Protein, Total 5.5 g/dL (5.8-8.1); Sodium 136 mmol/L (136-145)
[2019-01-09 08:25] LABS: Vancomycin, Trough 25.7 ug/mL
[2019-01-09] MEDS: Citalopram 20 MG TAB PO SCH (09:18)
[2019-01-09] MEDS: Enoxaparin Sodium 40 MG/0.4 ML SYRINGE SC SCH (09:18)
[2019-01-09] MEDS: Pantoprazole 40 MG VIAL IVP SCH (09:19)
[2019-01-09] MEDS: Vancomycin HCl 1 GM in Premix Bag 1 BAG IVPB SCH (09:19)
--- NOTE | 2019-01-09 09:26 | CON ---
DATE OF CONSULTATION: HISTORY OF PRESENT ILLNESS: Andrea Loo is a 73-year-old gentleman, who is admitted to the hospital with nausea and vomiting. He is found to have acute cholecystitis and pancreatic pseudocyst. Surgery was consulted for possible intervention. Pulmonary is seeing him because in the MICU. He has seen Dr. Narayan in office in the past. This morning, he denies any nausea, vomiting. Denies any shortness of breath. He is a nonsmoker. PAST MEDICAL HISTORY: Otherwise, pertinent for diabetes, hypertension, and metastatic renal cancer, being followed locally in [place]. PAST SURGICAL HISTORY: Knee surgery, appendix, and colon resection. ALLERGIES: HYDROCODONE. SOCIAL HISTORY: Tobacco, none. Alcohol, none. HOME MEDICATIONS: Include; 1. Glipizide 5. 2. Protonix 40. 3. Synthroid 125. 4. Celexa 20. 5. Tylenol. REVIEW OF SYSTEMS: Otherwise, 10-point negative. PHYSICAL EXAMINATION: VITAL SIGNS: On examination, saturations are 97% on 2 L, temperature is 97.6, blood pressure is 97/50, and respiratory rate is 18. CHEST: No wheezing or crackles. CARDIAC: Normal S1 and S2. ABDOMEN: Soft, without any masses. LABORATORY DATA: His creatinine is 1.23. Alkaline phosphatase is negative. Blood culture is growing gram-positive cocci, awaiting identification. cultures are positive. ASSESSMENT: 1. Acute cholecystitis. 2. Sepsis syndrome. 3. Renal cell carcinoma. 4. Hypothyroidism. 5. Diabetes. PLAN: He is on Zosyn and vancomycin, should cover his present sepsis syndrome. Await input from surgery. Pulmonary will follow while in the MICU. Consultation note, 70 minutes, 50% direct patient care. Job ID: [id number]
--- NOTE | 2019-01-09 14:00 | PRG ---
DATE OF SERVICE: 01/09/2019 SUBJECTIVE: Mr. Loo says he is doing pretty well today. He is not having any abdominal pain or vomiting. He is tolerating his clear liquid diet. He has been afebrile, on the IV antibiotics. OBJECTIVE: VITAL SIGNS: Temperature 97.2, pulse 68, blood pressure 134/68, 100% oxygen saturation on room air. GENERAL: In no acute distress. HEART: Regular rate and rhythm. LUNGS: Clear to auscultation bilaterally. ABDOMEN: Soft, nontender to palpation. EXTREMITIES: No peripheral edema. LABORATORY STUDIES: WBC is down to 6.1, hemoglobin 11.1, and platelets 168. Sodium 136, potassium 3.5, BUN 12, creatinine 1.31, total bilirubin is down to 1.2, alkaline phosphatase down to 164, AST is 29, ALT 24. Note, admission lipase is 220. Blood cultures demonstrating Streptococcus pasteurianus. ASSESSMENT AND PLAN: 1. Cholecystitis. 2. Pancreatic pseudocyst, stable. 3. Streptococcal bacteremia. The patient has been evaluated by Dr. Lawson. My understanding is that the plan is for cholecystectomy as well as pseudocyst drainage in the operating room later this admission. I agree with this plan. For now, the patient seems to be responding very well to the IV antibiotics, afebrile, and essentially asymptomatic again today. GI will sign off at this time, but please call back anytime with questions or concerns. Job ID: [id number]
--- NOTE | 2019-01-09 15:55 | PDOC.HOSPP ---
- Subjective Subjective: Doing very well overall. No complaints today. He spoke with Dr. Lawson today. Plan for surgery tomorrow. - Objective Vital Signs & Weight: Vital Signs (12 hours) Temp Pulse Resp BP Pulse Ox 01/09/19 15:32 97.7 F 01/09/19 11:24 97.2 F L 01/09/19 08:00 100 01/09/19 07:15 98.1 F 01/09/19 06:00 67 24 H 121/67 99 01/09/19 03:55 97.7 F Weight Weight 185 lb 1.6 oz Most Recent Monitor Data Heart Rate from ECG 64 NIBP 117/67 NIBP BP-Mean 83 Respiration from ECG 23 SpO2 100 I&O: 01/08/19 01/09/19 01/10/19 06:59 06:59 06:59 Intake Total 1470 1290 Output Total 850 380 Balance 620 910 Result Diagrams: 01/09/19 05:44 01/09/19 05:44 Additional Labs: Accuchecks 01/09/19 01/09/19 01/09/19 10:50 05:26 04:18 POC Glucose 144 H 101 134 H 01/09/19 01/09/19 01/08/19 03:31 00:33 23:54 POC Glucose 58 L* 138 H 65 L 01/08/19 01/08/19 01/08/19 23:36 19:57 16:38 POC Glucose 49 L* 72 61 L Hospitalist ROS - Medication Medications: Active Medications Generic Name Dose Route Start Last Admin Trade Name Freq PRN Reason Stop Dose Admin Citalopram Hydrobromide 20 mg 01/08/19 09:00 01/09/19 09:18 Celexa PO 20 mg DAILY CARLA Administration Dextrose/Water 25 gm 01/07/19 12:45 01/09/19 03:44 Dextrose 50% SLOW IVP 25 gm PRN PRN Administration Hypoglycemia Piperacillin Sod/Tazobactam 100 mls @ 200 mls/hr 01/07/19 18:00 01/09/19 12: 22 Sod 3.375 gm/ Sodium Chloride IVPB 100 mls Q6HR CARLA Administration Dextrose/Sodium Chloride 1,000 mls @ 75 mls/hr 01/09/19 03:45 01/09/19 04:00 D5 0.9% Ns IV 1,000 mls .[id number] CARLA Administration Levothyroxine Sodium 125 mcg 01/08/19 06:00 01/09/19 05:24 Synthroid PO 125 mcg 0600 CARLA Administration Pantoprazole Sodium 40 mg 01/08/19 09:00 01/09/19 09:19 Protonix IVP 40 mg DAILY CARLA Administration Sodium Chloride 10 ml 01/07/19 21:00 01/09/19 09:19 Flush - Normal Saline IVF 10 ml Q12HR CARLA Administration - Exam General Appearance: NAD, awake alert Heart: RRR, no murmur, no gallops, no rubs, normal peripheral pulses Respiratory: CTAB, no wheezes, no rales, no ronchi, normal chest expansion, no tachypnea, normal percussion Gastrointestinal: soft, non-tender, non-distended, normal bowel sounds, no palpable masses, no hepatomegaly, no splenomegaly, no bruit Skin: normal turgor, no lesions, no rashes Musculoskeletal: normal tone, normal strength, no muscle wasting Psychiatric: normal affect, normal behavior, A&O x 3 Hosp A/P (1) Sepsis Code(s): A41.9 - SEPSIS, UNSPECIFIED ORGANISM Status: Acute (2) Streptococcal bacteremia Code(s): R78.81 - BACTEREMIA; B95.5 - UNSP STREPTOCOCCUS THE CAUSE OF DISEASES CLASSD ELSWHR Status: Acute (3) Pancreatic pseudocyst Code(s): K86.3 - PSEUDOCYST OF PANCREAS Status: Acute (4) Cholecystitis Code(s): K81.9 - CHOLECYSTITIS, UNSPECIFIED Status: Acute (5) Acute metabolic encephalopathy Code(s): G93.41 - METABOLIC ENCEPHALOPATHY Status: Acute (6) Acute respiratory failure with hypoxia Code(s): J96.01 - ACUTE RESPIRATORY FAILURE WITH HYPOXIA Status: Acute (7) Dyslipidemia Code(s): E78.5 - HYPERLIPIDEMIA, UNSPECIFIED Status: Chronic (8) Hypertension Code(s): I10 - ESSENTIAL (PRIMARY) HYPERTENSION Status: Chronic (9) Hypothyroidism Code(s): E03.9 - HYPOTHYROIDISM, UNSPECIFIED Status: Chronic (10) Metastatic renal cell carcinoma to bone Code(s): C79.51 - SECONDARY MALIGNANT NEOPLASM OF BONE; C64.9 - MALIGNANT NEOPLASM OF UNSP KIDNEY, EXCEPT RENAL PELVIS Status: Chronic (11) Diabetes mellitus Code(s): E11.9 - TYPE 2 DIABETES MELLITUS WITHOUT COMPLICATIONS Status: Acute - Plan Doing much better overall. Thorough exam reveals no evident external source. Continue with V/Z IV. Consult ID. Echo ok. Clear liquids. GI, Gen Surg following. Blood sugars ok. Anticipate surg tomorrow.
[2019-01-09] MEDS: Potassium Chloride 20 MEQ in Lactated Ringer's 1,000 ML IV SCH (17:20)
--- NOTE | 2019-01-09 19:04 | PRG ---
DATE OF SERVICE: 01/09/2019 SUBJECTIVE: The patient denies any respiratory symptoms. No abdominal pain. He is able to drink without vomiting and is voiding without any difficulty. OBJECTIVE: VITAL SIGNS: T-max 99, blood pressure 140/70, pulse 69, respirations 22, O2 saturation 100. SKIN: Unchanged. GENERAL: Awake, alert, oriented, in no distress. LUNGS: Clear to auscultation and percussion. HEART: S1 and S2, regular rate. ABDOMEN: [id number] distended, soft, nontender to palpation. NEUROLOGIC: Nonfocal. LABORATORY DATA: White cell count 6.1, hemoglobin 11, platelets 168. Creatinine is down to 1.3. Bilirubin 1.2. Transaminases have normalized. Alkaline phosphatase is down to 164. The microbiology yielded Streptococcus pasteurianus gallolyticus. I believe the plan is for establishment of cystostomy with gastric area to relieve the pancreatic pseudocyst and also a cholecystectomy at the same time. ASSESSMENT AND DISCUSSION: Metastatic renal cell cancer, treated with PD-1 checkpoint inhibitor with success reported. Acute pancreatitis either due to the PD-1 checkpoint inhibitor or due to gallbladder disease with formation of a large pseudocyst with a planned surgical procedure for tomorrow reportedly. Now, he has Streptococcus pasteurianus, subspecies gallolyticus identified from blood cultures 2 out of 2 sets. This organism has been associated with endocarditis, so may consider a FER down the road. The transthoracic echo did show a vegetation, but those have less than optimal sensitivity for identification of endocarditis. The other possibility is the gallbladder disease causing the bacteremia and that is certainly within the realm of possibilities. Streptococcus pasteurianus is the new name for the old Streptococcus bovis and can be associated with gastrointestinal malignancy. Colonoscopy might be considered as well in the future. In the meantime, continue Tom. Again, consider FER after he has done his surgical procedures. Job ID: [id number]
[2019-01-09] MEDS ORDERED: Vancomycin HCl 750 MG in Sodium Chloride 0.9% 250 ML 250 ML IVPB SCH (21:00)
--- NOTE | 2019-01-09 21:22 | CON ---
DATE OF CONSULTATION: 01/09/2019 CONSULTING PHYSICIAN: Dr. Brendan Cornejo. REASON FOR CONSULTATION: Pancreatic pseudocyst. HISTORY OF PRESENT ILLNESS: The patient is a 73-year-old male. He is known to myself from prior inpatient evaluation of severe pancreatitis in August and September of this year. It was uncertain whether his pancreatitis was related to his chemotherapy that he was receiving for renal cell carcinoma (Opdivo) or gallbladder disease with finding of multiple gallstones. His pancreatitis resolved. In November, he had a followup CT scan performed at [facility] revealing a pancreatic pseudocyst, the largest of which measured at least 16 x 11 cm. I saw the patient on December 16 and follow up regarding this. He appeared to be entirely asymptomatic in spite of the large pseudocyst. He was eating well, and denied early satiety, nausea, or vomiting. I obtained a CT scan for further evaluation of this last week. This confirmed a large retrogastric pancreatic pseudocyst. There was an additional cyst somewhat to the right, which I could not determine whether it was incontinuity of the large pseudocyst or not. It appeared that these may have been by the superior mesenteric artery/vessels. Before he could return to my office for followup regarding this, he developed an episode of abdominal pain and presented to the emergency room. Evaluation in the emergency room included another CT scan obtained on January 07. This reveals a persistent very large pseudocyst measuring 16 x 9 cm. There is a second smaller pseudocyst inferior to the right (near the head of the pancreas that appears to measure about 6 cm in largest dimension. Additionally, at the time of his admission, laboratory studies were obtained revealing elevated liver function tests. His bilirubin was elevated at 2.5 and then natalie up to 3.0, but today, his bilirubin is 1.2. His alkaline phosphatase has likewise been elevated. Lipase is only mildly elevated to 120. Cultures obtained at the time of his admission reveal Streptococcus. This is penicillin sensitive and he has been treated with Zosyn since his admission. PAST MEDICAL HISTORY: 1. Diabetes. 2. Renal cell carcinoma, metastatic to bone. 3. Hypertension. 4. Hyperlipidemia. PAST SURGICAL HISTORY: 1. Colon cancer surgery in 1998. 2. Knee replacement. 3. Appendectomy. 4. Cataract surgery. MEDICATIONS: 1. Glimepiride. 2. Lisinopril/hydrochlorothiazide. 3. Opdivo (not currently taking). 4. Citalopram. 5. Furosemide. 6. Glipizide. 7. Levothyroxine. 8. Pantoprazole. ALLERGIES: HYDROCODONE (WHICH MAKING CRAZY) AND TRAMADOL (WHICH ALSO APPEARS TO MAKE HIM "CRAZY"). PERSONAL AND SOCIAL HISTORY: He is and has 1 child. His sisters have been present every time that I have seen him over the past few months. He drinks alcohol rarely and does not smoke. REVIEW OF SYSTEMS: Otherwise unremarkable. FAMILY HISTORY: Noncontributory. PHYSICAL EXAMINATION: VITAL SIGNS: He has been afebrile since his admission with the exception of a single temperature of 100.3 on the day of his admission. His heart rate is in the 60s and regular. Blood pressure is 117/67 and has been stable since admission. HEAD, EYES, EARS, NOSE, AND THROAT: Unremarkable. NECK: Supple without mass or tenderness. LUNGS: Clear to auscultation throughout. CARDIAC: Regular rate and rhythm without murmur. ABDOMEN: Soft, nontender, and nondistended. There is no dominant palpable mass. EXTREMITIES: Unremarkable. ASSESSMENT: The patient with a history of pancreatitis at least 3 months ago and a persistent quite large pancreatic pseudocyst. There appears to probably be a second cyst that is not communication with the first. He also has cholelithiasis. PLAN: Laparotomy with open pancreatic cystogastrostomy to drain the large retrogastric pseudocyst. I may have to drain the second cyst with a Ilia-en-Y pancreatic cyst-jejunostomy. I would also plan to perform a cholecystectomy during the same operation. I have discussed all this in detail with the patient as well as potential risks. He understands, agrees to proceed with surgery at this time. Job ID: [id number]
[2019-01-10] MEDS: Piperacillin/Tazobactam 3.375 GM in Sodium Chloride 0.9% 100 ML IVPB SCH ×2 (01:35→06:15)
[2019-01-10 04:14] LABS: #Basophils 0.1 thou/uL (0.0-0.2); #Eosinphils 0.3 thou/uL (0.0-0.7); #Lymphocytes 1.7 thou/uL (1.20-3.40); #Monocytes 0.3 thou/uL (0.11-0.59); #Neutrophils 2.9 thou/uL (1.40-6.50); %Basophils 1.4 % (0.0-1.0); %Eosinophils 5.3 % (0.0-10.0); %Lymphocytes 31.6 % (21.0-51.0); %Monocytes 5.8 % (0.0-10.0); %Neutrophils 55.9 % (42.0-75.0); Hemoglobin 11.4 g/dL (14.0-18.0); Mean Corpuscular HGB CONC 31.5 g/dL (32.0-36.0); Mean Corpuscular Volume 85.7 fL (78.0-98.0); Mean Platelet Volume 7.7 fL (7.4-10.4); Platelet Count 165 thou/uL (130-400); RBC Distribution Width 14.7 % (11.5-14.5); Red Blood Cell (RBC) Count 4.21 mill/uL (4.70-6.10); White Blood Cell (WBC) Count 5.3 thou/uL (4.8-10.8)
[2019-01-10 04:38] LABS: ALT (SGPT) 18 U/L (8-55); AST (SGOT) 16 U/L (5-34); Albumin 2.6 g/dL (3.4-4.8); Alkaline Phosphatase 165 U/L (40-110); Anion Gap 11 mmol/L (10-20); BUN (Urea Nitrogen) 6 mg/dL (8.4-25.7); Bilirubin, Total 0.9 mg/dL (0.2-1.2); Calc. Creatinine Clearance 67 mL/min (70-130); Calcium 7.9 mg/dL (7.8-10.44); Carbon Dioxide 20 mmol/L (23-31); Chloride 110 mmol/L (98-107); Estimated GFR-MDRD 60; Globulin 2.8 g/dL (2.4-3.5); Glucose 92 mg/dL (83-110); Potassium 3.6 mmol/L (3.5-5.1); Protein, Total 5.4 g/dL (5.8-8.1); Sodium 137 mmol/L (136-145)
[2019-01-10] MEDS: Levothyroxine Sodium 125 MCG TAB PO SCH (06:08)
--- NOTE | 2019-01-10 06:37 | PDOC.GSPN ---
Surgery Progress Note: Subj - Subjective Narrative: Mr. Loo reports no complaints this morning and had no overnight events. He was tolerating clear liquids until discontinuation at midnight in preparation for surgery today. He states that he had a normal BM yesterday morning. He denies abdominal pain, nausea, vomiting, and diarrhea. Surgery Progress Note: Obj - Vital signs Vital signs: Vital Signs - Most Recent Temp Pulse Resp BP Pulse Ox 97.7 F 67 24 H 121/67 100 01/10/19 03:42 01/09/19 06:00 01/09/19 06:00 01/09/19 06:00 01/09/19 20:00 - Physical Exam General: no distress, no pain Cardiovascular: regular rate and rhythm, no murmur Respiratory: clear to auscultation Abdomen: soft, nondistended, tender (mild tenderness to palpation in epigastric region), other (NABS) Surgery Progress Note: Results - Labs Result Diagrams: 01/10/19 04:01 01/10/19 04:01 Lab results: Laboratory Results - last 24 hr 01/10/19 04:01 Sodium 137 Potassium 3.6 Chloride 110 H Carbon Dioxide 20 L Anion Gap 11 BUN 6 L Creatinine 1.20 Estimated GFR (MDRD) 60 Glucose 92 POC Glucose Calcium 7.9 Total Bilirubin 0.9 AST 16 ALT 18 Alkaline Phosphatase 165 H Serum Total Protein 5.4 L Albumin 2.6 L Globulin 2.8 Albumin/Globulin Ratio 0.9 L Surgery Progress Note: A/P - Problem (1) Pancreatic pseudocyst Current Visit: Yes Code(s): K86.3 - PSEUDOCYST OF PANCREAS Status: Acute Assessment and Plan: Patient is a 73 y/o M with a history of multiple episodes of pancreatitis this year, who was found to have two pancreatic pseudocysts. He is currently stable and will undergo pancreatic cyst-gastrostomy today. Cholecystectomy will be done in the same operation as it is undetermined if cholelithiasis is the cause of his pancreatitis. He continues to be afebrile and has a normal WBC today. H& H are stable. Alkaline phosphatase continuing to trend down. Bili, AST, and ALT have normalized. Will continue Zosyn for Steptococcus bacteremia. Patient NPO currently in preparation for surgery. Dr. Lawson has discussed the risks and alternatives with patient and patient will continue with surgery this afternoon.
[2019-01-10 08:13] LABS: Vancomycin, Random 21.2 ug/mL (See Comment)
[2019-01-10] MEDS: cefTRIAXone\\ROCEPHIN 2 GM in Sodium Chloride 0.9% 100 ML IVPB SCH (09:40)
[2019-01-10] MEDS: Pantoprazole 40 MG VIAL IVP SCH (09:43)
[2019-01-10] MEDS: Potassium Chloride 20 MEQ in Lactated Ringer's 1,000 ML IV SCH ×2 (09:44→21:02)
[2019-01-10] MEDS: Citalopram 20 MG TAB PO SCH (09:56)
--- NOTE | 2019-01-10 10:39 | PDOC.HOSPP ---
- Subjective Subjective: Doing well. Hungry, but no other complaints. - Objective Vital Signs & Weight: Vital Signs (12 hours) Temp Pulse Ox 01/10/19 08:00 100 01/10/19 07:00 97.9 F 01/10/19 03:42 97.7 F 01/09/19 23:46 97.7 F Weight Weight 190 lb 4.8 oz Most Recent Monitor Data Heart Rate from ECG 67 NIBP 164/86 NIBP BP-Mean 112 Respiration from ECG 23 SpO2 100 I&O: 01/09/19 01/10/19 01/11/19 06:59 06:59 06:59 Intake Total 1290 2840 Output Total 380 1525 Balance 910 1315 Result Diagrams: 01/10/19 04:01 01/10/19 04:01 Additional Labs: Accuchecks 01/10/19 01/10/19 01/09/19 06:38 00:05 20:12 POC Glucose 87 101 115 H 01/09/19 01/09/19 16:47 10:50 POC Glucose 96 144 H Hospitalist ROS - Medication Medications: Active Medications Generic Name Dose Route Start Last Admin Trade Name Freq PRN Reason Stop Dose Admin Citalopram Hydrobromide 20 mg 01/08/19 09:00 01/10/19 09:56 Celexa PO Not Given DAILY CARLA Dextrose/Water 25 gm 01/07/19 12:45 01/09/19 03:44 Dextrose 50% SLOW IVP 25 gm PRN PRN Administration Hypoglycemia Glipizide 5 mg 01/10/19 08:00 01/10/19 08:42 Glucotrol Xl PO Not Given QAM-WM CARLA Potassium Chloride 20 meq/ 1,010 mls @ 50 mls/hr 01/09/19 15:30 01/10/19 09: 44 Lactated Ringer's IV 1,010 mls .[id number] CARLA Administration Ceftriaxone Sodium 2 gm/ 100 mls @ 200 mls/hr 01/10/19 09:00 01/10/19 09:40 Sodium Chloride IVPB 100 mls 0900 CARLA Administration Levothyroxine Sodium 125 mcg 01/08/19 06:00 01/10/19 06:08 Synthroid PO Not Given 0600 CARLA Pantoprazole Sodium 40 mg 01/08/19 09:00 01/10/19 09:43 Protonix IVP 40 mg DAILY CARLA Administration Sodium Chloride 10 ml 01/07/19 21:00 01/10/19 09:44 Flush - Normal Saline IVF 10 ml Q12HR CARLA Administration - Exam General Appearance: NAD, awake alert Heart: RRR, no murmur, no gallops, no rubs, normal peripheral pulses Respiratory: CTAB, no wheezes, no rales, no ronchi, normal chest expansion, no tachypnea, normal percussion Gastrointestinal: soft, non-tender, non-distended, normal bowel sounds, no palpable masses, no hepatomegaly, no splenomegaly, no bruit Extremities: no cyanosis, no clubbing, no edema Skin: normal turgor Musculoskeletal: normal tone, normal strength, no muscle wasting Psychiatric: normal affect, normal behavior, A&O x 3 Hosp A/P (1) Sepsis Code(s): A41.9 - SEPSIS, UNSPECIFIED ORGANISM Status: Acute (2) Streptococcal bacteremia Code(s): R78.81 - BACTEREMIA; B95.5 - UNSP STREPTOCOCCUS THE CAUSE OF DISEASES CLASSD ELSWHR Status: Acute (3) Pancreatic pseudocyst Code(s): K86.3 - PSEUDOCYST OF PANCREAS Status: Acute (4) Cholecystitis Code(s): K81.9 - CHOLECYSTITIS, UNSPECIFIED Status: Acute (5) Acute metabolic encephalopathy Code(s): G93.41 - METABOLIC ENCEPHALOPATHY Status: Resolved (6) Acute respiratory failure with hypoxia Code(s): J96.01 - ACUTE RESPIRATORY FAILURE WITH HYPOXIA Status: Resolved (7) Dyslipidemia Code(s): E78.5 - HYPERLIPIDEMIA, UNSPECIFIED Status: Chronic (8) Hypertension Code(s): I10 - ESSENTIAL (PRIMARY) HYPERTENSION Status: Chronic (9) Hypothyroidism Code(s): E03.9 - HYPOTHYROIDISM, UNSPECIFIED Status: Chronic (10) Metastatic renal cell carcinoma to bone Code(s): C79.51 - SECONDARY MALIGNANT NEOPLASM OF BONE; C64.9 - MALIGNANT NEOPLASM OF UNSP KIDNEY, EXCEPT RENAL PELVIS Status: Chronic (11) Diabetes mellitus Code(s): E11.9 - TYPE 2 DIABETES MELLITUS WITHOUT COMPLICATIONS Status: Chronic - Plan Doing much better overall. Continue with V/Z IV. ID following Transthoracic Echo ok. Growing Strep Bovis. May need FER and endoscopy in the future if he can stabilize adequately after today's surgery. Hx of colon ca 20 years ago. Surg today to drain the pseudocysts and likely cholecystectomy. Blood sugars ok.
[2019-01-10] MEDS ORDERED: Midazolam HCl 2 mg/2 ml Vial ONE (11:56)
[2019-01-10] MEDS ORDERED: Fentanyl 100 MCG/2 ML VIAL ONE ×4 (11:56→17:17)
[2019-01-10] MEDS ORDERED: Levofloxacin 500 mg/D5W 100 ml Premix Bag ONE (12:08)
[2019-01-10] MEDS ORDERED: Bupivacaine/Epinephrine 0.25% 30 ML VIAL ONE (12:09)
[2019-01-10] MEDS ORDERED: Bupivacaine 0.25% HCL 30 ML VIAL ONE (12:14)
[2019-01-10] MEDS ORDERED: fentaNYL Citrate/PF 500 MCG, Bupivacaine 10 ML in Sodium Chloride 0.9% 80 ML EPIDURAL SCH (12:15)
[2019-01-10] MEDS ORDERED: Hydrocerin (Eucerin) Cream 120 gm Jar TOP PRN (12:15)
[2019-01-10] MEDS ORDERED: diphenhydrAMINE 50 MG/ML VIAL IVP PRN (12:15)
[2019-01-10] MEDS ORDERED: Promethazine HCl 25 MG SUPP PR PRN (12:15)
[2019-01-10] MEDS ORDERED: Promethazine HCl 25 MG/ML VIAL IM PRN (12:15)
[2019-01-10] MEDS ORDERED: Naloxone HCl 0.4 mg/ml Vial IVP PRN (12:15)
[2019-01-10] MEDS ORDERED: Bupivacaine 0.25% 10 ML VIAL EPIDURAL PRN (12:15)
[2019-01-10] MEDS ORDERED: diphenhydrAMINE 50 MG/ML VIAL IM PRN (12:15)
[2019-01-10] MEDS ORDERED: diphenhydrAMINE 25 MG CAP PO PRN (12:15)
[2019-01-10] MEDS ORDERED: Naloxone HCl 0.4 mg/ml Vial IV PRN (12:15)
[2019-01-10] MEDS ORDERED: Ondansetron PF 4 MG/2 ML Vial IVP PRN (12:15)
[2019-01-10] MEDS ORDERED: Zolpidem Tartrate 5 MG TAB PO PRN (12:15)
[2019-01-10] MEDS ORDERED: Phenylephrine HCL 10 MG/ML VIAL ONE (13:27)
[2019-01-10] MEDS ORDERED: Albumin 5% 500 ML ONE (13:56)
[2019-01-10] MEDS ORDERED: Ondansetron PF 4 MG/2 ML Vial ONE ×2 (15:13→16:31)
[2019-01-10] MEDS ORDERED: Lidocaine 1% PF 5 ML VIAL ONE (15:13)
[2019-01-10] MEDS ORDERED: Glycopyrrolate 0.2 MG/ML 5 ML SYRINGE ONE (15:13)
[2019-01-10] MEDS ORDERED: ePHEDrine 50 MG/ML VIAL ONE (15:13)
[2019-01-10] MEDS ORDERED: Rocuronium Bromide 10 MG/ML (10ML VIAL) ONE (15:13)
[2019-01-10] MEDS ORDERED: PROPOFOL 200 MG/20 ML VIAL ONE (15:13)
[2019-01-10] MEDS ORDERED: Calcium Chloride 1 GM/10 ML Abboject SYRINGE ONE (15:13)
[2019-01-10] MEDS ORDERED: PHENYLEPHRINE-NS 100 MCG/ML 10 ML SYRINGE ONE (15:13)
--- NOTE | 2019-01-10 16:59 | RAD ---
FRONTAL VIEW CHEST: 01/10/19 COMPARISON: 01/07/19. CLINICAL HISTORY: Central line evaluation. FINDINGS: Partially obscured right subclavian venous line traverses cephalad via the right internal jugular vei n overlying the redundant neck soft tissues. There is accentuation of the cardiomediastinal silhouett e by technique of the exam which is otherwise grossly stable in volume to prior exam. Shallow depth o f inspiration limits evaluation at the lung bases. An enteric catheter traverses the midline of the c hest and upper abdomen. A component does demonstrate coiling and abnormal ascension to the level of t he mid esophagus with side port at the mid to distal esophageal region. There is an additional tubing that overlies the upper abdomen not further delineated. IMPRESSION: 1. Right central line traversing the expected confines of the right internal jugular vein overly ing the right neck, although not well assessed due to redundant overlying soft tissue. Recommend repo sitioning and follow-up imaging. 2. Indication of a coiling of an enteric catheter within the esophagus with ascension to the mid thoracic esophagus. Recommend interval repositioning with follow-up imaging. Additional tubing also overlies the upper abdomen, incompletely visualized on this exam. 3. No discrete pneumothorax identified within limitations of the portable, semiupright technique . POS: [facility]
[2019-01-10] MEDS: Ketorolac Tromethamine 30 MG/ML VIAL IVP SCH (21:02)
[2019-01-11] MEDS: Potassium Chloride 20 MEQ in Lactated Ringer's 1,000 ML IV SCH ×4 (00:47→23:23)
[2019-01-11] MEDS: Ketorolac Tromethamine 30 MG/ML VIAL IVP SCH ×5 (00:47→23:24)
--- NOTE | 2019-01-11 02:11 | OP ---
DATE OF PROCEDURE: 01/10/2019 PREOPERATIVE DIAGNOSIS: Large pancreatic pseudocysts x2, cholelithiasis. POSTOPERATIVE DIAGNOSIS: Large pancreatic pseudocysts x2, cholelithiasis with a 6-cm right-sided retroperitoneal pseudocyst and a retrogastric 15 cm pseudocyst. OPERATIONS PERFORMED: Placement of right subclavian 7-Chadian triple-lumen central line, exploratory laparotomy with pancreatic cyst gastrostomy, Ilia-en-Y pancreatic cyst jejunostomy, cholecystectomy. ANESTHESIA: General endotracheal. INDICATIONS: The patient is a 73-year-old male. He has a recent history of renal cancer for which he received chemotherapy. Three or four months ago, he had an episode of severe pancreatitis. It was uncertain whether this was secondary to his chemotherapy or cholelithiasis. His pancreatitis resolved, however, recent imaging studies have revealed that he has a very large pancreatic pseudocyst with what appears to be a 2nd pseudocyst that is not attached to the main lesion. He was recently hospitalized 3 days ago for abdominal pain. He had positive blood cultures for Streptococcus, but has had essentially no abdominal symptomatology since he was admitted. He has not been febrile nor has he had an elevated white blood cell count. I therefore recommended proceeding with surgery for his pseudocyst at this time. DESCRIPTION OF OPERATION: Informed consent was obtained, the patient was taken to the operating room where general endotracheal anesthesia was obtained with the patient in supine position. Abdomen was prepped with ChloraPrep and draped in sterile fashion. A midline abdominal incision was created and dissection was carried through the skin, subcutaneous tissue, and the fascia in the midline. There were substantial omental adhesions to the anterior abdominal wall throughout the length of his incision from his prior colectomy. The omental adhesions were completely lysed to the anterior abdominal wall. Several areas of the omentum continued to ooze and these were treated with electrocautery and/or ligation of bleeding areas. There was an easily visible and palpable bulging mass in his epigastrium posterior to the stomach. I performed an intraoperative ultrasound to confirm the location of the cyst. There was a 2nd cyst that was identified in the retroperitoneum on the right side of the abdomen consistent with what was seen on CT scan. Attention was turned first to the retrogastric mass. A transverse incision was created in the anterior stomach with electrocautery. Stay sutures were placed in the gastric wall and used to retract the stomach superiorly and inferiorly. Again, ultrasound was utilized to confirm the location of the cyst relative to the stomach. I passed an 18-gauge needle through the posterior stomach wall into the cyst and aspirated thin greenish brown fluid. I then created a longitudinal incision, oriented more or less transversely on the posterior stomach. This was carried directly through into the pseudocyst. Between 800 and 900 mL of fluid was aspirated. I then debrided devitalized material from within the lesion. This was either necrotic pancreatic tissue or saponified fatty tissue, but either way, was necrotic tissue and was bluntly debrided. I excised about a 2 x 2 cm segment of the posterior gastric wall in continuity with the wall of the pseudocyst and submitted this as pathology. I further opened the lesion until it was about 4 x 3 cm opening. I digitally inspected the wound and found no other loculations could be broken down. I could not communicate between this cyst and the right retroperitoneal cyst. I then placed a circumferential reefing suture between the full-thickness gastric wall and the full-thickness cystic wall using 2-0 PDS. This was placed with a running locking suture. The nasogastric tube was positioned appropriately within the stomach. The anterior gastrotomy was then closed with a running full-thickness suture of 3-0 Vicryl followed by interrupted Lembert sutures of 3-0 silk. Attention was then turned to the gallbladder. An open cholecystectomy was performed in a standard fashion, taking the gallbladder down from the liver in a retrograde fashion using electrocautery. At the apex of the gallbladder, identified the cystic duct and cystic artery. The artery was divided between clips leaving 2 on the side to remain within the abdomen. The duct was dissected circumferentially and divided between clips and the gallbladder was removed. I placed an additional suture of 2-0 silk on the cystic duct stump for security. Hemostasis was obtained within the gallbladder fossa. I placed a small piece of Avitene within the gallbladder fossa as well. Attention was then turned to the smaller pseudocyst. I utilized the ultrasound to identify the margins of the cyst as well as the location of overlying vascular structures. I was able to identify the location of the superior mesenteric artery and vein relative to the cyst. They were to the medial aspect. I then selected an area of optimum location of the cystotomy. I created a transverse 3.5 cm incision in the cyst. Milky appearing greenish fluid was returned. It did not appear to be purulent, but because of its consistency, I decided to submit it for culture. The contents were aspirated. There was a small amount of saponified material present within the cyst. Loculations were gently broken down digitally, but there were no significant compartments noted. The small bowel was identified as was the ligament of Treitz. About 40 cm from the ligament of Treitz, the small bowel was transected with a single firing of the EVITA stapler. The mesentery of the small bowel was taken down several cm to allow for appropriate mobility. I then traced the small bowel 60 cm distally and at that location created a jejunojejunostomy between the 2 segments of small bowel using another firing of the EVITA 75 stapler. The enterotomy was closed transversely with another firing of the same stapler. The anastomosis was buttressed with interrupted sutures of 3-0 silk and the mesenteric defect was closed with interrupted sutures of 3-0 silk. The Ilia limb of the small bowel was then positioned over the cystotomy in the right abdomen just inferior to the transverse mesocolon. The small bowel was anastomosed to the cyst to create a cyst jejunostomy with a 2-layer closure. I initially placed a series of interrupted sutures of 3-0 silk between the seromuscular layer of the small bowel and the peritoneum of the surface of the cyst. I then placed a full-thickness running circumferential suture of 3-0 Vicryl between the full-thickness wall of the small bowel and the full-thickness wall of the cyst, including some of the peritoneum as well. Locking sutures were placed posteriorly and Boyds sutures were placed anteriorly. Finally, the double-layer anastomosis was completed with a series of interrupted 3-0 silk sutures placed on the anterior aspect. The abdomen was then irrigated with 3 L of warm saline. All irrigant was aspirated. Hemostasis was intact in all areas. A #19 round fluted drain was brought out on the right lower abdomen and positioned near the retroperitoneal cyst drainage site, but also positioned up into the upper abdomen near the gastric closure. Two sheets of Seprafilm were placed below the fascia. The fascia was closed with a running suture of looped #1 PDS. The wound was copiously irrigated and the skin edges were approximated with skin reny. Dry gauze dress was placed. There were no complications. Blood loss was minimal, less than 50 mL. There were no complications. The patient tolerated the procedure well and was taken to the recovery room in stable condition. Job ID: [id number]
[2019-01-11] MEDS ORDERED: Albumin 25% 25 GM/100 ML BOT IVPB SCH (02:34)
[2019-01-11] MEDS ORDERED: Sodium Chloride 0.9% 500 ML IV SCH (02:45)
[2019-01-11 03:27] LABS: #Lymphocytes 1.5 thou/uL (1.20-3.40); #Monocytes 0.4 thou/uL (0.11-0.59); #Neutrophils 4.1 thou/uL (1.40-6.50); %Basophils 0.6 % (0.0-1.0); %Eosinophils 0.1 % (0.0-10.0); %Lymphocytes 25.1 % (21.0-51.0); %Monocytes 5.9 % (0.0-10.0); %Neutrophils 68.3 % (42.0-75.0); Hemoglobin 10.9 g/dL (14.0-18.0); Mean Corpuscular HGB CONC 31.4 g/dL (32.0-36.0); Mean Corpuscular Hemoglobin 26.9 pg (27.0-31.0); Mean Corpuscular Volume 85.8 fL (78.0-98.0); Mean Platelet Volume 7.6 fL (7.4-10.4); Platelet Count 172 thou/uL (130-400); RBC Distribution Width 14.8 % (11.5-14.5); Red Blood Cell (RBC) Count 4.04 mill/uL (4.70-6.10); White Blood Cell (WBC) Count 6.1 thou/uL (4.8-10.8)
[2019-01-11] MEDS ORDERED: MEROPENEM 1 GM/50 ML 1 GM in Premix Bag 1 BAG IVPB SCH (03:30)
[2019-01-11 03:46] LABS: Anion Gap 10 mmol/L (10-20); BUN (Urea Nitrogen) 7 mg/dL (8.4-25.7); Calc. Creatinine Clearance 67 mL/min (70-130); Calcium 7.9 mg/dL (7.8-10.44); Carbon Dioxide 22 mmol/L (23-31); Chloride 108 mmol/L (98-107); Estimated GFR-MDRD 57; Glucose 174 mg/dL (83-110); Potassium 4.3 mmol/L (3.5-5.1); Sodium 136 mmol/L (136-145)
[2019-01-11] MEDS ORDERED: Morphine 2 MG/ML SYRINGE SLOW IVP PRN (06:19)
[2019-01-11] MEDS ORDERED: Sodium Chloride 0.9% 500 ML IVPB SCH (06:30)
--- NOTE | 2019-01-11 06:52 | PDOC.GSPN ---
Surgery Progress Note: Subj - Subjective Narrative: Mr. Loo is currently in the IMCU and is POD #1 from open pancreatic cyst- gastrostomy and Ilia en Y pancreatic cyst-jejunostomy with cholecystectomy and central line placement. Overnight his pressures dropped down as low as 77/47. He was given 1L bolus of NS, 1 dose of albumin, and continued receiving maintenance LR at 125 mL/hr. His fentanyl was stopped in the epidural in order to help with his BP. The nurse overnight reports that he was not symptomatic with his hypotension and remained A&O. His BPs have since been up in the 120s/ 60s. Since his epidural was turned off he reports that he is in some pain, which he rates as an 8/10 in the epigastric region and describes the pain as sharp in nature. He denies any nausea or vomiting. He has not had a bowel movement today or yesterday. He has put out 175 mL from his SAMAN drain since surgery. Urine output from Rivero was 400 mL overnight. He has had only minimal output from his NG tube overnight. Surgery Progress Note: Obj - Vital signs Vital signs: Vital Signs - Most Recent Temp Pulse Resp BP Pulse Ox 98.6 F 67 24 H 121/67 95 01/11/19 03:34 01/09/19 06:00 01/09/19 06:00 01/09/19 06:00 01/11/19 01:53 - Physical Exam General: no distress, moderate pain, other (alert and oriented) Cardiovascular: regular rate and rhythm, no murmur Respiratory: clear to auscultation, normal respiratory effort Abdomen: soft, decreased bowel sounds, appropriately tender (diffusely), distended (mildly) Wound: drainage (Right SAMAN drain in place with 10 mL serosanguinous fluid), other (dressing intact over midline incision with some blood on lower portion of dressing, but otherwise clean) Surgery Progress Note: Results - Labs Result Diagrams: 01/11/19 03:16 01/11/19 03:16 Lab results: Laboratory Results - last 24 hr 01/11/19 03:16 Sodium 136 Potassium 4.3 Chloride 108 H Carbon Dioxide 22 L Anion Gap 10 BUN 7 L Creatinine 1.24 Estimated GFR (MDRD) 57 Glucose 174 H Lactic Acid 3.0 H Calcium 7.9 01/11/19 03:16 WBC 6.1 RBC 4.04 L Hgb 10.9 L Hct 34.6 L MCV 85.8 MCH 26.9 L MCHC 31.4 L RDW 14.8 H Plt Count 172 MPV 7.6 Neutrophils % 68.3 Lymphocytes % 25.1 Monocytes % 5.9 Eosinophils % 0.1 Basophils % 0.6 Neutrophils # 4.1 Lymphocytes # 1.5 Monocytes # 0.4 Eosinophils # 0.0 Basophils # 0.0 Surgery Progress Note: A/P - Problem (1) Pancreatic pseudocyst Current Visit: Yes Code(s): K86.3 - PSEUDOCYST OF PANCREAS Status: Acute Assessment and Plan: Patient is a 73 y/o M who is POD #1 from an open pancreatic cyst-gastrostomy and pancreatic cyst-jejunostomy with a cholecystectomy and central line placement. His pressures are currently stable and since patient is experiencing increased pain, we will plan to turn on his epidural pump later this morning and titrate to a lower dose in order to prevent subsequent episodes of hypotension. He will remain NPO at this time and we will consider starting clear liquid diet in a couple of days depending on his progression. His H&H are minimally decreased from his pre-operative values. Renal function is intact at this time, but will continue to monitor for DERRICK as a result of his overnight hypotensive episode. His WBC continues to be within normal limits and he remains afebrile, however will continue on Rocephin for his Streptococcus bacteremia. Will continue to monitor output from SAMAN drain and NG tube. Awaiting pathology report from pseudocyst wall and aspirate from pseudocyst content.
[2019-01-11] MEDS: Pantoprazole 40 MG VIAL IVP SCH (10:09)
[2019-01-11] MEDS: cefTRIAXone\\ROCEPHIN 2 GM in Sodium Chloride 0.9% 100 ML IVPB SCH (10:09)
--- NOTE | 2019-01-11 14:25 | PDOC.HOSPP ---
- Subjective Encounter Date: 01/11/19 Encounter Time: 11:30 Subjective: Patient seen and examined. last night his BP dropped, responded to IVF bolus and epidural was turned off this morning BP is fine and he has abdominal pain, so epidural started at low rate, his pain now controlled overall doing well post op - Objective Vital Signs & Weight: Vital Signs (12 hours) Temp Pulse Ox 01/11/19 11:37 98.0 F 01/11/19 08:00 95 01/11/19 07:24 98.8 F 01/11/19 03:34 98.6 F Weight Weight 195 lb Most Recent Monitor Data Heart Rate from ECG 68 NIBP 110/54 NIBP BP-Mean 72 Respiration from ECG 3 SpO2 95 I&O: 01/10/19 01/11/19 01/12/19 06:59 06:59 06:59 Intake Total 2840 2438 Output Total 1525 825 Balance 1315 1613 Result Diagrams: 01/11/19 03:16 01/11/19 03:16 Additional Labs: Accuchecks 01/11/19 01/11/19 01/10/19 10:54 05:36 19:14 POC Glucose 127 H 140 H 131 H EKG Reviewed by me: Yes Hospitalist ROS - Review of Systems Constitutional: denies: fever, chills, sweats, weakness, malaise, other ENT: denies: ear pain, ear discharge, nose pain, nose discharge, nose congestion , mouth pain, mouth swelling, throat pain, throat swelling, other Respiratory: denies: cough, dry, shortness of breath, hemoptysis, SOB with excertion, pleuritic pain, sputum, wheezing, other Cardiovascular: denies: chest pain, palpitations, orthopnea, paroxysmal noc. dyspnea, edema, light headedness, other Gastrointestinal: reports: abdominal pain. denies: nausea, vomiting, diarrhea, constipation, melena, hematochezia, other Genitourinary: denies: dysuria, frequency, incontinence, hematuria, retention, other Musculoskeletal: denies: neck pain, shoulder pain, arm pain, back pain, hand pain, leg pain, foot pain, other Skin: denies: rash, lesions, yared, bruising, other - Medication Medications: Active Medications Generic Name Dose Route Start Last Admin Trade Name Freq PRN Reason Stop Dose Admin Dextrose/Water 25 gm 01/07/19 12:45 01/09/19 03:44 Dextrose 50% SLOW IVP 25 gm PRN PRN Administration Hypoglycemia Ceftriaxone Sodium 2 gm/ 100 mls @ 200 mls/hr 01/10/19 09:00 01/11/19 10:09 Sodium Chloride IVPB 100 mls 0900 CARLA Administration Potassium Chloride 20 meq/ 1,010 mls @ 125 mls/hr 01/10/19 16:45 01/11/19 10: 08 Lactated Ringer's IV 1,010 mls .Q8H5M CARLA Administration Ketorolac Tromethamine 15 mg 01/10/19 18:00 01/11/19 13:53 Toradol IVP 01/12/19 12:01 15 mg Q6HR CARLA Administration Pantoprazole Sodium 40 mg 01/08/19 09:00 01/11/19 10:09 Protonix IVP 40 mg DAILY CARLA Administration Sodium Chloride 10 ml 01/07/19 21:00 01/11/19 10:10 Flush - Normal Saline IVF 10 ml Q12HR CARLA Administration - Exam General Appearance: NAD, awake alert Eye: PERRL, anicteric sclera ENT: normocephalic atraumatic, no oropharyngeal lesions ENT - other findings: NG tube+ Neck: supple, symmetric, no JVD, no thyromegaly Heart: RRR, no murmur, no gallops, no rubs Heart - other findings: central line in place Respiratory: CTAB, no wheezes, no rales, no ronchi Gastrointestinal: soft Gastrointestinal - other findings: surgical site with dressing, SAMAN drain Extremities: no cyanosis, no clubbing, no edema Skin: normal turgor, no lesions Neurological: cranial nerve grossly intact, no focal deficits Musculoskeletal: normal tone, normal strength Psychiatric: normal affect, normal behavior Hosp A/P (1) Pancreatic pseudocyst Code(s): K86.3 - PSEUDOCYST OF PANCREAS Status: Acute (2) Sepsis Code(s): A41.9 - SEPSIS, UNSPECIFIED ORGANISM Status: Acute Qualifiers: Sepsis type: Streptococcus, unspecified Sepsis acute organ dysfunction status: with acute organ dysfunction Acute respiratory failure type: unspecified Severe sepsis shock status: without septic shock (3) Streptococcal bacteremia Code(s): R78.81 - BACTEREMIA; B95.5 - UNSP STREPTOCOCCUS THE CAUSE OF DISEASES CLASSD ELSWHR Status: Acute (4) Abnormal LFTs Code(s): R94.5 - ABNORMAL RESULTS OF LIVER FUNCTION STUDIES Status: Acute (5) Acute worsening of stage 3 chronic kidney disease Code(s): N18.3 - CHRONIC KIDNEY DISEASE, STAGE 3 (MODERATE) Status: Acute (6) Cholelithiasis Code(s): K80.20 - CALCULUS OF GALLBLADDER W/O CHOLECYSTITIS W/O OBSTRUCTION Status: Chronic Qualifiers: Cholelithiasis location: gallbladder Cholecystitis presence: without cholecystitis Biliary obstruction: without biliary obstruction Qualified Code(s): K80.20 - Calculus of gallbladder without cholecystitis without obstruction (7) Dyslipidemia Code(s): E78.5 - HYPERLIPIDEMIA, UNSPECIFIED Status: Chronic (8) Hypertension Code(s): I10 - ESSENTIAL (PRIMARY) HYPERTENSION Status: Chronic Qualifiers: Hypertension type: essential hypertension Qualified Code(s): I10 - Essential (primary) hypertension (9) Hypothyroidism Code(s): E03.9 - HYPOTHYROIDISM, UNSPECIFIED Status: Chronic Qualifiers: Hypothyroidism type: unspecified Qualified Code(s): E03.9 - Hypothyroidism , unspecified (10) Metastatic renal cell carcinoma to bone Code(s): C79.51 - SECONDARY MALIGNANT NEOPLASM OF BONE; C64.9 - MALIGNANT NEOPLASM OF UNSP KIDNEY, EXCEPT RENAL PELVIS Status: Chronic (11) Hypokalemia Code(s): E87.6 - HYPOKALEMIA Status: Acute (12) Lactic acidosis Code(s): E87.2 - ACIDOSIS Status: Acute - Plan old records reviewed/req, plan discussed w/ family, continue antibiotics s/p pancreatic cyst gastrostomy, jejunostomy and cholecystectomy currently NPO has epidural in place pain controlled discussed with family post op care as per surgeon follow up on pathology report FER when stable
--- NOTE | 2019-01-11 16:51 | PRG ---
DATE OF SERVICE: 01/11/2019 SUBJECTIVE: Mr. Loo is sitting by the bedside. He is awake, alert, and oriented, in no distress. He denies any respiratory symptoms or abdominal pain, and he has been afebrile. OBJECTIVE: VITAL SIGNS: Other vital signs are normal. O2 saturation 97%. GENERAL: Awake, alert, and oriented. LUNGS: Clear. HEART: S1 and S2, regular rate. ABDOMEN: Soft, not distended. LABORATORY DATA: White cell count 6.1, hemoglobin 10.9, and platelets 172. Creatinine 1.24, which is somewhat improved. ASSESSMENT AND DISCUSSION: Metastatic renal cell cancer, treated with checkpoint inhibitor and success, acute pancreatitis either due to PD-1 checkpoint inhibitor or gallbladder disease with formation of large pseudocyst and now pancreatic cystogastrostomy, a Ilia-en-Y pancreatic cyst-jejunostomy, and cholecystectomy. An open cholecystectomy was performed, and the pathology is pending at this point in time. He is currently on IV Rocephin. Since Streptococcus gallolyticus can be associated with endocarditis, may consider FER after recovery from the surgery. Job ID: [id number]
[2019-01-11] MEDS: fentaNYL Citrate/PF 500 MCG, Bupivacaine 10 ML in Sodium Chloride 0.9% 80 ML EPIDURAL SCH (17:31)
[2019-01-12] MEDS ORDERED: Albumin 25% 25 GM/100 ML BOT IVPB SCH (02:30)
[2019-01-12] MEDS ORDERED: Sodium Chloride 0.9% 250 ML IV SCH (02:45)
[2019-01-12 05:14] LABS: #Eosinphils 0.3 thou/uL (0.0-0.7); #Lymphocytes 1.8 thou/uL (1.20-3.40); #Monocytes 0.5 thou/uL (0.11-0.59); #Neutrophils 3.4 thou/uL (1.40-6.50); %Basophils 0.5 % (0.0-1.0); %Eosinophils 4.5 % (0.0-10.0); %Lymphocytes 30.1 % (21.0-51.0); %Neutrophils 56.9 % (42.0-75.0); Hemoglobin 9.4 g/dL (14.0-18.0); Hypochromia SLIGHT = 6-15 cells (100X) (0-5/hpf); MDiff Complete? YES; Mean Corpuscular HGB CONC 29.8 g/dL (32.0-36.0); Mean Corpuscular Hemoglobin 25.7 pg (27.0-31.0); Mean Corpuscular Volume 86.2 fL (78.0-98.0); Mean Platelet Volume 7.7 fL (7.4-10.4); Platelet Count 144 thou/uL (130-400); Platelet Morphology Comment Appears Adequate; RBC Distribution Width 14.9 % (11.5-14.5); Red Blood Cell (RBC) Count 3.66 mill/uL (4.70-6.10); White Blood Cell (WBC) Count 5.9 thou/uL (4.8-10.8)
[2019-01-12 05:17] LABS: ALT (SGPT) 13 U/L (8-55); AST (SGOT) 13 U/L (5-34); Albumin 2.9 g/dL (3.4-4.8); Alkaline Phosphatase 92 U/L (40-110); Anion Gap 10 mmol/L (10-20); BUN (Urea Nitrogen) 9 mg/dL (8.4-25.7); Bilirubin, Total 0.5 mg/dL (0.2-1.2); Calc. Creatinine Clearance 54 mL/min (70-130); Carbon Dioxide 22 mmol/L (23-31); Chloride 111 mmol/L (98-107); Estimated GFR-MDRD 44; Globulin 2.3 g/dL (2.4-3.5); Glucose 85 mg/dL (83-110); Magnesium 1.7 mg/dL (1.6-2.6); Potassium 4.6 mmol/L (3.5-5.1); Protein, Total 5.2 g/dL (5.8-8.1); Sodium 138 mmol/L (136-145)
[2019-01-12] MEDS: Ketorolac Tromethamine 30 MG/ML VIAL IVP SCH ×2 (05:24→11:38)
--- NOTE | 2019-01-12 07:00 | PDOC.GSPN ---
Surgery Progress Note: Subj - Subjective Narrative: Mr. Loo is a 73 y/o male POD#2 from a pancreatic cystgastrostomy , bridget-en-y cysto-jejunostomy and cholestectomy. He reports that he is doing well this morning. He still has non-radiating pain in his right epigastric area rated at an 8/10. He denies any irritation or drainage at his incision site. He slept well over night and was able to stand and sit up in a chair yesterday. When he stood up yesterday, he mentions that he felt a little dizzy. He only had 30 ml of urine output overnight and was given a 250 bolus of normal saline and albumin. His SAMAN drain put out 30 ml's of fluid overnight. He has not had a BM and has been sipping on a small cup of orange juice. Denies nausea or vomiting. His appetite is still decreased and he still is somewhat afraid to eat because of pain. Denies CP, SOB or confusion. Surgery Progress Note: Obj - Vital signs Vital signs: Vital Signs - Most Recent Temp Pulse Resp BP Pulse Ox 97.3 F L 67 24 H 121/67 94 L 01/12/19 03:19 01/09/19 06:00 01/09/19 06:00 01/09/19 06:00 01/12/19 01:21 - Physical Exam General: no distress ENT: no congestion, other (dry oral mucosa. No rhinorrhea. NG tube in place ( total of 550 ml of dark green fluid - unkown overnight drainage)) Neck: no lymphadectomy, trachea midline Cardiovascular: regular rate and rhythm, no murmur, other (Right subclavian central line in place, non erythematous.) Respiratory: clear to auscultation Abdomen: soft, nondistended, appropriately tender, other (hypoactive bowel sounds.) Wound: dressing clean,dry,intact, other (No drainage from incision site. SAMAN drain from lower right abdomen with serosainguinous fluid.) Surgery Progress Note: Results - Labs Result Diagrams: 01/12/19 04:45 01/12/19 04:45 Lab results: Laboratory Results - last 24 hr 01/11/19 01/12/19 01/12/19 20:33 04:45 04:45 WBC 5.9 RBC 3.66 L Hgb 9.4 L Hct 31.5 L MCV 86.2 MCH 25.7 L MCHC 29.8 L RDW 14.9 H Plt Count 144 MPV 7.7 Neutrophils % 56.9 Neutrophils % (Manual) Not Reportable Lymphocytes % 30.1 Monocytes % 8.0 Eosinophils % 4.5 Basophils % 0.5 Neutrophils # 3.4 Lymphocytes # 1.8 Monocytes # 0.5 Eosinophils # 0.3 Basophils # 0.0 Hypochromia SLIGHT = 6-15 cells Plt Morphology Comment Appears Adequate Sodium 138 Potassium 4.6 Chloride 111 H Carbon Dioxide 22 L Anion Gap 10 BUN 9 Creatinine 1.57 H Estimated GFR (MDRD) 44 Glucose 85 POC Glucose 97 Calcium 8.0 Magnesium 1.7 Total Bilirubin 0.5 AST 13 ALT 13 Alkaline Phosphatase 92 Serum Total Protein 5.2 L Albumin 2.9 L Globulin 2.3 L Albumin/Globulin Ratio 1.3 01/12/ 05:16 WBC RBC Hgb Hct MCV MCH MCHC RDW Plt Count MPV Neutrophils % Neutrophils % (Manual) Lymphocytes % Monocytes % Eosinophils % Basophils % Neutrophils # Lymphocytes # Monocytes # Eosinophils # Basophils # Hypochromia Plt Morphology Comment Sodium Potassium Chloride Carbon Dioxide Anion Gap BUN Creatinine Estimated GFR (MDRD) Glucose POC Glucose 78 Calcium Magnesium Total Bilirubin AST ALT Alkaline Phosphatase Serum Total Protein Albumin Globulin Albumin/Globulin Ratio Surgery Progress Note: A/P - Plan Plan: Mr. Loo is a 73 y/o male POD#2 from a pancreatic cystgastrostomy, bridget-en- y cysto-jejunostomy and cholestectomy and slowly recovering well. He continues to have problems with hypovolemia (poor urine output, dry mucous membranes) and possible third spacing - which is likely contributing the rise in his creatinine this morning, which natalie from 1.25 to 1.57. He has not had another episode of hypotension. Plan is to continue his maintenance fluids (LR) and continue to monitor urine output and albumin levels. His Hemoglobin continues to drop. Hemoglobin is 9.4 today, but he is not tachycardic or short of breath. Blood type and screen has been already drawn and plan is to continue to monitor his Hemoglobin. His pseudocyst aspirate showed no bacterial growth on gram stain or culture. Will continue Ceftriaxone as per Infectious disease instructions. Patient will remain NPO and has be encouraged to continue using incentive spirometry.
[2019-01-12] MEDS ORDERED: Lactated Ringer's 1,000 ML IV SCH (07:30)
[2019-01-12] MEDS: Potassium Chloride 20 MEQ in Lactated Ringer's 1,000 ML IV SCH ×4 (09:56→23:47)
[2019-01-12] MEDS: cefTRIAXone\\ROCEPHIN 2 GM in Sodium Chloride 0.9% 100 ML IVPB SCH (09:57)
[2019-01-12] MEDS: Pantoprazole 40 MG VIAL IVP SCH (09:58)
--- NOTE | 2019-01-12 11:00 | PDOC.HOSPP ---
- Subjective Encounter Date: 01/12/19 Encounter Time: 10:25 Subjective: Patient seen and examined. No new complaints. No overnight events - Objective Vital Signs & Weight: Vital Signs (12 hours) Temp Pulse Ox 01/12/19 03:19 97.3 F L 01/12/19 01:21 94 L 01/11/19 23:15 97.4 F L Weight Weight 200 lb 9.6 oz Most Recent Monitor Data Heart Rate from ECG 69 NIBP 122/66 NIBP BP-Mean 84 Respiration from ECG 18 SpO2 96 I&O: 01/11/19 01/12/19 01/13/19 06:59 06:59 06:59 Intake Total 2438 3121 Output Total 825 455 Balance 8257 8536 Result Diagrams: 01/12/19 04:45 01/12/19 04:45 Additional Labs: Accuchecks 01/12/19 01/11/19 01/11/19 05:16 20:33 16:55 POC Glucose 78 97 103 01/11/19 10:54 POC Glucose 127 H EKG Reviewed by me: Yes Hospitalist ROS - Review of Systems Constitutional: denies: fever, chills, sweats, weakness, malaise, other Eyes: denies: pain, vision change, conjunctivae inflammation, eyelid inflammation, redness, other ENT: denies: ear pain, ear discharge, nose pain, nose discharge, nose congestion , mouth pain, mouth swelling, throat pain, throat swelling, other Respiratory: denies: cough, dry, shortness of breath, hemoptysis, SOB with excertion, pleuritic pain, sputum, wheezing, other Cardiovascular: denies: chest pain, palpitations, orthopnea, paroxysmal noc. dyspnea, edema, light headedness, other Gastrointestinal: denies: nausea, vomiting, abdominal pain, diarrhea, constipation, melena, hematochezia, other Genitourinary: denies: dysuria, frequency, incontinence, hematuria, retention, other Musculoskeletal: denies: neck pain, shoulder pain, arm pain, back pain, hand pain, leg pain, foot pain, other Skin: denies: rash, lesions, yared, bruising, other - Medication Medications: Active Medications Generic Name Dose Route Start Last Admin Trade Name Freq PRN Reason Stop Dose Admin Dextrose/Water 25 gm 01/07/19 12:45 01/09/19 03:44 Dextrose 50% SLOW IVP 25 gm PRN PRN Administration Hypoglycemia Ceftriaxone Sodium 2 gm/ 100 mls @ 200 mls/hr 01/10/19 09:00 01/12/19 09:57 Sodium Chloride IVPB 100 mls 0900 CARLA Administration Potassium Chloride 20 meq/ 1,010 mls @ 125 mls/hr 01/10/19 16:45 01/12/19 09: 56 Lactated Ringer's IV 1,010 mls .Q8H5M CARLA Administration Fentanyl Citrate 500 mcg/ 100 mls @ 4 mls/hr 01/11/19 09:45 01/11/19 17:31 Bupivacaine HCl 10 ml/ Sodium EPIDURAL 100 mls Chloride INF CARLA Administration Ketorolac Tromethamine 15 mg 01/10/19 18:00 01/12/19 05:24 Toradol IVP 01/12/19 12:01 15 mg Q6HR CARLA Administration Pantoprazole Sodium 40 mg 01/08/19 09:00 01/12/19 09:58 Protonix IVP 40 mg DAILY CARLA Administration Sodium Chloride 10 ml 01/07/19 21:00 01/12/19 09:57 Flush - Normal Saline IVF 10 ml Q12HR CARLA Administration - Exam General Appearance: NAD, awake alert Eye: PERRL, anicteric sclera Eye - other findings: NG tube in place with LIS ENT: normocephalic atraumatic, no oropharyngeal lesions Neck: supple, symmetric, no JVD, no thyromegaly Heart: RRR, no murmur, no gallops, no rubs, normal peripheral pulses Respiratory: CTAB, no wheezes, no rales, no ronchi Gastrointestinal: soft, non-tender, non-distended, normal bowel sounds Gastrointestinal - other findings: surgical site with dressing, SAMAN drain, zaidi+ Extremities: no cyanosis, no clubbing, no edema Skin: normal turgor, no lesions Neurological: cranial nerve grossly intact, no focal deficits Musculoskeletal: normal tone, normal strength Psychiatric: normal affect, normal behavior Hosp A/P (1) Pancreatic pseudocyst Code(s): K86.3 - PSEUDOCYST OF PANCREAS Status: Acute (2) Sepsis Code(s): A41.9 - SEPSIS, UNSPECIFIED ORGANISM Status: Acute Qualifiers: Sepsis type: Streptococcus, unspecified Sepsis acute organ dysfunction status: with acute organ dysfunction Acute respiratory failure type: unspecified Severe sepsis shock status: without septic shock (3) Streptococcal bacteremia Code(s): R78.81 - BACTEREMIA; B95.5 - UNSP STREPTOCOCCUS THE CAUSE OF DISEASES CLASSD ELSWHR Status: Acute (4) Abnormal LFTs Code(s): R94.5 - ABNORMAL RESULTS OF LIVER FUNCTION STUDIES Status: Acute (5) Acute worsening of stage 3 chronic kidney disease Code(s): N18.3 - CHRONIC KIDNEY DISEASE, STAGE 3 (MODERATE) Status: Acute (6) Cholelithiasis Code(s): K80.20 - CALCULUS OF GALLBLADDER W/O CHOLECYSTITIS W/O OBSTRUCTION Status: Chronic Qualifiers: Cholelithiasis location: gallbladder Cholecystitis presence: without cholecystitis Biliary obstruction: without biliary obstruction Qualified Code(s): K80.20 - Calculus of gallbladder without cholecystitis without obstruction (7) Dyslipidemia Code(s): E78.5 - HYPERLIPIDEMIA, UNSPECIFIED Status: Chronic (8) Hypertension Code(s): I10 - ESSENTIAL (PRIMARY) HYPERTENSION Status: Chronic Qualifiers: Hypertension type: essential hypertension Qualified Code(s): I10 - Essential (primary) hypertension (9) Hypothyroidism Code(s): E03.9 - HYPOTHYROIDISM, UNSPECIFIED Status: Chronic Qualifiers: Hypothyroidism type: unspecified Qualified Code(s): E03.9 - Hypothyroidism , unspecified (10) Metastatic renal cell carcinoma to bone Code(s): C79.51 - SECONDARY MALIGNANT NEOPLASM OF BONE; C64.9 - MALIGNANT NEOPLASM OF UNSP KIDNEY, EXCEPT RENAL PELVIS Status: Chronic (11) Hypokalemia Code(s): E87.6 - HYPOKALEMIA Status: Acute (12) Lactic acidosis Code(s): E87.2 - ACIDOSIS Status: Acute (13) DERRICK (acute kidney injury) Code(s): N17.9 - ACUTE KIDNEY FAILURE, UNSPECIFIED Status: Acute - Plan old records reviewed/req, plan discussed w/ family, continue antibiotics 01/11/19 s/p pancreatic cyst gastrostomy, jejunostomy and cholecystectomy currently NPO has epidural in place pain controlled discussed with family post op care as per surgeon follow up on pathology report FER when stable 01/12/19 today IVF increased as he has concentrated urine and DERRICK medication reviewed as above symptomatic treatment continue NPO, NG tube with LIS, pain controlled with epidural, discussed with family ambulate as tolerated
[2019-01-12 14:58] LABS: #Eosinphils 0.3 thou/uL (0.0-0.7); #Lymphocytes 1.8 thou/uL (1.20-3.40); #Monocytes 0.5 thou/uL (0.11-0.59); #Neutrophils 3.6 thou/uL (1.40-6.50); %Basophils 0.8 % (0.0-1.0); %Eosinophils 5.1 % (0.0-10.0); %Lymphocytes 28.8 % (21.0-51.0); %Monocytes 7.9 % (0.0-10.0); %Neutrophils 57.4 % (42.0-75.0); Hemoglobin 10.2 g/dL (14.0-18.0); Mean Corpuscular HGB CONC 30.4 g/dL (32.0-36.0); Mean Corpuscular Hemoglobin 26.4 pg (27.0-31.0); Mean Platelet Volume 8.1 fL (7.4-10.4); Platelet Count 153 thou/uL (130-400); RBC Distribution Width 14.9 % (11.5-14.5); Red Blood Cell (RBC) Count 3.85 mill/uL (4.70-6.10); White Blood Cell (WBC) Count 6.2 thou/uL (4.8-10.8)
[2019-01-12 15:14] LABS: Anion Gap 9 mmol/L (10-20); BUN (Urea Nitrogen) 8 mg/dL (8.4-25.7); Calc. Creatinine Clearance 66 mL/min (70-130); Calcium 8.1 mg/dL (7.8-10.44); Carbon Dioxide 22 mmol/L (23-31); Chloride 111 mmol/L (98-107); Estimated GFR-MDRD 53; Glucose 69 mg/dL (83-110); Potassium 4.8 mmol/L (3.5-5.1); Sodium 137 mmol/L (136-145)
[2019-01-12] MEDS: Dextrose 50% Abboject 50 ML SYRINGE SLOW IVP PRN (17:09)
[2019-01-12] MEDS ORDERED: Sodium Chloride 0.9% 500 ML IV SCH (17:30)
[2019-01-12] MEDS: fentaNYL Citrate/PF 500 MCG, Bupivacaine 10 ML in Sodium Chloride 0.9% 80 ML EPIDURAL SCH (18:02)
[2019-01-12 20:05] LABS: Anion Gap 10 mmol/L (10-20); BUN (Urea Nitrogen) 8 mg/dL (8.4-25.7); Calc. Creatinine Clearance 66 mL/min (70-130); Calcium 8.4 mg/dL (7.8-10.44); Carbon Dioxide 23 mmol/L (23-31); Chloride 110 mmol/L (98-107); Estimated GFR-MDRD 53; Glucose 96 mg/dL (83-110); Magnesium 1.6 mg/dL (1.6-2.6); Potassium 4.4 mmol/L (3.5-5.1); Sodium 139 mmol/L (136-145)
[2019-01-13] MEDS: Dextrose 50% Abboject 50 ML SYRINGE SLOW IVP PRN ×2 (05:38→21:48)
[2019-01-13 05:50] LABS: #Basophils 0.1 thou/uL (0.0-0.2); #Eosinphils 0.4 thou/uL (0.0-0.7); #Monocytes 0.5 thou/uL (0.11-0.59); #Neutrophils 4.4 thou/uL (1.40-6.50); %Basophils 0.7 % (0.0-1.0); %Eosinophils 5.5 % (0.0-10.0); %Lymphocytes 27.5 % (21.0-51.0); %Monocytes 7.1 % (0.0-10.0); %Neutrophils 59.2 % (42.0-75.0); Hemoglobin 10.1 g/dL (14.0-18.0); Mean Corpuscular HGB CONC 31.1 g/dL (32.0-36.0); Mean Corpuscular Hemoglobin 26.8 pg (27.0-31.0); Mean Corpuscular Volume 86.4 fL (78.0-98.0); Mean Platelet Volume 7.7 fL (7.4-10.4); Platelet Count 192 thou/uL (130-400); Red Blood Cell (RBC) Count 3.75 mill/uL (4.70-6.10); White Blood Cell (WBC) Count 7.4 thou/uL (4.8-10.8)
[2019-01-13 06:14] LABS: Anion Gap 11 mmol/L (10-20); BUN (Urea Nitrogen) 7 mg/dL (8.4-25.7); Calc. Creatinine Clearance 79 mL/min (70-130); Calcium 8.2 mg/dL (7.8-10.44); Carbon Dioxide 21 mmol/L (23-31); Chloride 109 mmol/L (98-107); Estimated GFR-MDRD 64; Glucose 71 mg/dL (83-110); Potassium 4.7 mmol/L (3.5-5.1); Sodium 136 mmol/L (136-145)
[2019-01-13] MEDS: Potassium Chloride 20 MEQ in Lactated Ringer's 1,000 ML IV SCH (07:12)
--- NOTE | 2019-01-13 07:22 | PDOC.GSPN ---
Surgery Progress Note: Subj - Subjective Narrative: Mr. Eze knott 73 y/o male is POD #3 from a pancreatic cystgastrostomy , bridget-en-y cystojejunostomy and cholestectomy with central line placement. He states that he is doing well this morning and feels like he's "getting better every day". Per nurse patient slept very well last night. He endorses mild, non-radiating epigastric pain still rated at 8/10, but feels like it has improved from yesterday and is manageable with current pain medication. He denies any irritation or drainage from his incision site. He continues to periodically sit in his chair, stand, and walk around his room with assistance. His urine output has improved with 650 mL overnight via Zaidi and continues to receive LR at 150 mls/hr. Per nursing, his potassium was a bit low at shift change yesterday (4.4), so continued 20mEq KCl and repeat was 4.7 at 0500 today. BS dropped to 64 overnight, so D5 25mg IVP was given this morning with repeat BS of 118 at 0600. His SAMAN drain had 70 mL of serosanguineous fluid overnight and NG tube produced 150 mL. He has not had a BM yet and remains NPO eating ice chips, but states that he is "hungry" and ready to try some light food. He denies fever, nausea, vomiting, diarrhea, CP, SOB, cough, confusion. Surgery Progress Note: Obj - Vital signs Vital signs: Vital Signs - Most Recent Temp Pulse Resp BP Pulse Ox 99.1 F 76 24 H 169/80 H 95 01/13/19 04:00 01/12/19 15:58 01/09/19 06:00 01/12/19 15:58 01/13/19 00:27 - Physical Exam General: other (lying in bed in no apparent distress.) ENT: other (slightly dry oral mucosa. No rhinnorhea or congestion. NG tube in place with 150 mL of dark fluid drainage overnight.) Neck: no lymphadectomy, trachea midline Cardiovascular: other (regular rate and rhythm without MGR (right central line in place with no signs of edema/warm/or erythema. mild bilateral ankle edema noted.) Respiratory: clear to auscultation Abdomen: other (soft, non-distended, appropriately tender with hypoactive bowel sounds. Large midline incision with reny in-tact and SAMAN drain in lower right abdomen.) Wound: other (large midline vertical incision with reny in-tact and no signs of drainage, warmth, edema, erythema - healing well. SAMAN drain in lower right abdomen with 70 mL of serosanguineous fluid overnight.) Surgery Progress Note: Results - Labs Result Diagrams: 01/13/19 05:18 01/13/19 05:18 Lab results: Laboratory Results - last 24 hr 01/12/19 01/13/19 01/13/19 19:39 05:18 05:18 WBC 7.4 RBC 3.75 L Hgb 10.1 L Hct 32.4 L MCV 86.4 MCH 26.8 L MCHC 31.1 L RDW 15.0 H Plt Count 192 MPV 7.7 Neutrophils % 59.2 Lymphocytes % 27.5 Monocytes % 7.1 Eosinophils % 5.5 Basophils % 0.7 Neutrophils # 4.4 Lymphocytes # 2.0 Monocytes # 0.5 Eosinophils # 0.4 Basophils # 0.1 Sodium 139 136 Potassium 4.4 4.7 Chloride 110 H 109 H Carbon Dioxide 23 21 L Anion Gap 10 11 BUN 8 L 7 L Creatinine 1.33 H 1.13 Estimated GFR (MDRD) 53 64 Glucose 96 71 L POC Glucose Calcium 8.4 8.2 Magnesium 1.6 01/13/19 06:06 WBC RBC Hgb Hct MCV MCH MCHC RDW Plt Count MPV Neutrophils % Lymphocytes % Monocytes % Eosinophils % Basophils % Neutrophils # Lymphocytes # Monocytes # Eosinophils # Basophils # Sodium Potassium Chloride Carbon Dioxide Anion Gap BUN Creatinine Estimated GFR (MDRD) Glucose POC Glucose 118 H Calcium Magnesium Surgery Progress Note: A/P - Plan Plan: Mr. Loo is a 73 y/o male POD #3 from a pancreatic cystgastrostomy , bridget-en-y cystojejunostomy and cholecystectomy. He is slowly recovering well and feels his pain is well controlled on currnet medications (fentanyl/ bupivacaine epidural). His urine output has improved (650 mL overnight), creatinine improved from 1.57 yesterday to 1.13 today, and no further episodes of hypotension (BP averaging in 140-150s/70-80s overnight). Plan is to continue to monitor pt's blood sugar (dropped to 64 overnight but improved to 118 with D5) and administer D5 as appropriate, continue LR (perhaps decrease rate a bit in light of mild LE edema) and monitor K+ levels. His hemoglobin has improved to 10.1 today from 9.4 yesterday (11.4 pre-op). The pseudocyst aspirate continues to show no growth after 3 days. Will continue Ceftriaxone as per ID recommendation. Will can slowly advance his diet as tolerated and continue use of incentive spirometry. Doing well. decrease IVF;D/C NGT,; D/C zaidi. Await better bowel function (sounds)b efore advancing diet.
[2019-01-13] MEDS: cefTRIAXone\\ROCEPHIN 2 GM in Sodium Chloride 0.9% 100 ML IVPB SCH (08:38)
[2019-01-13] MEDS: Pantoprazole 40 MG VIAL IVP SCH (08:39)
[2019-01-13] MEDS: Lactated Ringer's 1,000 ML IV SCH ×2 (08:42→17:14)
[2019-01-13] MEDS: Acetaminophen 1,000 MG in Premix Bag 1 BAG IVPB SCH ×3 (11:25→23:44)
--- NOTE | 2019-01-13 12:06 | PDOC.HOSPP ---
- Subjective Encounter Date: 01/13/19 Encounter Time: 11:00 Subjective: Patient seen and examined. No new complaints. No overnight events - Objective Vital Signs & Weight: Vital Signs (12 hours) Temp Pulse Ox 01/13/19 11:07 97.8 F 01/13/19 08:00 98 01/13/19 07:30 98.5 F 01/13/19 04:00 99.1 F 01/13/19 00:27 95 Weight Weight 205 lb Most Recent Monitor Data Heart Rate from ECG 73 NIBP 174/82 NIBP BP-Mean 112 Respiration from ECG 17 SpO2 96 I&O: 01/12/19 01/13/19 01/14/19 06:59 06:59 06:59 Intake Total 3121 4837 Output Total 455 1250 Balance 4696 5886 Result Diagrams: 01/13/19 05:18 01/13/19 05:18 Additional Labs: Accuchecks 01/13/19 01/13/19 01/13/19 10:56 06:06 05:39 POC Glucose 85 118 H 64 L 01/12/19 01/12/19 01/12/19 17:45 16:36 11:19 POC Glucose 110 61 L 81 Radiology Reviewed by me: Yes EKG Reviewed by me: Yes Hospitalist ROS - Review of Systems ENT: denies: ear pain, ear discharge, nose pain, nose discharge, nose congestion , mouth pain, mouth swelling, throat pain, throat swelling, other Respiratory: denies: cough, dry, shortness of breath, hemoptysis, SOB with excertion, pleuritic pain, sputum, wheezing, other Cardiovascular: denies: chest pain, palpitations, orthopnea, paroxysmal noc. dyspnea, edema, light headedness, other Gastrointestinal: denies: nausea, vomiting, abdominal pain, diarrhea, constipation, melena, hematochezia, other Genitourinary: denies: dysuria, frequency, incontinence, hematuria, retention, other Musculoskeletal: denies: neck pain, shoulder pain, arm pain, back pain, hand pain, leg pain, foot pain, other Skin: denies: rash, lesions, yared, bruising, other - Medication Medications: Active Medications Generic Name Dose Route Start Last Admin Trade Name Freq PRN Reason Stop Dose Admin Dextrose/Water 25 gm 01/07/19 12:45 01/13/19 05:38 Dextrose 50% SLOW IVP 25 gm PRN PRN Administration Hypoglycemia Ceftriaxone Sodium 2 gm/ 100 mls @ 200 mls/hr 01/10/19 09:00 01/13/19 08:38 Sodium Chloride IVPB 100 mls 0900 CARLA Administration Fentanyl Citrate 500 mcg/ 100 mls @ 4 mls/hr 01/11/19 09:45 01/12/19 18:02 Bupivacaine HCl 10 ml/ Sodium EPIDURAL 100 mls Chloride INF CARLA Administration Lactated Ringer's 1,000 mls @ 100 mls/hr 01/13/19 08:45 01/13/19 08:42 Lactated Ringer's IV 1,000 mls .Q10H CARLA Administration Acetaminophen 1,000 mg/ Device 100 mls @ 400 mls/hr 01/13/19 12:00 01/13/19 11:25 IVPB 01/14/19 06:14 100 mls Q6HR CARLA Administration Pantoprazole Sodium 40 mg 01/08/19 09:00 01/13/19 08:39 Protonix IVP 40 mg DAILY CARLA Administration Sodium Chloride 10 ml 01/07/19 21:00 01/13/19 08:39 Flush - Normal Saline IVF 10 ml Q12HR CARLA Administration - Exam General Appearance: NAD, awake alert Eye: PERRL, anicteric sclera ENT: normocephalic atraumatic, no oropharyngeal lesions Neck: supple, symmetric, no JVD, no thyromegaly Heart: RRR, no murmur, no gallops, no rubs Respiratory: CTAB, no wheezes, no rales, no ronchi Gastrointestinal: soft Gastrointestinal - other findings: SAMAN drain+, surgical site clean Extremities: no cyanosis, no clubbing Skin: normal turgor, no lesions Neurological: cranial nerve grossly intact, no focal deficits Musculoskeletal: normal tone, normal strength Psychiatric: normal affect, normal behavior Hosp A/P (1) Pancreatic pseudocyst Code(s): K86.3 - PSEUDOCYST OF PANCREAS Status: Acute (2) Sepsis Code(s): A41.9 - SEPSIS, UNSPECIFIED ORGANISM Status: Acute Qualifiers: Sepsis type: Streptococcus, unspecified Sepsis acute organ dysfunction status: with acute organ dysfunction Acute respiratory failure type: unspecified Severe sepsis shock status: without septic shock (3) Streptococcal bacteremia Code(s): R78.81 - BACTEREMIA; B95.5 - UNSP STREPTOCOCCUS THE CAUSE OF DISEASES CLASSD ELSWHR Status: Acute (4) Abnormal LFTs Code(s): R94.5 - ABNORMAL RESULTS OF LIVER FUNCTION STUDIES Status: Acute (5) Acute worsening of stage 3 chronic kidney disease Code(s): N18.3 - CHRONIC KIDNEY DISEASE, STAGE 3 (MODERATE) Status: Acute (6) Cholelithiasis Code(s): K80.20 - CALCULUS OF GALLBLADDER W/O CHOLECYSTITIS W/O OBSTRUCTION Status: Chronic Qualifiers: Cholelithiasis location: gallbladder Cholecystitis presence: without cholecystitis Biliary obstruction: without biliary obstruction Qualified Code(s): K80.20 - Calculus of gallbladder without cholecystitis without obstruction (7) Dyslipidemia Code(s): E78.5 - HYPERLIPIDEMIA, UNSPECIFIED Status: Chronic (8) Hypertension Code(s): I10 - ESSENTIAL (PRIMARY) HYPERTENSION Status: Chronic Qualifiers: Hypertension type: essential hypertension Qualified Code(s): I10 - Essential (primary) hypertension (9) Hypothyroidism Code(s): E03.9 - HYPOTHYROIDISM, UNSPECIFIED Status: Chronic Qualifiers: Hypothyroidism type: unspecified Qualified Code(s): E03.9 - Hypothyroidism , unspecified (10) Metastatic renal cell carcinoma to bone Code(s): C79.51 - SECONDARY MALIGNANT NEOPLASM OF BONE; C64.9 - MALIGNANT NEOPLASM OF UNSP KIDNEY, EXCEPT RENAL PELVIS Status: Chronic (11) Hypokalemia Code(s): E87.6 - HYPOKALEMIA Status: Acute (12) Lactic acidosis Code(s): E87.2 - ACIDOSIS Status: Acute (13) DERRICK (acute kidney injury) Code(s): N17.9 - ACUTE KIDNEY FAILURE, UNSPECIFIED Status: Acute - Plan old records reviewed/req, plan discussed w/ family 01/11/19 s/p pancreatic cyst gastrostomy, jejunostomy and cholecystectomy currently NPO has epidural in place pain controlled discussed with family post op care as per surgeon follow up on pathology report FER when stable 01/12/19 today IVF increased as he has concentrated urine and DERRICK medication reviewed as above symptomatic treatment continue NPO, NG tube with LIS, pain controlled with epidural, discussed with family ambulate as tolerated 01/13/19 continue post operative care today possibley NG tube and zaidi will be removed medication reviewed as above symptomatic treatment
[2019-01-13] MEDS: fentaNYL Citrate/PF 500 MCG, Bupivacaine 10 ML in Sodium Chloride 0.9% 80 ML EPIDURAL SCH (19:23)
[2019-01-14] MEDS: Lactated Ringer's 1,000 ML IV SCH (04:26)
[2019-01-14 04:34] LABS: #Basophils 0.1 thou/uL (0.0-0.2); #Eosinphils 0.5 thou/uL (0.0-0.7); #Lymphocytes 2.2 thou/uL (1.20-3.40); #Monocytes 0.5 thou/uL (0.11-0.59); #Neutrophils 4.5 thou/uL (1.40-6.50); %Basophils 1.1 % (0.0-1.0); %Eosinophils 6.6 % (0.0-10.0); %Lymphocytes 28.3 % (21.0-51.0); %Monocytes 6.8 % (0.0-10.0); %Neutrophils 57.3 % (42.0-75.0); Hemoglobin 10.3 g/dL (14.0-18.0); Mean Corpuscular HGB CONC 31.5 g/dL (32.0-36.0); Mean Corpuscular Hemoglobin 27.2 pg (27.0-31.0); Mean Corpuscular Volume 86.4 fL (78.0-98.0); Mean Platelet Volume 7.6 fL (7.4-10.4); Platelet Count 198 thou/uL (130-400); RBC Distribution Width 14.9 % (11.5-14.5); Red Blood Cell (RBC) Count 3.79 mill/uL (4.70-6.10); White Blood Cell (WBC) Count 7.8 thou/uL (4.8-10.8)
[2019-01-14 04:56] LABS: ALT (SGPT) 8 U/L (8-55); AST (SGOT) 9 U/L (5-34); Albumin 2.6 g/dL (3.4-4.8); Alkaline Phosphatase 94 U/L (40-110); Anion Gap 13 mmol/L (10-20); BUN (Urea Nitrogen) 5 mg/dL (8.4-25.7); Bilirubin, Total 0.5 mg/dL (0.2-1.2); Calc. Creatinine Clearance 90 mL/min (70-130); Calcium 7.9 mg/dL (7.8-10.44); Carbon Dioxide 18 mmol/L (23-31); Chloride 107 mmol/L (98-107); Estimated GFR-MDRD 75; Globulin 2.4 g/dL (2.4-3.5); Glucose 74 mg/dL (83-110); Potassium 3.9 mmol/L (3.5-5.1); Sodium 134 mmol/L (136-145)
[2019-01-14] MEDS: Acetaminophen 1,000 MG in Premix Bag 1 BAG IVPB SCH (06:02)
--- NOTE | 2019-01-14 10:15 | PDOC.HOSPP ---
- Subjective Encounter Date: 01/14/19 Encounter Time: 10:00 Subjective: Patient seen and examined. No new complaints. No overnight events - Objective Vital Signs & Weight: Vital Signs (12 hours) Temp Pulse Ox 01/14/19 07:58 97 01/14/19 07:27 98.6 F 01/14/19 03:40 98.0 F 01/13/19 23:24 98.0 F Weight Weight 210 lb 14.4 oz Most Recent Monitor Data Heart Rate from ECG 63 NIBP 151/70 NIBP BP-Mean 97 Respiration from ECG 4 SpO2 96 I&O: 01/13/19 01/14/19 01/15/19 06:59 06:59 06:59 Intake Total 4837 3173 Output Total 1250 1380 Balance 3587 1793 Result Diagrams: 01/14/19 04:12 01/14/19 04:12 Additional Labs: Accuchecks 01/14/19 01/14/19 01/13/19 05:38 03:40 23:44 POC Glucose 68 L 71 86 01/13/19 01/13/19 01/13/19 21:35 19:30 16:35 POC Glucose 63 L 67 L 69 L 01/13/19 01/13/19 10:56 05:39 POC Glucose 85 64 L EKG Reviewed by me: Yes Hospitalist ROS - Review of Systems ENT: denies: ear pain, ear discharge, nose pain, nose discharge, nose congestion , mouth pain, mouth swelling, throat pain, throat swelling, other Respiratory: denies: cough, dry, shortness of breath, hemoptysis, SOB with excertion, pleuritic pain, sputum, wheezing, other Cardiovascular: denies: chest pain, palpitations, orthopnea, paroxysmal noc. dyspnea, edema, light headedness, other Gastrointestinal: denies: nausea, vomiting, abdominal pain, diarrhea, constipation, melena, hematochezia, other Genitourinary: denies: dysuria, frequency, incontinence, hematuria, retention, other Musculoskeletal: denies: neck pain, shoulder pain, arm pain, back pain, hand pain, leg pain, foot pain, other Skin: denies: rash, lesions, yared, bruising, other - Medication Medications: Active Medications Generic Name Dose Route Start Last Admin Trade Name Freq PRN Reason Stop Dose Admin Dextrose/Water 25 gm 01/07/19 12:45 01/13/19 21:48 Dextrose 50% SLOW IVP 25 gm PRN PRN Administration Hypoglycemia Ceftriaxone Sodium 2 gm/ 100 mls @ 200 mls/hr 01/10/19 09:00 01/13/19 08:38 Sodium Chloride IVPB 100 mls 0900 CARLA Administration Fentanyl Citrate 500 mcg/ 100 mls @ 4 mls/hr 01/11/19 09:45 01/13/19 19:23 Bupivacaine HCl 10 ml/ Sodium EPIDURAL 100 mls Chloride INF CARLA Administration Lactated Ringer's 1,000 mls @ 100 mls/hr 01/13/19 08:45 01/14/19 04:26 Lactated Ringer's IV 1,000 mls .Q10H CARLA Administration Pantoprazole Sodium 40 mg 01/08/19 09:00 01/13/19 08:39 Protonix IVP 40 mg DAILY CARLA Administration Sodium Chloride 10 ml 01/07/19 21:00 01/13/19 22:44 Flush - Normal Saline IVF 10 ml Q12HR CARLA Administration - Exam General Appearance: NAD, awake alert Eye: PERRL, anicteric sclera ENT: normocephalic atraumatic, no oropharyngeal lesions Neck: supple, symmetric, no JVD, no thyromegaly Heart: RRR, no murmur, no gallops, no rubs Respiratory: CTAB, no wheezes, no rales Gastrointestinal: soft, non-tender, non-distended Extremities: no cyanosis, no clubbing Skin: normal turgor, no lesions Hosp A/P (1) Pancreatic pseudocyst Code(s): K86.3 - PSEUDOCYST OF PANCREAS Status: Acute (2) Sepsis Code(s): A41.9 - SEPSIS, UNSPECIFIED ORGANISM Status: Acute Qualifiers: Sepsis type: Streptococcus, unspecified Sepsis acute organ dysfunction status: with acute organ dysfunction Acute respiratory failure type: unspecified Severe sepsis shock status: without septic shock (3) Streptococcal bacteremia Code(s): R78.81 - BACTEREMIA; B95.5 - UNSP STREPTOCOCCUS THE CAUSE OF DISEASES CLASSD ELSWHR Status: Acute (4) Abnormal LFTs Code(s): R94.5 - ABNORMAL RESULTS OF LIVER FUNCTION STUDIES Status: Acute (5) Acute worsening of stage 3 chronic kidney disease Code(s): N18.3 - CHRONIC KIDNEY DISEASE, STAGE 3 (MODERATE) Status: Acute (6) Cholelithiasis Code(s): K80.20 - CALCULUS OF GALLBLADDER W/O CHOLECYSTITIS W/O OBSTRUCTION Status: Chronic Qualifiers: Cholelithiasis location: gallbladder Cholecystitis presence: without cholecystitis Biliary obstruction: without biliary obstruction Qualified Code(s): K80.20 - Calculus of gallbladder without cholecystitis without obstruction (7) Dyslipidemia Code(s): E78.5 - HYPERLIPIDEMIA, UNSPECIFIED Status: Chronic (8) Hypertension Code(s): I10 - ESSENTIAL (PRIMARY) HYPERTENSION Status: Chronic Qualifiers: Hypertension type: essential hypertension Qualified Code(s): I10 - Essential (primary) hypertension (9) Hypothyroidism Code(s): E03.9 - HYPOTHYROIDISM, UNSPECIFIED Status: Chronic Qualifiers: Hypothyroidism type: unspecified Qualified Code(s): E03.9 - Hypothyroidism , unspecified (10) Metastatic renal cell carcinoma to bone Code(s): C79.51 - SECONDARY MALIGNANT NEOPLASM OF BONE; C64.9 - MALIGNANT NEOPLASM OF UNSP KIDNEY, EXCEPT RENAL PELVIS Status: Chronic (11) Hypokalemia Code(s): E87.6 - HYPOKALEMIA Status: Acute (12) Lactic acidosis Code(s): E87.2 - ACIDOSIS Status: Acute (13) DERRICK (acute kidney injury) Code(s): N17.9 - ACUTE KIDNEY FAILURE, UNSPECIFIED Status: Acute - Plan old records reviewed/req, plan discussed w/ family 01/11/19 s/p pancreatic cyst gastrostomy, jejunostomy and cholecystectomy currently NPO has epidural in place pain controlled discussed with family post op care as per surgeon follow up on pathology report FER when stable 01/12/19 today IVF increased as he has concentrated urine and DERRICK medication reviewed as above symptomatic treatment continue NPO, NG tube with LIS, pain controlled with epidural, discussed with family ambulate as tolerated 01/13/19 continue post operative care today possibley NG tube and zaidi will be removed medication reviewed as above symptomatic treatment 01/14/19 now has some bowel sound, started on liquid diet NG tube removed consider epidural removal medication reviewed as above symptomatic treatment ok to transfer to surgical if surgeon OK
[2019-01-14] MEDS: cefTRIAXone\\ROCEPHIN 2 GM in Sodium Chloride 0.9% 100 ML IVPB SCH (10:25)
[2019-01-14] MEDS: Pantoprazole 40 MG VIAL IVP SCH (10:25)
[2019-01-14] MEDS ORDERED: traMADol HCl 50 MG TAB PO PRN ×2 (10:34)
--- NOTE | 2019-01-14 10:49 | PRG ---
DATE OF SERVICE: 01/14/2019 SUBJECTIVE: Andrea Loo is in the IMC[facility]. He is doing well. He is hungry this morning. He has not had any nausea or vomiting. His NG tube was removed yesterday. OBJECTIVE: VITAL SIGNS: Heart rate 63, blood pressure 151/70. LUNGS: Clear to auscultation. CARDIAC: Regular rate and rhythm. No murmur or gallop. ABDOMEN: Soft, nontender. Bowel sounds present. Surgical wounds look good. LABORATORY DATA: White count 7, hemoglobin 10.3. Basic metabolic profile normal with sodium 134. Renal function is normal. ASSESSMENT AND PLAN: Today we will start full liquids. We will change his IV fluids to normal saline. Overall, the patient is doing well. Job ID: [id number]
[2019-01-14] MEDS: Fentanyl 100 MCG/2 ML VIAL SLOW IVP PRN ×3 (11:12→15:44)
[2019-01-14] MEDS: NS 0.9% w/ 20 MEQ KCL 1,000 ML IV SCH (11:16)
[2019-01-14] MEDS: Acetaminophen 500 MG TAB PO PRN (19:26)
[2019-01-14] MEDS: Gabapentin 300 MG CAP PO SCH (20:22)
[2019-01-14] MEDS: Ibuprofen 600 MG TAB PO PRN (23:39)
[2019-01-15] MEDS: NS 0.9% w/ 20 MEQ KCL 1,000 ML IV SCH ×2 (00:50→13:08)
[2019-01-15] MEDS: Acetaminophen 500 MG TAB PO PRN ×2 (03:46→13:07)
[2019-01-15] MEDS: Gabapentin 300 MG CAP PO SCH ×2 (08:43→20:21)
[2019-01-15] MEDS: Ibuprofen 600 MG TAB PO PRN ×2 (08:43→16:46)
[2019-01-15] MEDS: Pantoprazole 40 MG VIAL IVP SCH (08:45)
[2019-01-15] MEDS: cefTRIAXone\\ROCEPHIN 2 GM in Sodium Chloride 0.9% 100 ML IVPB SCH (08:53)
--- NOTE | 2019-01-15 12:29 | PDOC.HOSPP ---
- Subjective Encounter Date: 01/15/19 Encounter Time: 08:00 Subjective: Patient seen and examined. No new complaints. No overnight events - Objective Vital Signs & Weight: Vital Signs (12 hours) Temp Pulse Resp BP Pulse Ox 01/15/19 10:37 97.8 F 77 16 167/76 H 98 01/15/19 07:55 97.8 F 81 18 177/79 H 98 01/15/19 03:39 98 F 75 16 171/76 H 98 Weight Admit Weight 189 lb 9.191 oz Weight 208 lb 11.2 oz Most Recent Monitor Data Heart Rate from ECG 80 NIBP 206/84 NIBP BP-Mean 124 Respiration from ECG 23 SpO2 97 I&O: 01/14/19 01/15/19 01/16/19 06:59 06:59 06:59 Intake Total 3173 890 Output Total 1380 795 Balance 1793 95 Result Diagrams: 01/14/19 04:12 01/14/19 04:12 Additional Labs: Accuchecks 01/15/19 01/15/19 01/14/19 10:38 05:26 20:42 POC Glucose 111 H 73 74 01/14/19 17:20 POC Glucose 71 Hospitalist ROS - Review of Systems Constitutional: denies: fever, chills, sweats, weakness, malaise, other Eyes: denies: pain, vision change, conjunctivae inflammation, eyelid inflammation, redness, other ENT: denies: ear pain, ear discharge, nose pain, nose discharge, nose congestion , mouth pain, mouth swelling, throat pain, throat swelling, other Respiratory: denies: cough, dry, shortness of breath, hemoptysis, SOB with excertion, pleuritic pain, sputum, wheezing, other Cardiovascular: denies: chest pain, palpitations, orthopnea, paroxysmal noc. dyspnea, edema, light headedness, other Gastrointestinal: denies: nausea, vomiting, abdominal pain, diarrhea, constipation, melena, hematochezia, other Genitourinary: denies: dysuria, frequency, incontinence, hematuria, retention, other Musculoskeletal: denies: neck pain, shoulder pain, arm pain, back pain, hand pain, leg pain, foot pain, other Skin: denies: rash, lesions, yared, bruising, other - Medication Medications: Active Medications Generic Name Dose Route Start Last Admin Trade Name Freq PRN Reason Stop Dose Admin Acetaminophen 1,000 mg 01/12/19 09:53 01/15/19 03:46 Tylenol PO 1,000 mg Q6H PRN Administration Headache/Fever or MILD Pain Dextrose/Water 25 gm 01/07/19 12:45 01/13/19 21:48 Dextrose 50% SLOW IVP 25 gm PRN PRN Administration Hypoglycemia Fentanyl 25 mcg 01/14/19 10:52 01/14/19 15:44 Sublimaze SLOW IVP 25 mcg Q2H PRN Administration Moderate to Severe Pain (4-10) Gabapentin 300 mg 01/14/19 21:00 01/15/19 08:43 Neurontin PO 300 mg BID CARLA Administration Ceftriaxone Sodium 2 gm/ 100 mls @ 200 mls/hr 01/10/19 09:00 01/15/19 08:53 Sodium Chloride IVPB 100 mls 0900 CARLA Administration Potassium Chloride/Sodium Chloride 1,000 mls @ 75 mls/hr 01/14/19 10:45 01/15 00:50 Ns 0.9% W/ 20 Meq Kcl IV 1,000 mls .[id number] CARLA Administration Ibuprofen 600 mg 01/14/19 10:34 01/15/19 08:43 Motrin PO 600 mg Q6H PRN Administration Pain Ondansetron HCl 4 mg 01/10/19 12:15 01/15/19 08:43 Zofran IVP 4 mg Q6H PRN Administration Nausea/Vomiting Pantoprazole Sodium 40 mg 01/08/19 09:00 01/15/19 08:45 Protonix IVP 40 mg DAILY CARLA Administration Sodium Chloride 10 ml 01/07/19 21:00 01/15/19 08:47 Flush - Normal Saline IVF 10 ml Q12HR CARLA Administration - Exam General Appearance: NAD, awake alert Eye: PERRL, anicteric sclera ENT: normocephalic atraumatic, no oropharyngeal lesions Neck: supple, symmetric, no JVD, no thyromegaly, no lymphadenopathy Heart: RRR, no murmur, no gallops, no rubs, normal peripheral pulses Respiratory: CTAB, no wheezes, no rales, no ronchi, normal chest expansion Gastrointestinal: soft, non-tender, non-distended, normal bowel sounds, no palpable masses, no hepatomegaly Gastrointestinal - other findings: SAMAN drain+ Extremities: no cyanosis, no clubbing, no edema Skin: normal turgor, no lesions, no rashes Neurological: cranial nerve grossly intact, no focal deficits Musculoskeletal: normal tone, normal strength, no muscle wasting Psychiatric: normal affect, normal behavior, A&O x 3 Hosp A/P (1) Pancreatic pseudocyst Code(s): K86.3 - PSEUDOCYST OF PANCREAS Status: Acute (2) Sepsis Code(s): A41.9 - SEPSIS, UNSPECIFIED ORGANISM Status: Acute Qualifiers: Sepsis type: Streptococcus, unspecified Sepsis acute organ dysfunction status: with acute organ dysfunction Acute respiratory failure type: unspecified Severe sepsis shock status: without septic shock (3) Streptococcal bacteremia Code(s): R78.81 - BACTEREMIA; B95.5 - UNSP STREPTOCOCCUS THE CAUSE OF DISEASES CLASSD ELSWHR Status: Acute (4) Abnormal LFTs Code(s): R94.5 - ABNORMAL RESULTS OF LIVER FUNCTION STUDIES Status: Acute (5) Acute worsening of stage 3 chronic kidney disease Code(s): N18.3 - CHRONIC KIDNEY DISEASE, STAGE 3 (MODERATE) Status: Acute (6) Cholelithiasis Code(s): K80.20 - CALCULUS OF GALLBLADDER W/O CHOLECYSTITIS W/O OBSTRUCTION Status: Chronic Qualifiers: Cholelithiasis location: gallbladder Cholecystitis presence: without cholecystitis Biliary obstruction: without biliary obstruction Qualified Code(s): K80.20 - Calculus of gallbladder without cholecystitis without obstruction (7) Dyslipidemia Code(s): E78.5 - HYPERLIPIDEMIA, UNSPECIFIED Status: Chronic (8) Hypertension Code(s): I10 - ESSENTIAL (PRIMARY) HYPERTENSION Status: Chronic Qualifiers: Hypertension type: essential hypertension Qualified Code(s): I10 - Essential (primary) hypertension (9) Hypothyroidism Code(s): E03.9 - HYPOTHYROIDISM, UNSPECIFIED Status: Chronic Qualifiers: Hypothyroidism type: unspecified Qualified Code(s): E03.9 - Hypothyroidism , unspecified (10) Metastatic renal cell carcinoma to bone Code(s): C79.51 - SECONDARY MALIGNANT NEOPLASM OF BONE; C64.9 - MALIGNANT NEOPLASM OF UNSP KIDNEY, EXCEPT RENAL PELVIS Status: Chronic (11) Hypokalemia Code(s): E87.6 - HYPOKALEMIA Status: Acute (12) Lactic acidosis Code(s): E87.2 - ACIDOSIS Status: Acute (13) DERRICK (acute kidney injury) Code(s): N17.9 - ACUTE KIDNEY FAILURE, UNSPECIFIED Status: Acute - Plan old records reviewed/req, plan discussed w/ family, continue antibiotics 01/11/19 s/p pancreatic cyst gastrostomy, jejunostomy and cholecystectomy currently NPO has epidural in place pain controlled discussed with family post op care as per surgeon follow up on pathology report FER when stable 01/12/19 today IVF increased as he has concentrated urine and DERRICK medication reviewed as above symptomatic treatment continue NPO, NG tube with LIS, pain controlled with epidural, discussed with family ambulate as tolerated 01/13/19 continue post operative care today possibley NG tube and zaidi will be removed medication reviewed as above symptomatic treatment 01/14/19 now has some bowel sound, started on liquid diet NG tube removed consider epidural removal medication reviewed as above symptomatic treatment ok to transfer to surgical if surgeon OK 01/15/19 pt is recovering well, family asking for rehab screen medication reviewed as above symptomatic treatment will repeat labs tomorrow
[2019-01-15] MEDS ORDERED: Acetaminophen 500 MG TAB PO PRN (15:46)
--- NOTE | 2019-01-15 16:06 | PRG ---
DATE OF SERVICE: 01/15/2019 SUBJECTIVE: Andrea Loo is doing well today. He did have some vomiting after gagging after a coughing spell, but this has passed and has not experienced this since. He has had multiple bowel movements today. He has passed flatus. He is tolerating full liquid diet. OBJECTIVE: VITAL SIGNS: Temperature 97.5 degrees, pulse 79, blood pressure 182/83. Urine output is good. LUNGS: Clear to auscultation. CARDIAC: Regular rate and rhythm without murmur or gallop. ABDOMEN: Soft, nontender. Bowel sounds present. Positive bowel movements. His surgery was on 01/10. LABORATORY DATA: Laboratories none today. SAMAN drainage has been submitted for amylase evaluation. SAMAN drainage is serosanguineous at 270 for 24 hours. It has decreased from 405 in the last 24 hours. ASSESSMENT AND PLAN: Overall, the patient is doing well. I would saline lock him, and I believe that we could stop his intravenous antibiotics, but we will await Dr. Duff' opinion as he is following him for this. We will stop his fentanyl. I will advance him to a GI soft diet tomorrow. Job ID: [id number]
[2019-01-16 05:43] LABS: Anion Gap 12 mmol/L (10-20); BUN (Urea Nitrogen) 4 mg/dL (8.4-25.7); Calc. Creatinine Clearance 88 mL/min (70-130); Calcium 7.9 mg/dL (7.8-10.44); Carbon Dioxide 20 mmol/L (23-31); Chloride 107 mmol/L (98-107); Estimated GFR-MDRD 71; Glucose 88 mg/dL (83-110); Potassium 3.7 mmol/L (3.5-5.1); Sodium 135 mmol/L (136-145)
[2019-01-16 05:50] LABS: #Basophils 0.1 thou/uL (0.0-0.2); #Eosinphils 0.6 thou/uL (0.0-0.7); #Lymphocytes 1.7 thou/uL (1.20-3.40); #Monocytes 0.6 thou/uL (0.11-0.59); #Neutrophils 9.4 thou/uL (1.40-6.50); %Basophils 0.5 % (0.0-1.0); %Eosinophils 5.2 % (0.0-10.0); %Lymphocytes 13.7 % (21.0-51.0); %Monocytes 4.6 % (0.0-10.0); %Neutrophils 75.9 % (42.0-75.0); Hemoglobin 10.9 g/dL (14.0-18.0); Mean Corpuscular HGB CONC 29.8 g/dL (32.0-36.0); Mean Corpuscular Hemoglobin 25.6 pg (27.0-31.0); Mean Corpuscular Volume 85.7 fL (78.0-98.0); Mean Platelet Volume 7.1 fL (7.4-10.4); Platelet Count 284 thou/uL (130-400); RBC Distribution Width 14.9 % (11.5-14.5); Red Blood Cell (RBC) Count 4.27 mill/uL (4.70-6.10); White Blood Cell (WBC) Count 12.4 thou/uL (4.8-10.8)
[2019-01-16] MEDS: Levothyroxine Sodium 125 MCG TAB PO SCH (06:09)
[2019-01-16] MEDS ORDERED: glipiZIDE 5 MG TAB PO SCH (07:30)
[2019-01-16] MEDS: cefTRIAXone\\ROCEPHIN 2 GM in Sodium Chloride 0.9% 100 ML IVPB SCH (09:20)
[2019-01-16] MEDS: Citalopram 20 MG TAB PO SCH (09:21)
[2019-01-16] MEDS: Gabapentin 300 MG CAP PO SCH ×2 (09:21→20:57)
--- NOTE | 2019-01-16 11:06 | PDOC.HOSPP ---
- Subjective Encounter Date: 01/16/19 Encounter Time: 08:30 Subjective: Patient seen and examined. No new complaints. No overnight events - Objective Vital Signs & Weight: Vital Signs (12 hours) Temp Pulse Resp BP Pulse Ox 01/16/19 08:55 96 01/16/19 07:37 97.9 F 73 18 153/77 H 96 01/15/19 23:48 97.8 F 69 16 163/80 H 97 Weight Admit Weight 189 lb 9.191 oz Weight 202 lb 3.2 oz Most Recent Monitor Data Heart Rate from ECG 80 NIBP 206/84 NIBP BP-Mean 124 Respiration from ECG 23 SpO2 97 I&O: 01/15/19 01/16/19 01/17/19 06:59 06:59 06:59 Intake Total 890 Output Total 795 250 70 Balance 95 -250 -70 Result Diagrams: 01/16/19 05:09 01/16/19 05:09 Additional Labs: Accuchecks 01/16/19 01/15/19 01/15/19 05:54 20:25 15:24 POC Glucose 85 90 107 01/15/19 10:38 POC Glucose 111 H Hospitalist ROS - Review of Systems Constitutional: denies: fever, chills, sweats, weakness, malaise, other Eyes: denies: pain, vision change, conjunctivae inflammation, eyelid inflammation, redness, other ENT: denies: ear pain, ear discharge, nose pain, nose discharge, nose congestion , mouth pain, mouth swelling, throat pain, throat swelling, other Respiratory: denies: cough, dry, shortness of breath, hemoptysis, SOB with excertion, pleuritic pain, sputum, wheezing, other Cardiovascular: denies: chest pain, palpitations, orthopnea, paroxysmal noc. dyspnea, edema, light headedness, other Gastrointestinal: denies: nausea, vomiting, abdominal pain, diarrhea, constipation, melena, hematochezia, other Genitourinary: denies: dysuria, frequency, incontinence, hematuria, retention, other Musculoskeletal: denies: neck pain, shoulder pain, arm pain, back pain, hand pain, leg pain, foot pain, other Skin: denies: rash, lesions, yared, bruising, other - Medication Medications: Active Medications Generic Name Dose Route Start Last Admin Trade Name Freq PRN Reason Stop Dose Admin Acetaminophen 1,000 mg 01/12/19 09:53 01/15/19 13:07 Tylenol PO 1,000 mg Q6H PRN Administration Headache/Fever or MILD Pain Citalopram Hydrobromide 20 mg 01/16/19 09:00 01/16/19 09:21 Celexa PO 20 mg DAILY CARLA Administration Dextrose/Water 25 gm 01/07/19 12:45 01/13/19 21:48 Dextrose 50% SLOW IVP 25 gm PRN PRN Administration Hypoglycemia Gabapentin 300 mg 01/14/19 21:00 01/16/19 09:21 Neurontin PO 300 mg BID CARLA Administration Glipizide 5 mg 01/16/19 07:30 01/16/19 06:46 Glucotrol PO 5 mg DAILY-AC CARLA Administration Ibuprofen 600 mg 01/14/19 10:34 01/15/19 16:46 Motrin PO 600 mg Q6H PRN Administration Pain Levothyroxine Sodium 125 mcg 01/16/19 06:00 01/16/19 06:09 Synthroid PO 125 mcg 0600 CARLA Administration Ondansetron HCl 4 mg 01/10/19 12:15 01/15/19 08:43 Zofran IVP 4 mg Q6H PRN Administration Nausea/Vomiting Pantoprazole Sodium 40 mg 01/16/19 09:00 01/16/19 09:21 Protonix PO 40 mg DAILY CARLA Administration Sodium Chloride 10 ml 01/07/19 21:00 01/15/19 20:24 Flush - Normal Saline IVF 10 ml Q12HR CARLA Administration - Exam General Appearance: NAD, awake alert Eye: PERRL, anicteric sclera ENT: normocephalic atraumatic, no oropharyngeal lesions Neck: supple, symmetric, no JVD, no thyromegaly Heart: RRR, no murmur, no gallops, no rubs Respiratory: CTAB, no wheezes, no rales, no ronchi Gastrointestinal: soft, non-tender, non-distended, normal bowel sounds, no palpable masses, no hepatomegaly Gastrointestinal - other findings: surgical site clean, SAMAN drain in place Extremities: no cyanosis, no clubbing, no edema Skin: normal turgor, no lesions Neurological: cranial nerve grossly intact, no focal deficits Musculoskeletal: normal tone, normal strength Psychiatric: normal affect, normal behavior Hosp A/P (1) Pancreatic pseudocyst Code(s): K86.3 - PSEUDOCYST OF PANCREAS Status: Acute (2) Sepsis Code(s): A41.9 - SEPSIS, UNSPECIFIED ORGANISM Status: Acute Qualifiers: Sepsis type: Streptococcus, unspecified Sepsis acute organ dysfunction status: with acute organ dysfunction Acute respiratory failure type: unspecified Severe sepsis shock status: without septic shock (3) Streptococcal bacteremia Code(s): R78.81 - BACTEREMIA; B95.5 - UNSP STREPTOCOCCUS THE CAUSE OF DISEASES CLASSD ELSWHR Status: Acute (4) Abnormal LFTs Code(s): R94.5 - ABNORMAL RESULTS OF LIVER FUNCTION STUDIES Status: Acute (5) Acute worsening of stage 3 chronic kidney disease Code(s): N18.3 - CHRONIC KIDNEY DISEASE, STAGE 3 (MODERATE) Status: Acute (6) Cholelithiasis Code(s): K80.20 - CALCULUS OF GALLBLADDER W/O CHOLECYSTITIS W/O OBSTRUCTION Status: Chronic Qualifiers: Cholelithiasis location: gallbladder Cholecystitis presence: without cholecystitis Biliary obstruction: without biliary obstruction Qualified Code(s): K80.20 - Calculus of gallbladder without cholecystitis without obstruction (7) Dyslipidemia Code(s): E78.5 - HYPERLIPIDEMIA, UNSPECIFIED Status: Chronic (8) Hypertension Code(s): I10 - ESSENTIAL (PRIMARY) HYPERTENSION Status: Chronic Qualifiers: Hypertension type: essential hypertension Qualified Code(s): I10 - Essential (primary) hypertension (9) Hypothyroidism Code(s): E03.9 - HYPOTHYROIDISM, UNSPECIFIED Status: Chronic Qualifiers: Hypothyroidism type: unspecified Qualified Code(s): E03.9 - Hypothyroidism , unspecified (10) Metastatic renal cell carcinoma to bone Code(s): C79.51 - SECONDARY MALIGNANT NEOPLASM OF BONE; C64.9 - MALIGNANT NEOPLASM OF UNSP KIDNEY, EXCEPT RENAL PELVIS Status: Chronic (11) Hypokalemia Code(s): E87.6 - HYPOKALEMIA Status: Acute (12) Lactic acidosis Code(s): E87.2 - ACIDOSIS Status: Acute (13) DERRICK (acute kidney injury) Code(s): N17.9 - ACUTE KIDNEY FAILURE, UNSPECIFIED Status: Acute - Plan old records reviewed/req, plan discussed w/ family, continue antibiotics, PT/OT , marriage and family social worker 10/23/19 s/p pancreatic cyst gastrostomy, jejunostomy and cholecystectomy currently NPO has epidural in place pain controlled discussed with family post op care as per surgeon follow up on pathology report FER when stable 01/12/19 today IVF increased as he has concentrated urine and DERRICK medication reviewed as above symptomatic treatment continue NPO, NG tube with LIS, pain controlled with epidural, discussed with family ambulate as tolerated 01/13/19 continue post operative care today possibley NG tube and zaidi will be removed medication reviewed as above symptomatic treatment 01/14/19 now has some bowel sound, started on liquid diet NG tube removed consider epidural removal medication reviewed as above symptomatic treatment ok to transfer to surgical if surgeon OK 01/15/19 pt is recovering well, family asking for rehab screen medication reviewed as above symptomatic treatment will repeat labs tomorrow 01/16/19 continue post op care, doing well, currently tolerating diet, advance diet as per surgeon continue rocephin for his bacteremia as per dr steward Medication reviewed as above, symptomatic treatment pt wanted to go snu on discharge, nurse case manager to work on that if he qualify
--- NOTE | 2019-01-16 11:44 | PRG ---
DATE OF SERVICE: 01/16/2019 SUBJECTIVE: Mr. Loo is postoperative day #6 following an open operation for drainage of two large pancreatic pseudocyst. He has made continued progress since the surgery. Over the weekend, his diet was advanced and he is now taking a diabetic diet. He tells me that he ate solid food this morning and tolerated it well. He had a bowel movement this morning as well. He denies nausea or vomiting. He denies significant abdominal pain. He still has substantial drainage from his intraabdominal drain. It put out about 250 mL yesterday. He tells me he is ambulating well and voiding appropriately. PHYSICAL EXAMINATION: VITAL SIGNS: Temperature 98.2, pulse 77, and blood pressure 158/75. LUNGS: Clear to auscultation. ABDOMEN: Soft, nontender, and nondistended. His midline abdominal incision is healing nicely. Right lower quadrant drain is intact with serosanguineous drainage. LABORATORY DATA: CBC reveals elevated white blood cell count today of 12.4 with a hemoglobin of 10.9. Chemistries reveal mild electrolyte abnormalities. His glucose appears to be well controlled between 88 and 90. Renal function appears to be within normal limits. A drain amylase level obtained yesterday was 8, which is consistent with no pancreatic leakage into the peritoneal fluid. ASSESSMENT AND PLAN: He overall appears to be doing very well. He has been on ceftriaxone for 10 days for his diagnosis of Streptococcus. This will be discontinued and he will be given a continued short-term course of ampicillin. His IV fluids will be discontinued. I would anticipate discharge to either alf facility or rehabilitation tomorrow. Hopefully, this can be arranged. I would anticipate drain removal prior to discharge. Job ID: [id number]
[2019-01-16] MEDS: Dextrose 5 % And 0.9 % NaCl 1,000 ML IV SCH (12:40)
[2019-01-16] MEDS: AMOXicillin 250 MG CAP PO SCH ×2 (17:14→20:57)
[2019-01-17 05:40] LABS: Anion Gap 10 mmol/L (10-20); BUN (Urea Nitrogen) Less than 4 mg/dL (8.4-25.7); Calc. Creatinine Clearance 95 mL/min (70-130); Calcium 7.7 mg/dL (7.8-10.44); Carbon Dioxide 24 mmol/L (23-31); Chloride 106 mmol/L (98-107); Estimated GFR-MDRD 80; Glucose 92 mg/dL (83-110); Potassium 3.3 mmol/L (3.5-5.1); Sodium 137 mmol/L (136-145)
[2019-01-17] MEDS: Levothyroxine Sodium 125 MCG TAB PO SCH (05:48)
[2019-01-17 06:00] LABS: #Basophils 0.1 thou/uL (0.0-0.2); #Eosinphils 0.4 thou/uL (0.0-0.7); #Monocytes 0.7 thou/uL (0.11-0.59); #Neutrophils 8.7 thou/uL (1.40-6.50); %Basophils 0.7 % (0.0-1.0); %Eosinophils 3.6 % (0.0-10.0); %Lymphocytes 16.7 % (21.0-51.0); %Monocytes 6.1 % (0.0-10.0); %Neutrophils 72.9 % (42.0-75.0); Mean Corpuscular Hemoglobin 25.4 pg (27.0-31.0); Mean Corpuscular Volume 84.6 fL (78.0-98.0); Mean Platelet Volume 7.2 fL (7.4-10.4); Platelet Count 279 thou/uL (130-400); RBC Distribution Width 14.9 % (11.5-14.5); Red Blood Cell (RBC) Count 3.96 mill/uL (4.70-6.10); White Blood Cell (WBC) Count 11.9 thou/uL (4.8-10.8)
[2019-01-17] MEDS ORDERED: Potassium Chloride 20 MEQ TAB PO SCH (07:30)
[2019-01-17] MEDS: AMOXicillin 250 MG CAP PO SCH ×3 (09:04→20:13)
[2019-01-17] MEDS: Citalopram 20 MG TAB PO SCH (09:05)
[2019-01-17] MEDS: Gabapentin 300 MG CAP PO SCH ×2 (09:05→20:13)
[2019-01-17] MEDS: Acetaminophen 500 MG TAB PO PRN ×2 (09:05→14:48)
[2019-01-17] MEDS: Dextrose 5 % And 0.9 % NaCl 1,000 ML IV SCH (09:05)
[2019-01-17] MEDS ORDERED: Nystatin Powder 15 GM BOT TOP SCH (10:15)
--- NOTE | 2019-01-17 11:13 | PDOC.HOSPP ---
- Subjective Encounter Date: 01/17/19 Encounter Time: 09:10 Subjective: Patient seen and examined. No new complaints. No overnight events - Objective Vital Signs & Weight: Vital Signs (12 hours) Temp Pulse Resp BP Pulse Ox 01/17/19 07:20 98.3 F 79 16 164/78 H 97 01/17/19 04:18 98.2 F 74 16 143/74 H 96 Weight Admit Weight 189 lb 9.191 oz Weight 202 lb 8 oz Most Recent Monitor Data Heart Rate from ECG 80 NIBP 206/84 NIBP BP-Mean 124 Respiration from ECG 23 SpO2 97 I&O: 01/16/19 01/17/19 01/18/19 06:59 06:59 06:59 Intake Total 1140 240 Output Total 250 400 Balance -250 740 240 Result Diagrams: 01/17/19 04:46 01/17/19 04:46 Additional Labs: Accuchecks 01/17/19 01/16/19 01/16/19 05:34 20:51 15:39 POC Glucose 85 71 62 L 01/16/19 11:11 POC Glucose 52 L* Hospitalist ROS - Review of Systems Constitutional: denies: fever, chills, sweats, weakness, malaise, other Eyes: denies: pain, vision change, conjunctivae inflammation, eyelid inflammation, redness, other ENT: denies: ear pain, ear discharge, nose pain, nose discharge, nose congestion , mouth pain, mouth swelling, throat pain, throat swelling, other Respiratory: denies: cough, dry, shortness of breath, hemoptysis, SOB with excertion, pleuritic pain, sputum, wheezing, other Cardiovascular: denies: chest pain, palpitations, orthopnea, paroxysmal noc. dyspnea, edema, light headedness, other Gastrointestinal: denies: nausea, vomiting, abdominal pain, diarrhea, constipation, melena, hematochezia, other Genitourinary: denies: dysuria, frequency, incontinence, hematuria, retention, other Musculoskeletal: denies: neck pain, shoulder pain, arm pain, back pain, hand pain, leg pain, foot pain, other Skin: denies: rash, lesions, yared, bruising, other - Medication Medications: Active Medications Generic Name Dose Route Start Last Admin Trade Name Freq PRN Reason Stop Dose Admin Acetaminophen 1,000 mg 01/12/19 09:53 01/17/19 09:05 Tylenol PO 1,000 mg Q6H PRN Administration Headache/Fever or MILD Pain Amoxicillin 250 mg 01/16/19 15:00 01/17/19 09:04 Amoxil PO 250 mg TID CARLA Administration Citalopram Hydrobromide 20 mg 01/16/19 09:00 01/17/19 09:05 Celexa PO 20 mg DAILY CARLA Administration Dextrose/Water 25 gm 01/07/19 12:45 01/13/19 21:48 Dextrose 50% SLOW IVP 25 gm PRN PRN Administration Hypoglycemia Gabapentin 300 mg 01/14/19 21:00 01/17/19 09:05 Neurontin PO 300 mg BID CARLA Administration Dextrose/Sodium Chloride 1,000 mls @ 50 mls/hr 01/16/19 11:45 01/17/19 09:05 D5 0.9% Ns IV 1,000 mls .Q20H CARLA Administration Levothyroxine Sodium 125 mcg 01/16/19 06:00 01/17/19 05:48 Synthroid PO 125 mcg 0600 CARLA Administration Nystatin 1 gm 01/17/19 10:15 01/17/19 10:51 Mycostatin Powder TOP 01/17/19 12:15 1 applic NOW CARLA Administration Ondansetron HCl 4 mg 01/10/19 12:15 01/15/19 08:43 Zofran IVP 4 mg Q6H PRN Administration Nausea/Vomiting Pantoprazole Sodium 40 mg 01/16/19 09:00 01/17/19 09:05 Protonix PO 40 mg DAILY CARLA Administration Sodium Chloride 10 ml 01/07/19 21:00 01/17/19 09:10 Flush - Normal Saline IVF 10 ml Q12HR CARLA Administration - Exam General Appearance: NAD, awake alert Eye: PERRL, anicteric sclera ENT: normocephalic atraumatic, no oropharyngeal lesions Neck: supple, symmetric, no JVD, no thyromegaly Heart: RRR, no murmur, no gallops, no rubs Respiratory: CTAB, no wheezes, no rales, no ronchi Gastrointestinal: soft, non-tender, non-distended, normal bowel sounds Extremities: no cyanosis, no clubbing, no edema Skin: normal turgor, no lesions, no rashes Neurological: cranial nerve grossly intact, no focal deficits Musculoskeletal: normal tone, normal strength Psychiatric: normal affect, normal behavior Hosp A/P (1) Pancreatic pseudocyst Code(s): K86.3 - PSEUDOCYST OF PANCREAS Status: Acute (2) Sepsis Code(s): A41.9 - SEPSIS, UNSPECIFIED ORGANISM Status: Acute Qualifiers: Sepsis type: Streptococcus, unspecified Sepsis acute organ dysfunction status: with acute organ dysfunction Acute respiratory failure type: unspecified Severe sepsis shock status: without septic shock (3) Streptococcal bacteremia Code(s): R78.81 - BACTEREMIA; B95.5 - UNSP STREPTOCOCCUS THE CAUSE OF DISEASES CLASSD ELSWHR Status: Acute (4) Abnormal LFTs Code(s): R94.5 - ABNORMAL RESULTS OF LIVER FUNCTION STUDIES Status: Acute (5) Acute worsening of stage 3 chronic kidney disease Code(s): N18.3 - CHRONIC KIDNEY DISEASE, STAGE 3 (MODERATE) Status: Acute (6) Cholelithiasis Code(s): K80.20 - CALCULUS OF GALLBLADDER W/O CHOLECYSTITIS W/O OBSTRUCTION Status: Chronic Qualifiers: Cholelithiasis location: gallbladder Cholecystitis presence: without cholecystitis Biliary obstruction: without biliary obstruction Qualified Code(s): K80.20 - Calculus of gallbladder without cholecystitis without obstruction (7) Dyslipidemia Code(s): E78.5 - HYPERLIPIDEMIA, UNSPECIFIED Status: Chronic (8) Hypertension Code(s): I10 - ESSENTIAL (PRIMARY) HYPERTENSION Status: Chronic Qualifiers: Hypertension type: essential hypertension Qualified Code(s): I10 - Essential (primary) hypertension (9) Hypothyroidism Code(s): E03.9 - HYPOTHYROIDISM, UNSPECIFIED Status: Chronic Qualifiers: Hypothyroidism type: unspecified Qualified Code(s): E03.9 - Hypothyroidism , unspecified (10) Metastatic renal cell carcinoma to bone Code(s): C79.51 - SECONDARY MALIGNANT NEOPLASM OF BONE; C64.9 - MALIGNANT NEOPLASM OF UNSP KIDNEY, EXCEPT RENAL PELVIS Status: Chronic (11) Hypokalemia Code(s): E87.6 - HYPOKALEMIA Status: Acute (12) Lactic acidosis Code(s): E87.2 - ACIDOSIS Status: Acute (13) DERRICK (acute kidney injury) Code(s): N17.9 - ACUTE KIDNEY FAILURE, UNSPECIFIED Status: Acute (14) Hypoglycemia associated with diabetes Code(s): E11.649 - TYPE 2 DIABETES MELLITUS WITH HYPOGLYCEMIA WITHOUT COMA Status: Acute - Plan old records reviewed/req, plan discussed w/ family, continue antibiotics, 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 s/p pancreatic cyst gastrostomy, jejunostomy and cholecystectomy currently NPO has epidural in place pain controlled discussed with family post op care as per surgeon follow up on pathology report FER when stable 01/12/19 today IVF increased as he has concentrated urine and DERRICK medication reviewed as above symptomatic treatment continue NPO, NG tube with LIS, pain controlled with epidural, discussed with family ambulate as tolerated 01/13/19 continue post operative care today possibley NG tube and zaidi will be removed medication reviewed as above symptomatic treatment 01/14/19 now has some bowel sound, started on liquid diet NG tube removed consider epidural removal medication reviewed as above symptomatic treatment ok to transfer to surgical if surgeon OK 01/15/19 pt is recovering well, family asking for rehab screen medication reviewed as above symptomatic treatment will repeat labs tomorrow 01/16/19 continue post op care, doing well, currently tolerating diet, advance diet as per surgeon continue rocephin for his bacteremia as per dr steward Medication reviewed as above, symptomatic treatment pt wanted to go snu on discharge, case planner to work on that if he qualify 01/17/19 will consult cardiology as per ID recommendation for FER before discharge continue amoxicillin for now await placement replace potassium medication reviewed as above, symptomatic treatment
--- NOTE | 2019-01-17 15:27 | PRG ---
DATE OF SERVICE: 01/17/2019 SUBJECTIVE: Mr. Loo is postoperative day #7 from a laparotomy with a cystogastrostomy and Ilia-en-Y cystojejunostomy for 2 separate large pancreatic pseudocysts. Cholecystectomy was also performed. The patient has done well since the surgery. He is eating without difficulty and having bowel movements. He has minimal discomfort. He is voiding well. He is ambulating regularly. PHYSICAL EXAMINATION: VITAL SIGNS: He is afebrile. Pulse is in the 70s and regular. Blood pressure is 163/81. LUNGS: Clear to auscultation. ABDOMEN: Soft with normoactive bowel sounds. His incision is healing nicely. The drain in his right lower quadrant was draining serosanguineous fluid. There was 400 mL out yesterday. LABORATORY DATA: His white blood cell count slightly elevated at 11.9, but down from yesterday. His hemoglobin is 10.0. Chemistries reveal essentially normal electrolytes. His potassium is a little bit low at 3.3. ASSESSMENT: The patient is stable after surgery. I had anticipated his discharge today. Since, however, he had a positive culture for Streptococcus before surgery, Hospitalist Services consulted Cardiology today for a transesophageal echocardiogram to rule out endocarditis. This will lengthen his stay until this is done. Hopefully, he will be ready for discharge tomorrow to a assisted facility. His drain was removed today. All fluids and IV antibiotics have been stopped and he is on amoxicillin (per recommendation of Dr. Duff). Job ID: [id number]
[2019-01-17] MEDS: Nystatin Powder 15 GM BOT TOP SCH (20:13)
[2019-01-18] MEDS: Dextrose 5 % And 0.9 % NaCl 1,000 ML IV SCH (04:45)
[2019-01-18] MEDS: Levothyroxine Sodium 125 MCG TAB PO SCH (06:01)
[2019-01-18] MEDS: AMOXicillin 250 MG CAP PO SCH ×3 (09:10→19:38)
[2019-01-18] MEDS: Citalopram 20 MG TAB PO SCH (09:10)
[2019-01-18] MEDS: Gabapentin 300 MG CAP PO SCH ×2 (09:11→19:38)
[2019-01-18] MEDS: Nystatin Powder 15 GM BOT TOP SCH ×2 (09:11→19:38)
--- NOTE | 2019-01-18 11:50 | PDOC.HOSPP ---
- Subjective Encounter Date: 01/18/19 Encounter Time: 11:48 Subjective: oing well, no complaints - Objective Vital Signs & Weight: Vital Signs (12 hours) Temp Pulse Resp BP BP Pulse Ox 01/18/19 08:16 97 01/18/19 07:30 98.3 F 73 18 104/91 H 97 01/18/19 07:26 97 01/18/19 04:44 98.2 F 73 16 168/75 H 97 01/18/19 00:00 98.3 F 75 16 154/77 H 96 Weight Admit Weight 178 lb 9.1 oz Weight 200 lb 11.2 oz Most Recent Monitor Data Heart Rate from ECG 80 NIBP 206/84 NIBP BP-Mean 124 Respiration from ECG 23 SpO2 97 I&O: 01/17/19 01/18/19 01/19/19 06:59 06:59 06:59 Intake Total 1140 717 Output Total 400 85 Balance 740 632 Result Diagrams: 01/17/19 04:46 01/17/19 04:46 Additional Labs: Accuchecks 01/18/19 01/17/19 01/17/19 05:23 21:04 15:19 POC Glucose 108 152 H 148 H Hospitalist ROS - Medication Medications: Active Medications Generic Name Dose Route Start Last Admin Trade Name Freq PRN Reason Stop Dose Admin Acetaminophen 1,000 mg 01/12/19 09:53 01/17/19 14:48 Tylenol PO 1,000 mg Q6H PRN Administration Headache/Fever or MILD Pain Amoxicillin 250 mg 01/16/19 15:00 01/18/19 09:10 Amoxil PO 250 mg TID CARLA Administration Citalopram Hydrobromide 20 mg 01/16/19 09:00 01/18/19 09:10 Celexa PO 20 mg DAILY CARLA Administration Dextrose/Water 25 gm 01/07/19 12:45 01/13/19 21:48 Dextrose 50% SLOW IVP 25 gm PRN PRN Administration Hypoglycemia Gabapentin 300 mg 01/14/19 21:00 01/18/19 09:11 Neurontin PO 300 mg BID CARLA Administration Dextrose/Sodium Chloride 1,000 mls @ 50 mls/hr 01/16/19 11:45 01/18/19 04:45 D5 0.9% Ns IV Not Given .Q20H CARLA Levothyroxine Sodium 125 mcg 01/16/19 06:00 01/18/19 06:01 Synthroid PO Not Given 0600 CARLA Nystatin 1 gm 01/17/19 21:00 01/18/19 09:11 Mycostatin Powder TOP 1 gm BID CARLA Administration Ondansetron HCl 4 mg 01/10/19 12:15 01/15/19 08:43 Zofran IVP 4 mg Q6H PRN Administration Nausea/Vomiting Pantoprazole Sodium 40 mg 01/16/19 09:00 01/18/19 09:11 Protonix PO 40 mg DAILY CARLA Administration Sodium Chloride 10 ml 01/07/19 21:00 01/18/19 09:12 Flush - Normal Saline IVF 10 ml Q12HR CARLA Administration - Exam Neck: no JVD Heart: RRR, no murmur Respiratory: CTAB Gastrointestinal: soft, non-tender, normal bowel sounds Extremities: 1+ LE edema Hosp A/P (1) Cholecystitis Code(s): K81.9 - CHOLECYSTITIS, UNSPECIFIED Status: Acute (2) Pancreatic pseudocyst Code(s): K86.3 - PSEUDOCYST OF PANCREAS Status: Acute (3) Streptococcal bacteremia Code(s): R78.81 - BACTEREMIA; B95.5 - UNSP STREPTOCOCCUS THE CAUSE OF DISEASES CLASSD ELSWHR Status: Acute (4) Metastatic renal cell carcinoma to bone Code(s): C79.51 - SECONDARY MALIGNANT NEOPLASM OF BONE; C64.9 - MALIGNANT NEOPLASM OF UNSP KIDNEY, EXCEPT RENAL PELVIS Status: Chronic - Plan patient medically stable for DC on current meds FER recommended by ID due to strep bacteremia if normal , pt will be ready for DC per Gen Surg
[2019-01-18] MEDS ORDERED: PROPOFOL 200 MG/20 ML VIAL ONE (12:00)
[2019-01-18] MEDS ORDERED: PROPOFOL 40 ML ONE (15:07)
--- NOTE | 2019-01-18 18:27 | PRG ---
DATE OF SERVICE: 01/18/2019 SUBJECTIVE: Mr. Loo has no complaints. He is eating well, having bowel movements and voiding well. He is only in the hospital today to have his FER performed. Presumably, if this is unremarkable, then he should be ready for discharge to [facility] facility. I will see that will happen either later today or tomorrow. OBJECTIVE: VITAL SIGNS: He is afebrile. Vital signs are within normal limits. LUNGS: Clear to auscultation. ABDOMEN: Soft, nontender, and nondistended. His incision is healing nicely. His drain has been removed. ASSESSMENT AND PLAN: He is stable after laparotomy and drainage of two separate pancreatic pseudocysts and cholecystectomy. He should be stable for discharge after he is cleared by his hospitalist service after his FER is performed. Job ID: [id number]
--- NOTE | 2019-01-18 20:03 | CCL ---
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 Cu ltures were positive. He was advised to undergo a transesophageal echocardiogram. He was taken to the recovery area where he underwent short acting propofol. There was some difficulty . The patient did have some respiratory distress requiring the tube to be removed and then further ad justments were made and then we attempted again. We were able to easily pass the probe down the dista l esophagus and we were able to proceed with the transesophageal echocardiogram. IMPRESSION: 1. Normal left ventricular systolic function. Ejection fraction of 50-55%. 2. Trace mitral valve regurgitation. 3. Mild aortic valve regurgitation. 4. Mild tricuspid valve regurgitation. 5. A structurally normal mitral valve and also structurally normal aortic valve. Tricuspid valve appears to be normal. There is what appears to be a small vegetation noted attached to some structur e in the right atrium. This appears it may be old Eustachian valve or a portion of the tricuspid valv e. It is not clearly identified but does appear to be a small vegetation in the right atrium which is attached to some structure there. I could not clearly define whether or not this is the tricuspid va lve or not. There were no other intracardiac thrombi or masses noted. The patient tolerated the proce dure afterwards quite well once he was more stable after the first attempt at passing the probe.
[2019-01-19] MEDS: Dextrose 5 % And 0.9 % NaCl 1,000 ML IV SCH ×2 (01:14→20:11)
[2019-01-19] MEDS: Levothyroxine Sodium 125 MCG TAB PO SCH (04:17)
[2019-01-19] MEDS: Acetaminophen 500 MG TAB PO PRN ×2 (04:17→20:13)
[2019-01-19] MEDS: AMOXicillin 250 MG CAP PO SCH ×2 (08:38→15:30)
[2019-01-19] MEDS: Citalopram 20 MG TAB PO SCH (08:38)
[2019-01-19] MEDS: Gabapentin 300 MG CAP PO SCH ×2 (08:38→20:11)
[2019-01-19] MEDS: Nystatin Powder 15 GM BOT TOP SCH ×2 (08:39→21:33)
--- NOTE | 2019-01-19 11:07 | PRG ---
DATE OF SERVICE: 01/19/2019 SUBJECTIVE: Mr. Loo remains hospitalized and is resting comfortably in his bed on the surgical floor. On postoperative day #9 from a laparotomy and treatment of pancreatic pseudocyst. He has been doing well from a surgical standpoint for a couple of days. A FER was obtained yesterday, which apparently revealed a small possible valvular vegetation. Decisions are being made how to treat this. He is currently on amoxicillin in treatment of his Streptococcus bacteremia. He denies any abdominal problems. He is eating well, denies any abdominal pain, and is having good bowel function. He still has a little bit of drainage from his drain site in his right lower quadrant, where his drain was removed a couple of days ago. OBJECTIVE: VITAL SIGNS: He is afebrile with normal vital signs throughout. LUNGS: Clear to auscultation. ABDOMEN: Soft and nontender. His midline incision is healing nicely. ABDOMEN: Soft and nontender. Bowel sounds are present and normoactive. LABORATORY DATA: He has not had any recent labs. His blood sugars have been within normal limits. ASSESSMENT: The patient is stable from a surgical standpoint following his laparotomy. He is only being hospitalized for completion of evaluation and treatment of his bacteremia. Since there appears to be a small valvular vegetation, I suspect that he will require longer-term of antibiotics. This decision was being made by Dr. Duff, and the [facility] [place] Hospitalist was contacted regarding this. I will continue to follow him while he is in the hospital, but he is certainly stable for discharge from my standpoint at any time. If he stays very much longer, then I will have his midline reny removed prior to discharge. Job ID: [id number]
[2019-01-19 13:29] VITALS: BMI 29.5
--- NOTE | 2019-01-19 15:23 | PRG ---
DATE OF SERVICE: 01/19/2019 SUBJECTIVE: Mr. Loo is feeling well. He denies any abdominal pain. No headaches. No shortness of breath. OBJECTIVE: VITAL SIGNS: He has been afebrile. BP 130/74 and pulse 64. GENERAL: Awake, alert, and oriented. HEENT: Ocular movements conjugate. No jugular vein distention. LUNGS: Symmetric clear breath sounds. HEART: S1 and S2. Regular rate. ABDOMEN: Soft, not tender. LABORATORY DATA: White cell count at 11.9, hemoglobin 10, and platelets 279, creatinine 0.93. The patient had a FER, which demonstrated likely vegetation in the tricuspid valve. ASSESSMENT AND DISCUSSION: Metastatic renal cell cancer treated with checkpoint inhibitor and then, developed acute pancreatitis, either due to the treatment or due to gallbladder disease with formation of a large pseudocyst. The patient underwent cystogastrostomy and cholecystectomy. Streptococcus gallolyticus has been retrieved from blood cultures 2 sets and the FER demonstrated what appears to be a vegetation in the tricuspid area. At this time, we will recommend continuation of Rocephin intravenously. The end date of therapy will be the February 15. Job ID: [id number]
--- NOTE | 2019-01-19 19:38 | PDOC.HOSPP ---
- Subjective Encounter Date: 01/19/19 Encounter Time: 19:44 Subjective: Pt seen for followup re: bacteremia. Feels well, no complaints. - Objective Vital Signs & Weight: Vital Signs (12 hours) Temp Pulse Resp BP BP Pulse Ox 01/19/19 15:43 97.9 F 64 16 143/74 H 93 L 01/19/19 11:03 98.2 F 64 18 132/74 97 01/19/19 08:39 97 01/19/19 08:00 98.4 F 72 18 124/74 97 Weight Admit Weight 178 lb 9.1 oz Weight 194 lb Most Recent Monitor Data Heart Rate from ECG 80 NIBP 206/84 NIBP BP-Mean 124 Respiration from ECG 23 SpO2 97 I&O: 01/18/19 01/19/19 01/20/19 06:59 06:59 06:59 Intake Total 717 Output Total 85 Balance 632 Result Diagrams: 01/17/19 04:46 01/17/19 04:46 Additional Labs: Accuchecks 01/19/19 01/19/19 01/19/19 15:42 11:04 05:03 POC Glucose 124 H 137 H 101 01/18/19 22:00 POC Glucose 105 labs and MARs reviewed by nd Hospitalist ROS - Review of Systems Respiratory: reports: other. denies: cough, shortness of breath, SOB with excertion, pleuritic pain, wheezing Cardiovascular: denies: chest pain, palpitations, orthopnea, paroxysmal noc. dyspnea, edema, light headedness - Medication Medications: Active Medications Generic Name Dose Route Start Last Admin Trade Name Freq PRN Reason Stop Dose Admin Acetaminophen 1,000 mg 01/12/19 09:53 01/19/19 04:17 Tylenol PO 1,000 mg Q6H PRN Administration Headache/Fever or MILD Pain Amoxicillin 250 mg 01/16/19 15:00 01/19/19 15:30 Amoxil PO 250 mg TID CARLA Administration Citalopram Hydrobromide 20 mg 01/16/19 09:00 01/19/19 08:38 Celexa PO 20 mg DAILY CARLA Administration Dextrose/Water 25 gm 01/07/19 12:45 01/13/19 21:48 Dextrose 50% SLOW IVP 25 gm PRN PRN Administration Hypoglycemia Gabapentin 300 mg 01/14/19 21:00 01/19/19 08:38 Neurontin PO 300 mg BID CARLA Administration Dextrose/Sodium Chloride 1,000 mls @ 50 mls/hr 01/16/19 11:45 01/19/19 01:14 D5 0.9% Ns IV Not Given .Q20H CARLA Levothyroxine Sodium 125 mcg 01/16/19 06:00 01/19/19 04:17 Synthroid PO 125 mcg 0600 CARLA Administration Nystatin 1 gm 01/17/19 21:00 01/19/19 08:39 Mycostatin Powder TOP 1 gm BID CARLA Administration Ondansetron HCl 4 mg 01/10/19 12:15 01/15/19 08:43 Zofran IVP 4 mg Q6H PRN Administration Nausea/Vomiting Pantoprazole Sodium 40 mg 01/16/19 09:00 01/19/19 08:38 Protonix PO 40 mg DAILY CARLA Administration Sodium Chloride 10 ml 01/07/19 21:00 01/19/19 08:39 Flush - Normal Saline IVF 10 ml Q12HR CARLA Administration - Exam General Appearance: NAD Eye: anicteric sclera ENT: moist mucosa Neck: supple Heart: RRR Respiratory: CTAB Gastrointestinal: soft, non-tender Extremities: no clubbing Neurological: no weakness Psychiatric: normal affect, normal behavior Hosp A/P (1) Bacteremia Code(s): R78.81 - BACTEREMIA Status: Acute (2) Dyslipidemia Code(s): E78.5 - HYPERLIPIDEMIA, UNSPECIFIED Status: Chronic (3) Hypertension Code(s): I10 - ESSENTIAL (PRIMARY) HYPERTENSION Status: Chronic Qualifiers: Hypertension type: essential hypertension Qualified Code(s): I10 - Essential (primary) hypertension - Plan continue antibiotics Appreciate ID service input. Continue IV ceftriaxone.
[2019-01-19] MEDS ORDERED: cefTRIAXone\\ROCEPHIN 2 GM in Sodium Chloride 0.9% 100 ML IVPB SCH (20:00)
[2019-01-20] MEDS: Levothyroxine Sodium 125 MCG TAB PO SCH (05:44)
[2019-01-20] MEDS: Citalopram 20 MG TAB PO SCH (09:22)
[2019-01-20] MEDS: Gabapentin 300 MG CAP PO SCH (09:22)
[2019-01-20] MEDS: Nystatin Powder 15 GM BOT TOP SCH (09:23)
[2019-01-20] MEDS: Acetaminophen 500 MG TAB PO PRN (09:27)
[2019-01-20 12:03] VITALS: BP 139/79; TEMP 97.5
--- NOTE | 2019-01-20 12:45 | SPC ---
Sonographic guided right upper extremity PICC placement HISTORY: Bacteremia. FINDINGS: After explaining the procedure and answering all questions, the right upper extremity was p repped and draped in usual sterile fashion. Sterile technique, buffered local anesthesia, sonographic guidance, and a 22-gauge needle were used to carefully access the right brachial vein. St andard technique was used to place the tip of a 5 Divehi single lumen PICC so that the tip lies at the level of the cavoatrial junction. Catheter was flushed and secured externally. Patient tolerated the procedure well and was returned in unchanged condition. Fluoroscopy time 0.1 minutes. IMPRESSION: Right upper extremity PICC is ready for use.
--- NOTE | 2019-01-21 02:27 | DIS ---
DATE OF ADMISSION: 01/07/2019 DATE OF DISCHARGE: 01/20/2019 ADMITTING DIAGNOSES: Abdominal pain associated with nausea, vomiting, diarrhea, pancreatic pseudocyst, possible cholecystitis, acute metabolic encephalopathy, hypokalemia, chronic kidney disease, lactic acidosis, hypothyroidism. DISCHARGE DIAGNOSES: Abdominal pain associated with nausea, vomiting, diarrhea, pancreatic pseudocyst, possible cholecystitis, acute metabolic encephalopathy, hypokalemia, chronic kidney disease, lactic acidosis, hypothyroidism, endocarditis. CONSULTANTS: Dr. Duff, Dr. Lawson, Dr. Lane, Dr. Leal, and Dr. Barnes. PROCEDURES: Chest x-ray, abdomen x-ray, brain CT, chest CTA, abdomen ultrasound, echocardiogram, FER, pancreatic cystogastrostomy, pancreatic cystojejunostomy with cholecystectomy, cholecystectomy. Central line placement. COURSE OF HOSPITALIZATION: Uncomplicated. Responded well to management. The patient is clinically stable at this time, being discharged home. DISCHARGE MEDICATION: Please see discharge medication reconciliation sheet. FOLLOWUP: The patient is to follow up with General Surgery and also his primary care physician and the it systems analyst consultant. PHYSICAL EXAMINATION: GENERAL: Today, the patient is alert, oriented, in no distress. VITAL SIGNS: His latest vital signs show a temperature of 97.5, pulse rate 77, respiratory rate 16, blood pressure 139/79. HEAD AND NECK: Normal. He has a regular S1 and S2. LUNGS: Clear. ABDOMEN: Benign. EXTREMITIES: He has edema of the legs. As mentioned above, the patient is to follow up with General Surgery, his PCP, and also the it systems analyst consultant. DISCHARGE TIME: 33 minutes. Job ID: [id number]
== END 2019-01-20 13:10 | DRG 853 ==
LOC: ERS 07:29 → IMCU/EMU 13:10 → SURG B 01-14 14:30
PROVIDERS: ADMIT Internal Medicine; ATTEND Internal Medicine
PROC: 0F190ZB Bypass Common Bile Duct to Small Intestine, Open Approach (ICD-10-PCS; principal; 2019-01-10)
PROC: 0FT40ZZ Resection of Gallbladder, Open Approach (ICD-10-PCS; 2019-01-10)
PROC: 0FBG0ZZ Excision of Pancreas, Open Approach (ICD-10-PCS; 2019-01-10)
PROC: 02HV33Z Insertion of Infusion Device into Superior Vena Cava, Percutaneous Approach (ICD-10-PCS; 2019-01-10)
PROC: 02HV33Z Insertion of Infusion Device into Superior Vena Cava, Percutaneous Approach (ICD-10-PCS; 2019-01-20)
PROC: B548ZZA Ultrasonography of Superior Vena Cava, Guidance (ICD-10-PCS; 2019-01-20)
DX: A40.9 Streptococcal sepsis, unspecified (principal); R65.21 Severe sepsis with septic shock; G93.41 Metabolic encephalopathy; K85.90 Acute pancreatitis without necrosis or infection, unspecified; J96.01 Acute respiratory failure with hypoxia; K80.00 Calculus of gallbladder with acute cholecystitis without obstruction; C64.9 Malignant neoplasm of unspecified kidney, except renal pelvis; E87.2 Acidosis; K86.3 Pseudocyst of pancreas; N17.9 Acute kidney failure, unspecified; I38 Endocarditis, valve unspecified; N18.3 Chronic kidney disease, stage 3 (moderate); E11.22 Type 2 diabetes mellitus with diabetic chronic kidney disease; E11.649 Type 2 diabetes mellitus with hypoglycemia without coma; E78.00 Pure hypercholesterolemia, unspecified; E78.5 Hyperlipidemia, unspecified; E03.9 Hypothyroidism, unspecified; F32.9 Major depressive disorder, single episode, unspecified; E87.6 Hypokalemia; I12.9 Hypertensive chronic kidney disease with stage 1 through stage 4 chronic kidney disease, or unspecified chronic kidney disease; Z88.8 Allergy status to other drugs, medicaments and biological substances; Z88.6 Allergy status to analgesic agent; Z90.49 Acquired absence of other specified parts of digestive tract; Z98.49 Cataract extraction status, unspecified eye; Z79.4 Long term (current) use of insulin
CPT/HCPCS: 36415; 36416; 36569; 70450; 71045; 71275; 74177; 76705; 80048; 80053; 80202; 81003; 81015; 82140; 82150; 83605; 83690; 83735; 85025; 86850; 86900; 86901; 87040; 87070; 87071; 87077; 87149; 87186; 87205; 88304; 88305; 93005; 93306; 93312; 96361; 96365; 96366; C1751; C9113; J0131; J0696; J1644; J1650; J1885; J1956; J2001; J2185; J2250; J2370; J2405; J2543; J2704; J3010; J3370; J3480; J3490; J7050; J7120; P9045; P9047; Q9966; S0020

== ENCOUNTER 2019-05-11 11:44 | Day surgery (SDC) | payer MEDICARE ==
[2019-05-10 11:52] VITALS: BMI 28.1
[~2019-05-11 11:44] MED LIST changes: +EPHEDRINE 25 MG/5 ML SYRINGE ONE; +Esmolol 100 MG/10 ML VIAL ONE; -Heparin 1,000 UNITS/ML VIAL ONE; +Lidocaine 1% PF 5 ML VIAL ONE; +Ondansetron PF 4 MG/2 ML Vial ONE; +PROPOFOL 200 MG/20 ML VIAL ONE; +Rocuronium Bromide 10 MG/ML (10ML VIAL) ONE
[2019-05-11] MEDS ORDERED: Acetaminophen 500 MG TAB ONE (11:54)
[2019-05-11] MEDS ORDERED: Ketorolac Tromethamine 30 MG/ML VIAL ONE (11:54)
[2019-05-11 12:13] LABS: #Basophils 0.1 thou/uL (0.0-0.2); #Eosinphils 0.3 thou/uL (0.0-0.7); #Lymphocytes 3.6 thou/uL (1.20-3.40); #Monocytes 0.6 thou/uL (0.11-0.59); #Neutrophils 3.6 thou/uL (1.40-6.50); %Basophils 0.6 % (0.0-1.0); %Eosinophils 3.8 % (0.0-10.0); %Lymphocytes 44.3 % (21.0-51.0); %Monocytes 7.2 % (0.0-10.0); Hemoglobin 12.3 g/dL (14.0-18.0); Mean Corpuscular HGB CONC 31.8 g/dL (32.0-36.0); Mean Corpuscular Hemoglobin 26.1 pg (27.0-31.0); Mean Corpuscular Volume 82.1 fL (78.0-98.0); Mean Platelet Volume 7.9 fL (7.4-10.4); Platelet Count 229 thou/uL (130-400); RBC Distribution Width 14.2 % (11.5-14.5); Red Blood Cell (RBC) Count 4.71 mill/uL (4.70-6.10); White Blood Cell (WBC) Count 8.2 thou/uL (4.8-10.8)
--- NOTE | 2019-05-11 12:20 | RAD ---
EXAM: Chest 2 views: HISTORY: Preoperative evaluation COMPARISON: 01/10/2019 FINDINGS: Mild stable increased linear and interstitial markings Heart size:Within normal limits. Lungs:Clear of acute process. Atherosclerotic changes of the aorta. No confluent pneumonia, overt edema, pleural effusion, pneumothorax, or other significant acute proce ss. IMPRESSION: Atherosclerosis of the aorta. No acute intrathoracic disease.
[2019-05-11 12:33] LABS: Anion Gap 11 mmol/L (10-20); BUN (Urea Nitrogen) 23 mg/dL (8.4-25.7); Calc. Creatinine Clearance 52 mL/min (70-130); Calcium 9.4 mg/dL (7.8-10.44); Carbon Dioxide 25 mmol/L (23-31); Chloride 106 mmol/L (98-107); Estimated GFR-MDRD 46; Glucose 129 mg/dL (83-110); Potassium 3.9 mmol/L (3.5-5.1); Sodium 138 mmol/L (136-145)
[2019-05-11] MEDS ORDERED: EPINEPHrine 1 MG/ML AMP ONE (13:29)
[2019-05-11] MEDS ORDERED: Bupivacaine 0.25% HCL 30 ML VIAL ONE (13:29)
[2019-05-11] MEDS ORDERED: Fentanyl 100 MCG/2 ML VIAL ONE ×2 (13:50)
[2019-05-11] MEDS ORDERED: SUGAMMADEX SODIUM 200 MG/2 ML VIAL ONE (13:56)
--- NOTE | 2019-05-12 09:48 | OP ---
DATE OF PROCEDURE: 05/11/2019 PREOPERATIVE DIAGNOSIS: Ventral incisional hernia with incarcerated fat. POSTOPERATIVE DIAGNOSIS: Ventral incisional hernia with incarcerated fat. PROCEDURES PERFORMED: Repair of incisional hernia without mesh. ANESTHESIA: General endotracheal. INDICATIONS FOR PROCEDURE: The patient is a 73-year-old male. He had undergone surgery several months ago in treatment of a pancreatic pseudocyst. He did very well following that surgery, but did develop a bulge to the lower right side of his incision. Ultrasound confirmed that this was in fact an incarcerated hernia. He is taken to the operating room at this time for repair of this. DESCRIPTION OF OPERATION: Informed consent was obtained. The patient was taken to the operating room where general endotracheal anesthesia was obtained with the patient in supine position. Abdomen was prepped with ChloraPrep and draped in sterile fashion. There was an easily palpable dominant mass just to the right of the incision. This mass measured about 3 cm in diameter. Local anesthetic was infiltrated using 0.25% Marcaine with epinephrine. Dissection was carried through skin and subcutaneous tissue down to the easily visualized mass. This was dissected circumferentially and dissected back to the opening at the fascia. The opening was towards the medial aspect of the mass. The mass was clearly too large to reduce. This was all fatty tissue and I therefore dissected this and divided with electrocautery. I carefully dissected the anterior fascia. The posterior fascia was gently dissected. I then closed the defect with 3 interrupted sutures of 0 Prolene. It was too small to consider placing mesh through this. Deep layers of the wound were then closed with interrupted sutures of 3-0 Vicryl taking bites of the posterior tissue to try and close off the fairly substantial space. Skin edges approximated with 4-0 Monocryl subcuticular suture and Dermabond was placed externally. There were no complications. The patient tolerated the procedure well and was taken to recovery in stable condition. Job ID: [id number]
--- NOTE | 2019-05-12 11:52 | EKG ---
Test Reason : PREOP Blood Pressure : / mmHG Vent. Rate : 077 BPM Atrial Rate : 077 BPM P-R Int : 148 ms QRS Dur : 102 ms QT Int : 410 ms P-R-T Axes : 000 -33 018 degrees QTc Int : 463 ms Normal sinus rhythm Left axis deviation Abnormal ECG Confirmed by COREY SILVESTRE ([id number]) on 05/12/2019 11:52:10 AM Referred By: MARISEL Confirmed By:COREY SILVESTRE
== END 2019-05-11 16:30 | disposition home or self-care (01) ==
LOC: SDC 11:44
PROVIDERS: ATTEND Specialist
PROC: 0WQF0ZZ Repair Abdominal Wall, Open Approach (ICD-10-PCS; principal; 2019-05-11)
DX: K43.0 Incisional hernia with obstruction, without gangrene (principal); E11.9 Type 2 diabetes mellitus without complications; I10 Essential (primary) hypertension; E78.5 Hyperlipidemia, unspecified; C64.9 Malignant neoplasm of unspecified kidney, except renal pelvis; C79.51 Secondary malignant neoplasm of bone; Z79.84 Long term (current) use of oral hypoglycemic drugs; Z79.899 Other long term (current) drug therapy; Z88.5 Allergy status to narcotic agent; Z90.3 Acquired absence of stomach [part of]
CPT/HCPCS: 36415; 71046; 80048; 85025; 93005; 93010; J0171; J0690; J1885; J2001; J2405; J2704; J3010; S0020

== ENCOUNTER 2019-07-26 15:14 | Outpatient (CLI) | payer MEDICARE ==
--- NOTE | 2019-07-26 15:51 | RAD ---
Left shoulder 3 views HISTORY: Shoulder pain. COMPARISON: Chest radiograph from 03/20/2018. FINDINGS: Elevation of the humeral head is again demonstrated. Chronic appearing deformity of the acr omion and distal clavicle with widening of the acromioclavicular joint to 2.0 cm. Similar in appearance to the prior chest radiograph from 2018. Osteophytosis most pronounced at the humeral head . No acute fracture or aggressive osseous destruction. IMPRESSION : Chronic rotator cuff tear. 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 Stable com pared to old chest radiograph.
== END 2019-07-26 15:15 | disposition home or self-care (01) ==
LOC: BICRAD 15:14
PROVIDERS: ATTEND Registered Nurse Registered Nurse First Assistant
DX: C79.51 Secondary malignant neoplasm of bone (principal); M75.102 Unspecified rotator cuff tear or rupture of left shoulder, not specified as traumatic
CPT/HCPCS: 36415; 80053; 83615; 83735; 84100; 84439; 84443

== ENCOUNTER 2019-10-02 07:21 | Outpatient (CLI) | payer MEDICARE, OTHER ==
[2019-10-02 18:24] LABS: #Basophils 0.1 thou/uL (0.0-0.2); #Eosinphils 0.3 thou/uL (0.0-0.7); #Lymphocytes 4.1 thou/uL (1.20-3.40); #Monocytes 0.6 thou/uL (0.11-0.59); #Neutrophils 3.7 thou/uL (1.40-6.50); %Basophils 0.8 % (0.0-1.0); %Eosinophils 3.1 % (0.0-10.0); %Lymphocytes 46.6 % (21.0-51.0); %Monocytes 6.6 % (0.0-10.0); %Neutrophils 42.8 % (42.0-75.0); Hemoglobin 14.6 g/dL (14.0-18.0); Mean Corpuscular HGB CONC 31.9 g/dL (32.0-36.0); Mean Corpuscular Hemoglobin 27.8 pg (27.0-31.0); Mean Corpuscular Volume 87.1 fL (78.0-98.0); Mean Platelet Volume 7.9 fL (7.4-10.4); Platelet Count 217 thou/uL (130-400); RBC Distribution Width 13.8 % (11.5-14.5); Red Blood Cell (RBC) Count 5.24 mill/uL (4.70-6.10); White Blood Cell (WBC) Count 8.7 thou/uL (4.8-10.8)
[2019-10-02 18:29] LABS: Anion Gap 12 mmol/L (10-20); BUN (Urea Nitrogen) 41 mg/dL (8.4-25.7); Calc. Creatinine Clearance 0 mL/min (70-130); Calcium 9.5 mg/dL (7.8-10.44); Carbon Dioxide 27 mmol/L (23-31); Chloride 102 mmol/L (98-107); Estimated GFR-MDRD 33; Glucose 104 mg/dL (83-110); Potassium 4.4 mmol/L (3.5-5.1); Sodium 137 mmol/L (136-145)
[2019-10-03 14:02] LABS: SARS-CoV-2 MS2 Positive; SARS-CoV-2 N Gene Negative; SARS-CoV-2 S Gene Negative; SARS-CoV-2 orf1ab Negative
== END 2019-10-02 07:22 | disposition home or self-care (01) ==
LOC: LABBT 07:21
PROVIDERS: ATTEND Specialist
DX: Z01.818 Encounter for other preprocedural examination (principal); Z11.59 Encounter for screening for other viral diseases; K43.2 Incisional hernia without obstruction or gangrene
CPT/HCPCS: 80048; 85025; U0003; 87635; 93005; 93010

== ENCOUNTER 2019-10-23 07:29 | Outpatient (CLI) | payer MEDICARE, OTHER ==
--- NOTE | 2019-10-23 11:46 | RAD ---
EXAM: Chest 2 views: HISTORY: Preoperative radiograph COMPARISON: 05/11/2019 FINDINGS: There is a normal-sized cardiomediastinal silhouette. There is no evidence of consolidation, mass, or pleural effusion. Degenerative changes are seen in the spine. IMPRESSION: No evidence of acute cardiopulmonary disease
[2019-10-24 14:15] LABS: SARS-CoV-2 MS2 Positive; SARS-CoV-2 N Gene Negative; SARS-CoV-2 S Gene Negative; SARS-CoV-2 by NAA Not Detected (NotDetected); SARS-CoV-2 orf1ab Negative
== END 2019-10-23 07:30 | disposition home or self-care (01) ==
LOC: LABBT 07:29 → SCSRAD 07:30
PROVIDERS: ATTEND Specialist
DX: Z01.818 Encounter for other preprocedural examination (principal)
CPT/HCPCS: 71046; 87635; U0003

== ENCOUNTER 2021-12-08 07:23 | Outpatient (CLI) | payer MEDICARE ==
[2021-12-08] MEDS ORDERED: Iopamidol 370 76% 100 ML VIAL ONE (15:07)
== END 2021-12-08 07:24 | disposition home or self-care (01) ==
LOC: NM 07:23
PROVIDERS: ATTEND Internal Medicine Hematology & Oncology
DX: C64.1 Malignant neoplasm of right kidney, except renal pelvis (principal); C79.51 Secondary malignant neoplasm of bone
CPT/HCPCS: 71260; 74177; 78306; 82565; A9503; 36415; 80053; Q9967

== ENCOUNTER 2023-12-13 08:11 | Outpatient (CLI) | payer MEDICARE ==
[2023-12-13] MEDS ORDERED: Iopamidol 370 76% 100 ML VIAL ONE (10:49)
== END 2023-12-13 08:12 | disposition home or self-care (01) ==
LOC: NM 08:11
PROVIDERS: ATTEND Internal Medicine Hematology & Oncology
DX: C64.1 Malignant neoplasm of right kidney, except renal pelvis (principal); C79.51 Secondary malignant neoplasm of bone; M89.9 Disorder of bone, unspecified; Z90.5 Acquired absence of kidney
CPT/HCPCS: 36415; 71260; 74177; 78306; 80053; 82565; 84443; A9503; Q9967